=== PATIENT | female | born 1945 | race Caucasian/White ===

== ENCOUNTER 2023-01-01 07:24 | Outpatient (OUT) | payer MEDICARE, OTHER, SELFPAY ==
[2023-01-01 07:37] LABS: Basophils Percent Auto 0.6 % (0.2-2.0); Eosinophils Absolute Auto 0.3 10^3/uL (0.0-0.7); Eosinophils Percent Auto 3.7 % (0.9-7.0); Hematocrit 45.2 % (36.0-48.0); Hemoglobin 15.4 g/dL (12.0-16.0); Immature Granulocytes Abs Auto 0.02 10^3/uL (0.00-0.03); Immature Granulocytes Pct Auto 0.3 % (0.0-0.5); Lymphocytes Absolute Auto 2.8 10^3/uL (1.2-3.8); Lymphocytes Percent Auto 41.1 % (20.5-60.0); Mean Corpuscular HGB Conc 34.1 g/dL (29.9-35.2); Mean Corpuscular Volume 90.9 fL (81.0-99.0); Mean Platelet Volume 9.8 fL (9.5-13.5); Monocytes Absolute Auto 0.7 10^3/uL (0.3-0.8); Monocytes Percent Auto 10.9 % (1.7-12.0); Neutrophils Percent Auto 43.4 % (43.0-75.0); Platelet Count 261 10^3/uL (150-450); Red Blood Count 4.97 10^6/uL (4.20-5.40); Red Cell Distribution Width 12.7 % (11.0-15.0); White Blood Count 6.8 10^3/uL (4.0-11.0)
[2023-01-01 08:44] LABS: Alanine Aminotransferase 37 U/L (14-59); Anion Gap 9.8; BUN Creatinine Ratio 17.3; Calcium 8.9 mg/dL (8.5-10.1); Carbon Dioxide 27.8 mmol/L (21.0-32.0); Chloride 104 mmol/L (98-107); Chol HDL Ratio 3.3; Cholesterol 191 mg/dL (<=200); Estimated GFR (African America >60 (>=60); Estimated GFR (Non-African Ame >60 (>=60); Glucose 107 mg/dL (74-106); HDL Cholesterol 58 mg/dL (40-60); Potassium 3.6 mmol/L (3.5-5.1); Sodium 138 mmol/L (136-145); Triglycerides 204 mg/dL (<=150); VLDL CHOLESTEROL 40.8 mg/dL
== END 2023-01-01 07:25 | disposition home or self-care (01) ==
LOC: LAB 07:24
PROVIDERS: PCP Internal Medicine; Visit Provider Internal Medicine
DX: E78.00 Pure hypercholesterolemia, unspecified (principal); I25.10 Atherosclerotic heart disease of native coronary artery without angina pectoris; I10 Essential (primary) hypertension; Z79.899 Other long term (current) drug therapy
CPT/HCPCS: 36415; 80048; 80061; 84460; 85025

== ENCOUNTER 2023-02-18 10:59 | Outpatient (OUT) | payer MEDICARE, OTHER, SELFPAY ==
--- NOTE | 2023-02-18 10:45 | NM_ITS ---
Patient: GIANA ISAACS Exam Date: 02/18/2023 : 1945 Gender:F Ordering : DR Jameson Reed D.O. Admission #: [id number] Family : Order #: [id number] CLICK HERE TO VIEW EXAM RADIOLOGY REPORT PROCEDURE: NM NARENDRA PERF SPECT REST STR COMPARISON: None. INDICATIONS: CHEST PAIN, DYSPNEA ON EXERTION TECHNIQUE: Exam Description: Stress/Rest one day protocol gated SPECT Rest Imagin.8 mCi Tc-99m Cardiolite IV on 02/18/2023 Stress Imaging 30.2 mCi Tc-99m Cardiolite IV on 02/18/2023 Exercise Protocol: 0.4 mg Lexiscan given IV Heart Rate (bpm): Rest: 65 Max: 82 PMHR: 58 Blood Pressure: Rest: 190/102 Max: 190/102 Symptoms: Rest and peak stress ECG findings were normal and the exercise portion of the study was normal per attending physician Dr. Ruperto Reed . For more details please see separate cardiac stress test report. FINDINGS: QUALITY OF STUDY: Excellent. PERFUSION DEFECT: None. LOCATION: N/A SIZE: N/A. SEVERITY: N/A. TYPE: N/A. WALL MOTION: Normal. LV SIZE: Normal. 66 mL. TID / TCD: None; 0.9 LVEF: Normal. Calculated EF 83%. SUMMARY: Myocardial perfusion imaging study is NORMAL. CONCLUSION: 1. Normal nuclear medicine myocardial perfusion scan. Dictated by: Lorenzo Dodson M.D. on 02/18/2023 at 15:01 Approved by: Lorenzo Dodson M.D. on 02/18/2023 at 15:25
[2023-02-18] MEDS: REGADENOSON 0.4 MG/5 ML SYRINGE IV (11:32)
--- NOTE | 2023-02-18 13:18 | PM.STRESS ---
Stress Test Stress Test Requesting physician: Jameson Reed Procedure: stress test General Information: Reason for Stress Test: [evaluation of a patient with known coronary disease and substernal chest pain] Cardiac History and Risk Factors: [this is a 77-year-old female patient with known coronary disease. Associated risk factors include essential hypertension and hyperlipidemia.] Resting 12 - Lead Electrocardiogram: Resting 12-lead cardiogram reveals a sinus rhythm with a ventricular rate of 62 bpm. She has a prolonged HI interval of 0.28, QRS is 0.088 QT 0.44. There is QS deformity in leads V1 through V2 suggestive of remote ANTERIOR septal wall myocardial infarction. There is nonspecific ST-T wave changes. Stress Test: Protocol: [Lexiscan protocol] Exercise Capacity: [not applicable] Blood Pressure Response: [patient's blood pressure decreased with an increase in heart rate which is appropriate for Lexiscan infusion.] Rhythm: [the patient remained in sinus rhythm during infusion] ST - Response: [there is no ST-T wave changes during infusion] Patient Response: [ppatient denied chest pain during infusion] Interpretation: There was no objective evidence of myocardial ischemia during infusion. Cardiolite was injected with images in interpretation pending
== END 2023-02-18 11:00 | disposition home or self-care (01) ==
LOC: NM 10:59
PROVIDERS: PCP Internal Medicine; Visit Provider Internal Medicine
DX: R07.2 Precordial pain (principal); I25.10 Atherosclerotic heart disease of native coronary artery without angina pectoris
CPT/HCPCS: 78452; 93017; A9500; J2785

== ENCOUNTER 2023-03-29 09:51 | Outpatient (OUT) | payer MEDICARE, OTHER, SELFPAY ==
--- NOTE | 2023-03-29 | MM_ITS ---
Patient: GIANA ISAACS Exam Date: 03/29/2023 : 1945 Gender:F Ordering : DR Jameson Reed D.O. Admission #: [id number] Family : Order #: [id number] CLICK HERE TO VIEW EXAM RADIOLOGY REPORT PROCEDURE: MM TOMOSYNTHESIS SCREENING BI COMPARISON: MG MAMM SCREEN 3D ADELITA CAD, 03/26/2022. MG MAMM SCREEN 3D ADELITA CAD, 08/27/2020. MG MAMM SCREEN ADELITA W CAD, 05/16/2019. MG MAMM ADELITA SCRN W CAD DIG, 08/18/2013. INDICATIONS: Adelita Screening Mammogram Calculator Name NCI Breast Cancer Risk Assessment Tool 5 Year Breast Cancer Risk 1.50% Lifetime Breast Cancer Risk 2.50% Personal Breast Cancer No Personal Ovarian Cancer No Treatments None Family Cancers None LOCATION: [facility] BREAST COMPOSITION: Scattered areas fibroglandular density. FINDINGS: DIAGNOSTIC CATEGORY 2--BENIGN FINDING: RIGHT BREAST: No significant suspicious finding. Scattered benign-appearing calcifications are present. No significant change has occurred. LEFT BREAST: No significant suspicious finding. Scattered benign-appearing calcifications are present. No significant change has occurred. RECOMMENDATIONS: ROUTINE MAMMOGRAM AND CLINICAL EVALUATION IN 12 MONTHS. PLEASE NOTE: A NORMAL MAMMOGRAM DOES NOT EXCLUDE THE POSSIBILITY OF BREAST CANCER. A CLINICALLY SUSPICIOUS PALPABLE LUMP SHOULD BE BIOPSIED. Dictated by: Lorenzo Dodson M.D. on 03/29/2023 at 15:24 Approved by: Lorenzo Dodson M.D. on 03/29/2023 at 15:29
== END 2023-03-29 09:52 | disposition home or self-care (01) ==
LOC: MAMMO 09:51
PROVIDERS: PCP Internal Medicine; Visit Provider Internal Medicine
DX: Z12.31 Encounter for screening mammogram for malignant neoplasm of breast (principal)
CPT/HCPCS: 77063; 77067

== ENCOUNTER 2024-01-26 07:06 | Outpatient (OUT) | payer MEDICARE, OTHER, SELFPAY ==
--- OUTSIDE RECORDS SUMMARY | 2024-01-26 07:10 | XMS_ITS | CCD ---
Author Organization [facility] Care Team Providers Care Dispatcher Relay Name Role Phone PHYSICIAN, DEFAULT Admitting Unavailable PHYSICIAN, DEFAULT Attending Unavailable Jameson Reed DO Primary Care Provider [phone] [facility] H[facility]IARD Referring Unavailab le JAMESON REED Primary Care Unavailable ARMINDA, MERCY HERNANDES Referring Unavailab le JAMESON REED Primary Care Unavailable JAMESON REED Primary Care Physician KEERTHI, DR FABIAN Primary Care Unavailable BALL, DR FABIAN Admitting Unavailable BALL, DR FABIAN Attending Unavailable BALL, DR FABIAN Consulting Unavailable WEST, DR VITOR Lloyd Consulting Unavailable Zieber, DR Ventura Consulting Unavailable LUE ., RAVIN Veloz Attending Unavailable LUE ., RAVIN Veloz Admitting Unavailable BALL, DR FABIAN Primary Care Unavailable LUE ., RAVIN Veloz Consulting Unavailable BALL, DR FABIAN Consulting Unavailable BALL, DR FABIAN Primary Care Unavailable BALL, DR FABIAN Admitting Unavailable BALL, DR FABIAN Attending Unavailable Zieber, DR Ventura Consulting Unavailable BALL, DR FABIAN Primary Care Unavailable REQUEST, DR MELCHOR LISTED Attending Unavaila ble REQUEST, DR MELCHOR LISTED Consulting Unavaila ble REQUEST, DR MELCHOR LISTED Admitting Unavaila ble Jameson Reed Unavailable RHEA BUSBY Attending Unavailable Hilliard, Mercy Serrano Admitting Unavailable Hilliard, Mercy Serrano Attending Unavailable Hilliard, Mercy Serrano Referring Unavailable Hilliard, Mercy T Referring Unavailable Hilliard, Mercy Maggie Admitting Unavailable Hilliard, Mercy Serrano Attending Unavailable Jameson Reed MD Primary Care Provider CAITY CEBALLOS Attending Unavailable HILLIARD, MERCY Serrano Referring Unavailable KELTYRELL, CAITY Attending Unavailable HILLIARD, MERCY T Referring Unavailable HILLIARD, MERCY T Attending Unavailable HILLIARD, MERCY T Referring Unavailable KELBLEY, CAITY Attending Unavailable HILLIARD, MERCY T Referring Unavailable KELBLEY, CAITY Attending Unavailable HILLIARD, MERCY T Referring Unavailable KELBLEY, CAITY Attending Unavailable HILLIARD, MERCY T Referring Unavailable KELBLEY, CAITY Attending Unavailable HILLIARD, MERCY T Referring Unavailable KELBLEY, CAITY Attending Unavailable HILLIARD, MERCY T Referring Unavailable KELBLEY, CAITY Attending Unavailable HILLIARD, MERCY T Referring Unavailable KELBLEY, CAITY Attending Unavailable HILLIARD, MERCY T Referring Unavailable KELBLEY, CAITY Attending Unavailable HILLIARD, MERCY T Referring Unavailable KELBLEY, CAITY Attending Unavailable HILLIARD, MERCY T Referring Unavailable KELBLEY, CAITY Attending Unavailable HILLIARD, MERCY T Referring Unavailable BLACKSTON, CORTNEY T Attending Unavailable HILLIARD, MERCY T Referring Unavailable FLOWERS SUSIE Lisa Attending Unavailable HILLIARD, MERCY T Referring Unavailable KELBLEY, CAITY Attending Unavailable HILLIARD, MERCY T Referring Unavailable KELBLEY, CAITY Attending Unavailable HILLIARD, MERCY T Referring Unavailable KELBLEY, CAITY Attending Unavailable HILLIARD, MERCY T Referring Unavailable KELBLEY, CAITY Attending Unavailable HILLIARD, MERCY T Referring Unavailable KELBLEY, CAITY Attending Unavailable HILLIARD, MERCY T Referring Unavailable HILLIARD, MERCY T Referring Unavailable HILLIARD, MERCY T Attending Unavailable HILLIARD, MERCY T Referring Unavailable Allergies Allergy Classification Reported Allergen(s) Allergy Type Date of Onset Reaction(s) Facility (3 sources) Amoxicillin / Clavulanate; Translations: [amoxicillin-cl avulanate] Drug Allergy Diarrhea (finding) [facility] (1 source) Amoxicillin / Clavulanate Drug Allergy [facility] (5 sources) Lisinopril Drug Allergy Unknown [facility] Other (1 source) No Known Medication Allergies; Translations: [No Known Medication Allergies] Propensity to adverse reactions (disorder) [facility]ository (4 sources) Amoxicillin-Pot Clavulanate Drug Allergy 3 Diarrhea [facility] Medications Current Medications Medication Drug Class(es) Dates Sig (Normalized) Sig (Original) amLODIPine 5 mg oral tablet (12 sources) Dihydropyridine Calcium Channel Twyla Start: 12-28-2023 take 5 mg by mouth twice daily Amlodipine Active 5 MG PO Twice daily December 28, 2023 12:00am Start: 01-10-2019 take 1 tablet by nikita th in the morning amLODIPine (Norvasc) 5 MG tablet Take 5 mg by mouth in the morning and 5 mg before bedtime. 0 04/09/2023 Active aspirin 81 mg oral tablet (2 sources) Platelet Aggregation Inhibitor, Nonsteroidal Anti-inflammatory Drug Start: 10-14-2020 take 81 mg by mouth once daily aspirin 81 mg, Oral, Daily, Prophylaxis Start Date: 10/14/20 Status: Ordered calcium carbonate 1500 mg / cholecalciferol 800 unt chewable tablet (2 sources) Vitamin D Start: 01-10-2019 take 1 tablet by mouth once daily calcium (as carbonate)-vitam in D 600 mg-800 intl units oral tablet, chewable 1 tab(s), Oral, Daily, Prophylaxis Start Date: 01/10/19 Status: Ordered carvedilol 25 mg oral tablet (12 sources) alpha-Adrenergic Twyla, beta-Adrenergic Twyla Start: 12-28-2023 take 25 mg by mouth twice daily Carvedilol Active 25 MG PO Twice daily December 28, 2023 12:00am Start: 01-10-2019 carvedilol (Co reg) 25 MG tablet Celebrate Multivitamin (2 sources) Start: 01-10-2019 take 1 capsule by mouth once daily Celebrate Multivitamin 1 cap, Oral, Daily, Prophylaxis Start Date: 01/10/19 Status: Ordered cephalexin 500 mg oral capsule (4 sources) Cephalosporin Antibacterial Start: 03-01-2023 cephalexin (Keflex) 500 MG capsule Indications: Presence of left artificial knee joint Take two caps evening prior to appointment, take two cap one hour prior to appointment 4 capsule 2 03/01/2023 Active furosemide 20 mg oral tablet (13 sources) Loop Diuretic Start: 09-27-2023 take 1 tablet by mouth once daily Furosemide Active 0 .ROUTE .COMPLEX 90 September 27, 2023 10:06pm TAKE 1 TABLET BY MOUTH EVERY DAY Start: 09-27-2023 End: 09-27-2023 take 20 mg by mouth once daily Furosemide Discontinued 20 MG PO Daily September 27, 2023 12:00am September 27, 2023 10:06pm Start: 01-10-2019 furosemide (La six) 20 MG tablet potassium chloride 10 meq extended release oral tablet (12 sources) Start: 12-28-2023 take 10 mEq by mouth once daily Potassium Chloride Active 10 MEQ PO Daily December 28, 2023 12:00am Start: 10-17-2020 take 1 tablet by nikita th in the morning potassium chloride CR (Klor-Con) 10 MEQ ER tablet Take 10 mEq by mouth in the morning. 0 03/04/2023 Active take 1 tablet by nikita th every twelve hours Potassium Chloride ER 10 MEQ 1 tablet with food Orally Twice a day Active pravastatin sodium 40 mg oral tablet (9 sources) HMG-CoA Reductase Inhibitor Start: 10-21-2023 take 1 tablet by mouth in the evening Pravastatin Active 0 .ROUTE .COMPLEX 90 October 21, 2023 3:45pm TAKE 1 TABLET BY MOUTH IN THE EVENING Start: 10-21-2023 End: 10-21-2023 take 40 mg by mouth once daily in the evening Pravastatin Discontinued 40 MG PO Every evening October 21, 2023 12:00am October 21, 2023 3:47pm Start: 01-10-2019 take 40 mg by mouth once daily pravastatin 40 mg, Oral, Daily, High cholesterol Start Date: 01/10/19 Status: Ordered telmisartan 80 mg oral tablet (12 sources) Angiotensin 2 Receptor Twyla Start: 07-24-2023 take 80 mg by mouth once daily Telmisartan Active 80 MG PO Daily July 24, 2023 1:00am Start: 01-10-2019 take 1 tablet by nikita th in the morning telmisartan (MIcarDIS) 80 MG tablet Take 80 mg by mouth in the morning. 0 02/11/2023 Active Completed/Discontinued Medications Medication Drug Class(es) Dates Sig (Normalized) Sig (Original) ALPRAZolam 0.25 mg oral tablet (6 sources) Benzodiazepine Start: 12-28-2023 End: 12-28-2023 take 0.25 mg by mouth once daily Alprazolam Discontinued 0.25 MG PO Daily December 28, 2023 12:00am December 28, 2023 10:54am ALPRAZolam 0.25 MG 1 tablet Orally ONE DAILY, NEEDED Active azithromycin 250 mg oral tablet (5 sources) Macrolide Antimicrobial Start: 06-18-2022 Azithromycin 250 MG as directed Orally May, Not-Taking/PRN Problems Active Problems Problem Classification Problem Date Documented Da te Episodic/Chronic Abdominal pain (5 sources) Generalized abdominal pain; Translations: [Generalized abdominal pain] Episodic Acute bronchitis (5 sources) Acute bronchitis; Translations: [Acute bronchitis due to other specified organisms] Episodic Acute myocardial infarction (2 sources) Myocardial infarction 02-06-2019 Chronic Comment on above: 1989 Anxiety disorders (12 sources) Anxiety disorder; Translations: [Anxiety disorder, unspecified] 12-26-2023 Chronic Biliary tract disease (5 sources) Cholelithiasis without obstruction; Translations: [Calculus of gallbladder without cholecystitis without obstruction] Episodic Calculus of urinary tract (17 sources) Kidney stone; Translations: [Calculus of kidney] Onset: 2 Episodic Chronic obstructive pulmonary disease and bronchiectasis (5 sources) Simple chronic bronchitis; Translations: [Simple chronic bronchitis] Chronic Coronary atherosclerosis and other heart disease (10 sources) Old myocardial infarction; Translations: [Coronary arteriosclerosis] 01-10-2019 Chronic Disorders of lipid metabolism (20 sources) Hypercholesterolemia; Translations: [Familial hypercholesterolemia] Onset: 0 01-10-2019 Chronic Esophageal disorders (2 sources) Gastroesophageal reflux disease 01-10-2019 Chronic Essential hypertension (17 sources) Hypertensive disorder; Translations: [Essential hypertension] 02-06-2019 Chronic Gastrointestinal hemorrhage (7 sources) Peptic ulcer with hemorrhage; Translations: [Chronic duodenal ulcer with hemorrhage] Onset: 7 01-10-2019 Chronic Genitourinary symptoms and ill-defined conditions (19 sources) Swapnil hematuria; Translations: [Microscopic hematuria] Onset: 3 03-21-2020 Episodic Immunizations and screening for infectious disease (5 sources) Vaccination given; Translations: [Encounter for immunization] Episodic Menopausal disorders (5 sources) Primary ovarian failure; Translations: [Other 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: 6 Chronic Osteoarthritis (19 sources) Osteoarthritis of knee; Translations: [Idiopathic osteoarthritis] 01-10-2019 Chronic Other aftercare (2 sources) Patient encounter status; Translations: [Aftercare following joint replacement surgery] 07-08-2023 Chronic Other and unspecified benign neoplasm (3 sources) Benign neoplasm of female genital organ; Translations: [Benign neoplasm of other specified female genital organs] Onset: 2 Episodic Other and unspecified benign neoplasm (5 sources) Benign neoplasm of colon; Translations: [Benign neoplasm of colon, unspecified] Episodic Other circulatory disease (5 sources) Cardiovascular symptoms; Translations: [Other specified symptoms and signs involving the circulatory and respiratory systems] Episodic Other connective tissue disease (1 source) History of left total knee replacement; Translations: [Presence of left artificial knee joint] Chronic Other connective tissue disease (2 sources) Artificial knee joint present; Translations: [Presence of right artificial knee joint] 07-08-2023 Chronic Other diseases of veins and lymphatics (5 sources) Peripheral venous insufficiency; Translations: [Venous insufficiency (chronic) (peripheral)] Episodic Other diseases of veins and lymphatics (2 sources) Venous insufficiency (chronic) (peripheral); Translations: [Venous (peripheral) insufficiency, unspecified] Episodic Other diseases of veins and lymphatics (1 source) Venous insufficiency of leg; Translations: [Venous insufficiency (chronic) (peripheral)] 12-26-2023 Episodic Other gastrointestinal disorders (5 sources) H/O: gastrointestinal disease; Translations: [Personal history of other diseases of the digestive system] Episodic Other injuries and conditions due to external causes (5 sources) History of fall; Translations: [History of falling] Episodic Other nervous system disorders (2 sources) Difficulty walking; Translations: [Difficulty in walking, not elsewhere classified] 07-08-2023 Chronic Other non-traumatic joint disorders (2 sources) Pain in right knee; Translations: [Pain in joint, lower leg] 07-08-2023 Episodic Other nutritional; endocrine; and metabolic disorders (2 sources) Body mass index 30+ - obesity 12-29-2019 Chronic Other nutritional; endocrine; and metabolic disorders (5 sources) Simple obesity ; Translations: [Other obesity due to excess calories] Onset: 3 Chronic Other screening for suspected conditions (not mental disorders or infectious disease) (5 sources) Encounter for screening mammogram for malignant neoplasm of breast; Translations: [Other screening mammogram] Onset: 2 Episodic Other upper respiratory disease (5 sources) Allergic rhinitis due to pollen; Translations: [Allergic rhinitis due to pollen] Chronic Residual codes; unclassified (5 sources) Postmenopausal state; Translations: [Asymptomatic menopausal state] Episodic Screening and history of mental health and substance abuse codes (2 sources) Ex-smoker 01-29-2020 Episodic Spondylosis; intervertebral disc disorders; other back problems (6 sources) Lumbosacral spondylosis without myelopathy; Translations: [Spondylosis without myelopathy or radiculopathy, lumbar region] 12-26-2023 Chronic Substance-related disorders (5 sources) Tobacco user; Translations: [Nicotine dependence, cigarettes, in remission] Chronic Unclassified (5 sources) Unspecified lump in the right breast, overlapping quadrants; Translations: [Unspecified lump in the right breast, overlapping quadrants] Past or Other Problems Problem Classification Problem Date Documented Date Episodic/Chronic Acute posthemorrhagic anemia (5 sources) Acute posthemorrhagic anemia; Translations: [Acute posthemorrhagic anemia] Onset: 08-31-2016 Episodic Fluid and electrolyte disorders (5 sources) Hypokalemia; Translations: [Hypokalemia] Onset: 08-31-2016 Episodic Gastritis and duodenitis (5 sources) Acute gastritis; Translations: [Acute gastritis without bleeding] Onset: 08-31-2016 Episodic Nonspecific chest pain (5 sources) Chest pain; Translations: [Chest pain, unspecified] Onset: 11-21-2018 Episodic Other bone disease and musculoskeletal deformities (1 source) Other specified disorders of bone density and structure, unspecified site; Translations: [OTH D/O BONE DEN STRUCT UNS SITE] Onset: 09-01-2021 Episodic Other non-traumatic joint disorders (5 sources) Arthralgia of the lower leg; Translations: [Pain in right knee] Onset: 10-04-2015 Episodic Other upper respiratory infections (10 sources) Acute sinusitis; Translations: [Acute sinusitis, unspecified] Onset: 05-17-2015 Episodic Residual codes; unclassified (4 sources) Asymptomatic menopausal state; Translations: [ASYMPTOMATIC MENOPAUSAL STATE] Onset: 08-28-2021 Episodic Spondylosis; intervertebral disc disorders; other back problems (5 sources) Low back pain; Translations: [Low back pain, unspecified] Onset: 01-25-2017 Episodic Sprains and strains (10 sources) Strain of other muscle(s) and tendon(s) of posterior muscle group at lower leg level, right leg, initial encounter; Translations: [Neck sprain] Onset: 10-04-2015 Episodic Superficial injury; contusion (5 sources) Contusion of right upper arm; Translations: [Contusion of right upper arm, initial encounter] Onset: 09-28-2016 Episodic Urinary tract infections (5 sources) Cystitis; Translations: [Cystitis, unspecified without hematuria] Onset: 01-27-2013 Episodic Results Test Name Value Interpretation Reference Range Facility Operative Reporton Operative Report SURGERY DATE: 05/03/2023 PREOPERATIVE DIAGNOSIS: Postoperative pain control requested by patient and surgeon POSTOPERATIVE DIAGNOSIS: Postoperative pain control requested by patient and surgeon OPERATION: Right adductor canal block utilizing ultrasound guidance ANESTHESIA: Local with monitored anesthesia care PROCEDURE: The patient was interviewed and examined. The anesthesia options were discussed including adductor canal block for postoperative analgesia. The discussion included the procedure, risks and benefits and alternatives to the procedure. The patient's questions were all answered and the patient elected to proceed with the adduction canal block for postoperative pain relief. The patient was placed on the monitors, electrocardiogram, noninvasive blood pressure machine and pulse oximetry. I.V. sedation was then administered with a total of 1 mg of Versed. The mid thigh was prepped with ChloraPrep and sterilely draped. The anatomy was identified with ultrasound and then under ultrasound guidance, the femoral nerve was identified with a 21 gauge 100 mm needle. After attempted aspiration for blood, a solution of 20 mL of 0.5% ropivacaine was slowly injected with frequent aspirations without signs or symptoms of intravascular injection. The patient tolerated the procedure well. There were signs and symptoms of a block within minutes after completion of the procedure. The patient then proceeded to undergo general anesthesia for the proposed procedure. JOE Jiang Dictated: 05/03/2023 [id number] Transcribed: 05/03/2023 [facility] Comment on above: Result Comment: Elec tronically Signed By: Jose Franco CRNA\.br\Date and Time Signed: 05/10/23 13:14 EST IntraOperative Documentson 1 07-08-2022 IntraOperative Documents [id number]#1.00 TIFF [facility] Consent for Anesthesiaon Consent for Anesthesia [id number]#1.00 TIFF [facility] Discharge Instructionson Discharge Instructions [id number]#1.00 TIFF [facility] IntraOperative Documentson 1 07-05-2022 IntraOperative Documents [id number]#1.00 TIFF [facility] Pre-Op Checkliston 3 Pre-Op Checklist [id number]#1.00 TIFF [facility] Progress Note-Physicianon Progress Note-Physician Patient: GIANA ISAACS Age: 77 years Sex: Female : 1945 Associated Diagnoses: None Author: Sabas Marquez Jr, DO Preoperative Information Anesthesia Preop Info: Time patient last ate or drank 05/03/2023 00:00:00. Anesthesia history: Patient history: None. Family history+: None. Informed consent: Signed by patient. Re-evaluation prior to induction: Initial evaluation reviewed: No significant change. Review of Systems Eye: Negative except as documented in history of present illness. Ear/Nose/Mouth/Throat: Negative except as documented in history of present illness. Respiratory: Negative except as documented in history of present illness. Cardiovascular: Negative except as documented in history of present illness. Musculoskeletal: Negative except as documented in history of present illness. Neurologic: Negative except as documented in history of present illness. Health Status Allergies: Allergic Reactions (Selected) Severity Not Documented Augmentin- Diarrhea. Problem list: All Problems Knee osteoarthritis / SNOMED CT 770716187 / Confirmed Microhematuria / SNOMED CT 296855853 / Confirmed Kidney stones / SNOMED CT 815495703 / Confirmed Hypertension / SNOMED CT 0875799385 / Confirmed Hypercholesterolemia / SNOMED CT 13688335 / Confirmed Acid reflux disease / SNOMED CT 939595803 / Confirmed Gross hematuria / SNOMED CT 411472317 / Confirmed Former smoker / SNOMED CT 53421808 / Confirmed BMI 32.0-32.9,adult / SNOMED CT 469973314 / Confirmed Leiomyoma / SNOMED CT 679414303 / Confirmed Resolved: Bleeding ulcer / SNOMED CT 139142398 Resolved: IA, old / SNOMED CT 0296249 Resolved: Myocardial infarction / SNOMED CT 30103630 1988 Resolved: HTN (hypertension) / SNOMED CT 4044699236 Resolved: Hypercholesterolemia / SNOMED CT 45644713 Resolved: At risk for falls / SNOMED CT 119603670 Problem added when Risk for Falls Careplan was initiated. Resolved due to patient discharge. Histories Procedure history: RT ESWL ([id number]) on 03/26/2021 at 75 Years. Cysto/Transurethral resection of urethral polyp ([id number]) on 03/26/2021 at 75 Years. Cystourethroscopy with dilation of urethral stricture (741025052) on 10/17/2020 at 75 Years. Total knee arthroplasty ([id number]) on 02/06/2019 at 73 Years. Hysterectomy ([id number]). Colonoscopy (164813250). Social History Social & Psychosocial Habits Alcohol 05/03/2023 Use: Current Type: Beer Frequency: Daily Previous treatment: None 05/03/2023 Use: Current Type: Beer Frequency: Daily Substance Abuse 05/03/2023 Risk Assessment: Denies Substance Abuse Tobacco 05/03/2023 Risk Assessment: Denies Tobacco Use 05/03/2023 Tobacco Use: Former smoker, quit more 05/03/2023 Tobacco Use: Former smoker, quit more 05/03/2023 Tobacco Use: Former smoker, quit more 05/03/2023 Tobacco Use: Former smoker, quit more Smokeless tobacco use: Never . Physical Examination Airway: Mallampati classification: II (soft palate, fauces, uvula visible). Respiratory: adequate air exchange. Cardiovascular: Regular rhythm. Plan [place] [employer] (ASA) physical status classification: Class III. Anesthetic Preoperative Plan: Anesthesia General. Regional Spinal. Normal [facility] Comment on above: Result Comment: Elec tronically Signed By: Sabas Marquez Jr, DO\.br\Date and Time Signed: 05/04/23 11:37 EST Progress Note-Physician Patient: GIANA ISAACS Age: 77 years Sex: Female : 1945 Associated Diagnoses: None Author: Sabas Marquez Jr, DO Postoperative Information Postoperative disposition: Postoperative disposition: To PACU. Optimetrix number: Optimetrix number [id number]. Anesthetic utilized: General. Regional: Spinal. Health Status Allergies: Allergic Reactions (Selected) Severity Not Documented Augmentin- Diarrhea. Physical Examination Vital Signs 05/03/2023 15:32 EST Heart Rate Monitored 72 bpm SpO2 94 % 05/03/2023 15:31 EST Respiratory Rate 16 br/min 05/03/2023 15:31 EST Systolic Blood Pressure 129 mmHg Diastolic Blood Pressure 76 mmHg Blood Pressure Location Right arm Mean Arterial Pressure, Monitered 94 mmHg 05/03/2023 15:31 EST Temperature Temporal Artery 36.6 DegC Mean Arterial Pressure, Cuff 94 mmHg 05/03/2023 11:29 EST Heart Rate Monitored 63 bpm Respiratory Rate Monitored 18 br/min Systolic Blood Pressure 110 mmHg Diastolic Blood Pressure 60 mmHg SpO2 96 % 05/03/2023 11:11 EST Temperature Temporal Artery 36.5 DegC Heart Rate Monitored 60 bpm Respiratory Rate Monitored 16 br/min Systolic Blood Pressure 110 mmHg Diastolic Blood Pressure 61 mmHg Mean Arterial Pressure, Cuff 77 mmHg SpO2 94 % Pain Assessment: Controlled. General: Awake, Alert, Appropriate. Respiratory: Adequate air exchange. Cardiovascular: Stable, Normal peripheral perfusion. Neurological: Normal sensory function, Normal motor function. Assessment Anesthetic outcome No anesthetic complications noted. Adequate pain relief. able to void without difficulty, able to ambulate with assist, tolerating PO intake, no N/V. Review / Management Condition: Stable. Plan Transfer/Discharge: Transfer/Discharge Discharge when meets criteria ( To home ). Normal [facility] Comment on above: Result Comment: Elec tronically Signed By: Sabas Marquez Jr, DO\.br\Date and Time Signed: 05/04/23 11:37 EST ABO/Rhon 05-03-2023 ABO/Rh Positive Invalid Interpretation Code [facility] Comment on above: Performed By: #### [id number] #### [facility] [address] [place] [address] ABO/Rh History Checkon 05-03 ABO/Rh History Check Verified Hx Blood Type Normal [facility] Comment on above: Performed By: #### [id number] #### [facility] [address] [place] [address] ABSCon 05-03-2023 ABSC Gel Interp Negative Normal [facility] Comment on above: Performed By: #### [id number] #### [facility] [address] [place] [address] Blood Bank ID#[id number] 05-03-2023 BBID# [id number] Invalid Interpretation Code [facility] Comment on above: Performed By: #### 2 [id number] #### [facility] [address] [place] [address] Consent for Procedure/Surger yon 05-03-2023 Consent for Procedure/Surgery [id number] TIFF Normal [facility] Consent for Treatmenton Consent for Treatment [id number] IFF Normal [facility] Discharge Instructionson Discharge Instructions GIANA ISAACS :1945 Visit Date:05/03/2023 Inpatient Discharge Instructions Your Care Team Admitting Physician Mercy Villanueva DO Referring Physician - Arminda RIOJAS, Mercy Serrano Reason for Your Visit RIGHT KNEE OA Procedure History Cystoscopy (03/26/2021), ESWL of kidney (03/26/2021), Cystourethroscopy with dilation of urethral stricture (10/17/2020), Total knee arthroplasty (02/06/2019), Colonoscopy, Hysterectomy. Discharge Vitals Temperature (Axillary) 36.4 ?C Heart Rate (Monitored) 62 Respiratory Rate 16 Blood Pressure 103/60 What to do next Instructions From Your Doctor Event Name Event Result Discharge Activity Ambulate as tolerated, Arrange for a responsible adult supervision for 24 hours, Expect mild pain, Expect minimal amount of drainage and/or bleeding, Do not lift more than 5 lbs Discharge Restrictions No driving, Do not operate machinery or tools, Do not make important decisions for 24 hours, Do not drink alcoholic beverages for 24 hours Discharge Diet(s) Regular, Drink liquids and eat a light meal Call Your Doctor For Persistent or heavy bleeding, Temperature above 101.5 degrees, Redness, swelling, or pus at operative site, Severe pain at the operative site, Persistent vomiting Wound Care Remove dressing as instructed Remove Dressing On 10 Discharge Instructions Discharge Instructions New Follow Up Appointments after Discharge Follow Up with VALERY Negro When: 06/03/2023 02:00 PM EST Comments: Keep scheduled appointment. Call for any problems. Where: [address] [place] [address]- [facility] (1) Medications What How Much When Why Instructions Next Dose Unchanged acetaminophen-oxycodone (Percocet 5 mg-325 mg oral tablet) See instructions Localized osteoarthritis of right knee Take one to two oral as needed for knee surgical pain. Pickup at [facility]/pharmacy #[id number] Unchanged amlodipine 5 Milligram By Mouth 2 times a day Unchanged aspirin 81 Milligram By Mouth Every day Unchanged aspirin (aspirin 325 mg Tab) 1 Tablets By Mouth Every day Duration: 30 Days Start the day after knee surgery Pickup at [facility]/pharmacy #6177 Unchanged calcium-vitamin D (calcium (as carbonate)-vitamin D 600 mg-800 intl units oral tablet, chewable) 1 Tablets By Mouth Every day Unchanged carvedilol 25 Milligram By Mouth 2 times a day Unchanged clindamycin (clindamycin 300 mg oral cap) 1 Capsules By Mouth Every 8 hours Duration: 5 Days Start the day after surgery Pickup at [facility]/pharmacy #6177 Unchanged docusate (Colace 100 mg Cap) 1 Capsules By Mouth 2 times a day [facility] Unchanged furosemide (furosemide 20 mg Tab) 1 Tablets By Mouth Every day Unchanged multivitamin with minerals (Celebrate Multivitamin) 1 cap By Mouth Every day Unchanged potassium chloride (Klor Con 10 mEq Cap-ER) 1 Tablets By Mouth Every day Unchanged pravastatin 40 Milligram By Mouth Every day Unchanged telmisartan 80 Milligram By Mouth Every day Pharmacy Information [facility]/pharmacy #[id number]: [address], [place] [id number] [phone] Allergies Augmentin (Diarrhea) Devices Implanted/Removed This Visit Notice: You have devices implanted this visit that may not be MRI compatible. Implanted KNEE TOTAL ARTHROPLASTY Knee R CEMENT SIMPLEX PLAIN VISCOSITY HIGH [[id number]] (2), 05/03/2023, Unknown - EVELYNE: {[id number]{10}[id number] OVAL DOME PATELLA 3-PEG 05/03/2023 P.F.C. SIGMA TIBIAL INSERT FIXED BEARING STABILIZED 05/03/2023 P.F.C. SIGMA TIBIAL TRAY FIXED BEARING MODULAR COCR 05/03/2023 SIGMA FEMORAL POSTERIOR STABILIZED CEMENTED 05/03/2023 Education Materials How to Use an Incentive Spirometer An incentive spirometer is a tool that measures how well you are filling your lungs with each breath. Learning to take long, deep breaths using this tool can help you keep your lungs clear and active. This may help to reverse or lessen your chance of developing breathing (pulmonary) problems, especially infection. You may be asked to use a spirometer: ? After a surgery. ? If you have a lung problem or a history of smoking. ? After a long period of time when you have been unable to move or be active. If the spirometer includes an indicator to show the highest number that you have reached, your health care provider or respiratory therapist will help you set a goal. Keep a log of your progress as told by your health care provider. What are the risks? ? Breathing too quickly may cause dizziness or cause you to pass out. Take your time so you do not get dizzy or light-headed. ? If you are in pain, you may need to take pain medicine before doing incentive spirometry. It is harder to take a deep breath if you are having pain. How to use your incentive spirometer 1. Sit up on the edge of your bed or on a chair. 2. Hold the incentive spirometer so t (more content not included)... Normal [facility] Comment on above: Result Comment: Elec tronically Signed By: Junaid KHAN, Ignacia Edmonds\.br\Date and Time Signed: 05/03/23 11:13 EST H&P Updateon 05-03-2023 H&P Update [id number] TIFF Normal [facility] Main OR Intraoperative Recor don 05-03-2023 Main OR Intraoperative Record IntraOp Document Type FT Summary Primary Physician: Mercy Hilliard DO Finalized Date/Time: 05/03/23 12:19:46 Pt. Name: GIANA ISAACS/Sex: 1945 Female Med Rec #: [id number] Physician: Mercy Hilliard DO Financial #: [id number] Pt. Type: A Room/Bed: Admit/Disch: 05/03/23 06:48:16 - Institution: Case Times FT Entry 1 Patient Times In Room 05/03/23 09:28:00 Out Room 05/03/23 10:45:00 Procedure Times Start 05/03/23 09:53:00 Stop 05/03/23 10:40:00 Anesthesia Times Start 05/03/23 09:28:00 Stop 05/03/23 10:45:00 Block Timeout w/ 05/03/23 08:43:00 Anesthesia Last Modified By: Jeromy Watson Ii 05/03/23 10:49:37 General Comments: RIGHT KNEE BLOCK DONE BY JOSE FRANCO CRNA AND MISSAEL MERCER RN AT 0843. PATIENT VITAL SIGNS HR OF 66 BPM AND SP02 OF 93%. -BILL GALVEZ SPINAL BLOCK PERFORMED BY JOSE FRANCO CRNA AT 0932. -BILL GALVEZ 05/03/23 Chart opened to review and send charges [facility] Case Attendance FT Entry 1 Entry 2 Entry 3 Case Attendee Khadar DIAZ, Jose Hilliard DO, Sanjuanita Novak CST Role Performed GOLF TECHNICIAN Surgeon - Primary GEOGRAPHIC INFORMATION SYSTEM ANALYST/SA Time In 05/03/23 09:28:00 05/03/23 09:50:00 05/03/23 09:28:00 Time Out 05/03/23 10:45:00 05/03/23 10:40:00 05/03/23 10:45:00 Procedure KNEE TOTAL KNEE TOTAL KNEE TOTAL ARTHROPLASTY(Right) ARTHROPLASTY(Right) ARTHROPLASTY(Right) Comments DR. MARQUEZ SUPERVISING Last Modified By: Jeromy Watson Ii, Alfons Ii F Letrondo, Alfons Ii F 05/03/23 10:50:34 05/03/23 10:50:34 05/03/23 10:50:34 Entry 4 Entry 5 Entry 6 Case Attendee Jeromy Watson Ii, Alejandro X Troike, Kendall R Role Performed Data Analysis Manager - Primary Staff - Other Staff - Other Time In 05/03/23 09:28:00 05/03/23 09:28:00 05/03/23 09:28:00 Time Out 05/03/23 10:45:00 05/03/23 10:45:00 05/03/23 10:45:00 Procedure KNEE TOTAL KNEE TOTAL KNEE TOTAL ARTHROPLASTY(Right) ARTHROPLASTY(Right) ARTHROPLASTY(Right) Comments 2ND SCRUB 3RD SCRUB Last Modified By: Jeromy Watson Ii, Alfons Ii F Letrondo, Alfons Ii F 05/03/23 10:50:34 05/03/23 10:50:34 05/03/23 10:50:34 General Comments: DEMARCO CARNEY - SCRUB PRIMARY -Ronnie CROOKit technical architect Protocols FT Pre-Care Text: Implements protective measures prior to operative or invasive procedure, confirms identity before the operative or invasive procedure, verifies operative procedure, surgical site, and laterality Entry 1 Procedure(s) KNEE TOTAL Patient Identity Birthday, Blood Band, ARTHROPLASTY(Right) Verified (select at ID Band Check, Patient least 2): Participation Consents / H and P Anesthesia Consent, Operative Site Present Verified HandP, Surgery/Procedure Marking Verified Consent, Transfusion Consent Surgical Site Yes Laterality Verified Yes Verified Procedure Verified Yes Correct Patient Yes Position Verified Availability Equipment, Implant, Prep Dry No Verified (If Medication, X-ray Applicable) PreOp Antibiotic Yes Time Out Jose Franco CRNA, Given Participants Mercy Hilliard DO, Wilhelm CST, Sanjuanita Gillis, Jeromy Watson Ii, Konstantin TERRY, Vikas Hein, Ayan Casanova Time Out Complete 05/03/23 09:50:00 Outcomes Met? Yes Last Modified By: Jeromy Watson Ii 05/03/23 09:58:30 Post-Care Text: The patient is free from signs and symptoms of injury caused by extraneous objects Allergy Information FT Pre-Care Text: Verifies allergies Entry 1 Allergies Reviewed? Yes Allergies Reviewed Self/Patient With Outcomes Met? Yes Last Modified By: Jeromy Watson Ii 05/03/23 09:14:06 Post-Care Text: The patient received appropriate medication(s) safely administered during the perioperative period Surgical Procedures FT Entry 1 Procedure Description Procedure KNEE TOTAL ARTHROPLASTY Modifiers Right Surgeon Description RIGHT TOTAL KNEE ARTHROPLASTY Primary Procedure Yes Primary Surgeon Mercy Hilliard DO Start 05/03/23 09:53:00 Stop 05/03/23 10:40:00 Anesthesia Type General Surgical Service Orthopedics Wound Class 1 - Clean Last Modified By: Katja Rees CST 05/03/23 12:17:26 General Case Data FT Pre-Care Text: Classifies surgical wound, implements aseptic technique, initiates traffic control Entry 1 Case Information OR OR 7 FT Case Level Level 6 Wound Class 1 - Clean Specialty Orthopedics ASA Class 3 Preop Diagnosis RIGHT KNEE OA Postop Same As Preop Yes Postop Diagnosis RIGHT KNEE OA Outcomes Met? Yes Last Modified By: Jeromy Watson Ii 05/03/23 10:02:05 Post-Care Text: The patient is free from signs and symptoms of infection Skin Assessment (Pre Procedure) FT Pre-Care Text: Implements protective measures to prevent skin/ tissue injury due to thermal or mechanical sources Evaluates for signs and symptoms of physical injury to skin and tissue Entry 1 Skin Integrity Intact, Turner, Warm, and Skin Abnormality No Dry Outcomes Met? Yes Last M (more content not included)... Normal [facility] Main OR PACU I Recordon Main OR PACU I Record PACU Phase I Document Type FT Summary Primary Physician: Mercy Hilliard DO Finalized Date/Time: 05/03/23 12:37:33 Pt. Name: GIANA ISAACS./Sex: 1945 Female Med Rec #: [id number] Physician: Mercy Hilliard DO Financial #: [id number] Pt. Type: A Room/Bed: Admit/Disch: 05/03/23 06:48:16 - Institution: Case Times PACU I FT Pre-Care Text: Identifies barriers to communication and implements measures to provide psychological support Develops individualized plan of care, and ensures continuity of care Maintains patient's dignity and privacy, and maintains patient confidentiality Identifies and reports philosophical, cultural, and spiritual beliefs and values Identifies individual values and wishes concerning care Implements aseptic technique, and administers prescribed antibiotic therapy and immunizing agents as ordered Evaluates postoperative tissue perfusion Implements thermoregulation measures, and monitors body temperature Evaluates postoperative respiratory status Evaluates postoperative cardiac status Evaluates postoperative neurological status Assesses pain control, collaborated in initiating patient-controlled analgesia and implements alternative methods of pain control Verifies allergies, administers prescribed medications and solutions, evaluates response to medications Entry 1 In PACU I 05/03/23 10:46:00 Discharge from PACU 05/03/23 11:16:00 I Outcomes Met? Yes Last Modified By: Abby Savage I 05/03/23 12:36:38 Post-Care Text: The patient demonstrates knowledge of the expected response to the operative or invasive procedure The patient's care is consistent with the individualized perioperative plan of care The patient's right to privacy is maintained The patient's value system, lifestyle, ethnicity, and culture are considered, respected, and incorporated into the perioperative plan of care The patient participates in decisions affecting his or her perioperative plan of care The patient is free from signs and symptoms of infection The patient has wound/tissue perfusion consistent with or improved from baseline levels established preoperatively The patient is at or returning to normothermia at the conclusion of the immediate postoperative period The patient's respiratory function is consistent with or improved from baseline levels established preoperatively The patient's cardiovascular status is consistent with or improved from baseline levels established preoperatively The patient's cardiovascular status is consistent with or improved from baseline levels established preoperatively The patient demonstrates and/or reports adequate pain control throughout the perioperative period The patient received appropriate medication(s), safely administered during the perioperative period Acuity Level PACU I FT Entry 1 Start Time 05/03/23 10:46:00 Stop Time 05/03/23 11:16:00 Acuity Level Acuity Level I Last Modified By: Abby Savage I 05/03/23 12:37:28 Finalized By: Abby Savage I Document Signatures Signed By: Abby Savage I 05/03/23 12:37 Normal [facility] Main OR PACU II Recordon Main OR PACU II Record PACU Phase II Document Type FT Summary Primary Physician: Mercy Hilliard DO Finalized Date/Time: 05/03/23 15:42:55 Pt. Name: GIANA ISAACS/Sex: 1945 Female Med Rec #: [id number] Physician: Mercy Hilliard DO Financial #: [id number] Pt. Type: A Room/Bed: Admit/Disch: 05/03/23 06:48:16 - Institution: Case Times PACU II FT Pre-Care Text: Identifies barriers to communication and implements measures to provide psychological support and determines knowledge level Develops individualized plan of care, and ensures continuity of care Maintains patient's dignity and privacy, and maintains patient confidentiality Identifies and reports philosophical, cultural, and spiritual beliefs and values Identifies individual values and wishes concerning care administers prescribed antibiotic therapy and immunizing agents as ordered, Evaluates postoperative tissue perfusion Implements thermoregulation measures, and monitors body temperature Evaluates postoperative respiratory status Evaluates postoperative cardiac status Evaluates postoperative neurological status Assesses pain control, collaborated in initiating patient-controlled analgesia and implements alternative methods of pain control Verifies allergies, administers prescribed medications and solutions, evaluates response to medications Entry 1 In PACU II 05/03/23 11:15:00 Discharge from PACU 05/03/23 15:40:00 II Outcomes Met? Yes Last Modified By: Marla Yeh RN 05/03/23 15:42:51 Post-Care Text: The patient demonstrates knowledge of the expected response to the operative or invasive procedure The patient's care is consistent with the individualized perioperative plan of care The patient's right to privacy is maintained The patient's value system, lifestyle, ethnicity, and culture are considered, respected, and incorporated into the perioperative plan of care The patient participates in decisions affecting his or her perioperative plan of care. The patient is free from signs and symptoms of infection The patient has wound/tissue perfusion consistent with or improved from baseline levels established preoperatively The patient is at or returning to normothermia at the conclusion of the immediate postoperative period The patient's respiratory function is consistent with or improved from baseline levels established preoperatively The patient's cardiovascular status is consistent with or improved from baseline levels established preoperatively The patient's neurological status is consistent with or improved from baseline levels established preoperatively The patient demonstrates and/or reports adequate pain control throughout the perioperative period The patient received appropriate medication(s), safely administered during the perioperative period Finalized By: Marla Yeh RN Document Signatures Signed By: Marla Yeh RN 05/03/23 15:42 Normal [facility] Main OR Preoperative Recordo n 05-03-2023 Main OR Preoperative Record PreOp Document Type FT Summary Primary Physician: Mercy Hilliard DO Finalized Date/Time: 05/03/23 09:55:04 Pt. Name: GIANA ISAACS./Sex: 1945 Female Med Rec #: [id number] Physician: Mercy Hilliard DO Financial #: [id number] Pt. Type: A Room/Bed: [place] [address] Admit/Disch: 05/03/23 06:48:16 - Institution: Case Times PreOp FT Pre-Care Text: Verifies consent for planned procedure, identifies individual values and wishes concerning care, includes family members in perioperative teaching Entry 1 Patient Times. In Pre Surgery 05/03/23 06:55:00 Out Pre Surgery 05/03/23 09:26:00 Outcomes Met? Yes Last Modified By: Jeromy Watson Ii 05/03/23 09:55:03 Post-Care Text: The patient participates in decisions affecting his or her perioperative plan of care Finalized By: Jeromy Watson Ii Document Signatures Signed By: Jeromy Watson Ii 05/03/23 09:55 Normal [facility] Monitor Recordon 05-03-2023 Monitor Record [id number] TIFF Normal [facility] Monitor Record [id number] TIFF Normal [facility] Operative Reporton Operative Report SURGERY DATE: 05/03/2023 TRANSFER CONTROLLER: Sanjuanita Carl CST PREOPERATIVE DIAGNOSIS: Right knee end-stage osteoarthritis with antalgic gait, remote history of left knee replacement POSTOPERATIVE DIAGNOSIS: Right knee end-stage osteoarthritis with antalgic gait, remote history of left knee replacement OPERATION: Right total knee arthroplasty ANESTHESIA: Spinal with block with sedation ESTIMATED BLOOD LOSS: Zero SPECIMEN: Bone IMPLANTS: The DePuy Sigma PFC Knee System with a 2.5 PS cemented right femur, a 2.5 cemented fixed tibial tray, an 8 mm poly, 32 mm cemented patellar button HISTORY AND INDICATIONS: Giana is a 77-year-old female with progressive right knee pain that has been recalcitrant to conservative injection management. She has activities of daily living and night disruption. She has buckling and giving out. She is four years out from her left knee replacement which is doing well and did well in the perioperative course. The pros, cons, risks, benefits, reasonable expectations of above were discussed. Consent form signed and charted. The site is marked preoperatively. All questions were answered preoperatively. Antibiotics provided weight-based per protocol. Documented failure of conservative injection care was obtained. 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 Once consent form was signed and witnessed, all questions were answered. PROCEDURE: The patient is taken to the Operating Room and placed in supine position. Anesthesia is provided. A well-padded tourniquet was placed on the right upper thigh. The leg was prepped and draped in sterile fashion. A time-out procedure occurred consistent with the consent form, History and Physical, preoperative marked site. Landmarks were identified. Once the time-out was confirmed, the leg was exsanguinated. A midline incision was made of 6 . Medial parapatellar arthrotomy was performed and the patella was everted. End-stage tricompartmental degenerative changes were noted throughout the knee of all three compartments which were [id number]. The patella was appropriately cut and retracted. The intramedullary drill and jig device was placed in the femur and a 5 degree valgus cut taking off 11 mm was performed. This was sized at a size 2.5 Brand[employer]uy Sigma PFC. Anterior, posterior chamfer cuts as well as posterior stabilized box cut was performed. Anterior cruciate ligament and posterior cruciate ligament were resected. Collateral ligaments were protected and balanced. Meniscal remnants removed. Intramedullary drill and jig device was placed to the tibia. The tibia was cut. Gaps were symmetrical. Posterior gutters were cleaned and free. Tibia was prepared for a #2.5 fixed tray. Trial components were placed with full extension, excellent flexion. Patellofemoral tracking and collateral ligament balance were appropriate. All trial components were removed. Capsule, gutters and subcutaneous tissues were injected with 100 cc of Exparel. Irrisept was allowed to soak per protocol followed by copious irrigation. After it was irrigated, 2 gm of tranexamic acid was placed subfascially. The fascial layer was closed with #2 Quill suture in a running fashion, 2-0 Quill suture closed the subcutaneous tissues and solo were applied. A 10-inch Mepilex dressing with soft roll wrap was provided. The patient was awaken from anesthesia and transferred to the Recovery Room in stable and satisfactory condition. CASE: Clean and elective COUNTS: Sponge and needle count correct SPECIMEN: Bone CONDITION: The patient's condition satisfactory Vlad Negro Dictated: 05/03/2023 [id number] Transcribed: 05/03/2023 Normal [facility] Comment on above: Result Comment: Elec tronically Signed By: Mercy Hilliard DO\.br\Date and Time Signed: 05/03/23 13:01 EST Patient Education - Texton 1 07-04-2022 Patient Education - Text [place], [place] [facility] DISCHARGE INSTRUCTIONS TOTAL KNEE ARTHROPLASTY INCISION CARE: Mepilex dressing can get wet with showers. Please remove 10 days after surgery per instruction sheet. If solo present, please coordinate removal 21 days after surgery with office staff. Please notify the office if any increase in redness, tenderness, drainage, fever, or wound separation is noted beyond this point. MEDICATIONS: You may resume your home medications at the time of discharge. Aspirin 325 mg EC oral once a day for 4 weeks for blood clot prevention with meals. Please notify your doctor if you have a stomach sensitivity to Aspirin or history of previous stomach ulcers. Pain medication has been prescribed as well. You may continue to use the pain medication every four hours as needed. Any narcotic pain medication can cause side effects including stomach upset, constipation, or light-headedness. You should not drive or operate machinery, or use alcohol while using the narcotic pain medication. You should not use other pain medications with this prescription pain medication unless further directed by your physician. PHYSICAL THERAPY: Continue the range of motion and strengthening exercises initiated in Physical Therapy in the hospital. [facility] Discharge Instructs for TKA Page 2 Physical Therapy Cont. Continue weight bearing, as ordered, to the operated knee for four to six weeks as directed in Physical Therapy, or until your strength is improved and Physical Therapy will then allow you to progress to full weight. This will be with the use of a walker or crutches initially. Assistive devices can be weaned or modified with physical therapy Physical therapy as begun in the hospital will continue at home, possible with the assistant superintendent for curriculum of Home Health Physical Therapy or in the hospital as an outpatient. When you have become independent with the physical therapy program, this will then be discontinued as a supervised program and you will be instructed to continue the physical therapy exercises at home. Your exercises are marsh to successful rehabilitation. You should gain full extension first, hopefully before hospital discharge, then continue to do the exercises to maintain this, and gain 90 degrees flexion by one month post-op. Do the exercises daily, twice if preferred. DRIVING: Please do not drive for 4-6 weeks pending therapy progress. 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 It is therefore advised not to drive until after your first office visit following surgery FOLLOW-UP OFFICE VISIT: Mercy Hilliard, DO [facility] [address] [place] [address] Reviewed: 09-05 Pulmonary Medicine How to Use an Incentive Spirometer An incentive spirometer is a tool that measures how well you are filling your lungs with each breath. Learning to take long, deep breaths using this tool can help you keep your lungs clear and active. This may help to reverse or lessen your chance of developing breathing (pulmonary) problems, especially infection. You may be asked to use a spirometer: ? After a surgery. ? If you have a lung problem or a history of smoking. ? After a long period of time when you have been unable to move or be active. If the spirometer includes an indicator to show the highest number that you have reached, your health care provider or respiratory therapist will help you set a goal. Keep a log of your progress as told by your health care provider. What are the risks? ? Breathing too quickly may cause dizziness or cause you to pass out. Take your time so you do not get dizzy or light-headed. ? If you are in pain, you may need to take pain medicine before doing incentive spirometry. It is harder to take a deep breath if you are having pain. How to use your incentive spirometer 1. Sit up on the edge of your bed or on a chair. 2. Hold the incentive spirometer so that it is in an upright position. 3. Before you use the spirometer, breathe out normally. 4. Place the mouthpiece in your mouth. Make sure your lips are closed tightly around it. 5. Breathe in slowly and as deeply as you can through your mouth, causing the piston or the ball to rise toward the top of the chamber. 6. Hold your breath for 3?5 seconds, or for as long as possible. ? If the spirometer includes a middle school volleyball coach indicator, use this to guide you in breathing. Slow down your breathing if the indicator goes above the marked areas. 7. Remove the mouthpiece from your mouth and breathe out normally. The piston or ball will return to the bottom of the chamber. 8. Rest for a few seconds, then repeat the steps 1 (more content not included)... Normal [facility] XR Knee 1 or 2 Views Righton 05-03-2023 XR Knee 1 or 2 Views Right Exam Date/Time: 05/03/2023 11:00 EST Reason for Exam: Post-op evaluation;Other (please specify) Report IMPRESSION: NEGATIVE POSTOPERATIVE RIGHT KNEE. CLINICAL HISTORY: Post-op evaluation COMPARISON: NONE. FINDINGS: 2 views of the right knee. Bipolar right knee replacement. No fracture. No abnormal lucency bone prosthetic interface. Ordering Provider: Mercy Hilliard FINAL REPORT Dictated: 05/03/2023 3:13 pm Jameson Galvez MD Signed (Electronic Signature): 05/03/2023 3:13 pm Signed by: Jameson Galvez MD Transcribed by: DP Technologist: DPR Technical Comments Radiation Dose: Ka,r in mGy = na DAP = na Normal [facility] Inpatient Patient Summaryon 04-29-2023 Inpatient Patient Summary [place] [id number] [facility] Clinical Discharge Instructions PERSON INFORMATION Name: GIANA ISAACS [facility]#:[id number] PHYSICIANS Admitting Physician: Mercy Hilliard DO Attending Physician: Mercy Hilliard DO PCP: JAMESON REED DO Discharge Diagnosis: Localized osteoarthritis of right knee Comment: PATIENT EDUCATION INFORMATION Instructions: [place] - Total Knee Arthroplasty (CUSTOM) Medication Leaflets: Follow up: With: Address: When: Mercy Hilliard [address] [place] [address] Business (1) Comments: Keep scheduled appointment Type Location Start [facility] Surgical Services 05/03/2023 10:00 AM 05/03/2023 11:15 AM Confirmed MEDICATION LIST Medications to Continue Taking That Have Changed Other Medications START: potassium chloride (Klor Con 10 mEq Cap-ER) 1 Tablets By Mouth every day. Medications to Continue with No Changes Other Medications amlodipine 5 Milligram By Mouth 2 times a day. aspirin 81 Milligram By Mouth every day. calcium-vitamin D (calcium (as carbonate)-vitamin D 600 mg-800 intl units oral tablet, chewable) 1 Tablets By Mouth every day. carvedilol 25 Milligram By Mouth 2 times a day. furosemide (furosemide 20 mg Tab) 1 Tablets By Mouth every day. multivitamin with minerals (Celebrate Multivitamin) 1 cap By Mouth every day. pravastatin 40 Milligram By Mouth every day. telmisartan 80 Milligram By Mouth every day. Comment: Normal [facility] Outpatient Surgery Discharge Instructionon 04-29-2023 Outpatient Surgery Discharge Instruction [facility] [address], [place] [address] Patient Discharge Instructions PERSON INFORMATION Name: GIANA ISAACS Date of : 1945 Current Date: 04/29/2023 16:57:00 PHYSICIANS Admitting Physician: Mercy Hilliard DO Discharge Diagnosis: Localized osteoarthritis of right knee GIANA ISAACS has been given the following list of follow-up instructions, prescriptions, and patient education materials: PATIENT FOLLOW-UP INFORMATION Diet: Regular, Drink liquids and eat a light meal Discharge Activity: Ambulate as tolerated, Arrange for a responsible adult supervision for 24 hours, Expect mild pain, Expect minimal amount of drainage and/or bleeding, Do not lift more than 5 lbs Discharge Restrictions: No driving, Do not operate machinery or tools, Do not make important decisions for 24 hours, Do not drink alcoholic beverages for 24 hours Call Your Doctor For: Persistent or heavy bleeding, Temperature above 101.5 degrees, Redness, swelling, or pus at operative site, Severe pain at the operative site, Persistent vomiting Wound Care Instructions: Remove dressing as instructed Remove Your Dressing In 10 Days IF UNABLE TO CONTACT YOUR PHYSICIAN AND YOU FEEL IT IS AN EMERGENCY, GO TO THE NEAREST EMERGENCY ROOM OR CALL 911 SHITAL Boone JOAN B, have received the attached patient education materials/instructions and have verbalized understanding: May we do a follow up call? Yes No I was present when discharge instructions were given Patient Signature Date Clinican/Nurse Signature _ Date Follow up: With: Address: When: Mercy Hilliard [address] [place] [address] [facility] (1) Comments: Keep scheduled appointment Type Location Start [facility] Surgical Services 05/03/2023 10:00 AM 05/03/2023 11:15 AM Confirmed Pharmacy Information: You may receive a survey from Narciso Murphy asking you to rate your care experience. Your feedback is important and will help us understand what we do well and how we can improve the quality of care we provide to you, your loved ones and our community. It?s an honor to serve you. Thank you for choosing [facility] HERE ARE THE MEDICATION CHANGES THAT OCCURRED DURING YOUR HOSPITAL STAY Medications to Continue Taking That Have Changed Other Medications START: potassium chloride (Klor Con 10 mEq Cap-ER) 1 Tablets By Mouth every day. Medications to Continue with No Changes Other Medications amlodipine 5 Milligram By Mouth 2 times a day. aspirin 81 Milligram By Mouth every day. calcium-vitamin D (calcium (as carbonate)-vitamin D 600 mg-800 intl units oral tablet, chewable) 1 Tablets By Mouth every day. carvedilol 25 Milligram By Mouth 2 times a day. furosemide (furosemide 20 mg Tab) 1 Tablets By Mouth every day. multivitamin with minerals (Celebrate Multivitamin) 1 cap By Mouth every day. pravastatin 40 Milligram By Mouth every day. telmisartan 80 Milligram By Mouth every day. PATIENT EDUCATION INFORMATION Instructions: [place], [place] [facility] DISCHARGE INSTRUCTIONS TOTAL KNEE ARTHROPLASTY INCISION CARE: Mepilex dressing can get wet with showers. Please remove 10 days after surgery per instruction sheet. If solo present, please coordinate removal 21 days after surgery with office staff. Please notify the office if any increase in redness, tenderness, drainage, fever, or wound separation is noted beyond this point. MEDICATIONS: You may resume your home medications at the time of discharge. Aspirin 325 mg EC oral once a day for 4 weeks for blood clot prevention with meals. Please notify your doctor if you have a stomach sensitivity to Aspirin or history of previous stomach ulcers. Pain medication has been prescribed as well. You may continue to use the pain medication every four hours as needed. Any narcotic pain medication can cause side effects including stomach upset, constipation, or light-headedness. You should not drive or operate machinery, or use alcohol while using the narcotic pain medication. You should not use other pain medications with this prescription pain medication unless further directed by your physician. PHYSICAL THERAPY: Continue the range of motion and strengthening exercises initiated in Physical Therapy in the hospital. [facility] Discharge Instructs for TKA Page 2 Physical Therapy Cont. Continue weight bearing, as ordered, to the operated knee for four to six weeks as directed in Physical Therapy, or until your strength is improved and Physical Therapy (more content not included)... Normal [facility] Outside Recordson 04-29-2023 Outside Records [id number] [facility] [id number]#[id number] TIFF Normal [facility] C Urineon 04-21-2023 Bacteria identified Cx Nom (U) Microbiology PROCEDURE: Urine Culture [R1] SOURCE: U CleanCatch BODY SITE: COLLECTED DATE/TIME: 04/19/2023 11:00 EST RECEIVED DATE/TIME: 04/19/2023 13:21 EST START DATE/TIME: 04/19/2023 13:22 EST FREE TEXT SOURCE: Mercy Hilliard DO, DO, Mercy Serrano FINAL REPORTS Final Report [] Verified Date/Time: 04/21/2023 08:57 EST 2,000 cfu/ml Mixed skin contaminants Performing Locations R1: This test was performed at: [facility], [address] [place] [address], [address] , , Normal [facility] Comment on above: Performed By: #### 2 [id number], [id number] #### [facility] [address] [place] [address] Outside Recordson 04-21-2023 Outside Records [id number]#[id number] IFF Normal [facility] Auto DiffOrdered By: SYSTEM SYSTEM on 04-19-2023 Basophils/100 WBC (Bld) 0.6 % Normal 0.0-2.0 [facility] Comment on above: Order Comment: Order Added by Discern Expert. Performed By: #### 2 425974, 0722433, 9632065, [id number] #### [facility] [address] [place] [address] Basophils/Leukocytes Auto (Bld) [Pure # fraction] 0.0 E9/L Normal 0.0-0.2 [facility] Comment on above: Order Comment: Order Added by Discern Expert. Performed By: #### 2 134900, 5416596, 8393421, [id number] #### [facility] [address] [place] [address] Eosinophils/100 WBC (Bld) 2.2 % Normal 0.0-8.0 [facility] Comment on above: Order Comment: Order Added by Discern Expert. Performed By: #### 2 109465, 2553419, 8900757, 96034422 #### [facility] [address] [place] [address] Eosinophils/Leukocyt es Auto (Bld) [Pure # fraction] 0.1 E9/L Normal 0.0-0.5 [facility] Comment on above: Order Comment: Order Added by Discern Expert. Performed By: #### 2 848730, 0290949, 7758539, 09783955 #### [facility] [address] [place] [address] Lymphocytes/100 WBC (Bld) 37.8 % Normal 14.0-50.0 [facility] Comment on above: Order Comment: Order Added by Willy Expert. Performed By: #### 2 780137, 0682322, 2208361, 02994295 #### [facility] [address] [place] [address] Lymphocytes/Leukocyt es Auto (Bld) [Pure # fraction] 2.4 E9/L Normal 1.0-4.0 [facility] Comment on above: Order Comment: Order Added by Willy Expert. Performed By: #### 2 153882, 9942575, 7362114, 69868112 #### [facility] [address] [place] [address] Monocytes/100 WBC (Bld) 10.8 % Normal 4.0-14.0 [facility] Comment on above: Order Comment: Order Added by Discern Expert. Performed By: #### 2 264080, 7030839, 5077873, 64245117 #### [facility] [address] [place] [address] Monocytes/Leukocytes Auto (Bld) [Pure # fraction] 0.7 E9/L Normal 0.2-1.0 [facility] Comment on above: Order Comment: Order Added by Willy Expert. Performed By: #### 2 050229, 1539555, 7116797, 29242174 #### [facility] [address] [place] [address] Neutrophils/100 WBC (Bld) 48.6 % Normal 36.0-75.0 [facility] Heme[facility] Comment on above: Order Comment: Order Added by Discern Expert. Performed By: #### 2 805810, 2857556, 1500034, 80025376 #### [facility] [address] [place] [address] Neutrophils/Leukocyt es Auto (Bld) [Pure # fraction] 3.1 E9/L Normal 2.0-7.5 [facility] Comment on above: Order Comment: Order Added by Discern Expert. Performed By: #### 2 862847, 6941758, 0318748, 96877648 #### [facility] [address] [place] [address] BMPOrdered By: SYSTEM SYSTEM on 04-19-2023 Anion gap [Moles/Vol] 10 mmol/L Normal 6-16 [facility] Comment on above: Performed By: #### 2 730578, 1171755, 3874786, 66577465 #### [facility] [address] [place] [address] Calcium [Mass/Vol] 10.0 mg/dL Normal 8.9-11.1 [facility] R emisol Comment on above: Performed By: #### 2 220908, 1229296, 7859686, 67531677 #### [facility] [address] [place] [address] Chloride [Moles/Vol] 104 mmol/L Normal 101-111 [facility] Comment on above: Performed By: #### 2 436906, 2712755, 7673561, 80846166 #### [facility] [address] [place] [address] CO2 [Moles/Vol] 31 mmol/L Normal 21-31 FT Sunday hawa Comment on above: Performed By: #### 2 308087, 0437470, 4579298, 27164777 #### [facility] [address] [place] [address] Creatinine [Mass/Vol] 0.5 mg/dL Normal 0.5-1.3 [facility] Remisol Comment on above: Performed By: #### 2 918038, 4870650, 6612295, 42305154 #### [facility] [address] [place] [address] Glucose [Mass/Vol] 118 mg/dL Normal 55-199 [facility] R emisol Comment on above: Interpretive Data: I f this glucose result represents a fasting glucose, interpretation should refer to the following reference range: 55-99 mg/dL Result Comment: If t his glucose result represents a fasting glucose, interpretation should refer to the following reference range: 55-99 mg/dL Performed By: #### 2 555058, 8290512, 7127125, 39818886 #### [facility] [address] [place] [address] Potassium [Moles/Vol] 3.9 mmol/L Normal 3.5-5.3 [facility] Remisol Comment on above: Performed By: #### 2 605471, 5509730, 2133026, 56651167 #### [facility] [address] [place] [address] Sodium [Moles/Vol] 141 mmol/L Normal 135-145 [facility] R emisol Comment on above: Performed By: #### 2 788749, 8998884, 3224083, 45949250 #### [facility] [address] [place] [address] Urea nitrogen [Mass/Vol] 13 mg/dL Normal 5-21 [facility] Remisol Comment on above: Performed By: #### 2 848736, 0338309, 0943500, 15086108 #### [facility] [address] [place] [address] BMPon 04-19-2023 Urea nitrogen/Creatinine [Mass ratio] 26 No Units High 03-19 [facility] Comment on above: Performed By: #### 2 418061, 2683181, 1978459, 33600499 #### [facility] [address] [place] [address] CBC w/ Auto DiffOrdered By: Gabriela Hyatt on 04-19-2023 Erythrocyte distribution width (RBC) [Ratio] 12.9 % Normal 10.9-14.2 [facility] Comment on above: Performed By: #### 2 132795, 9295579, 1250841, 38404947 #### [facility] [address] [place] [address] Hematocrit (Bld) [Volume fraction] 44.9 % Normal 34.0-46.0 [facility] Comment on above: Performed By: #### 2 672646, 2500565, 2154988, 27191360 #### [facility] [address] [place] [address] Hemoglobin (Bld) [Mass/Vol] 15.3 g/dL Normal 12.0-16.0 [facility] Comment on above: Performed By: #### 2 908191, 0480291, 7236387, 33461730 #### [facility] [address] [place] [address] MCH (RBC) [Entitic mass] 30.6 pg Normal 27.0-34.0 [facility] Comment on above: Performed By: #### 2 942887, 3954706, 5503496, 04960748 #### [facility] [address] [place] [address] MCHC (RBC) [Mass/Vol] 34.0 g/dL Normal 31.4-36.0 [facility] Comment on above: Performed By: #### 2 176795, 5759434, 5316982, 88756291 #### [facility] [address] [place] [address] MCV (RBC) [Entitic vol] 90.0 fL Normal 80.0-100.0 [facility] Comment on above: Performed By: #### 2 972981, 0670101, 9971624, 54567331 #### [facility] [address] [place] [address] Platelet mean volume (Bld) [Entitic vol] 8.6 fL Normal 6.4-10.8 [facility] Comment on above: Performed By: #### 2 879538, 1708658, 3134682, 41782037 #### [facility] [address] [place] [address] Platelets (Bld) [#/Vol] 231.0 E9/L Normal 150.0-500.0 [facility] Comment on above: Performed By: #### 2 654703, 9038071, 3204505, 99320491 #### [facility] [address] [place] [address] RBC (Bld) [#/Vol] 5.0 E12/L Normal 4.3-5.9 [facility] Comment on above: Performed By: #### 2 263440, 0795718, 1276203, 63905371 #### [facility] [address] [place] [address] WBC corrected for nucl RBC Auto (Bld) [#/Vol] 6.3 E9/L Normal 4.0-11.0 [facility] Comment on above: Performed By: #### 2 752407, 6695478, 1635105, 47507394 #### [facility] [address] [place] [address] CHEMISTRYOrdered By: SYSTEM SYSTEM on 04-19-2023 Urea nitrogen/Creatinine [Mass ratio] 26 mg/mg High [facility] Remisol Consent for Treatmenton 04-01 Consent for Treatment [id number] IFF Normal [facility] UA With Cult Reflexon 2022 Bacteria LM Ql (Urine sed) TRACE Normal Trace [facility] Comment on above: Performed By: #### 2 472937, 08604567 #### [facility] [address] [place] [address] Bilirubin Ql (U) Negative Normal Negative [facility] Comment on above: Performed By: #### 2 892485, 63568545 #### [facility] [address] [place] [address] Clarity (U) CLEAR Normal Clear [facility] Comment on above: Performed By: #### 2 266957, 71813721 #### [facility] [address] [place] [address] Color (U) YELLOW Normal Yellow [facility] Comment on above: Performed By: #### 2 394889, 11577041 #### [facility] [address] [place] [address] Epithelial cells.squamous LM.HPF (Urine sed) [#/Area] 0-2 Normal 0-2 [facility] Comment on above: Performed By: #### 2 565004, 82055312 #### [facility] [address] [place] [address] Glucose Test strip (U) [Mass/Vol] Negative Normal Negative [facility] Comment on above: Performed By: #### 2 132011, 51915623 #### [facility] [address] [place] [address] Hemoglobin Ql (U) Negative Normal Negative [facility] Comment on above: Performed By: #### 2 540833, 28039927 #### [facility] [address] [place] [address] Ketones (U) [Mass/Vol] Negative Normal Negative [facility] Comment on above: Performed By: #### 2 606688, 64069571 #### [facility] [address] [place] [address] [place].plasma/Lithi um.RBC (Bld) [Mass ratio] 0-3 Normal 0-3 [facility] Comment on above: Performed By: #### 2 117596, 47047677 #### [facility] [address] [place] [address] Mucus Ql (Urine sed) TRACE Normal [facility] Comment on above: Performed By: #### 2 873061, 36784996 #### [facility] [address] [place] [address] Nitrite Ql (U) Negative Normal Negative [facility] Comment on above: Performed By: #### 2 839867, 49728062 #### [facility] [address] [place] [address] pH (U) 6.5 [pH] Invalid Interpretation Code 5.0-9.0 [facility] Comment on above: Performed By: #### 2 980637, 86283061 #### [facility] [address] [place] [address] Protein (U) [Mass/Vol] Negative Normal Negative [facility] Comment on above: Performed By: #### 2 256363, 78336753 #### [facility] [address] [place] [address] Specific gravity (U) [Rel density] <=1.005 Invalid Interpretation Code 1.005-1.030 [facility] Comment on above: Performed By: #### 2 695141, 45170588 #### [facility] [address] [place] [address] Type of Urine collection method Clean Catch Normal [facility] Comment on above: Performed By: #### 2 187309, 46775741 #### [facility] [address] [place], [place] [address] Urobilinogen Qn (U) 0.2 {Araseli'U}/dL Normal 0.0-1.0 [facility] Comment on above: Performed By: #### 2 634404, 07021482 #### [facility] [address] [place] 7641857 WBC Auto Ql (U) 1+ Abnormal Negative [facility] Comment on above: Performed By: #### 2 196904, 60909665 #### [facility] [address] [place] [address] WBC LM.HPF (Urine sed) [#/Area] 0-5 Normal 0-5 [facility] Comment on above: Performed By: #### 2 734452, 26118144 #### [facility] [address] [place] [address] [place] [address] URINALYSISOrdered By: Laurie Bone on 04-19-2023 Bacteria LM Ql (Urine sed) Trace /HPF Normal Trace/HPF [facility] UA Auto SS Bilirubin Ql (U) Negative (04/19/23 11:00 AM) Normal Negative [facility] UA Auto SS Clarity (U) Clear (04/19/23 11:00 AM) Normal Clear [facility] UA Auto SS Color (U) Yellow (04/19/23 11:00 AM) Normal Yellow [facility] UA Auto SS Epithelial cells.squamous LM.HPF (Urine sed) [#/Area] 0-2 /HPF Normal 0-2/HPF [facility] UA Auto SS Glucose Test strip (U) [Mass/Vol] Negative (04/19/23 11:00 AM) Normal Negative [facility] UA Auto SS Hemoglobin Ql (U) Negative (04/19/23 11:00 AM) Normal Negative [facility] UA Auto SS Ketones (U) [Mass/Vol] Negative (04/19/23 11:00 AM) Normal Negative [facility] UA Auto SS [place].plasma/Lithi um.RBC (Bld) [Mass ratio] 0-3 /HPF Normal 0-3/HPF [facility]A Auto SS Mucus Ql (Urine sed) Trace (04/19/23 11:00 AM) Normal [facility] Auto SS Nitrite Ql (U) Negative (04/19/23 11:00 AM) Normal Negative [facility] Auto SS pH (U) 6.5 *NA* (04/19/23 11:00 AM) Invalid Interpretation Code 5.0 - 9.0 [facility] Protein (U) [Mass/Vol] Negative (04/19/23 11:00 AM) Normal Negative [facility] UA Auto SS Specific gravity (U) [Rel density] <=1.005 *NA* (04/19/23 11:00 AM) Invalid Interpretation Code 1.005 - 1.030 [facility] UA Auto SS UA Spec Desc Clean Catch (04/19/23 11:00 AM) Normal [facility]A Auto SS Urobilinogen Qn (U) 0.4850923 {Araseli'U}/dL Normal 0.0 - 1.0 EU/dL [facility] UA Auto SS WBC Auto Ql (U) 1+ *ABN* (04/19/23 11:00 AM) Invalid Interpretation Code Negative [facility] UA Auto SS WBC LM.HPF (Urine sed) [#/Area] 0-5 /HPF Normal 0-5/HPF [facility] UA Auto SS XR Chest 2 Viewson 3 XR Chest 2 Views Exam Date/Time: 04/19/2023 11:16 EST Reason for Exam: P.A.T. Report IMPRESSION: There are no acute cardiopulmonary changes. CLINICAL HISTORY: P.A.T. EXAMINATION: XR Chest 2 Views COMPARISON: Chest x-ray from 01/10/2019 FINDINGS: The cardiomediastinal silhouette is unremarkable. The lungs are free of infiltrates effusions or consolidations. There are no acute osseous changes. Ordering Provider: Evans Ahmad FINAL REPORT Dictated: 04/19/2023 12:56 pm Preston Li MD, V. Signed (Electronic Signature): 04/19/2023 12:56 pm Signed by: Preston Li MD, V. Transcribed by: RUIZ Technologist: CHELSIE Technical Comments Radiation Dose: Ka,r in mGy = na DAP = na Normal [facility] eGFROrdered By: SYSTEM SYSTE M on 04-19-2023 GFR/1.73 sq M.predicted among non-blacks MDRD (S/P/Bld) [Vol rate/Area] 95 mL/min/1.73 m2 Normal >=59 [facility] Chem S Comment on above: Interpretive Data: C hronic kidney disease could be indicated at eGFR's of less than 60 mL/min/1.73m2. Kidney failure is indicated at less than 15 mL/min/1.73m2. Order Comment: Order added by Discern Expert. Result Comment: Mosaicist celina kidney disease could be indicated at eGFR's of less than 60 mL/min/1.73m2. Kidney failure is indicated at less than 15 mL/min/1.73m2. Performed By: #### 2 [id number], [id number], [id number], [id number] #### [facility] [address] [place] [address] Physician Orderon 04-05-2023 Physician Order [id number] [id number] Normal [facility] RAD - MISCon 05-21-2022 [facility] [id number] D:127 Normal [facility] Patient Educationon 05-20-20 Patient Education Urology Kidney Stones Kidney stones are rock-like masses that form inside of the kidneys. Kidneys are organs that make pee (urine). A kidney stone may move into other parts of the urinary tract, including: ? The tubes that connect the kidneys to the bladder (ureters). ? The bladder. ? The tube that carries urine out of the body (urethra). Kidney stones can cause very bad pain and can block the flow of pee. The stone usually leaves your body (passes) through your pee. You may need to have a doctor take out the stone. What are the causes? Kidney stones may be caused by: ? A condition in which certain glands make too much parathyroid hormone (primary hyperparathyroidism). ? A buildup of a type of crystals in the bladder made of a chemical called uric acid. The body makes uric acid when you eat certain foods. ? Narrowing (stricture) of one or both of the ureters. ? A kidney blockage that you were born with. ? Past surgery on the kidney or the ureters, such as gastric bypass surgery. What increases the risk? You are more likely to develop this condition if: ? You have had a kidney stone in the past. ? You have a family history of kidney stones. ? You do not drink enough water. ? You eat a diet that is high in protein, salt (sodium), or sugar. ? You are overweight or very overweight (obese). What are the signs or symptoms? Symptoms of a kidney stone may include: ? Pain in the side of the belly, right below the ribs (flank pain). Pain usually spreads (radiates) to the groin. ? Needing to pee often or right away (urgently). ? Pain when going pee (urinating). ? Blood in your pee (hematuria). ? Feeling like you may vomit (nauseous). ? Vomiting. ? Fever and chills. How is this treated? Treatment depends on the size, location, and makeup of the kidney stones. The stones will often pass out of the body through peeing. You may need to: ? Drink more fluid to help pass the stone. In some cases, you may be given fluids through an IV tube put into one of your veins at the hospital. ? Take medicine for pain. ? Make changes in your diet to help keep kidney stones from coming back. Sometimes, medical procedures are needed to remove a kidney stone. This may involve: ? A procedure to break up kidney stones using a beam of light (laser) or shock waves. ? Surgery to remove the kidney stones. Follow these instructions at home: Medicines ? Take ksnj-sdx-xnmpydx and prescription medicines only as told by your doctor. ? Ask your doctor if the medicine prescribed to you requires you to avoid driving or using heavy machinery. Eating and drinking ? Drink enough fluid to keep your pee pale yellow. You may be told to drink at least 8?10 glasses of water each day. This will help you pass the stone. ? If told by your doctor, change your diet. This may include: ? Limiting how much salt you eat. ? Eating more fruits and vegetables. ? Limiting how much meat, poultry, fish, and eggs you eat. ? Follow instructions from your doctor about eating or drinking restrictions. General instructions ? Collect pee samples as told by your doctor. You may need to collect a pee sample: ? 24 hours after a stone comes out. ? 8?12 weeks after a stone comes out, and every 6?12 months after that. ? Strain your pee every time you pee (urinate), for as long as told. Use the strainer that your doctor recommends. ? Do not throw out the stone. Keep it so that it can be tested by your doctor. ? Keep all follow-up visits as told by your doctor. This is important. You may need follow-up tests. How is this prevented? To prevent another kidney stone: ? Drink enough fluid to keep your pee pale yellow. This is the best way to prevent kidney stones. ? Eat healthy foods. ? Avoid certain foods as told by your doctor. You may be told to eat less protein. ? Stay at a healthy weight. Where to find more information ? National Kidney Foundation (NKF): www.kidney.org ? [employer] (UCF): www.urologyhealth.org Contact a doctor if: ? You have pain that gets worse or does not get better with medicine. Get help right away if: ? You have a fever or chills. ? You get very bad pain. ? You get new pain in your belly (abdomen). ? You pass out (faint). ? You cannot pee. Summary ? Kidney stones are rock-like masses that form inside of the kidneys. ? Kidney stones can cause very bad pain and can block the flow of pee. ? The stones will often pass out of the body through peeing. ? Drink enough fluid to keep your pee pale yellow. This information is not intended to replace advice given to you by your health care provider. Make sure you discuss any questions you have with your health care provider. Document Released: 11/02/2008 Document Revised: 10/03/2019 Document Reviewed: 10/03/2019 Elsevier Patient Education ? 2019 [employer] [facility] Urology Office/Clinic Noteon 05-20-2022 Urology Office/Clinic Note Chief Complaint 1 year w/KUB HPI Staff Giana is a 76 y/o female here for a 1 year f/u w/KUB. KUB done 05/12/2022 is negative for stones. S/P RT ESWL done on 03/26/21, Cysto/Transurethral resection of urethral polyp done on 03/26/21, cysto/UD done on 10/17/20. Pathology from bladder polyp shows leiomyoma done on 03/26/21. Dysuria: _denies Incomplete bladder emptying: _denies Hematuria: _denies Frequency: _denies Urgency: _denies Nocturia: _rare Stream: _good Leaking: _denies Post void dripping: _denies Wearing pads/ Depends: _denies Urge incontinence: _denies Stress incontinence: _denies Incontinence without Sensory Awareness: _denies Abdominal pain: _denies Flank pain: _denies Sexual complaints: _ History of Present Illness staff HPI reviewed and agree. Review of Systems no fever, chills, malaise, myalgia. no rash/lesions. no chest pain, palpitations, or SOB. no abdominal pain, nausea, vomiting. no unilateral calf swelling, redness, pain Physical Exam Vitals & Measurements HR: 68(Peripheral) BP: 156/81 General: nontoxic, NAD Mouth: moist mucosa Lungs: normal respiratory effort Cardio: regular rate, good distal perfusion Abdomen: nondistended, no suprapubic distention or tenderness, no CVA tenderness Neurologic: Grossly normal Skin: No rashes or suspicious lesions Assessment/Plan 1. Kidney stones (N20.0: Calculus of kidney) S/P Right ESWL Feb 2021. KUB done 05/12/22 shows no stones. Pt denies flank pain or recent stone passage. follows stone prevention diet. Ordered: E&M of Est. Patient Low 20-29 Min [id number] 2. Leiomyoma (D28.7: Benign neoplasm of other specified female genital organs) Cystoscopy with Transurethral resection of urethral polyp done 03/26/21. Pathology report shows urethral bladder neck polyp as, leiomyoma. denies gross hematuria. no UTIs this past year. UA completed in office today shows no microhematuria or signs of infection. Ordered: E&M of Est. Patient Low 20-29 Min [id number] offered 1 yr f/u. pt prefers PRN. Follow-up With When Contact Information KEHINDE AVALOS, RHEA Yee, URL Only if needed [address] [facility] [place] [address] [facility] (1) Additional Instructions: Patient Education Kidney Stones, Uyls-jk-Emws Problem List/Past Medical History Ongoing BMI 32.0-32.9,adult Former smoker Gross hematuria Kidney stones Leiomyoma Microhematuria Historical HTN (hypertension) Procedure/Surgical History Cystoscopy (03/26/2021), ESWL of kidney (03/26/2021), Cystourethroscopy with dilation of urethral stricture (10/17/2020), Total knee arthroplasty (02/06/2019), Colonoscopy, Hysterectomy. Medications amlodipine, 5 mg, Oral, BID aspirin, 81 mg, Oral, Daily calcium (as carbonate)-vitamin D 600 mg-800 intl units oral tablet, chewable, 1 tab(s), Oral, Daily carvedilol, 25 mg, Oral, BID Celebrate Multivitamin, 1 cap, Oral, Daily furosemide 20 mg Tab, 20 mg= 1 tab(s), Oral, Daily Klor Con 10 mEq Cap-ER, Oral, Daily pravastatin, 40 mg, Oral, Daily telmisartan, 80 mg, Oral, Daily Allergies Augmentin (Diarrhea) Social History Alcohol - Low Risk, 01/10/2019 Current, Beer, Daily, Previous treatment: None., 01/10/2019 Substance Abuse - Denies Substance Abuse, 01/10/2019 Tobacco - Denies Tobacco Use, 01/10/2019 Former smoker, quit more than 30 days ago Tobacco Use:. Never Smokeless Tobacco Use:., 05/13/2021 Former smoker, quit more than 30 days ago Tobacco Use:., 03/04/2021 Former smoker, quit more than 30 days ago Tobacco Use:., 10/08/2020 Former smoker, quit more than 30 days ago Tobacco Use:., 03/21/2020 Family History Diabetes mellitus type 2: Mother. Heart disease: Father and Brother. Hypertension: Mother. Immunizations Vaccine Date Status SARS-CoV-2 (COVID-19) Ad26 vaccine 04/21/2021 Recorded SARS-CoV-2 (COVID-19) Ad26 vaccine 07/18/2020 Recorded SARS-CoV-2 (COVID-19) mRNA BNT-162b2 vax 06/27/2020 Recorded error - UA does show large leuks. however pt is asymptomatic from UTI standpoint and admits it was not a clean catch urine. no indication to send for cx at this time. pt will call if develops UTI sx. Normal [facility] Comment on above: Result Comment: Elec tronically Signed By: RHEA BUSBY PA-C\.shama\Date and Time Signed: 05/20/22 11:55 EST XR KUB 1 VIEWon 05-12-2022 XR KUB 1 VIEW EXAMINATION: XR KUB 1 VIEW HISTORY: Kidney stone follow-up COMPARISON: XR KUB 05/09/2021 FINDINGS: KIDNEY/URETER - RIGHT: No visible renal or ureteral calcifications. KIDNEY/URETER - LEFT: No visible renal or ureteral calcifications. PELVIS: No visible ureteral stones. Stable pelvic calcifications compatible with phleboliths. BOWEL: No abnormal dilation or deviation. BONES: No acute abnormality. OTHER: Stable gallstone right upper quadrant. IMPRESSION: 1. No visible urinary tract calculi. Electronically authenticated by: CABRERA DODSON Date: 2022-05-12 16:58 Normal [facility] MAMM SCREEN 3D ADELITA CADon 03-26-2022 MG MAMM SCREEN 3D ADELITA CAD Patient: GIANA ISAACS Exam Date: 03/26/2022 : 1945 Gender:F Ordering : DR JAMESON REED D.O. Admission #: [id number] Family : Order #: [id number] CLICK HERE TO VIEW EXAM RADIOLOGY REPORT PROCEDURE: MAMMOGRAM SCREENING 3D BILATERAL CAD COMPARISON: MG MAMM SCREEN 3D ADELITA CAD, 08/27/2020. MG MAMM SCREEN ADELITA W CAD, 05/16/2019. INDICATIONS: Screening mammography Calculator Name NCI Breast Cancer Risk Assessment Tool 5 Year Breast Cancer Risk 1.50% Lifetime Breast Cancer Risk 2.80% Personal Breast Cancer No Personal Ovarian Cancer No Treatments None Family Cancers None LOCATION: [facility] BREAST COMPOSITION: Scattered areas fibroglandular density. FINDINGS: DIAGNOSTIC CATEGORY 2--BENIGN FINDING: RIGHT BREAST: No significant suspicious finding. Scattered benign-appearing calcifications are present. No significant change has occurred. LEFT BREAST: No significant suspicious finding. Scattered benign-appearing calcifications are present. No significant change has occurred. RECOMMENDATIONS: ROUTINE MAMMOGRAM AND CLINICAL EVALUATION IN 12 MONTHS. PLEASE NOTE: A NORMAL MAMMOGRAM DOES NOT EXCLUDE THE POSSIBILITY OF BREAST CANCER. A CLINICALLY SUSPICIOUS PALPABLE LUMP SHOULD BE BIOPSIED. Dictated by: Cabrera Dodson M.D. on 03/26/2022 at 15:42 Approved by: Cabrera Dodson M.D. on 03/26/2022 at 15:58 Normal [facility] CBC AUTO DIFFon 08-28-2021 BASO # 0.1 103/ul Normal 0.0-0.1 [facility] Comment on above: Performed By: #### D ATCBC #### [facility] [address] [place] [address] Dr. Zbigniew Herrera Basophils/100 WBC (Bld) 0.5 % Normal 0.2-2.0 [facility] Comment on above: Performed By: #### D ATCBC #### [facility] [address] [address] [address] Zbigniew Herrera EO # 0.1 103/ul Normal 0.0-0.7 [facility] Comment on above: Performed By: #### D ATCBC #### [facility] [address] [place] [address] Dr. Zbigniew Herrera Eosinophils/100 WBC (Bld) 1.0 % Normal 0.9-7.0 [facility] Comment on above: Performed By: #### D ATCBC #### [facility] [address] [place] [address] Dr. Zbigniew Herrera Erythrocyte distribution width (RBC) [Ratio] 12.8 % Normal 11.0-15.0 [facility] Comment on above: Performed By: #### D ATCBC #### [facility] [address] [place] [address] Dr. Zbigniew Herrera Hematocrit (Bld) [Volume fraction] 45.6 % Normal 36.0-48.0 [facility] Comment on above: Performed By: #### D ATCBC #### [facility] [address] [place] [address] Dr. Zbigniew Herrera Hemoglobin (Bld) [Mass/Vol] 15.0 g/dL Normal 12.0-16.0 [facility] Comment on above: Performed By: #### D ATCBC #### [facility] [address] [place] [address] Dr. Zbigniew Herrera IG # 0.03 10e3/ul Normal 0.00-0.03 [facility] Comment on above: Performed By: #### D ATCBC #### [facility] [address] [place] [address] Dr. Zbigniew Herrera IG % 0.3 % Normal 0.0-0.5 [facility] Comment on above: Performed By: #### D ATCBC #### [facility] [address] [place] [address] Dr. Zbigniew Herrera LYMPH # 2.0 103/ul Normal 1.2-3.8 [facility] Comment on above: Performed By: #### D ATCBC #### [facility] [address] [place] [address] Dr. Zbigniew Herrera Lymphocytes/100 WBC (Bld) 21.2 % Normal 20.5-60.0 [facility] Comment on above: Performed By: #### D ATCBC #### [facility] [address] [place] [address] Dr. Zbigniew Herrera MCH (RBC) [Entitic mass] 30.4 pg Normal 26.7-34.0 [facility] Comment on above: Performed By: #### D ATCBC #### [facility] [address] [place] [address] Dr. Zbigniew Herrera MCHC (RBC) [Mass/Vol] 32.9 g/dL Normal 29.9-35.2 [facility] Comment on above: Performed By: #### D ATCBC #### [facility] [address] [place] [address] Dr. Zbigniew Herrera MCV (RBC) [Entitic vol] 92.5 fL Normal 81.0-99.0 [facility] Comment on above: Performed By: #### D ATCBC #### [facility] [address] [place] [address] Dr. Zbigniew Herrera MONO # 1.1 103/ul Critically high 0.3-0.8 [facility] Comment on above: Performed By: #### D ATCBC #### [facility] [address] [place] [address] Dr. Zbigniew Herrera Monocytes/100 WBC (Bld) 11.7 % Normal 1.7-12.0 [facility] Comment on above: Performed By: #### D ATCBC #### [facility] [address] [place] [address] Dr. Zbigniew Herrera NEUT # 6.1 103/ul Normal 1.4-6.5 [facility] Comment on above: Performed By: #### D ATCBC #### [facility] [address] [place] [address] Dr. Zbigniew Herrera Neutrophils/100 WBC (Bld) 65.3 % Normal 43.0-75.0 [facility] Comment on above: Performed By: #### D ATCBC #### [facility] [address] [place] [address] Dr. Zbigniew Herrera Platelet mean volume (Bld) [Entitic vol] 9.9 fL Normal 9.5-13.5 [facility] Comment on above: Performed By: #### D ATCBC #### [facility] [address] [address] [address] Zbigniew Herrera PLT 232 103/ul Normal 150-450 [facility] Comment on above: Performed By: #### D ATCBC #### [facility] [address] [address] [address] Zbigniew Herrera RBC 4.93 106/ul Normal 4.20-5.40 [facility] Comment on above: Performed By: #### D ATCBC #### [facility] [address] [address] [address] Zbigniew Herrera WBC 9.3 103/ul Normal 4.0-11.0 [facility] Comment on above: Performed By: #### D ATCBC #### [facility] [address] [place] [address] Dr. Zbigniew Herrera CALVIN- BMP WITH LIPIDon 2021 Anion gap [Moles/Vol] 11.9 mmol/L Normal [facility] Comment on above: Performed By: #### D ATBMP #### [facility] [address] [place] [address] Dr. Zbigniew Herrera Calcium [Mass/Vol] 8.9 mg/dL Normal 8.5-10.1 [facility] Comment on above: Performed By: #### D ATBMP #### [facility] [address] [place] [address] Dr. Zbigniew Herrera Chloride [Moles/Vol] 104 mmol/L Normal 98-107 [facility] Comment on above: Performed By: #### D ATBMP #### [facility] [address] [address] [address] Zbigniew Herrera Cholesterol [Mass/Vol] 179 mg/dL Normal <=200 [facility] Comment on above: Performed By: #### D ATBMP #### [facility] [address] [address] [address] Zbigniew Herrera Cholesterol in HDL [Mass/Vol] 64 mg/dL Critically high 40-60 [facility] Comment on above: Performed By: #### D ATBMP #### [facility] [address] [address] [address] Zbigniew Herrera Cholesterol in LDL [Mass/Vol] 90.4 mg/dL Normal [facility] Comment on above: Performed By: #### D ATBMP #### [facility] [address] [address] [address] Zbigniew Herrera CO2 [Moles/Vol] 30.9 mmol/L Critically high 22.0-30.0 [facility] Comment on above: Performed By: #### D ATBMP #### [facility] [address] [address] [address] Zbigniew Herrera Creatinine [Mass/Vol] 0.66 mg/dL Normal 0.52-1.04 [facility] Comment on above: Performed By: #### D ATBMP #### [facility] [address] [address] [address] Zbigniew Herrera EGFR-AF ALBANIAN >60 Normal >=60 [facility] Comment on above: Performed By: #### D ATBMP #### [facility] [address] [address] [address] Zbigniew Herrera EGFR-NON AF ALBANIAN >60 Normal >=60 [facility] Comment on above: Performed By: #### D ATBMP #### [facility] [address] [address] [address] Zbigniew Herrera Glucose [Mass/Vol] 109 mg/dL Critically high 74-106 [facility] Comment on above: Performed By: #### D ATBMP #### [facility] [address] [address] [address] Zbigniew Herrear HDL NORMAL > or = 60 mg/dl - LO W CARDIOVASCULAR RISK <40 mg/dl - HIGH CARDIOVASCULAR RISK Normal [facility] Comment on above: Performed By: #### D ATBMP #### [facility] [address] [address] [address] Zbigniew Herrera LDL CALC NORMAL SEE BELOW Normal [facility] Comment on above: Result Comment: <100 mg/dl OPTIMAL 100 - 129 mg/dl NEAR OR ABOVE OPTIMAL 130 - 159 mg/dl BORDERLINE HIGH 160 - 189 mg/dl HIGH >190 mg/dl VERY HIGH Performed By: #### D ATBMP #### [facility] [address] [place] [address] Dr. Zbigniew Herrera Potassium [Moles/Vol] 3.8 mmol/L Normal 3.4-5.0 [facility] Comment on above: Performed By: #### D ATBMP #### [facility] [address] [place] [address] Dr. Zbigniew Herrera Sodium [Moles/Vol] 143 mmol/L Normal 137-145 [facility] Comment on above: Performed By: #### D ATBMP #### [facility] [address] [place] [address] Dr. Zbigniew Herrera Triglyceride [Mass/Vol] 123 mg/dL Normal <=150 [facility] Comment on above: Performed By: #### D ATBMP #### [facility] [address] [place] [address] Dr. Zbigniew Herrera Urea nitrogen [Mass/Vol] 12.0 mg/dL Normal 7.0-18.0 [facility] Comment on above: Performed By: #### D ATBMP #### [facility] [address] [place] [address] Dr. Zbigniew Herrera Urea nitrogen/Creatinine [Mass ratio] 18.2 mg/mg Normal [facility] Comment on above: Performed By: #### D ATBMP #### [facility] [address] [place] [address] Dr. Zbigniew Herrera VLDL CALC 24.6 mg/dL Normal [facility] Comment on above: Performed By: #### D ATBMP #### [facility] [address] [place] [address] Dr. Zbigniew Herrera XR DEXA BONE DENSITYon 08-28 XR DEXA BONE DENSITY EXAMINATION: XR DEX A BONE DENSITY, 08/28/2021 7:59 AM EDT HISTORY: Menopause present COMPARISON: 2015 TECHNIQUE: Dual-energy X-ray absorptiometry (DEXA) bone density study performed for the axial skeleton. FINDINGS: Bone mineral density AP spine L2-L4 measures 1.675 g/sq cm. T score for 0.0. WHO classification: Normal. This is artifactually elevated secondary to extensive degenerative spondylosis Bone mineral density in the right femoral neck measures 0.799 g/sq cm. T score -1.7. WHO classification: Osteopenia. Moderate fracture risk IMPRESSION: Osteopenia. Moderate fracture risk Electronically authenticated by: VITOR HOLLIDAY Date: 2021-08-28 08:55 Normal [facility] XR KNEE LEFT (MIN 4 VIEWS)on 09-18-2020 XR KNEE LEFT (MIN 4 VIEWS) EXAM: XR KNEE LEFT (MIN 4 VIEWS) HISTORY: Z96.652 75-year-old female left knee pain and stiffness. Total knee arthroplasty 2019. COMPARISON: Preop left knee, [facility], 03/02/2017. TECHNIQUE: Left knee series. Standing views of both knees, oblique, lateral, and sunrise left knee. FINDINGS: The opposite right knee shows moderately severe medial and lateral compartment osteoarthritic change. The left total knee prosthesis is in anatomic alignment, including patellar button with no joint effusion or hardware complication. IMPRESSION: 1. Anatomically aligned left total knee prosthesis. 2. Severe degenerative changes right knee. Interpreted by: Garcia Butcher Jr., MD Signed by: Garcia Butcher Jr., MD 09/18/[address] [facility] XR KNEE LEFT (MIN 4 VIEWS)Or dered By: Mercy Hilliard on 09-18-2020 1. Anatomically alig alicia left total knee prosthesis. 2. Severe degenerative changes right knee. Medlert Phone: EXAM: XR KNEE LEFT ( MIN 4 VIEWS) HISTORY: Z96.652 75-year-old female left knee pain and stiffness. Total knee arthroplasty 2019. COMPARISON: Preop left knee, [facility], 03/02/2017. TECHNIQUE: Left knee series. Standing views of both knees, oblique, lateral, and sunrise left knee. FINDINGS: The opposite right knee shows moderately severe medial and lateral compartment osteoarthritic change. The left total knee prosthesis is in anatomic alignment, including patellar button with no joint effusion or hardware complication. Medlert Phone: Wade, [facility] Incoming Radiant Results From [facility] - 09/18/2020 11:27 AM EDT EXAM: XR KNEE LEFT (MIN 4 VIEWS) HISTORY: Z96.652 75-year-old female left knee pain and stiffness. Total knee arthroplasty 2019. COMPARISON: Preop left knee, [facility], 03/02/2017. TECHNIQUE: Left knee series. Standing views of both knees, oblique, lateral, and sunrise left knee. FINDINGS: The opposite right knee shows moderately severe medial and lateral compartment osteoarthritic change. The left total knee prosthesis is in anatomic alignment, including patellar button with no joint effusion or hardware complication. IMPRESSION: 1. Anatomically aligned left total knee prosthesis. 2. Severe degenerative changes right knee. [employer] Phone: Vital Signs Date Time Vital Sign Value Performing Clinician Facility 12-28-2023 10:57-0400 Body height 153.67 cm [facility] 12-28-2023 10:57-0400 Body mass index (BMI) [Ratio] 31.7 kg/m2 [facility] 12-28-2023 10:57-0400 Body weight 75.01 kg [facility] 12-28-2023 10:57-0400 Diastolic blood pressure 78 mm[Hg] [facility] 12-28-2023 10:57-0400 Heart rate 60 /min [facility] 12-28-2023 10:57-0400 Respiratory rate 12 /min [facility] 12-28-2023 10:57-0400 Systolic blood pressure 144 mm[Hg] [facility] 04-27-2023 10:00-0500 Body height 153.67 cm Jameson Ball Other [facility] [employer] Other 04-27-2023 10:00-0500 Body mass index (BMI) [Ratio] 32.65 kg/m2 Jameson Ball Other [employer] Other 04-27-2023 10:00-0500 Body weight 77.11 kg Jameson Ball Other [employer] Other 04-27-2023 10:00-0500 Diastolic blood pressure 83 mm[Hg] Jameson Ball Other [facility] [employer] Other 04-27-2023 10:00-0500 Respiratory rate 12 /min Jameson Ball Other [employer] Other 04-27-2023 10:00-0500 Systolic blood pressure 145 mm[Hg] Jameson Ball Other [facility] [employer] Other 04-19-2023 10:38-0500 Blood Pressure Location [facility] 04-19-2023 10:38-0500 Diastolic blood pressure 75 mm[Hg] [facility] 04-19-2023 10:38-0500 Heart rate 67 /min [facility] 04-19-2023 10:38-0500 Mean blood pressure 101 mm[Hg] [facility] 04-19-2023 10:38-0500 Systolic blood pressure 154 mm[Hg] [facility] 04-19-2023 10:37-0500 Heart rate 65 /min [facility] 04-19-2023 10:37-0500 SaO2% (BldA) [Mass fraction] 93 % [facility] 04-19-2023 10:37-0500 Body temperature 97.7 [degF] [facility] 04-19-2023 10:37-0500 Blood Pressure Location [facility] 04-19-2023 10:37-0500 Diastolic blood pressure 75 mm[Hg] [facility] 04-19-2023 10:37-0500 Systolic blood pressure 154 mm[Hg] [facility] 04-19-2023 10:36-0500 Blood Pressure Location [facility] 04-19-2023 10:36-0500 Diastolic blood pressure 80 mm[Hg] [facility] 04-19-2023 10:36-0500 Mean blood pressure 105 mm[Hg] [facility] 04-19-2023 10:36-0500 Systolic blood pressure 154 mm[Hg] [facility] 04-19-2023 10:36-0500 Respiratory rate 18 /min [facility] 05-20-2022 11:05-0500 Blood Pressure Location RHEA BUSBY [facility] 05-20-2022 11:05-0500 Diastolic blood pressure 81 mm[Hg] RHEA BUSBY [facility] 05-20-2022 11:05-0500 Heart rate 68 /min RHEA BUSYB [facility] 05-20-2022 11:05-0500 Systolic blood pressure 156 mm[Hg] RHEA BUSBY [facility] Encounters Encounter Date Encounter Type Care Provider Facility Start: 12-28-2023 End: 12-28-2023 ambulatory [facility] Work Phone: Start: 12-28-2023 End: 12-28-2023 Patient encounter procedure [facility] Work Phone: Start: 09-23-2023 End: 09-23-2023 ambulatory [facility] Not Available Start: 07-20-2023 End: 07-20-2023 ambulatory CAITY KELBLEY Not Available Start: 07-16-2023 End: 07-16-2023 ambulatory CAITY KELBLEY Not Available Start: 07-14-2023 Bamboo flowsheet Caity Kelbley [employer] [facility] Start: 07-14-2023 Bamboo flowsheet Caity Kelbley [employer] [facility] [facility] Start: 07-14-2023 End: 07-14-2023 ambulatory CAITY KELBLEY Not Available Start: 07-14-2023 End: 07-14-2023 Admission to same day surgery center Caity Ceballos [employer] UND[employer]WR[employer] [facility] Comment on above: Aftercare following right knee joint replacement surgery (Primary Dx); Acute pain of right knee; Difficulty walking; Presence of right artificial knee joint Start: 07-14-2023 End: 07-14-2023 ambulatory Caity Hutchinsonbley [employer] UND[employer] [facility] Start: 07-08-2023 Bamboo flowsheet Caity Kelbley [employer] UND[employer] [facility] Start: 07-08-2023 Bamboo flowsheet Caity Kelbley [employer]UAL[employer] UNDERWR[employer] [facility] Start: 07-08-2023 End: 07-08-2023 Admission to same day surgery center Caity Ceballos [employer]UAL[employer] UNDERWR[employer] [facility] Comment on above: Aftercare following right knee joint replacement surgery (Primary Dx); Acute pain of right knee; Difficulty walking; Presence of right artificial knee joint Start: 07-08-2023 End: 07-08-2023 ambulatory Caity Hutchinsonbley [employer]UAL[employer] UNDER[employer] [facility] Start: 07-06-2023 End: 07-06-2023 ambulatory CAITY KELBLEY Not Available Start: 07-01-2023 End: 07-01-2023 ambulatory CAITY KELBLEY Not Available Start: 06-29-2023 End: 06-29-2023 ambulatory CAITY KELBLEY Not Available Start: 06-24-2023 End: 06-24-2023 ambulatory CAITY KELBLEY Not Available Start: 06-22-2023 End: 06-22-2023 ambulatory CAITY KELBLEY Not Available Start: 06-17-2023 End: 06-17-2023 ambulatory CAITY KELBLEY Not Available Start: 06-15-2023 End: 06-15-2023 ambulatory CAITY KELBLEY Not Available Start: 06-10-2023 End: 06-10-2023 ambulatory CAITY KELBLEY Not Available Start: 06-08-2023 End: 06-09-2023 ambulatory CAITY KELBLEY Not Available Start: 06-04-2023 End: 06-04-2023 ambulatory CAITY KELBLEY Not Available Start: 06-03-2023 End: 06-03-2023 ambulatory [facility] [employer] Other Start: 06-03-2023 Telephone encounter Jameson Reed [facility] Start: 06-01-2023 End: 06-01-2023 ambulatory CAITY KELBLEY Not Available Start: 05-28-2023 End: 05-28-2023 ambulatory CAITY KELBLEY Not Available Start: 05-27-2023 End: 05-27-2023 ambulatory Jameson Reed Other [employer] Other Start: 05-27-2023 Telephone encounter Jameson OLIVO [facility] Start: 05-25-2023 End: 05-26-2023 ambulatory CAITY KELBLEY Not Available Start: 05-21-2023 End: 05-21-2023 ambulatory SUSEI FLOWERS Not Available Start: 05-19-2023 End: 05-19-2023 ambulatory CORTNEYODALIS BRUNER Not Available Start: 05-03-2023 End: 05-03-2023 ambulatory [facility] Facility:[facility] Start: 04-27-2023 End: 04-27-2023 ambulatory Jameson Reed Other [employer] Other Start: 04-27-2023 Encounter for other preprocedural examination Jameson Reed [facility] Start: 04-27-2023 Office outpatient vi sit 25 minutes Jameson Reed [facility] Start: 04-19-2023 End: 04-20-2023 ambulatory [facility] Facility:[facility] Start: 04-19-2023 End: 04-19-2023 Patient encounter procedure [facility] Start: 02-19-2023 End: 02-19-2023 ambulatory Jameson Keerthi Other [employer] Other Start: 02-19-2023 Telephone encounter Jameson Reed [facility] Start: 02-16-2023 End: 02-16-2023 ambulatory Jameson Keerthi Other [employer] Other Start: 02-16-2023 Telephone encounter Jameson OLIVO [facility] Start: 05-20-2022 End: 05-21-2022 ambulatory RHEA BUSBY Facility:[facility] Start: 05-20-2022 End: 05-20-2022 Patient encounter procedure RHEA BUSBY [facility] Start: 05-12-2022 End: 05-13-[address] Cabrera Dodson Facility:[facility] Start: 03-26-2022 End: 03-27-[address] JAMESON REED Facility:[facility] Start: 08-28-2021 End: 08-29-[address] JAMESON REED Facility:[facility] Start: 07-22-2021 Adult health examination Adam Reed Other [employer] Other Start: 09-18-2020 End: 09-21-2020 ambulatory [facility] Start: 09-18-2020 End: 09-20-2020 Subsequent hospital visit by physician [facility] Additional Xray At [facility] Comment on above: History of total lef t knee replacement Start: 08-11-2018 End: 08-12-2018 Patient encounter procedure DEFAULT PHYSICIAN Facility:[facility] Procedures Date Procedure Procedure Detail Performing Clinician Start: 03-26-2021 Cystoscopy RHEA HAYES Start: 03-26-2021 Extracorporeal shock wave lithotripsy of calculus of kidney RHEA BUSBY Start: 10-17-2020 Cystourethroscopy wi th dilation of urethral stricture RHEA BUSBY Start: 09-18-2020 Radiologic exam knee complete 4/more views [facility] DO Work Phone: Start: 02-06-2019 Total knee replacement RHEA BUSBY Start: 10-01-2015 Screening for malign ant neoplasm of colon Jameson Reed Other Colonoscopy RHEA BUSBY Depression screening Nas Reed Other Hysterectomy RHEA BUSBY Screening for malign ant neoplasm of breast Jameson Reed Other Plan of Treatment Date Care Activity Detail Author Start: 09-23-2023 End: 09-23-2023 Patient encounter procedure 09/23/2023 1:15 PM EDT Office Visit [facility] [address] [place] [address] [facility] DO [address] [place] [address] [facility] Start: 07-29-2023 End: 07-29-2023 ambulatory 07/29/2023 10:00 AM EST Treatment [facility] [address] [place] [address] Caity Ceballos [employer]UAL[employer] UNDERWR[employer] [facility] Start: 07-27-2023 End: 07-27-2023 ambulatory 07/27/2023 10:30 AM EST Treatment [facility] [address] [place] [address] Caity Ceballos [employer]UAL[employer] UNDERWRITER [facility] Start: 07-22-2023 End: 07-22-2023 ambulatory 07/22/2023 10:00 AM EST Treatment [facility] [address] [place] [id number] Caity Ceballos CASUAL[employer] UNDERWRITER [facility] Start: 07-20-2023 End: 07-20-2023 ambulatory 07/20/2023 10:30 AM EST Treatment [facility] [address] [place] [address] Caity Ceballos, CASUALTY UNDERWRITER [facility] Start: 07-16-2023 End: 07-16-2023 ambulatory 07/16/2023 10:30 AM EST Treatment [facility] [address] [facility] [address] [place] [address] Caity Ceballos, CASUALTY UNDERWRITER [facility] Start: 07-14-2023 End: 07-14-2023 ambulatory 07/14/2023 10:30 AM EST Treatment [facility] [address] [facility] [address] [place] [address] Caity Ceballos, CASUALTY UNDERWRITER [facility] Start: 07-08-2023 End: 07-08-2023 ambulatory 07/08/2023 10:00 AM EST Treatment [facility] [address] [facility] [address] [place] [address] Caity Ceballos, CASUALTY UNDERWRITER Arrived [facility] Comment on above: Arrived Start: 01-29-2021 Influenza vaccination Flu vacc ine (Season Ended) [facility] Phone: Start: 09-18-2020 Annual Wellness Visi t (AWV) Annual Wellness Visit (AWV) [employer] Phone: Start: 04-01-2016 Pneumococcal Vaccine : 65+ Years (2 - PCV) Pneumococcal Vaccine: 65+ Years (2 - PCV) [facility] Start: 08-08-2008 Pneumococcal 65+ yea rs Vaccine (1 of 1 - PPSV23) Pneumococcal 65+ years Vaccine (1 of 1 - PPSV23) [employer] Phone: Start: 08-08-1998 Screening for osteoporosis DEXA (modify frequency per FRAX score) [employer] Phone: Start: 08-08-1993 Shingles Vaccine (1 of 2) Shingles Vaccine (1 of 2) [employer] Phone: Start: 08-08-1962 DTaP/Tdap/Td vaccine (1 - Tdap) DTaP/Tdap/Td vaccine (1 - Tdap) [employer] Phone: Start: 1959 COVID-19 Vaccine (1) COVID-19 Vaccin e (1) [employer] Phone: Start: 1945 Hepatitis C screening Hepatitis C sc reen [facility] Phone: Comprehensive metabo lic 2000 panel - Serum or Plasma [facility] Immunizations Immunization Date Immunization Notes Care Provider Fa cility 03-04-2022 influenza virus vaccine, unspecified formulation [facility] 03-04-2022 influenza, high dose seasonal, preservative-free Jameson Reed Other [facility] [employer] Other 04-21-2021 SARS-CoV-2 (COVID-19 ) Ad26 vaccine, recombinant RHEA KEHINDE [facility] 02-21-2021 influenza virus vaccine, split virus (incl. purified surface antigen) Jameson Reed Other [employer] Other 02-21-2021 influenza virus vaccine, unspecified formulation [facility] 07-18-2020 COVID-19 Vaccine Pfi zer - Documentation Purposes Only Jameson Reed Other [facility] 07-18-2020 SARS-CoV-2 (COVID-19 ) Ad26 vaccine, recombinant RHEA KEHINDE [facility] 06-27-2020 COVID-19 Vaccine Moderna - Documentation Purposes Only Jameson Reed Other [facility] 06-27-2020 SARS-CoV-2 (COVID-19 ) mRNA BNT-162b2 vax RHEA KEHINDE [facility] 02-29-2020 influenza virus vaccine, split virus (incl. purified surface antigen) Jameson Reed Other [facility] [employer] Other 02-29-2020 influenza virus vaccine, unspecified formulation [facility] 03-22-2019 influenza virus vaccine, split virus (incl. purified surface antigen) Jameson Reed Other [facility] [employer] Other 03-22-2019 influenza virus vaccine, unspecified formulation [facility] 02-21-2018 influenza virus vaccine, split virus (incl. purified surface antigen) Jameson Reed Other [facility] [employer] Other 02-21-2018 influenza virus vaccine, unspecified formulation [facility] 02-22-2017 influenza virus vaccine, split virus (incl. purified surface antigen) Jameson Reed Other [facility] [employer] Other 02-22-2017 influenza virus vaccine, unspecified formulation [facility] 04-02-2016 influenza virus vaccine, split virus (incl. purified surface antigen) Jameson Reed Other [facility] [employer] Other 04-02-2016 influenza virus vaccine, unspecified formulation [facility] 04-05-2015 pneumococcal conjuga te vaccine, 13 valent Jameson Reed Other [facility] 02-10-2012 tetanus and diphther ia toxoids, adsorbed, preservative free, for adult use (5 Lf of tetanus toxoid and 2 Lf of diphtheria toxoid) Jameson Keerthi Other [facility] 01-16-2010 diphtheria, tetanus toxoids and acellular pertussis vaccine, unspecified formulation Jameson Reed Other [facility] 01-02-2009 pneumococcal polysaccharide vaccine, 23 valent Jameson Reed Other [facility] Payers Date Payer Category Payer Unknown 2014 Unknown [id number] 2008 Medicare MEDICARE MEDICAR E PART B [id number] 2008-[place] [address] [place] [address] Medicare [id number] 1959 Medicare [id number] .[id number] 1959 Self-pay 1959 Unknown [id number] 1943 Unknown [id number] 2.16.840.1.484449.3.579.2.647 1943 Unknown [id number] 2.16.840.1.395101.3.579.2.174 1943 Unknown [id number] 2.16.840.1.809793.3.579.2.174 1943 Unknown [id number] 2.16.840.1.333635.3.579.2.593 1943 Unknown [id number] 2.16.840.1.157561.3.579.2.593 1943 Unknown [id number] 2.16.840.1.882529.3.579.2.593 1943 Unknown [id number] 2.16.840.1.644840.3.579.2.727 1943 Unknown [id number] 2.16.840.1.294089.3.579.2.727 1943 Unknown [id number] 2.16.840.1.856804.3.579.2.727 1943 Unknown [id number] 2.16.840.1.537031.3.579.2.125 9 1943 Unknown [id number] 2.16.840.1.355962.3.579.2.125 9 1943 Unknown [id number] 2.16.840.1.944557.3.579.2.125 1943 Unknown [id number] 2.16.840.1.164280.3.579.2.125 1943 Unknown [id number] 2.16.840.1.986871.3.579.2.125 1943 Unknown [id number] 2.16.840.1.053369.3.579.2.125 1943 Unknown [id number] 2.16.840.1.356558.3.579.2.125 1943 Unknown [id number] 2.16.840.1.627419.3.579.2.125 1943 Unknown [id number] 2.16.840.1.322818.3.579.2.125 1943 Unknown [id number] 2.16.840.1.283837.3.579.2.125 1943 Unknown [id number] 2.16.840.1.141418.3.579.2.125 1943 Unknown [id number] 2.16.840.1.258360.3.579.2.125 1943 Unknown [id number] 2.16.840.1.317611.3.579.2.125 1943 Unknown [id number] 2.16.840.1.832329.3.579.2.125 1943 Unknown [id number] 2.16.840.1.623228.3.579.2.125 1943 Unknown [id number] 2.16.840.1.380093.3.579.2.125 1943 Unknown [id number] 2.16.840.1.449222.3.579.2.125 1943 Unknown [id number] 2.16.840.1.359318.3.579.2.125 1943 Unknown [id number] 2.16.840.1.157007.3.579.2.125 9 1943 Unknown [id number] 2.16.840.1.390984.3.579.2.125 9 1943 Unknown [id number] 2.16.840.1.657615.3.579.2.125 9 1943 Unknown [id number] 2.16.840.1.286238.3.579.2.125 9 1943 Unknown [id number] 2.16.840.1.298292.3.579.2.125 9 1943 Unknown [id number] 2.16.840.1.919403.3.579.2.125 9 Unknown [id number] 2.16.840.1.635131.3.579.2.593 Unknown Other1 (STD) [id number] Social History Date Type Detail [facility] Phone: Start: 1945 Sex Assigned At Not on file [facility] Phone: Start: 05-13-2021 End: 12-28-2023 Tobacco smoking status Ex-smoker (finding) [facility] Tobacco smoking status Never [facility] Start: 06-03-2023 Sex Assigned At Female F [facility] History of tobacco use Current smoker [facility] History of tobacco use Cigarette Smoker [facility] Start: 06-03-2023 Tobacco use and exposure Smokeless tobacco non-user [facility] Start: 06-03-2023 History of Social function [facility] Start: 1945 Sex Assigned At Female F [facility] Functional Status Date Assessment Result Facility 04-19-2023 Functional Status No [facility] 05-20-2022 Functional Status N/A [facility] Clinical Notes 05-20-2022 to 04-28-2023 Note Date & Type Note Facility 04-28-2023 Note [id number] Kinney [facility] 04-27-2023 Evaluation note Encounter Date Diagnosis Assessment Notes Mar, ASHD (arteriosclerot ic heart disease) (ICD-10 - I25.10) No activity limiting symptoms. Maintain optimal volume status. No contraindication to holding ASA perioperatively. Continue Carvedilol without interruption. Mar, Pre-operative examination for internal medicine (ICD-10 - Z01.818) I have reviewed her medication list: - holding ASA for 5 days. - holding Furosemide and Potassium the day of surgery. - holding Telmisartan due to increased risk of perioperative hypotension. I have reviewed her labs, CXR and EKG and the results are acceptable to proceed with surgery. Mar, Primary hypertension (ICD-10 - I10) Stable Holding Telmisartan the day of surgery, to avoid risk of hypotension. Anticipate restarting the following day. Continue Amlodipine without interruption Mar, Elevated cholesterol (ICD-10 - E78.00) Stable, continue medication w/o interruption Mar, Chronic venous insufficiency (ICD-10 - I87.2) Low salt diet, elevate and compression stockings. Early ambulation encouraged. [employer] Other [id number] Hospital Discharge instructions Patient Education 05/20/2022 11:53:51 Kidney Stones, Udrr-rj-Zukt Kidney Stones Kidney stones are rock-like masses that form inside of the kidneys. Kidneys are organs that make pee (urine). A kidney stone may move into other parts of the urinary tract, including: The tubes that connect the kidneys to the bladder (ureters). The bladder. The tube that carries urine out of the body (urethra). Kidney stones can cause very bad pain and can block the flow of pee. The stone usually leaves your body (passes) through your pee. You may need to have a doctor take out the stone. What are the causes? Kidney stones may be caused by: A condition in which certain glands make too much parathyroid hormone (primary hyperparathyroidism). A buildup of a type of crystals in the bladder made of a chemical called uric acid. The body makes uric acid when you eat certain foods. Narrowing (stricture) of one or both of the ureters. A kidney blockage that you were born with. Past surgery on the kidney or the ureters, such as gastric bypass surgery. What increases the risk? You are more likely to develop this condition if: You have had a kidney stone in the past. You have a family history of kidney stones. You do not drink enough water. You eat a diet that is high in protein, salt (sodium), or sugar. You are overweight or very overweight (obese). What are the signs or symptoms? Symptoms of a kidney stone may include: Pain in the side of the belly, right below the ribs (flank pain). Pain usually spreads (radiates) to the groin. Needing to pee often or right away (urgently). Pain when going pee (urinating). Blood in your pee (hematuria). Feeling like you may vomit (nauseous). Vomiting. Fever and chills. How is this treated? Treatment depends on the size, location, and makeup of the kidney stones. The stones will often pass out of the body through peeing. You may need to: Drink more fluid to help pass the stone. In some cases, you may be given fluids through an IV tube put into one of your veins at the hospital. Take medicine for pain. Make changes in your diet to help keep kidney stones from coming back. Sometimes, medical procedures are needed to remove a kidney stone. This may involve: A procedure to break up kidney stones using a beam of light (laser) or shock waves. Surgery to remove the kidney stones. Follow these instructions at home: Medicines Take ruxg-xei-owxdqjz and prescription medicines only as told by your doctor. Ask your doctor if the medicine prescribed to you requires you to avoid driving or using heavy machinery. Eating and drinking Drink enough fluid to keep your pee pale yellow. You may be told to drink at least 8 10 glasses of water each day. This will help you pass the stone. If told by your doctor, change your diet. This may include: ?Limiting how much salt you eat. ?Eating more fruits and vegetables. ?Limiting how much meat, poultry, fish, and eggs you eat. Follow instructions from your doctor about eating or drinking restrictions. General instructions Collect pee samples as told by your doctor. You may need to collect a pee sample: ?24 hours after a stone comes out. ?8 12 weeks after a stone comes out, and every 6 12 months after that. Strain your pee every time you pee (urinate), for as long as told. Use the strainer that your doctor recommends. Do not throw out the stone. Keep it so that it can be tested by your doctor. Keep all follow-up visits as told by your doctor. This is important. You may need follow-up tests. How is this prevented? To prevent another kidney stone: Drink enough fluid to keep your pee pale yellow. This is the best way to prevent kidney stones. Eat healthy foods. Avoid certain foods as told by your doctor. You may be told to eat less protein. Stay at a healthy weight. Where to find more information National Kidney Foundation (NKF): www.kidney.org U[employer] Foundation (UCF): www.urologyhealth.org Contact a doctor if: You have pain that gets worse or does not get better with medicine. Get help right away if: You have a fever or chills. You get very bad pain. You get new pain in your belly (abdomen). You pass out (faint). You cannot pee. Summary Kidney stones are rock-like masses that form inside of the kidneys. Kidney stones can cause very bad pain and can block the flow of pee. The stones will often pass out of the body through peeing. Drink enough fluid to keep your pee pale yellow. This information is not intended to replace advice given to you by your health care provider. Make sure you discuss any questions you have with your health care provider. Document Released: 11/02/2008 Document Revised: 10/03/2019 Document Reviewed: 10/03/2019 [employer] Patient Education 2020 [employer] Follow Up Care 05/13/2021 12:23:02 With:KEHINDE AVALOS, RHEA Yee, URL Address: [address] [place] [place] [address] Business (1) When: only if needed [facility] evaluation + Plan note No data available for this section [facility] Sush[facility] evaluation + Plan note Future Appointments Appointment Date:05/03/2023 10:00:00 AM Scheduled Provider: Location:[facility] Appointment Type:Surgery FT Diagnostic Tests Pending * [facility] of total left knee replacement [facility]: [email or web address] noteNo InformationSt[facility] Other Evaluation note* Diagnosis Aftercare following right knee joint replacement surgery- Primary Acute pain of right knee Difficulty walking Difficulty in walking Presence of right artificial knee joint [facility] Diagnosis Aftercare following right knee joint replacement surgery- Primary Acute pain of right knee Difficulty walking Difficulty in walking Presence of right artificial knee joint [facility] Diagnosis Onset Date Resolution Status ASHD (arteriosclerotic heart disease) acute Chronic venous insufficiency of lower extremity acute HANSA (generalized anxiety disorder) acute Hypercholesterolemia acute Hypertension acute Primary osteoarthritis of knees, bilateral acute Medicare annual wellness visit, subsequent noneactive Screening mammogram for breast cancer noneactive [facility] Work Phone: [facility] general Narrative - Reported* Type Description Date Medical History Seasonal allergic rhinitis due t o pollen Medical History 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 Medical History Chronic bronchitis, simple Medical History HANSA (generalized anxiety disorde r) Medical History ASHD (arteriosclerotic heart dis ease) Medical History Chronic venous insufficiency Medical History Lumbar spondylosis Surgical History COLONOSCOPY Surgical History CYSTOSCOPY, WITH LITHOTRIPSY Surgical History LEFT TOTAL KNEE ARTHROPLASTY Surgical History [facility] 1988 Surgical History [facility] 1993 Surgical History [facility] 2009 Surgical History Right TKA 04/2023 Hospitalization History SEE SURGICAL HX [facility] [employer] Other Hospital Discharge instructions No data available for this section [facility] No data available for this section [facility] Summary Purpose Family History Relationship Condition Age at Onset Recorded Date/T rolanda father Unknown mother Unknown Advance Directives Advance Directive Response Recorded Date/ Time Advance Directives No December 27 10:23am Chief Complaint and Reason for Visit Chief Complaint wellness Reason for Visit ASHD (arteriosclerot ic heart disease) Chronic venous insufficiency of lower extremity HANSA (generalized anxiety disorder) Hypercholesterolemia Hypertension Primary osteoarthritis of knees, bilateral Medicare annual wellness visit, subsequent Screening mammogram for breast cancer Additional Source Comments INFORMATION SOURCE (unrecogn ized section and content) DATE CREATED AUTHOR 08/13/2018 [facility] DATE CREATED AUTHOR AUTHOR'S ORGANIZ ATION 09/23/2020 Leny Roa spihenry DATE CREATED AUTHOR AUTHOR'S ORGANIZ ATION 05/22/2022 [facility] DATE CREATED AUTHOR AUTHOR'S ORGANIZ ATION 05/12/2023 [facility] DATE CREATED AUTHOR AUTHOR'S ORGANIZ ATION 09/25/2023 [facility] Patient Care team informatio n (unrecognized section and content) Dispatcher Relay Relationship Specialty Start Date End Date Jameson Reed MD [address] [place] [id number] PCP - General Internal Medicine 03/30/23 Dispatcher Relay Relationship Specialty Start Date End Date Jameson Reed MD [address] [place] [phone] PCP - General Internal Medicine 03/30/23 Dispatcher Relay Relationship Specialty Start Date End Date Jameson Reed MD [address] [place] [address] PCP - General Internal Medicine 03/30/23 Dispatcher Relay Relationship Specialty Start Date End Date Jameson Reed MD [address] [facility] [place] [phone] PCP - General Internal Medicine 03/30/23 Team Status: Active Member Role Status Dates PHYSICIAN NO FAMILY Primary Care Provider Active Team Status: Inactive Member Role Status Dates PHYSICIAN NO FAMILY Primary Care Provider Active Start: December 28, 2023 End: December 28, 2023 Jameson Reed DO Attending Provider Active Sta rt: December 28, 2023 End: December 28, 2023 REASON FOR VISIT (unrecogniz ed section and content) Specialty Diagnoses / Procedures Referred By Contjenn t Referred To Contact Physical Therapy Diagnoses Aftercare following right knee joint replacement surgery Presence of right artificial knee joint Procedures ND THER PX 1/> AREAS EACH 15 MIN NEUROMUSC REEDUCA PHYS/OCC THERAPY SS ND THERAPEUTIC PX 1/> AREAS EACH 15 MIN EXERCISES ND MANUAL THERAPY TQS 1/> REGIONS EACH 15 MINUTES [facility], [address] [place] [facility] [place] [address] [address] [facility] [address] [place] [address] Referral ID Status Reason Start Date Expiration Date Visits Requested Visits Authorized [id number] Authorized Consult and Treat 07/06/2023 03/21/2025 26 26 Goals (unrecognized section and content) Goals may be documented in a n alternate section FOR RECORDS PERTAINING TO PATIENTS WHO ARE OR HAVE BEEN ENROLLED IN A CHEMICAL DEPENDENCY/SUBSTANCEABUSE PROGRAM, SOME INFORMATION MAY BE OMITTED. This clinical summary was aggregated from multiple sources. Caution should be exercised in using it in the provision of clinical care. This summary normalizes information from multiple sources, and as a consequence, information in this document may materially change the coding, format and clinical context of patient data. In addition, data may be omitted in some cases. CLINICAL DECISIONS SHOULD BE BASED ON THE PRIMARY CLINICAL RECORDS. [email or web address] provides no warranty or guarantee of the accuracy or completeness of information in this document.
[2024-01-26 08:09] LABS: Basophils Absolute Auto 0.1 10^3/uL (0.0-0.1); Basophils Percent Auto 0.7 % (0.2-2.0); Eosinophils Absolute Auto 0.2 10^3/uL (0.0-0.7); Eosinophils Percent Auto 2.8 % (0.9-7.0); Hematocrit 45.8 % (36.0-48.0); Hemoglobin 15.4 g/dL (12.0-16.0); Immature Granulocytes Abs Auto 0.02 10^3/uL (0.00-0.03); Immature Granulocytes Pct Auto 0.3 % (0.0-0.5); Lymphocytes Absolute Auto 2.8 10^3/uL (1.2-3.8); Lymphocytes Percent Auto 42.2 % (20.5-60.0); Mean Corpuscular HGB Conc 33.6 g/dL (29.9-35.2); Mean Corpuscular Hemoglobin 30.9 pg (26.7-34.0); Mean Corpuscular Volume 91.8 fL (81.0-99.0); Mean Platelet Volume 10.6 fL (9.5-13.5); Monocytes Absolute Auto 0.7 10^3/uL (0.3-0.8); Monocytes Percent Auto 10.4 % (1.7-12.0); Neutrophils Absolute Auto 2.9 10^3/uL (1.4-6.5); Neutrophils Percent Auto 43.6 % (43.0-75.0); Platelet Count 234 10^3/uL (150-450); Red Blood Count 4.99 10^6/uL (4.20-5.40); Red Cell Distribution Width 12.3 % (11.0-15.0); White Blood Count 6.7 10^3/uL (4.0-11.0)
[2024-01-26 08:16] LABS: Alanine Aminotransferase 31 U/L (14-59); Albumin Globulin Ratio 1.3; Albumin Level 3.9 g/dL (3.4-5.0); Alkaline Phosphatase 96 U/L (46-116); Anion Gap 11.8; Aspartate Amino Transferase 23 U/L (15-37); BUN Creatinine Ratio 21.3; Bilirubin Total 0.6 mg/dL (0.2-1.0); Calcium 9.2 mg/dL (8.5-10.1); Carbon Dioxide 30.4 mmol/L (21.0-32.0); Chloride 100 mmol/L (98-107); Cholesterol 193 mg/dL (<=200); Estimated GFR (African America >60 (>=60); Estimated GFR (Non-African Ame >60 (>=60); Globulin 3.1 g/dL; Glucose 103 mg/dL (74-106); HDL Cholesterol 64 mg/dL (40-60); Potassium 4.2 mmol/L (3.5-5.1); Sodium 138 mmol/L (136-145); Triglycerides 151 mg/dL (<=150); VLDL CHOLESTEROL 30.2 mg/dL
== END 2024-01-26 07:07 | disposition home or self-care (01) ==
LOC: LAB 07:07
PROVIDERS: PCP Internal Medicine; Visit Provider Internal Medicine
DX: I25.10 Atherosclerotic heart disease of native coronary artery without angina pectoris (principal); I10 Essential (primary) hypertension; E78.00 Pure hypercholesterolemia, unspecified; I87.2 Venous insufficiency (chronic) (peripheral)
CPT/HCPCS: 36415; 80053; 80061; 85025

== ENCOUNTER 2024-04-03 09:53 | Outpatient (OUT) | payer MEDICARE, OTHER, SELFPAY ==
--- NOTE | 2024-04-03 09:58 | MM_ITS ---
Patient Name: GIANA ISAACS MR#: [id number] : 1945 Exam Date: 04/03/2024 Ordering Doctor: DR Jameson Reed D.O. RADIOLOGY REPORT PROCEDURE: MM TOMOSYNTHESIS SCREENING BI COMPARISON: MM TOMOSYNTHESIS SCREENING BI, 03/29/2023. MG MAMM SCREEN 3D [place] CAD, 03/26/2022. INDICATIONS: Screening Calculator Name NCI Breast Cancer Risk Assessment Tool 5 Year Breast Cancer Risk 1.50% Lifetime Breast Cancer Risk 2.30% Personal Breast Cancer No Personal Ovarian Cancer No Treatments None Family Cancers None LOCATION: [facility] BREAST COMPOSITION: There are scattered areas of fibroglandular density. FINDINGS: DIAGNOSTIC CATEGORY 2--BENIGN FINDING. NO CHANGE FROM COMPARISON. Scattered benign-appearing calcifications are present. Scattered benign-appearing lymph nodes are present. RIGHT BREAST: No significant suspicious finding. LEFT BREAST: No significant suspicious finding. RECOMMENDATIONS: ROUTINE MAMMOGRAM AND CLINICAL EVALUATION IN 12 MONTHS. PLEASE NOTE: A NORMAL MAMMOGRAM DOES NOT EXCLUDE THE POSSIBILITY OF BREAST CANCER. A CLINICALLY SUSPICIOUS PALPABLE LUMP SHOULD BE BIOPSIED. Dictated by: Hadley Briceno MD on 04/03/2024 at 11:23 Approved by: Hadley Briceno MD on 04/03/2024 at 11:25
== END 2024-04-03 09:54 | disposition home or self-care (01) ==
LOC: MAMMO 09:53
PROVIDERS: PCP Internal Medicine; Visit Provider Internal Medicine
DX: Z12.31 Encounter for screening mammogram for malignant neoplasm of breast (principal)
CPT/HCPCS: 77063; 77067

== ENCOUNTER 2024-12-31 16:22 | Emergency (ER) | payer MEDICARE, OTHER, SELFPAY ==
[2024-12-31 16:24] VITALS: BP 165/84; PULSE 73; TEMP 36.6; O2SAT 94; BMI 27.3
--- OUTSIDE RECORDS SUMMARY | 2024-12-31 16:28 | XMS_ITS | CCD ---
Author Organization [facility] Care Team Providers Care Lay Out Carpenter Name Role Phone PHYSICIAN, DEFAULT Admitting Unavailable PHYSICIAN, DEFAULT Attending Unavailable Jameson Reed DO Primary Care Provider MERCY HILLIARD Referring Unavailab le JAMESON REED [...] HILLIARD, MERCY T Referring Unavailable BLACKSTON, CORTNEY Serrano Attending Unavailable HILLIARD, MERCY T Referring Unavailable MERLIN FLOWERSELA Lisa Attending Unavailable HILLIARD, MERCY T Referring [...] Referring Unavailable HILLIARD, MERCY T Attending Unavailable Allergies Allergy Classification Reported Allergen(s) Allergy Type Date of Onset Reaction(s) Facility (3 sources) Amoxicillin / Clavulanate; Translations: [amoxicillin-cl avulanate] Drug Allergy Diarrhea (finding) [facility] (1 source) Amoxicillin / Clavulanate Drug Allergy [facility] Repository (5 sources) Lisinopril Drug Allergy Unknown [facility] Other (1 source) No Known Medication Allergies; Translations: [No Known Medication Allergies] Propensity to adverse reactions (disorder) [facility] Repository (6 sources) Amoxicillin-Pot Clavulanate Drug Allergy 3 Diarrhea [facility] Healthcare (2 sources) Lisinopril Allergy to substance 4 [facility] Medications Current Medications Medication Drug Class(es) Dates Sig (Normalized) Sig (Original) amLODIPine 5 mg oral tablet (15 sources) Dihydropyridine Calcium Channel Twyla Start: 01-10-2019 take 1 tablet by mouth in the morning amLODIPine (Norvasc) 5 MG tablet Take 5 mg by mouth in the morning and 5 mg before bedtime. 04/09/2023 Active aspirin 81 mg oral tablet (4 sources) Platelet Aggregation Inhibitor, Nonsteroidal Anti-inflammatory Drug Start: 10-14-2020 take 81 mg by mouth once daily aspirin 81 mg, Oral, Daily, Prophylaxis Start Date: 10/14/20 Status: Ordered take 1 tablet by mouth once sania y aspirin 81 MG EC tablet Take 81 mg by mouth Daily Active calcium carbonate 1500 mg / cholecalciferol 800 unt chewable tablet (2 sources) Vitamin D Start: 01-10-2019 take 1 tablet by mouth once daily calcium (as carbonate)-vitamin D 600 mg-800 intl units oral tablet, chewable 1 tab(s), Oral, Daily, Prophylaxis Start Date: 01/10/19 Status: Ordered carvedilol 25 mg oral tablet (15 sources) alpha-Adrenergic Twyla, beta-Adrenergic Twyla Start: 01-10-2019 carvedilol (Coreg) 25 MG tablet 03/26/2023 Active Celebrate Multivitamin (2 sources) Start: 01-10-2019 take 1 capsule by mouth once daily Celebrate Multivitamin 1 cap, Oral, Daily, Prophylaxis Start Date: 01/10/19 Status: Ordered cephalexin 500 mg oral capsule (8 sources) Cephalosporin Antibacterial Start: 03-01-2023 End: 05-02-2024 cephalexin (Keflex) 500 MG capsule Indications: Presence of left artificial knee joint Take two caps evening prior to appointment, take two cap one hour prior to appointment 4 capsule 2 05/02/2024 Active furosemide 20 mg oral tablet (17 sources) Loop Diuretic Start: 09-27-2023 take 1 tablet by mouth once daily Furosemide Active 0 .ROUTE .COMPLEX September 27, 2023 10:06pm TAKE 1 TABLET BY MOUTH EVERY DAY Start: 01-10-2019 End: 09-27-2023 furosemide (Lasix) 20 MG tab let 03/26/2023 Active Multiple Vitamin (multivitamin) tablet (2 sources) take 1 tablet by mouth once daily Multiple Vitamin (multivitamin) tablet Take 1 tablet by mouth Daily Active Nirmatrelvir-Ritonavir (Paxlovid) 300 mg (150 mg x 2)-100 mg tablets,dose pack (1 source) Start: 03-21-2024 Nirmatrelvir-Ritonavir (Paxlovid) 300 mg (150 mg x 2)-100 mg tablets,dose pack Active 0 PO .COMPLEX March 21, 2024 12:00am take TWO 150 mg tablets of nirmatrelvir with ONE 100 mg tablet of ritonavir twice daily for 5 days PO potassium chloride 10 meq extended release oral tablet (16 sources) Start: 03-19-2024 take 1 tablet by mouth once daily Potassium Chloride Active 0 .ROUTE .COMPLEX 90 March 19, 2024 4:28pm TAKE 1 TABLET BY MOUTH EVERY DAY Start: 10-17-2020 End: 03-19-2024 take 1 tablet by mouth in the morning potassium chloride CR (Klor-Con) 10 MEQ ER tablet Take 10 mEq by mouth in the morning. 03/04/2023 Active take 1 tablet by nikita th every twelve hours Potassium Chloride ER 10 MEQ 1 tablet with food Orally Twice a day Active pravastatin sodium 40 mg oral tablet (13 sources) HMG-CoA Reductase Inhibitor Start: 10-21-2023 take 1 tablet by mouth in the evening Pravastatin Active 0 .ROUTE .COMPLEX October 21, 2023 3:45pm TAKE 1 TABLET BY MOUTH IN THE EVENING Start: 07-24-2023 End: 10-21-2023 take 40 mg by mouth once daily in the evening Pravastatin Discontinued 40 MG PO Every evening October 21, 2023 12:00am October 21, 2023 3:47pm Start: 01-10-2019 take 40 mg by mouth once daily pravastatin 40 mg, Oral, Daily, High cholesterol Start Date: 01/10/19 Status: Ordered telmisartan 80 mg oral tablet (15 sources) Angiotensin 2 Receptor Twyla Start: 01-10-2019 take 1 tablet by mouth in the morning telmisartan (MIcarDIS) 80 MG tablet Take 80 mg by mouth in the morning. 02/11/2023 Active Completed/Discontinued Medications Medication Drug Class(es) Dates Sig (Normalized) Sig (Original) ALPRAZolam 0.25 mg oral tablet (7 sources) Benzodiazepine Start: 12-28-2023 End: 12-28-2023 take [...] Myocardial infarction 02-06-2019 Chronic Comment on above: 1990 Anxiety disorders (14 sources) Anxiety disorder; Translations: [Anxiety disorder, unspecified] 12-26-2023 Chronic Biliary tract disease (5 sources) Cholelithiasis without obstruction; Translations: [Calculus of gallbladder without cholecystitis without obstruction] Episodic Calculus of urinary tract (17 sources) Kidney stone; Translations: [Calculus of kidney] Onset: 2 Episodic Chronic obstructive pulmonary disease and bronchiectasis (5 sources) Simple chronic bronchitis; Translations: [Simple chronic bronchitis] Chronic Coronary atherosclerosis and other heart disease (13 sources) Old myocardial infarction; Translations: [Coronary arteriosclerosis] 01-10-2019 Chronic Disorders of lipid metabolism (20 sources) Hypercholesterolemia; Translations: [Familial hypercholesterolemia] Onset: 0 01-10-2019 Chronic Esophageal disorders (2 sources) Gastroesophageal reflux disease 01-10-2019 Chronic Essential hypertension (20 sources) Hypertensive disorder; Translations: [Essential hypertension] 02-06-2019 [...] 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: 6 Chronic Osteoarthritis (20 sources) Osteoarthritis of knee; Translations: [Idiopathic osteoarthritis] [...] knee joint] Chronic Other connective tissue disease (4 sources) Artificial knee joint present; Translations: [Presence of right artificial knee joint] 07-08-2023 Chronic Other connective tissue disease (2 sources) History of bilateral knee arthroplasty; Translations: [Presence of artificial knee joint, bilateral] 05-01-2024 Chronic Other diseases of veins and lymphatics (5 sources) Peripheral venous insufficiency; Translations: [Venous insufficiency (chronic) (peripheral)] Episodic Other diseases of veins and lymphatics (3 sources) Venous insufficiency (chronic) (peripheral); Translations: [Venous (peripheral) insufficiency, unspecified] Episodic Other diseases of veins and lymphatics (2 sources) Venous insufficiency of leg; Translations: [Venous insufficiency [...] conditions (not mental disorders or infectious disease) (6 sources) Encounter for screening mammogram for malignant [...] Spondylosis; intervertebral disc disorders; other back problems (7 sources) Lumbosacral spondylosis without myelopathy; Translations: [Spondylosis without myelopathy or radiculopathy, lumbar region] 12-26-2023 Chronic Substance-related disorders (5 sources) Tobacco user; Translations: [Nicotine dependence, cigarettes, in remission] Chronic Unclassified (5 sources) Unspecified lump in the right breast, overlapping quadrants; Translations: [Unspecified lump in the right breast, overlapping quadrants] Viral infection (1 source) COVID-19; Translations: [Other specified viral infection] 03-21-2024 Episodic Past or Other Problems Problem Classification Problem [...] Test Name Value Interpretation Reference Range Facility No Panel Informationon 05-02 Radiology Study observation (narrative) [facility] XR Knee - left 3 [facility] Result: Xrays taken in the office today saved to the permanent record, bilateral AP , sunrise and lateral weightbearing films, show stable position and alignment of the staggered bilateral TKAprosthesis. No sign of loosening, fracture or infection. [facility] XR Knee - right 3 [facility] Result: Xrays taken in the office today saved to the permanent record, bilateral AP , sunrise and lateral weightbearing films, show stable position and alignment of the staggered bilateral TKAprosthesis. No sign of loosening, fracture or infection. [facility] Basophils Auto (Bld) [#/Vol] on 01-26-2024 Basophils (Bld) [#/Vol] 0.1 10 3/uL 0.0-0.1 [facility] Basophils/100 WBC Auto (Bld) on 01-26-2024 Basophils/100 WBC (Bld) 0.7 % 0.2-2.0 [facility] Cholesterol in LDL Calc [Mas s/Vol]on 01-26-2024 Cholesterol in LDL [Mass/Vol] 99.0 mg/dL [facility] Comment on above: <100 mg/dl [id number] 0-129 mg/dl NEAR OR ABOVE [id number] mg/dl BORDERLINE [id number] mg/dl HIGH>190 mg/dl VERY HIGH Cholesterol in VLDL Calc [Ma ss/Vol]on 01-26-2024 Cholesterol in VLDL [Mass/Vol] 30.2 mg/dL [facility] Eosinophils/100 WBC Auto (Bl d)on 01-26-2024 Eosinophils/100 WBC (Bld) 2.8 % 0.9-7.0 [facility] Erythrocyte distribution wid th Auto (RBC) [Ratio]on 01-26-2024 Erythrocyte distribution width (RBC) [Ratio] 12.3 % 11.0-15.0 [facility] Estimated glomerular filtrat ion rate (GFR) non- Americanon 01-26-2024 GFR/1.73 sq M.predicted among non-blacks MDRD (S/P/Bld) [Vol rate/Area] mL/min/{1.73_m2} >=60 [facility] Globulin Calc (S) [Mass/Vol] on 01-26-2024 Globulin (S) [Mass/Vol] 3.1 g/dL [facility] Hematocrit Auto (Bld) [Volum e fraction]on 01-26-2024 Hematocrit (Bld) [Volume fraction] 45.8 % 36.0-48.0 [facility] Hemoglobin [Mass/volume] in Bloodon 01-26-2024 Hemoglobin (Bld) [Mass/Vol] 15.4 g/dL 12.0-16.0 [facility] Laboratory - Chemistry and C hemistry - challengeon 01-26-2024 Albumin [Mass/Vol] 3.9 g/dL 3.4-5.0 [facility] ALP [Catalytic activity/Vol] 96 U/L 46-116 [facility] ALT [Catalytic activity/Vol] 31 U/L 14-59 [facility] AST [Catalytic activity/Vol] 23 U/L 15-37 [facility] Bilirubin [Mass/Vol] 0.6 mg/dL 0.2-1.0 [facility] Calcium [Mass/Vol] 9.2 mg/dL 8.5-10.1 [facility] Chloride [Moles/Vol] 100 mmol/L 98-107 [facility] Cholesterol [Mass/Vol] 193 mg/dL <=200 [facility] Cholesterol in HDL [Mass/Vol] 64 mg/dL High 40-60 [facility] Comment on above: > or =60 mg/dl - LOW CARDIOVASCULAR RISK<40 mg/dl - HIGH CARDIOVASCULAR RISK CO2 [Moles/Vol] 30.4 mmol/L 21.0-32.0 [facility] Creatinine [Mass/Vol] 0.61 mg/dL 0.55-1.02 [facility] GFR/1.73 sq M.predicted MDRD (S/P/Bld) [Vol rate/Area] mL/min/{1.73_m2} >=60 [facility] Glucose [Mass/Vol] 103 mg/dL 74-106 [facility] Potassium [Moles/Vol] 4.2 mmol/L 3.5-5.1 [facility] Protein [Mass/Vol] 7.0 g/dL 6.4-8.2 [facility] Sodium [Moles/Vol] 138 mmol/L 136-145 [facility] Triglyceride [Mass/Vol] 151 mg/dL High <=150 [facility] Urea nitrogen [Mass/Vol] 13.0 mg/dL 7.0-18.0 [facility] Urea nitrogen/Creatinine [Mass ratio] 21.3 mg/mg [facility] Laboratory - Hematology and Cell countson 01-26-2024 Immature granulocytes/100 WBC (Bld) 0.3 % 0.0-0.5 [facility] Leukocytes [#/volume] correc kamille for nucleated erythrocytes in Blood by Automated counon 01-26-2024 WBC corrected for nucl RBC Auto (Bld) [#/Vol] 6.7 10 3/uL 4.0-11.0 [facility] Lymphocytes Auto (Bld) [#/Vo l]on 01-26-2024 Lymphocytes (Bld) [#/Vol] 2.8 10 3/uL 1.2-3.8 [facility] Lymphocytes/100 WBC Auto (Bl d)on 01-26-2024 Lymphocytes/100 WBC (Bld) 42.2 % 20.5-60.0 [facility] MCH Auto (RBC) [Entitic mass ]on 01-26-2024 MCH (RBC) [Entitic mass] 30.9 pg 26.7-34.0 [facility] MCHC Auto (RBC) [Mass/Vol]on 01-26-2024 MCHC (RBC) [Mass/Vol] 33.6 g/dL 29.9-35.2 [facility] MCV Auto (RBC) [Entitic vol] on 01-26-2024 MCV (RBC) [Entitic vol] 91.8 fL 81.0-99.0 [facility] Monocytes Auto (Bld) [#/Vol] on 01-26-2024 Monocytes (Bld) [#/Vol] 0.7 10 3/uL 0.3-0.8 [facility] Monocytes/100 WBC Auto (Bld) on 01-26-2024 Monocytes/100 WBC (Bld) 10.4 % 1.7-12.0 [facility] Neutrophils Auto (Bld) [#/Vo l]on 01-26-2024 Neutrophils (Bld) [#/Vol] 2.9 10 3/uL 1.4-6.5 [facility] Neutrophils/100 WBC Auto (Bl d)on 01-26-2024 Neutrophils/100 WBC (Bld) 43.6 % 43.0-75.0 [facility] No Panel Informationon 01-25 Eosinophils # (Auto) 0.2 10 3/uL 0.0-0.7 [facility] Immature Granulocyte # (Auto) 0.02 10 3/uL 0.00-0.03 [facility] Platelet mean volume Auto (B ld) [Entitic vol]on 01-26-2024 Platelet mean volume (Bld) [Entitic vol] 10.6 fL 9.5-13.5 [facility] Platelets Auto (Bld) [#/Vol] on 01-26-2024 Platelets (Bld) [#/Vol] 234 10 3/uL 150-450 [facility] RBC Auto (Bld) [#/Vol]on RBC (Bld) [#/Vol] 4.99 10 6/uL 4.20-5.40 [facility] Serum or plasma albumin/glob ulin mass ratioon 01-26-2024 Albumin/Globulin [Mass ratio] 1.3 {ratio} [facility] Serum or plasma anion gap de terminationon 01-26-2024 Anion gap [Moles/Vol] 11.8 mmol/L [facility] Serum or plasma total choles terol/high density lipoprotein (HDL) cholesterol mass owen 01-26-2024 Cholesterol.total/Ch olesterol in HDL [Mass ratio] 3.0 {ratio} [facility] Comment on above: 3.3 - 4.4 LOW RISK4. 4 - 7.1 AVERAGE RISK7.1 - 11.0 MODERATE RISK>11.0 HIGH RISK Operative Reporton Operative Report SURGERY DATE: 05/03/2023 [...] the proposed procedure. JOE Jiang Dictated: 05/03/2023 [id number] Transcribed: 05/03/2023 [facility] Comment on above: Result Comment: Elec tronically Signed By: Jose Franco CRNA\.br\Date and Time Signed: 05/10/23 13:14 EST IntraOperative Documentson 1 07-08-2022 IntraOperative Documents [id number]#1.00 TIFF [facility] Consent for Anesthesiaon Consent for Anesthesia [id number]#1.00 TIFF Normal [facility] Discharge Instructionson Discharge Instructions [id number]#1.00 TIFF Normal [facility] IntraOperative Documentson 1 07-05-2022 IntraOper[facility] Documents [id number]#1.00 TIFF Normal [facility] Pre-Op Checkliston Pre-Op Checklist [id number]#1.00 TIFF Normal [facility] Progress Note-Physicianon Progress Note-Physician Patient: GIANA ISAACS [...] All Problems Knee osteoarthritis / SNOMED CT 891123769 / Confirmed Microhematuria / SNOMED CT 515717223 / Confirmed Kidney stones / SNOMED CT 097810136 / Confirmed Hypertension / SNOMED CT 9047545223 / Confirmed Hypercholesterolemia / SNOMED CT 87588570 / Confirmed Acid reflux disease / SNOMED CT 074570811 / Confirmed Gross hematuria / SNOMED CT 164412095 / Confirmed Former smoker / SNOMED CT 74995852 / Confirmed BMI 32.0-32.9,adult / SNOMED CT 951681295 / Confirmed Leiomyoma / SNOMED CT 133157470 / Confirmed Resolved: Bleeding ulcer / SNOMED CT 131740400 Resolved: MT, old / SNOMED CT 4842309 Resolved: Myocardial infarction / SNOMED CT 67236864 1988 Resolved: HTN (hypertension) / SNOMED CT 3344854627 Resolved: Hypercholesterolemia / SNOMED CT 46165363 Resolved: At risk for falls / SNOMED CT 845946864 Problem added when Risk for Falls Careplan was initiated. Resolved due to patient discharge. Histories Procedure history: RT ESWL (12393794) on 03/26/2021 at 75 Years. Cysto/Transurethral resection of urethral polyp (32421864) on 03/26/2021 at 75 Years. Cystourethroscopy with dilation of urethral stricture (452639388) on 10/17/2020 at 75 Years. Total knee arthroplasty (9952688078) on 02/06/2019 at 73 Years. Hysterectomy (259889498). Colonoscopy (996728279). Social History Social & Psychosocial Habits Alcohol [...] adequate air exchange. Cardiovascular: Regular rhythm. Plan [place] [employer] (ASA) physical status classification: Class III. Anesthetic Preoperative Plan: Anesthesia General. Regional Spinal. Normal [facility] Comment on above: Result Comment: Elec tronically Signed By: Sabas Marquez Jr, DO\bouchra\Date and Time Signed: 05/04/23 11:37 EST Progress Note-Physician Patient: GIANA ISAACS Age: 77 years Sex: Female : 1945 Associated Diagnoses: None Author: Sabas Marquez Jr, DO Postoperative Information Postoperative disposition: Postoperative disposition: To PACU. Optimetrix number: Optimetrix number [id number]. Anesthetic utilized: General. Regional: Spinal. Health Status [...] meets criteria ( To home ). Normal [facility] Comment on above: Result Comment: Elec tronically Signed By: Sabas Marquez Jr, DO\.br\Date and Time Signed: 05/04/23 11:37 EST ABO/Rhon 05-03-2023 ABO/Rh Positive Invalid Interpretation Code [facility] Comment on above: Performed By: #### 2 [id number], [id number] #### [facility] [address] [place] [address] ABO/Rh History Checkon 05-03 ABO/Rh History Check Verified Hx Blood Type Normal [facility] Comment on above: Performed By: #### 2 [id number], [id number] #### [facility] [address] [place] [address] ABSCon 05-03-2023 ABSC Gel Interp Negative Normal [facility] Comment on above: Performed By: #### 2 [id number], [id number] #### [facility] [address] [place] [address] Blood Bank ID#on 05-03-2023 BBID# [id number] Invalid Interpretation Code [facility] Comment on above: Performed By: #### 2 [id number], [id number] #### [facility] [address] [place] [address] Consent for Procedure/Surger yon 05-03-2023 Consent for Procedure/Surgery [id number]#1.00 TIFF Normal [facility] Consent for Treatmenton Consent for Treatment [id number]#1.00T IFF Normal [facility] Discharge Instructionson Discharge Instructions GIANA ISAACS :1945 Visit Date:05/03/2023 Inpatient Discharge Instructions Your Care Team Admitting Physician Mecry Villanueva DO Referring Physician Dominga Hilliard DO, Mercy Serrano Reason for Your Visit RIGHT [...] scheduled appointment. Call for any problems. Where: [address] [place] [address] [facility] (1) Medications What How Much When Why Instructions Next Dose Unchanged acetaminophen-oxycodone (Percocet 5 mg-325 mg oral tablet) See instructions Localized osteoarthritis of right knee Take one to two oral as needed for knee surgical pain. Pickup at [facility]/pharmacy #[id number] Unchanged amlodipine 5 Milligram By Mouth 2 times a day Unchanged aspirin 81 Milligram By Mouth Every day Unchanged aspirin (aspirin 325 mg Tab) 1 Tablets By Mouth Every day Duration: 30 Days Start the day after knee surgery Pickup at [facility]/pharmacy #6177 Unchanged calcium-vitamin D (calcium (as carbonate)-vitamin D 600 mg-800 intl units oral tablet, chewable) 1 Tablets By Mouth Every day Unchanged carvedilol 25 Milligram By Mouth 2 times a day Unchanged clindamycin (clindamycin 300 mg oral cap) 1 Capsules By Mouth Every 8 hours Duration: 5 Days Start the day after surgery Pickup at [facility]/pharmacy #6177 Unchanged docusate (Colace 100 mg Cap) 1 Capsules By Mouth 2 times a day Pickup at [facility]/pharmacy #6177 Unchanged furosemide (furosemide 20 mg Tab) 1 Tablets By Mouth Every day Unchanged multivitamin with minerals (Celebrate Multivitamin) 1 cap By Mouth Every day Unchanged potassium chloride (Klor Con 10 mEq Cap-ER) 1 Tablets By Mouth Every day Unchanged pravastatin 40 Milligram By Mouth Every day Unchanged telmisartan 80 Milligram By Mouth Every day Pharmacy Information [facility]/pharmacy #[id number]: [address], [place] [id number] [phone] Allergies Augmentin (Diarrhea) Devices Implanted/Removed This Visit Notice: You have devices implanted this visit that may not be MRI compatible. Implanted KNEE TOTAL ARTHROPLASTY Knee R CEMENT SIMPLEX PLAIN VISCOSITY HIGH [[id number]] (2), 05/03/2023, Unknown - EVELYNE: {01}[id number]{10}3 [id number]{[id number] OVAL DOME PATELLA 3-PEG 05/03/2023 P.[facility]. SIGMA [...] so t (more content not included)... Normal [facility] Comment on above: Result Comment: Elec tronically Signed By: Junaid KHAN, Ignacia Edmonds\.br\Date and Time Signed: 05/03/23 11:13 EST H&P Updateon 05-03-2023 H&P Update [id number]#1.00 TIFF Normal [facility] Main OR Intraoperative Recor don 05-03-2023 Main OR Intraoperative Record IntraOp Document Type FT Summary Primary Physician: Mercy Hilliard DO Finalized Date/Time: 05/03/23 12:19:46 Pt. Name: GIANA ISAACS /Sex: 1945 Female Med Rec #: [id number] Physician: Mercy Hilliard DO Financial #: [id number] Pt. Type: A Room/Bed: [place] [address] Admit/Disch: 05/03/23 06:48:16 - Institution: Case Times [...] 1 Entry 2 Entry 3 Case Attendee Jose Franco CRNA, DO, Michael T Wilhelm CST, Macie C Role Performed LEGAL RECEPTIONIST Surgeon - Primary SHINGLE GRADER/SA Time In 05/03/23 09:28:00 05/03/23 09:50:00 05/03/23 09:28:00 Time Out 05/03/23 10:45:00 05/03/23 10:40:00 05/03/23 10:45:00 Procedure KNEE TOTAL KNEE TOTAL KNEE TOTAL ARTHROPLASTY(Right) ARTHROPLASTY(Right) ARTHROPLASTY(Right) Comments DR. MARQUEZ SUPERVISING Last Modified By: Jeromy Watson Ii, Alfons Ii F Letrondo, Alfons Ii F 05/03/23 10:50:34 05/03/23 10:50:34 05/03/23 10:50:34 Entry 4 Entry 5 Entry 6 Case Attendee Jeromy Watson Ii INFORMATION STRATEGIST, Ayan Valenzuela Role Performed Drafting Clerk - Primary Staff - Other Staff - [...] Comments: DEMARCO CARNEY - SCRUB PRIMARY -Ronnie CROOK RNdirector of industrial relations Protocols FT Pre-Care Text: Implements protective measures [...] Time Out Jose Franco CRNA, Given Participants Arminda DO, Mercy Serrano, Siddhartha SHINGLE GRADER, Sanjuanita C, Jeromy Watson Ii F, Pryor INFORMATION STRATEGIST, Edilberto Henderson Kendall R Time Out Complete 05/03/23 09:50:00 Outcomes Met? [...] and tissue Entry 1 Skin Integrity Intact, [place], Warm, and Skin Abnormality No Dry Outcomes Met? Yes Last M (more content not included)... Normal [facility] Main OR PACU I Recordon Main OR PACU I Record PACU Phase I Document Type FT Summary Primary Physician: Mercy Hilliard DO Finalized Date/Time: 05/03/23 12:37:33 Pt. Name: GIANA ISAACS/Sex: 1945 Female Med Rec #: [id number] Physician: Mercy Hilliard DO Financial #: [id number] Pt. Type: A Room/Bed: Admit/Disch: 05/03/23 06:48:16 [...] By: Abby Savage I 05/03/23 12:37 Normal [facility] Main OR PACU II Recordon Main OR PACU II Record PACU Phase II Document Type FT Summary Primary Physician: Mercy Hilliard DO Finalized Date/Time: 05/03/23 15:42:55 Pt. Name: GIANA ISAACS /Sex: 1945 Female Med Rec #: [id number] Physician: Mercy Hilliard DO Financial #: [id number] Pt. Type: [place] Room/Bed: Admit/Disch: 05/03/23 06:48:16 - Institution: Case [...] By: Marla Yeh RN 05/03/23 15:42 Normal [facility] Main OR Preoperative Recordo n 05-03-2023 Main OR Preoperative Record PreOp Document Type FT Summary Primary Physician: Mercy Hilliard DO Finalized Date/Time: 05/03/23 09:55:04 Pt. Name: GIANA ISAACS /Sex: 1945 Female Med Rec #: [id number] Physician: Mercy Hilliard DO Financial #: [id number] Pt. Type: A Room/Bed: 10/29 Admit/Disch: 05/03/23 06:48:16 - Institution: Case Times [...] By: Jeromy Watson Ii 05/03/23 09:55 Normal [facility] Monitor Recordon 05-03-2023 Monitor Record [id number]#[id number] TIFF Normal [facility] Monitor Record [id number]#[id number] TIFF Normal [facility] Operative Reporton Operative Report SURGERY DATE: 05/03/2023 POLYTECHNIC REGISTRAR: Sanjuanita Carl CST PREOPERATIVE DIAGNOSIS: Right knee [...] injection care was obtained. Severe grade 4 ivmz-ry-kcvz disease is seen on the office x-rays. [...] knee of all three compartments which were tfhx-if-kgvk. The patella was appropriately cut and retracted. The intramedullary drill and jig device was placed in the femur and a 5 degree valgus cut taking off 11 mm was performed. This was sized at a size 2.5 Didi-Dacheuy Sigma PFC. 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 It is therefore advised not to drive until after your first office visit following surgery FOLLOW-UP OFFICE VISIT: Mercy Hilliard, DO [facility] [address] [place] [address] Reviewed: 09-05 Pulmonary Medicine How to Use [...] possible. ? If the spirometer includes a track and field coach indicator, use this to guide you in breathing. Slow down your breathing if the indicator goes above the marked areas. 7. Remove the mouthpiece from your mouth and breathe out normally. The piston or ball will return to the bottom of the chamber. 8. Rest for a few seconds, then repeat the steps 1 (more content not included)... Normal [facility] XR Knee 1 or 2 Views Righton [...] Signed by: Jameson Galvez MD Transcribed by: RUIZ Technologist: MARIE Technical Comments Radiation Dose: Ka,r in mGy = na DAP = na Normal [facility] Inpatient Patient Summaryon 04-29-2023 Inpatient Patient Summary [place] [id number] [facility] Clinical Discharge Instructions PERSON INFORMATION Name: GIANA ISAACS [facility]#:[id number] PHYSICIANS Admitting Physician: Mercy Hilliard DO Attending Physician: Mercy Hilliard DO PCP: JAMESON REED DO Discharge Diagnosis: Localized osteoarthritis of right knee Comment: PATIENT EDUCATION INFORMATION Instructions: [place] - Total Knee Arthroplasty (CUSTOM) Medication Leaflets: Follow up: With: Address: When: Mercy Hilliard [address] [place], [place] [id number] [employer] (1) Comments: Keep scheduled appointment Type Location Start [facility] Surgery [facility] Surgical Services 05/03/2023 10:00 AM 05/03/2023 11:15 [...] Milligram By Mouth every day. Comment: Normal [facility] Outpatient Surgery Discharge Instructionon 04-29-2023 Outpatient Surgery Discharge Instruction [address] [address] Patient Discharge Instructions PERSON INFORMATION Name: [...] Follow up: With: Address: When: Mercy Hilliard [address] [place], [place] [id number] [facility] (1) Comments: Keep scheduled appointment Type Location Start [facility] Surgery [facility] Surgical Services 05/03/2023 10:00 AM 05/03/2023 11:15 [...] to serve you. Thank you for choosing [facility] HERE ARE THE MEDICATION CHANGES THAT [...] Mouth every day. PATIENT EDUCATION INFORMATION Instructions: [place], [place] [facility] DISCHARGE INSTRUCTIONS TOTAL KNEE [...] Physical Therapy (more content not included)... Normal [facility] Outside Recordson 04-29-2023 Outside Records [id number]#[id number] TIFF Normal [facility] C Urineon 04-21-2023 Bacteria identified Cx Nom [...] Locations R1: This test was performed at: [facility], [address] [place] [address], [address] , , [facility] Comment on above: Performed By: #### 2 747216, [id number] #### [facility] [address] [place] [address] Outside Recordson 04-21-2023 Outside Records [id number]#[id number] IFF Normal [facility] Auto DiffOrdered By: SYSTEM SYSTEM on 04-19-2023 Basophils/100 WBC (Bld) 0.6 % Normal 0.0-2.0 [facility] Comment on above: Order Comment: Order Added by Discern Expert. Performed By: #### 2 068526, 3909826, 2795779, 40893676 #### [facility] [address] [place] [address] Basophils/Leukocytes Auto (Bld) [Pure # fraction] 0.0 E9/L Normal 0.0-0.2 [facility] Comment on above: Order Comment: Order Added by Discern Expert. Performed By: #### 2 647328, 3289559, 3222257, 43269636 #### [facility] [address] [place] [address] Eosinophils/100 WBC (Bld) 2.2 % Normal 0.0-8.0 [facility] Comment on above: Order Comment: Order Added by Discern Expert. Performed By: #### 2 231727, 3988519, 3949796, 60100738 #### [facility] [address] [place] [address] Eosinophils/Leukocyt es Auto (Bld) [Pure # fraction] 0.1 E9/L Normal 0.0-0.5 [facility] Comment on above: Order Comment: Order Added by Discern Expert. Performed By: #### 2 617014, 1098001, 7321185, 94825027 #### [facility] [address] [place] [address] Lymphocytes/100 WBC (Bld) 37.8 % Normal 14.0-50.0 [facility] Comment on above: Order Comment: Order Added by Discern Expert. Performed By: #### 2 143979, 7947358, 4028257, 61373293 #### [facility] [address] [place] [address] Lymphocytes/Leukocyt es Auto (Bld) [Pure # fraction] 2.4 E9/L Normal 1.0-4.0 [facility] Comment on above: Order Comment: Order Added by Discern Expert. Performed By: #### 2 113739, 5328920, 1492281, 01063520 #### [facility] [address] [place] [address] Monocytes/100 WBC (Bld) 10.8 % Normal 4.0-14.0 [facility] Comment on above: Order Comment: Order Added by Discern Expert. Performed By: #### 2 718059, 9347473, 4550742, 96219036 #### [facility] [address] [place] [address] Monocytes/Leukocytes Auto (Bld) [Pure # fraction] 0.7 E9/L Normal 0.2-1.0 [facility] Comment on above: Order Comment: Order Added by Discern Expert. Performed By: #### 2 633475, 3599031, 4114481, 31382282 #### [facility] [address] [place] [address] Neutrophils/100 WBC (Bld) 48.6 % Normal 36.0-75.0 [facility] Comment on above: Order Comment: Order Added by Discern Expert. Performed By: #### 2 321933, 4421837, 1689035, 06309279 #### [facility] [address] [place] [address] Neutrophils/Leukocyt es Auto (Bld) [Pure # fraction] 3.1 E9/L Normal 2.0-7.5 [facility] Comment on above: Order Comment: Order Added by Discern Expert. Performed By: #### 2 753394, 5875873, 5860244, 37057819 #### [facility] [address] [place] [address] BMPOrdered By: SYSTEM SYSTEM on 04-19-2023 Anion gap [Moles/Vol] 10 mmol/L Normal 6-16 [facility] Comment on above: Performed By: #### 2 573834, 6158670, 5764107, 74541453 #### [facility] [address] [place] [address] Calcium [Mass/Vol] 10.0 mg/dL Normal 8.9-11.1 [facility] R emisol Comment on above: Performed By: #### 2 752020, 1049620, 4951604, 06445554 #### [facility] [address] [place] [address] Chloride [Moles/Vol] 104 mmol/L Normal 101-111 [facility] Comment on above: Performed By: #### 2 625960, 4370343, 9344246, 85253895 #### [facility] [address] [place] [address] CO2 [Moles/Vol] 31 mmol/L Normal 21-31 [facility] Comment on above: Performed By: #### 2 599886, 9479908, 9044618, 06733995 #### [facility] [address] [place] [address] Creatinine [Mass/Vol] 0.5 mg/dL Normal 0.5-1.3 [facility] Rem[facility] Comment on above: Performed By: #### 2 592849, 0919698, 2412345, 04936258 #### [facility] [address] [place] [address] Glucose [Mass/Vol] 118 mg/dL Normal 55-199 [facility] R emisol Comment on above: Interpretive Data: I f this glucose result represents a fasting glucose, interpretation should refer to the following reference range: 55-99 mg/dL Result Comment: If t his glucose result represents a fasting glucose, interpretation should refer to the following reference range: 55-99 mg/dL Performed By: #### 2 663948, 5476335, 2483409, 56294360 #### [facility] [address] [place] [address] Potassium [Moles/Vol] 3.9 mmol/L Normal 3.5-5.3 [facility] Remisol Comment on above: Performed By: #### 2 574385, 3346857, 3432504, 98844909 #### [facility] [address] [place] [address] Sodium [Moles/Vol] 141 mmol/L Normal 135-145 [facility] R emisol Comment on above: Performed By: #### 2 529202, 0808732, 4199150, 22218822 #### [facility] [address] [place] [address] Urea nitrogen [Mass/Vol] 13 mg/dL Normal 5-21 [facility] Rem[facility] Comment on above: Performed By: #### 2 276601, 5661432, 3049852, 09360451 #### [facility] [address] [place] [address] BMPon 04-19-2023 Urea nitrogen/Creatinine [Mass ratio] 26 No Units High 03-19 [facility] Comment on above: Performed By: #### 2 426061, 7026637, 2547528, 97635215 #### [facility] [address] [id number] CBC w/ Auto DiffOrdered By: Gabriela Hyatt on 04-19-2023 Erythrocyte distribution width (RBC) [Ratio] 12.9 % Normal 10.9-14.2 [facility] Comment on above: Performed By: #### 2 415819, 6672312, 3293147, 84612567 #### [facility] [address] [place] [address] Hematocrit (Bld) [Volume fraction] 44.9 % Normal 34.0-46.0 [facility] Comment on above: Performed By: #### 2 890641, 4435951, 6550710, 80779214 #### [facility] [address] [place] [address] Hemoglobin (Bld) [Mass/Vol] 15.3 g/dL Normal 12.0-16.0 [facility] Comment on above: Performed By: #### 2 486055, 7241774, 1715820, 48599202 #### [facility] [address] [place] [address] MCH (RBC) [Entitic mass] 30.6 pg Normal 27.0-34.0 [facility] Comment on above: Performed By: #### 2 915412, 6300373, 4442913, 76004481 #### [facility] [address] [place] [address] MCHC (RBC) [Mass/Vol] 34.0 g/dL Normal 31.4-36.0 [facility] Comment on above: Performed By: #### 2 717229, 7232177, 1526261, 94433438 #### [facility] [address] [place] [address] MCV (RBC) [Entitic vol] 90.0 fL Normal 80.0-100.0 [facility] Comment on above: Performed By: #### 2 123899, 1059446, 5564655, 98555229 #### [facility] [address] [place] [address] Platelet mean volume (Bld) [Entitic vol] 8.6 fL Normal 6.4-10.8 [facility] Comment on above: Performed By: #### 2 944132, 1923878, 8822616, 61526621 #### [facility] [address] [place] [address] Platelets (Bld) [#/Vol] 231.0 E9/L Normal 150.0-500.0 [facility] Comment on above: Performed By: #### 2 708151, 1764181, 1364257, 44300168 #### [facility] [address] [place] [address] RBC (Bld) [#/Vol] 5.0 E12/L Normal 4.3-5.9 [facility] Comment on above: Performed By: #### 2 804858, 3072768, 4883791, 20733914 #### [facility] [address] [place] [address] WBC corrected for nucl RBC Auto (Bld) [#/Vol] 6.3 E9/L Normal 4.0-11.0 [facility] Comment on above: Performed By: #### 2 254893, 0954638, 9237824, 90277376 #### [facility] [address] [place] [address] CHEMISTRYOrdered By: SYSTEM SYSTEM on 04-19-2023 Urea nitrogen/Creatinine [Mass ratio] 26 mg/mg High [facility] Remisol Consent for Treatmenton 04-01 Consent for Treatment [id number] IFF Normal [facility] UA With Cult Reflexon 2022 Bacteria LM Ql (Urine sed) TRACE Normal Trace [facility] Comment on above: Performed By: #### 2 408248, 91863206 #### [facility] [address] [place] [address] Bilirubin Ql (U) Negative Normal Negative [facility] Comment on above: Performed By: #### 2 400883, 60849062 #### [facility] [address] [place] [address] Clarity (U) CLEAR Normal Clear [facility] Comment on above: Performed By: #### 2 290086, 79763761 #### [facility] [address] [place] [address] Color (U) YELLOW Normal Yellow [facility] Comment on above: Performed By: #### 2 490169, 78812302 #### [facility] [address] [place] [address] Epithelial cells.squamous LM.HPF (Urine sed) [#/Area] 0-2 Normal 0-2 [facility] Comment on above: Performed By: #### 2 697388, 13044149 #### [facility] [address] [place] [address] Glucose Test strip (U) [Mass/Vol] Negative Normal Negative [facility] Comment on above: Performed By: #### 2 582884, 62469215 #### [facility] [address] [place] [address] Hemoglobin Ql (U) Negative Normal Negative [facility] Comment on above: Performed By: #### 2 218092, 84454020 #### [facility] [address] [place] [address] Ketones (U) [Mass/Vol] Negative Normal Negative [facility] Comment on above: Performed By: #### 2 180472, 31483317 #### [facility] [address] [place] [address] [place].plasma/Lithi um.RBC (Bld) [Mass ratio] 0-3 Normal 0-3 [facility] Comment on above: Performed By: #### 2 030280, 39044989 #### [facility] [address] [place] [address] Mucus Ql (Urine sed) TRACE Normal [facility] Comment on above: Performed By: #### 2 869022, 37035263 #### [facility] [address] [id number] Nitrite Ql (U) Negative Normal Negative [facility] Comment on above: Performed By: #### 2 445845, 71204775 #### [facility] [address] [address] pH (U) 6.5 [pH] Invalid Interpretation Code 5.0-9.0 [facility] Comment on above: Performed By: #### 2 135078, 09130337 #### [facility] [address] [id number] Protein (U) [Mass/Vol] Negative Normal Negative [facility] Comment on above: Performed By: #### 2 873943, 88615067 #### [facility] [address] [place] [address] Specific gravity (U) [Rel density] <=1.005 Invalid Interpretation Code 1.005-1.030 [facility] Comment on above: Performed By: #### 2 238050, 25112137 #### [facility] [address] [place] [address] Type of Urine collection method Clean Catch Normal [facility] Comment on above: Performed By: #### 2 612522, 69861763 #### [facility] [address] [place] [address] Urobilinogen Qn (U) 0.2 {Araseli'U}/dL Normal 0.0-1.0 [facility] Comment on above: Performed By: #### 2 278305, 01596036 #### [facility] [address] [id number] WBC Auto Ql (U) 1+ Abnormal Negative [facility] Comment on above: Performed By: #### 2 912981, 35592572 #### [facility] [address] [place] [address] WBC LM.HPF (Urine sed) [#/Area] 0-5 Normal 0-5 [facility] Comment on above: Performed By: #### 2 473055, 22329184 #### [facility] [address] [place] [address] URINALYSISOrdered By: Laurie Bone on 04-19-2023 Bacteria [...] AM) Normal Negative [facility] UA Auto SS [place].plasma/Lithi um.RBC (Bld) [Mass ratio] 0-3 /HPF Normal [...] AM) Invalid Interpretation Code 1.005 - 1.030 [facility] UA Auto SS UA Spec Desc Clean Catch (04/19/23 11:00 AM) Normal [facility] UA Auto SS Urobilinogen Qn (U) 0.4168261 {Araseli'U}/dL Normal 0.0 - 1.0 EU/dL [facility] UA Auto SS WBC Auto Ql (U) 1+ *ABN* (04/19/23 11:00 AM) Invalid Interpretation Code Negative [facility] UA Auto SS WBC LM.HPF (Urine sed) [#/Area] 0-5 /HPF Normal 0-5/HPF [facility] UA Auto SS XR Chest 2 Viewson XR Chest 2 Views Exam Date/Time: 04/19/2023 [...] mGy = na DAP = na Normal [facility] eGFROrdered By: SYSTEM SYSTE M on 04-19-2023 GFR/1.73 sq M.predicted among non-blacks MDRD (S/P/Bld) [Vol rate/Area] 95 mL/min/1.73 m2 Normal >=59 [facility] Chem S Comment on above: Interpretive Data: C hronic kidney disease could be indicated at eGFR's of less than 60 mL/min/1.73m2. Kidney failure is indicated at less than 15 mL/min/1.73m2. Order Comment: Order added by Discern Expert. Result Comment: [employer] celina kidney disease could be indicated at eGFR's of less than 60 mL/min/1.73m2. Kidney failure is indicated at less than 15 mL/min/1.73m2. Performed By: #### 2 580890, 9694901, 9792867, 92164998 #### [facility] [address] [place] [address] Physician Orderon 04-05-2023 Physician Order [id number]#1.0 0TIFF Normal [facility] RAD - MISCon 05-21-2022 RAD - MISC [id number]#1.00C D:127 Normal [facility] Patient Educationon 05-20-20 Patient Education Urology Kidney [...] these instructions at home: Medicines ? Take lnhs-cdo-ydcgksp and prescription medicines only as told by [...] 11/02/2008 Document Revised: 10/03/2019 Document Reviewed: 10/03/2019 [employer] Patient Education ? 2019 [employer] [facility] Urology Office/Clinic Noteon 05-20-2022 Urology [...] E&M of Est. Patient Low 20-29 Min 42757 2. Leiomyoma (D28.7: Benign neoplasm of other specified female genital organs) Cystoscopy with Transurethral resection of urethral polyp done 03/26/21. Pathology report shows urethral bladder neck polyp as, leiomyoma. denies gross hematuria. no UTIs this past year. UA completed in office today shows no microhematuria or signs of infection. Ordered: E&M of Est. Patient Low 20-29 Min 23501 offered 1 yr f/u. pt prefers PRN. Follow-up With When Contact Information RHEA BUSBY PA-C, URL Only if needed [address] [place] [address] [employer] (1) Additional Instructions: Patient Education Kidney Stones, Izpa-qs-Nddh Problem List/Past Medical History Ongoing BMI 32.0-32.9,adult [...] will call if develops UTI sx. Normal [facility] Comment on above: Result Comment: Elec tronically [...] by: CABRERA DODSON Date: 2022-05-12 16:58 Normal [facility] MAMM SCREEN 3D ADELITA CADon 03-26-2022 MG MAMM SCREEN 3D ADELITA CAD Patient: GIANA ISAACS Exam Date: 03/26/2022 : 1945 Gender:F Ordering : DR JAMESON REED D.O. Admission #: [id number] Family : Order #: [id number] CLICK HERE TO VIEW EXAM RADIOLOGY REPORT [...] Treatments None Family Cancers None LOCATION: [facility] BREAST COMPOSITION: Scattered areas fibroglandular density. FINDINGS: [...] M.D. on 03/26/2022 at 15:58 Normal [facility] CBC AUTO DIFFon 08-28-2021 BASO # 0.1 103/ul Normal 0.0-0.1 [facility] Comment on above: Performed By: #### D ATCBC #### [facility] [address] [place] [address] Dr. Zbigniew Herrera Basophils/100 WBC (Bld) 0.5 % Normal 0.2-2.0 [facility] Comment on above: Performed By: #### D ATCBC #### [facility] [address] [place] [address] Dr. Zbigniew Herrera EO # 0.1 103/ul Normal 0.0-0.7 [facility] Comment on above: Performed By: #### D ATCBC #### [facility] [address] [place] [address] Dr. Zbigniew Herrera Eosinophils/100 WBC (Bld) 1.0 % Normal 0.9-7.0 [facility] Comment on above: Performed By: #### D ATCBC #### [facility] [address] [place] [address] Dr. Zbigniew Herrera Erythrocyte distribution width (RBC) [Ratio] 12.8 % Normal 11.0-15.0 [facility] Comment on above: Performed By: #### D ATCBC #### [facility] [address] [place] [address] Dr. Zbigniew Herrera Hematocrit (Bld) [Volume fraction] 45.6 % Normal 36.0-48.0 [facility] Comment on above: Performed By: #### D ATCBC #### [facility] [address] [place] [address] Dr. Zbigniew Herrera Hemoglobin (Bld) [Mass/Vol] 15.0 g/dL Normal 12.0-16.0 [facility] Comment on above: Performed By: #### D ATCBC #### [facility] [address] [place] [address] Dr. Zbigniew Herrera IG # 0.03 10e3/ul Normal 0.00-0.03 [facility] Comment on above: Performed By: #### D ATCBC #### [facility] [address] [place] [address] Dr. Zbigniew Herrera IG % 0.3 % Normal 0.0-0.5 [facility] Comment on above: Performed By: #### D ATCBC #### [facility] [address] [place] [address] Dr. Zbigniew Herrera LYMPH # 2.0 103/ul Normal 1.2-3.8 [facility] Comment on above: Performed By: #### D ATCBC #### [facility] [address] [address] [address] Zbigniew Herrera Lymphocytes/100 WBC (Bld) 21.2 % Normal 20.5-60.0 [facility] Comment on above: Performed By: #### D ATCBC #### [facility] [address] [address] [address] Zbigniew Herrera MCH (RBC) [Entitic mass] 30.4 pg Normal 26.7-34.0 [facility] Comment on above: Performed By: #### D ATCBC #### [facility] [address] [place] [address] Dr. Zbigniew Herrera MCHC (RBC) [Mass/Vol] 32.9 g/dL Normal 29.9-35.2 [facility] Comment on above: Performed By: #### D ATCBC #### [facility] [address] [place] [address] Dr. Zbigniew Herrera MCV (RBC) [Entitic vol] 92.5 fL Normal 81.0-99.0 [facility] Comment on above: Performed By: #### D ATCBC #### [facility] [address] [place] [address] Dr. Zbigniew Herrera MONO # 1.1 103/ul Critically high 0.3-0.8 [facility] Comment on above: Performed By: #### D ATCBC #### [facility] [address] [place] [address] Dr. Zbigniew Herrera Monocytes/100 WBC (Bld) 11.7 % Normal 1.7-12.0 [facility] Comment on above: Performed By: #### D ATCBC #### [facility] [address] [place] [address] Dr. Zbigniew Herrera NEUT # 6.1 103/ul Normal 1.4-6.5 [facility] Comment on above: Performed By: #### D ATCBC #### [facility] [address] [address] [address] Zbigniew Herrera Neutrophils/100 WBC (Bld) 65.3 % Normal 43.0-75.0 [facility] Comment on above: Performed By: #### D ATCBC #### [facility] [address] [address] [address] Zbigniew Herrera Platelet mean volume (Bld) [Entitic vol] 9.9 fL Normal 9.5-13.5 [facility] Comment on above: Performed By: #### D ATCBC #### [facility] [address] [address] [address] Zbigniew Herrera PLT 232 103/ul Normal 150-450 [facility] Comment on above: Performed By: #### D ATCBC #### [facility] [address] [place] [address] Dr. Zbigniew Herrera RBC 4.93 106/ul Normal 4.20-5.40 [facility] Comment on above: Performed By: #### D ATCBC #### [facility] [address] [place] [address] Dr. Zbigniew Herrera WBC 9.3 103/ul Normal 4.0-11.0 [facility] Comment on above: Performed By: #### D ATCBC #### [facility] [address] [place] [address] Dr. Zbigniew Herrera CALVIN- BMP WITH LIPIDon 2021 Anion gap [Moles/Vol] 11.9 mmol/L Normal [facility] Comment on above: Performed By: #### D ATBMP #### [facility] [address] [place] [address] Dr. Zbigniew Herrera Calcium [Mass/Vol] 8.9 mg/dL Normal 8.5-10.1 [facility] Comment on above: Performed By: #### D ATBMP #### [facility] [address] [place] [address] Dr. Zbigniew Herrera Chloride [Moles/Vol] 104 mmol/L Normal 98-107 [facility] Comment on above: Performed By: #### D ATBMP #### [facility] [address] [address] [address] Zbigniew Herrera Cholesterol [Mass/Vol] 179 mg/dL Normal <=200 [facility] Comment on above: Performed By: #### D ATBMP #### [facility] [address] [address] [address] Zbigniew Herrera Cholesterol in HDL [Mass/Vol] 64 mg/dL Critically high 40-60 [facility] Comment on above: Performed By: #### D ATBMP #### [facility] [address] [address] [address] Zbigniew Herrear Cholesterol in LDL [Mass/Vol] 90.4 mg/dL Normal [facility] Comment on above: Performed By: #### D ATBMP #### [facility] [address] [address] [address] Zbigniew Herrera CO2 [Moles/Vol] 30.9 mmol/L Critically high 22.0-30.0 [facility] Comment on above: Performed By: #### D ATBMP #### [facility] [address] [address] [address] Zbigniew Herrera Creatinine [Mass/Vol] 0.66 mg/dL Normal 0.52-1.04 [facility] Comment on above: Performed By: #### D ATBMP #### [facility] [address] [address] [address] Zbigniew Herrera EGFR-AF [place] >60 Normal >=60 [facility] Comment on above: Performed By: #### D ATBMP #### [facility] [address] [address] [address] Zbigniew Herrera EGFR-NON AF [place] >60 Normal >=60 [facility] Comment on above: Performed By: #### D ATBMP #### [facility] [address] [address] [address] Zbigniew Herrrea Glucose [Mass/Vol] 109 mg/dL Critically high 74-[address] [facility] Comment on above: Performed By: #### D ATBMP #### [facility] [address] [address] [address] Zbigniew Herrera HDL NORMAL > or = 60 mg/dl - LO W CARDIOVASCULAR RISK <40 mg/dl - HIGH CARDIOVASCULAR RISK Normal [facility] Comment on above: Performed By: #### D ATBMP #### [facility] [address] [address] [address] Zbigniew Herrera LDL CALC NORMAL SEE BELOW Normal [facility] Comment on above: Result Comment: <100 mg/dl OPTIMAL 100 - 129 mg/dl NEAR OR ABOVE OPTIMAL 130 - 159 mg/dl BORDERLINE HIGH 160 - 189 mg/dl HIGH >190 mg/dl VERY HIGH Performed By: #### D ATBMP #### [facility] [address] [address] [address] Zbigniew Herrera Potassium [Moles/Vol] 3.8 mmol/L Normal 3.4-5.0 [facility] Comment on above: Performed By: #### D ATBMP #### [facility] [address] [address] [address] Zbigniew Herrera Sodium [Moles/Vol] 143 mmol/L Normal 137-145 [facility] Comment on above: Performed By: #### D ATBMP #### [facility] [address] [address] [address] Zbigniew Herrera Triglyceride [Mass/Vol] 123 mg/dL Normal <=150 [facility] Comment on above: Performed By: #### D ATBMP #### [facility] [address] [address] [address] Zbigniew Herrera Urea nitrogen [Mass/Vol] 12.0 mg/dL Normal 7.0-18.0 [facility] Comment on above: Performed By: #### D ATBMP #### [facility] [address] [address] [address] Zbigniew Herrera Urea nitrogen/Creatinine [Mass ratio] 18.2 mg/mg Normal [facility] Comment on above: Performed By: #### D ATBMP #### [facility] [address] [address] [address] Zbigniew Herrera VLDL CALC 24.6 mg/dL Normal [facility] Comment on above: Performed By: #### D ATBMP #### [facility] [address] [address] [address] Zbigniew Herrera XR DEXA BONE DENSITYon [...] VITOR HOLLIDAY Date: 2021-08-28 08:55 Normal [facility] XR KNEE LEFT (MIN 4 VIEWS)on 09-18-2020 XR KNEE LEFT (MIN 4 VIEWS) EXAM: XR KNEE LEFT (MIN 4 VIEWS) HISTORY: Z96.652 75-year-old female left knee pain and stiffness. Total knee arthroplasty 2019. COMPARISON: Preop left knee, [facility], 03/02/2017. TECHNIQUE: Left knee series. Standing views [...] Butcher Jr., MD 09/18/20 Final result Normal [facility] XR KNEE LEFT (MIN 4 VIEWS)Or dered By: Mercy Hilliard on 09-18-2020 1. Anatomically alig alicia left total knee prosthesis. 2. Severe degenerative changes right knee. [facility] [employer] Work Phone: EXAM: XR KNEE LEFT ( MIN 4 VIEWS) HISTORY: Z96.652 75-year-old female left knee pain and stiffness. Total knee arthroplasty 2019. COMPARISON: Preop left knee, [facility], 03/02/2017. TECHNIQUE: Left knee series. Standing views of both knees, oblique, lateral, and sunrise left knee. FINDINGS: The opposite right knee shows moderately severe medial and lateral compartment osteoarthritic change. The left total knee prosthesis is in anatomic alignment, including patellar button with no joint effusion or hardware complication. [employer] Phone: Wade, M[employer] Incoming Radiant Results From [employer] - 09/18/2020 11:27 AM EDT EXAM: XR KNEE LEFT (MIN 4 VIEWS) HISTORY: Z96.652 75-year-old female left knee pain and stiffness. Total knee arthroplasty 2019. COMPARISON: Preop left knee, [facility], 03/02/2017. TECHNIQUE: Left knee series. Standing views of both knees, oblique, lateral, and sunrise left knee. FINDINGS: The opposite right knee shows moderately severe medial and lateral compartment osteoarthritic change. The left total knee prosthesis is in anatomic alignment, including patellar button with no joint effusion or hardware complication. IMPRESSION: 1. Anatomically aligned left total knee prosthesis. 2. Severe degenerative changes right knee. [employer] Phone: Vital Signs Date Time Vital Sign Value Performing Clinician Facility 05-02-2024 09:27-0500 Body height 154.9 cm Mercy Hilliard [employer] Phone: [facility] [employer] 05-02-2024 09:27-0500 Body mass index (BMI) [Ratio] 31.93 kg/m2 Mercy Hilliard [employer] Work Phone: [facility] [employer] 05-02-2024 09:27-0500 Body weight 76.66 kg Mercy [employer] Work Phone: [facility] 12-28-2023 10:57-0400 Body height 153.67 cm [facility] 12-28-2023 10:57-0400 Body mass index (BMI) [Ratio] 31.7 kg/m2 [facility] 12-28-2023 10:57-0400 Body weight 75.01 kg [facility] 12-28-2023 10:57-0400 Diastolic blood pressure 78 mm[Hg] [facility] 12-28-2023 10:57-0400 Heart rate 60 /min [facility] 12-28-2023 10:57-0400 Respiratory rate 12 /min [facility] 12-28-2023 10:57-0400 Systolic blood pressure 144 mm[Hg] [facility] 04-27-2023 10:00-0500 Body height 153.67 cm Jameson Ball Other [facility] [employer] Other 04-27-2023 10:00-0500 Body mass index (BMI) [Ratio] 32.65 kg/m2 Jameson Ball Other [facility] Other 04-27-2023 10:00-0500 Body weight 77.11 kg Jameson Ball Other [facility] [employer] Other 04-27-2023 10:00-0500 Diastolic blood pressure 83 mm[Hg] Jameson Ball Other [facility] Other 04-27-2023 10:00-0500 Respiratory rate 12 /min Jameson Ball Other [facility] Other 04-27-2023 10:00-0500 Systolic blood pressure 145 mm[Hg] Jameson Ball Other [facility] Other 04-19-2023 10:38-0500 Blood Pressure Location [facility] 04-19-2023 10:38-0500 Diastolic blood pressure 75 mm[Hg] [facility] 04-19-2023 10:38-0500 Heart rate 67 /min [facility] 04-19-2023 10:38-0500 Mean blood pressure 101 mm[Hg] [facility] 04-19-2023 10:38-0500 Systolic blood pressure 154 mm[Hg] [facility] 04-19-2023 10:37-0500 Heart rate 65 /min [facility] 04-19-2023 10:37-0500 SaO2% (BldA) [Mass fraction] 93 % [facility] 04-19-2023 10:37-0500 Body temperature 97.7 [degF] [facility] 04-19-2023 10:37-0500 Blood Pressure Location [facility] 04-19-2023 10:37-0500 Diastolic blood pressure 75 mm[Hg] [facility] 04-19-2023 10:37-0500 Systolic blood pressure 154 mm[Hg] [facility] 04-19-2023 10:36-0500 Blood Pressure Location [facility] 04-19-2023 10:36-0500 Diastolic blood pressure 80 mm[Hg] [facility] 04-19-2023 10:36-0500 Mean blood pressure 105 mm[Hg] [facility] 04-19-2023 10:36-0500 Systolic blood pressure 154 mm[Hg] [facility] 04-19-2023 10:36-0500 Respiratory rate 18 /min [facility] 05-20-2022 11:05-0500 Blood Pressure Location RHEA BUSBY [facility] 05-20-2022 11:05-0500 Diastolic blood pressure 81 mm[Hg] RHEA BUSBY [facility] 05-20-2022 11:05-0500 Heart rate 68 /min RHEA BUSBY [facility] 05-20-2022 11:05-0500 Systolic blood pressure 156 mm[Hg] RHEA BUSBY [facility] Encounters Encounter Date Encounter Type Care Provider Facility Start: 05-02-2024 End: 05-02-2024 Patient encounter procedure Mercy Hilliard DO Work Phone: [facility] Comment on above: History of bilateral knee arthroplasty (Primary Dx); Presence of left artificial knee joint Start: 05-02-2024 End: 05-02-2024 ambulatory MERCY HILLIARD Not Available Start: 05-02-2024 End: 05-02-2024 ambulatory MERCY HILLIARD Not Available Start: 03-21-2024 End: 03-21-2024 ambulatory [facility] Work Phone: Start: 03-21-2024 End: 03-21-2024 Patient encounter procedure [facility] Physician [facility] Work Phone: Start: 01-26-2024 Non-patient / Non-visit [facility] Work Phone: Start: 12-28-2023 End: 12-28-2023 ambulatory [facility] Work Phone: Start: 12-28-2023 End: 12-28-2023 Patient encounter procedure [facility] Physician [facility] Work Phone: Start: 09-23-2023 End: 09-23-2023 ambulatory MERCY HILLIARD Not Available Start: 07-20-2023 End: 07-20-2023 ambulatory CAITY CHANTELLEY Not Available Start: 07-16-2023 End: 07-16-2023 ambulatory CAITY VINITABLEY Not Available Start: 07-14-2023 Bamboo flowsheet Caity Lockharty [employer] [facility] Start: 07-14-2023 Bamboo flowsheet Caity Lockharty [employer] [facility] Start: 07-14-2023 End: 07-14-2023 Admission to same day surgery center Caity Ceballos [employer] [facility] Comment on above: Aftercare following right knee joint replacement surgery (Primary Dx); Acute pain of right knee; Difficulty walking; Presence of right artificial knee joint Start: 07-14-2023 End: 07-14-2023 ambulatory Caity Lockharty [employer] [facility] Start: 07-08-2023 Bamboo flowsheet Caity Lockharty [employer] [facility] Start: 07-08-2023 Bamboo flowsheet Caity Lockharty [employer] [facility] Start: 07-08-2023 End: 07-08-2023 Admission to same day surgery center Caity Ceballos [employer] [facility] Comment on above: Aftercare following right knee joint replacement surgery (Primary Dx); Acute pain of right knee; Difficulty walking; Presence of right artificial knee joint Start: 07-08-2023 End: 07-08-2023 ambulatory Caity Hutchinsonbley [employer] [facility] Start: 07-06-2023 End: 07-06-2023 [...] CAITY KELBLEY Not Available Start: 06-08-2023 End: 06-08-2023 ambulatory CAITY KELBLEY Not Available Start: 06-04-2023 End: 06-04-2023 ambulatory CAITY KELBLEY Not Available Start: 06-03-2023 Telephone encounter Jameson Reed [facility] Start: 06-03-2023 End: 06-03-2023 ambulatory MERCY HILLIARD [employer] Other Start: 06-01-2023 End: 06-01-2023 ambulatory CAITYZAIRE HUTCHINSONBLEY Not Available Start: 05-28-2023 End: 05-28-2023 ambulatory CAITY KELBLEY Not Available Start: 05-27-2023 End: 05-27-2023 ambulatory Jameson Reed Other [employer] Other Start: 05-27-2023 Telephone encounter Jameson Reed [facility]OV[facility] Start: 05-25-2023 End: 05-26-2023 ambulatory CAITY LOCKHARTY Not Available Start: 05-21-2023 End: 05-21-2023 ambulatory SUSIE Lisa FLOWERS Not Available Start: 05-19-2023 End: 05-19-2023 ambulatory CORTNEY BRUNER Not Available Start: 05-03-2023 End: 05-03-2023 ambulatory Mercy Hilliard Facility[facility] Start: 04-27-2023 End: 04-27-2023 ambulatory Jameson Reed Other [employer] Other Start: 04-27-2023 Encounter for other preprocedural examination Jameson Reed [facility] Start: 04-27-2023 Office outpatient vi sit 25 minutes Jameson MARTINEZ [facility] Start: 04-19-2023 End: 04-20-2023 ambulatory Mercy Hilliard Facility:[facility] Start: 04-19-2023 End: 04-19-2023 Patient encounter procedure [facility] H[facility] Start: 02-19-2023 End: 02-19-2023 ambulatory Jameson Reed Other [employer] Other Start: 02-19-2023 Telephone encounter Jameson Reed [facility] Start: 02-16-2023 End: 02-16-2023 ambulatory Jameson Reed Other [employer] Other Start: 02-16-2023 Telephone encounter Jameson Reed [facility] Start: 05-20-2022 End: 05-21-2022 ambulatory RHEA BUSBY Facility:[facility] Start: 05-20-2022 End: 05-20-2022 Patient encounter procedure RHEA BUSBY [facility] Start: 05-12-2022 End: 05-13-[address] Cabrera Dodson Facility:[facility] Start: 03-26-2022 End: 03-27-[address] JAMESON REED Facility:[facility] Start: 08-28-2021 End: 08-29-[address] JAMESON REED Facility:[facility] Start: 07-22-2021 Adult health examination Adam jonny Reed Other [employer] Other Start: 09-18-2020 End: 09-21-2020 ambulatory MERCY HILLIARD [facility] Start: 09-18-2020 End: 09-20-2020 Subsequent hospital visit [facility] physician [facility] Comment on above: History of total lef t knee replacement Start: 08-11-2018 End: 08-12-2018 Patient encounter procedure DEFAULT PHYSICIAN Facility:[facility] Procedures Date Procedure Procedure Detail Performing Clinician Start: 05-02-2024 Radiologic examinati on knee 3 views Mercy Hilliard DO Work Phone: Start: 03-26-2021 Cystoscopy RHEA HAYES Start: 03-26-2021 [...] Treatment Date Care Activity Detail Author Start: 01-30-2024 Influenza vaccination Influenza Vacc ine (#1) [facility] Start: 09-23-2023 End: 09-23-2023 Patient encounter procedure 09/23/2023 1:15 PM EDT Office Visit [facility] [address] [place] [address] Mercy Hilliard DO [address] [place], [place] [id number] [facility] Start: 07-29-2023 End: 07-29-2023 ambulatory 07/29/2023 10:00 AM EST Treatment [facility] [address] [facility] [address] [place] [phone] Caity Ceballos, [employer] [facility] Start: 07-27-2023 End: 07-27-2023 ambulatory 07/27/2023 10:30 AM EST Treatment [facility] [address] [facility] [address] [place] [address] Caity Ceballos, [employer] [facility] Start: 07-22-2023 End: 07-22-2023 ambulatory 07/22/2023 10:00 AM EST Treatment [facility] [address] [facility] [address] [place] [phone] Caity Ceballos [employer] [facility] Start: 07-20-2023 End: 07-20-2023 ambulatory 07/20/2023 10:30 AM EST Treatment [facility] [address] [facility] [address] [place] [phone] Caity Ceballos, [employer] [facility] Start: 07-16-2023 End: 07-16-2023 ambulatory 07/16/2023 10:30 AM EST Treatment [facility] [address] [place] [address] [place] [address] Tucker Caity, [employer] [facility] Start: 07-14-2023 End: 07-14-2023 ambulatory 07/14/2023 10:30 AM EST Treatment [facility] [address] [facility] [address] [place] [address] Tucker Caity, [employer] [facility] Start: 07-08-2023 End: 07-08-2023 ambulatory 07/08/2023 10:00 AM EST Treatment [facility] [address] [facility] [address] [place] [address] Caity Ceballos, [employer] Arrived [facility] Comment on above: Arrived Start: 01-29-2021 Influenza vaccination Flu vacc ine (Season Ended) [employer] Phone: Start: 09-18-2020 Annual Wellness Visi t (AWV) Annual Wellness Visit (AWV) [employer] Phone: Start: 04-01-2016 Pneumococcal Vaccine : 65+ Years (2 - PCV) Pneumococcal Vaccine: 65+ Years (2 - PCV) [facility] Start: 08-08-2008 Pneumococcal 65+ yea rs Vaccine (1 of 1 - PPSV23) Pneumococcal 65+ years Vaccine (1 of 1 - PPSV23) [employer] Phone: Start: 08-08-1998 Screening for osteoporosis DEXA (modify frequency per FRAX score) [employer] Phone: Start: 08-08-1993 Shingles Vaccine (1 of 2) Shingles Vaccine (1 of 2) [employer] Phone: Start: 08-08-1962 DTaP/Tdap/Td vaccine (1 - Tdap) DTaP/Tdap/Td vaccine (1 - Tdap) [employer] Phone: Start: 1959 COVID-19 Vaccine (1) COVID-19 Vaccin e (1) [employer] Phone: Start: 1943 Hepatitis C screening Hepatitis C sc edilma [employer] Phone: Comprehensive metabo lic 2000 panel - Serum or Plasma [facility] Immunizations Immunization Date Immunization Notes Care Provider Fa cility 03-11-2023 influenza virus vaccine, unspecified formulation Mercy Hilliard DO Work Phone: [facility] 03-04-2022 influenza virus vaccine, unspecified formulation [facility] 03-04-2022 influenza, high dose seasonal, preservative-free Jameson Reed Other [facility] [employer] Other 04-21-2021 SARS-CoV-2 (COVID-19 ) Ad26 vaccine, recombinant RHEA BUSBY [facility] 02-21-2021 influenza virus vaccine, split virus (incl. purified surface antigen) Jameson Reed Other [employer] Other 02-21-2021 influenza virus vaccine, unspecified formulation [facility] 07-18-2020 COVID-19 Vaccine Pfi zer - Documentation Purposes Only Jameson Reed Other [facility] 07-18-2020 SARS-CoV-2 (COVID-19 ) Ad26 vaccine, recombinant RHEA KEHINDE [facility] 06-27-2020 COVID-19 Vaccine Moderna - Documentation Purposes Only Jameson Reed Other [facility] 06-27-2020 SARS-CoV-2 (COVID-19 ) mRNA BNT-162b2 vax RHEA BUSBY [facility] 02-29-2020 influenza virus vaccine, split virus (incl. purified surface antigen) Jameson Reed Other [facility] Other 02-29-2020 influenza virus vaccine, unspecified formulation [facility] 03-22-2019 influenza virus vaccine, split virus (incl. purified surface antigen) Jameson Reed Other [facility] Other 03-22-2019 influenza virus vaccine, unspecified formulation [facility] 02-21-2018 influenza virus vaccine, split virus (incl. purified surface antigen) Jameson Reed Other [facility] Other 02-21-2018 influenza virus vaccine, unspecified formulation [facility] 02-22-2017 influenza virus vaccine, split virus (incl. purified surface antigen) Jameson Reed Other [facility] Other 02-22-2017 influenza virus vaccine, unspecified formulation [facility] 04-02-2016 influenza virus vaccine, split virus (incl. purified surface antigen) Jameson Reed Other [facility] Other 04-02-2016 influenza virus vaccine, unspecified formulation [facility] 04-05-2015 pneumococcal conjuga te vaccine, 13 valent Jameson Reed Other [facility] 02-10-2012 tetanus and diphther ia toxoids, adsorbed, preservative free, for adult use (5 Lf of tetanus toxoid and 2 Lf of diphtheria toxoid) Jameson Reed Other [facility] 01-16-2010 diphtheria, tetanus toxoids and acellular pertussis vaccine, unspecified formulation Jameson Reed Other [facility] 01-02-2009 pneumococcal polysaccharide vaccine, 23 valent Jameson Reed Other [facility] Payers Date Payer Category Payer Other GENERIC OTHER Me [employer]ber Subscriber Plan / Payer (Effective 2020-Present) Name: Giana Isaacs Relation to Subscriber: Self Name: Giana Isaacs Payer ID: Not on file Group ID: Not on file Type: Not on file Address: [place] [id number] 2020 Unknown 2014 Unknown [id number]. [id number] 2008 Medicare [id number] [id number]. [id number] 1959 Medicare [id number]. [id number] 1959 Self-pay 1959 Unknown [id number] 1943 Unknown [id number] 2.16.840.1.526094.3.579.2.64 7 1943 Unknown [id number] 2.16.840.1.642912.3.579.2.17 4 1943 Unknown [id number] 2.16.840.1.806289.3.579.2.17 4 1943 Unknown [id number] 2.16.840.1.360780.3.579.2.59 3 1943 Unknown [id number] 2.16.840.1.596708.3.579.2.59 3 1943 Unknown [id number] 2.16.840.1.403834.3.579.2.59 3 1943 Unknown [id number] 2.16.840.1.161168.3.579.2.72 7 1943 Unknown [id number] 2.16.840.1.965856.3.579.2.72 7 1943 Unknown [id number] 2.16.840.1.600405.3.579.2.72 7 1943 Unknown [id number] 2.16.840.1.694542.3.579.2.12 59 1943 Unknown [id number] 2.16.840.1.020390.3.579.2.12 59 1943 Unknown [id number] 2.16.840.1.082856.3.579.2.12 59 1943 Unknown [id number] 2.16.840.1.882006.3.579.2.12 59 1943 Unknown [id number] 2.16.840.1.090789.3.579.2.12 59 1943 Unknown [id number] 2.16.840.1.923199.3.579.2.12 59 1943 Unknown [id number] 2.16.840.1.553210.3.579.2.12 59 1943 Unknown [id number] 2.16.840.1.348999.3.579.2.12 59 1943 Unknown [id number] 2.16.840.1.489604.3.579.2.12 59 1943 Unknown [id number] 2.16.840.1.542591.3.579.2.12 59 1943 Unknown [id number] 2.16.840.1.236463.3.579.2.12 59 1943 Unknown [id number] 2.16.840.1.859825.3.579.2.12 59 1943 Unknown [id number] 2.16.840.1.159307.3.579.2.12 59 1943 Unknown [id number] 2.16.840.1.167626.3.579.2.12 59 1943 Unknown [id number] 2.16.840.1.382369.3.579.2.12 59 1943 Unknown [id number] 2.16.840.1.852486.3.579.2.12 59 1943 Unknown [id number] 2.16.840.1.076053.3.579.2.12 59 1943 Unknown [id number] 2.16.840.1.760081.3.579.2.12 59 1943 Unknown [id number] 2.16.840.1.878567.3.579.2.12 59 1943 Unknown [id number] 2.16.840.1.445131.3.579.2.12 59 1943 Unknown [id number] 2.16.840.1.085016.3.579.2.12 59 1943 Unknown [id number] 2.16.840.1.942990.3.579.2.12 59 1943 Unknown [id number] 2.16.840.1.869077.3.579.2.12 59 1943 Unknown [id number] 2.16.840.1.281627.3.579.2.12 59 1943 Unknown [id number] 2.16.840.1.696122.3.579.2.12 59 1945 Unknown [id number] 1945 Unknown [id number] Unknown [id number] Unknown Other1 (STD) [id number] Social History Date Type Detail Facility Tobacco smoking stat [facility] Unknown if ever smoked [employer] Work Phone: Start: 1945 Sex Assigned At Not on file M traci [employer] Work Phone: Start: 05-13-2021 End: 06-03-2023 Tobacco smoking status Ex-smoker (finding) [facility] Tobacco smoking status Never [facility] Start: 06-03-2023 End: 05-02-2024 Sex Assigned At Female [facility] History of tobacco use Current smoker [facility] History of tobacco use Cigarette Smoker [facility] Start: 06-03-2023 Tobacco use and exposure Smokeless tobacco non-user [facility] Start: 06-03-2023 End: 05-02-2024 History of Social function [facility] Start: 1945 Sex Assigned At Female F [facility] Functional Status Date Assessment Result Facility 04-19-2023 Functional Status No [facility] 05-20-2022 Functional Status N/A [facility]ant Clinical Notes 05-20-2022 to 05-02-2024 Mercy Hilliard, DO - 05/02/2024 9:30 AM EST Note Date & Type Note Facility 05-02-2024 History of Present illness Narrative Post op TKA bilateral staggered annual visit: The patient is seen and evaluated for annual bilateral staggered total knee arthroplasty visit. Pain is appropriately controlled. Denies chest pain or shortness of breath or palpitations. Continues to be consistent and diligent with home exercise program as well as physical therapy modalities. Physical therapy modalities were instructed. Happy with progress made. Physical Exam: The total knee incisions are both clean, dry and intact. Mild swelling as expected. Has a stable arc of motion without mechanical symptoms. No instability of the bilateral knee prosthesis. No rash, infection or DVT. The calf is supple. Gait is assisted with stiffness with mild antalgic component. Image Results: Xrays taken in the office today saved to the permanent record, bilateral AP , sunrise and lateral weightbearing films, show stable position and alignment of the staggered bilateral TKAprosthesis. No sign of loosening, fracture or infection. Assessment: S/P bilateral staggered total knee arthroplasty-annual post-operative visit Treatment Plan: The nature of the findings were discussed at length. Continuance of regular exercise, weight management and fall precautions reviewed. alf antibiotic prophylaxis for dental or invasive work were reviewed. Numerous questions were answered. Follow-up in 1 year for repeat xray and exam, sooner if concerned. The patient is discharged in stable condition. documented in this encounter [facility] 04-28-2023 Note [id number] [facility] 04-27-2023 Evaluation note Encounter Date Diagnosis Assessment [...] elevate and compression stockings. Early ambulation encouraged. [employer] Other [id number] Hospital Discharge instructions Patient Education 05/20/2022 11:53:51 Kidney Stones, Tkoc-tk-Eqap Kidney Stones Kidney stones are rock-like masses [...] Follow these instructions at home: Medicines Take oukj-vzj-ihkxitx and prescription medicines only as told by [...] 11/02/2008 Document Revised: 10/03/2019 Document Reviewed: 10/03/2019 [employer] Patient Education 2020 [employer]. Follow Up Care 05/13/2021 12:23:02 With:KEHNIDE AVALOS, RHEA Yee, URL Address: [address] [place] [phone] Business (1) When: only if needed [facility] evaluation + Plan note No data available for this section [facility] evaluation + Plan note Future Appointments Appointment Date:05/03/2023 10:00:00 AM Scheduled Provider: Location:[facility] Appointment Type:Surgery FT Diagnostic Tests Pending * [facility] History of total left knee replacement documented in this encounter [employer] Work Phone: evaluation noteNo [employer] Other Evaluation note* Diagnosis Aftercare following right [...] noneactive Screening mammogram for breast cancer noneactive [facility] Work Phone: Evaluation note* Diagnosis Onset Date Resolution Status ASHD (arteriosclerotic heart disease) acute Chronic venous insufficiency of lower extremity acute HANSA (generalized anxiety disorder) acute Hypercholesterolemia acute Hypertension acute Primary osteoarthritis of knees, bilateral acute Medicare annual wellness visit, subsequent noneactive Screening mammogram for breast cancer noneactive ASHD (arteriosclerotic heart disease) acute Hypertension acute COVID noneactive [facility] Work Phone: Evaluation note* Diagnosis History of bilateral knee arthroplasty- Primary Presence of left artificial knee joint [facility] - Reported* Type Description Date [...] History LEFT TOTAL KNEE ARTHROPLASTY Surgical History [facility] 1988 Surgical History PTCA [facility] 1993 Surgical History [facility] 2009 Hospitalization History SEE SURGICAL HX [employer] Other History general Narrative - Reported* Type Description Date [...] History LEFT TOTAL KNEE ARTHROPLASTY [facility] 1993 Surgical History [facility] 2009 Surgical History Right TKA 04/2023 Hospitalization History SEE SURGICAL HX [employer] Other Hospital Discharge instructions No data available for this section [facility] No data available for this section [facility] [email or web address] Summary Purpose Family History No Family History Records Found Relationship Condition Age at Onset Recorded Date/T rolanda father Unknown mother Unknown Advance Directives No Advanced Directives Records Found Advance Directive Response Recorded Date/ Time Advance Directives No December 27 10:23am Chief Complaint and Reason for Visit Chief Complaint wellness Reason for Visit ASHD (arteriosclerot ic heart disease) Chronic venous insufficiency of lower extremity HANSA (generalized anxiety disorder) Hypercholesterolemia Hypertension Primary osteoarthritis of knees, bilateral Medicare annual wellness visit, subsequent Screening mammogram for breast cancer Chief Complaint wellness [phone] cold symptoms, fever, 3 days Reason for Visit ASHD (arteriosclerot ic heart disease) Chronic venous insufficiency of lower extremity HANSA (generalized anxiety disorder) Hypercholesterolemia Hypertension Primary osteoarthritis of knees, bilateral Medicare annual wellness visit, subsequent Screening mammogram for breast cancer ASHD (arteriosclerotic heart disease) Hypertension COVID Additional Source Comments INFORMATION SOURCE (unrecogn ized section and content) DATE CREATED AUTHOR 08/13/[address] [facility] DATE CREATED AUTHOR AUTHOR'S ORGANIZ ATION 09/23/2020 [facility] DATE CREATED AUTHOR AUTHOR'S ORGANIZ ATION 05/22/2022 [facility] DATE CREATED AUTHOR AUTHOR'S ORGANIZ ATION 05/12/2023 [facility] DATE CREATED AUTHOR AUTHOR'S ORGANIZ ATION 05/03/2024 [facility] EPIC Patient Care team informatio n (unrecognized section and content) Lay Out Carpenter Relationship Specialty Start Date End Date Jameson Reed MD [address] [place] [phone] PCP - General Internal Medicine 03/30/23 Lay Out Carpenter Relationship Specialty Start Date End Date Jameson eRed MD [address] [place] [address] PCP - General Internal Medicine 03/30/23 Lay Out Carpenter Relationship Specialty Start Date End Date Jameson Reed MD [address] [place] [address] PCP - General Internal Medicine 03/30/23 Lay Out Carpenter Relationship Specialty Start Date End Date Jameson Reed MD [address] [place] [address] PCP - General Internal Medicine 03/30/23 Team Status: Active Member Role Status Dates PHYSICIAN NO FAMILY Primary Care Provider Active Team Status: Inactive Member Role Status Dates PHYSICIAN NO FAMILY Primary Care Provider Active Start: December 28, 2023 End: December 28, 2023 Jameson Reed DO Attending Provider Active Sta rt: December 28, 2023 End: December 28, 2023 Team Status: Active Member Role Status Dates PHYSICIAN NO FAMILY Primary Care Provider Active Start: January 26, 2024 Jameson Reed DO Attending Provider Active Sta rt: January 26, 2024 Team Status: Inactive Member Role Status Dates PHYSICIAN NO FAMILY Primary Care Provider Active Start: March 21, 2024 End: March 21, 2024 Jameson Reed DO Attending Provider Active Sta rt: March 21, 2024 End: March 21, 2024 Lay Out Carpenter Relationship Specialty Start Date End Date Jameson Reed MD [address] [facility] [place] [phone] PCP - General Internal Medicine 03/30/23 REASON FOR VISIT (unrecogniz ed section and content) Specialty Diagnoses / Procedures Referred By Contjenn t Referred To Contact Physical Therapy Diagnoses Aftercare following right knee joint replacement surgery Presence of right artificial knee joint Procedures PA THER PX 1/> AREAS EACH 15 MIN NEUROMUSC REEDUCA PHYS/OCC THERAPY SS PA THERAPEUTIC PX 1/> AREAS EACH 15 MIN EXERCISES PA MANUAL THERAPY TQS 1/> REGIONS EACH 15 MINUTES Mercy Hilliard DO [address] [facility] [place] [address] [address] [facility] [address] [place] [address] Referral ID Status Reason Start Date Expiration Date Visits Requested Visits Authorized [id number] Authorized Consult and Treat 07/06/2023 03/21/2025 26 26 Reason Comments Follow-up Goals (unrecognized section and content) Goals may [...] BE BASED ON THE PRIMARY CLINICAL RECORDS. [employer] provides no warranty or guarantee of the accuracy or completeness of information in this document.
--- NOTE | 2024-12-31 16:38 | XR_ITS ---
The [address] [address] Patient Name: GIANA ISAACS MRN: [id number] date: 1945 Sex: F Assigned Patient Location: ER Current Patient Location: ER Accession/Order Number: [id number] Exam Date: 12/31/2024 17:18 Report Date: 12/31/2024 17:23 At the request of: EMILY WATERMAN MD Procedure: XR shoulder RT min 2V XR shoulder RT min 2V 12/31/2024 5:11 PM SIGNS AND SYMPTOMS: Right superior shoulder pain PROTOCOL: Frontal, Grashey, and scapular Y views of the right shoulder COMPARISON: None FINDINGS: There is moderate narrowing of the glenohumeral joint. Mild to moderate hypertrophic changes are noted in the common clavicular joint. There is no fracture or dislocation. Cortical irregularity is noted along the greater tuberosity of the humeral head suspicious for underlying rotator cuff pathology. Visualized right hemithorax is grossly intact. XR/XR shoulder RT min 2V IMPRESSION: No fracture or dislocation. Moderate degenerative changes are noted in the right shoulder. Findings suggest underlying rotator cuff pathology. Impression dictated by: Abel Vaughn M.D. 12/31/2024 5:23 PM Dictation Location: [facility] Electronically authenticated by: [id number] Y Date: 12/31/2024 17:23
--- NOTE | 2024-12-31 16:41 | ED.GENADUL1 ---
HPI HPI - General Adult General Chief complaint: Extremity Injury, Upper Stated complaint: UE PAIN Time Seen by Provider: 12/31/24 16:24 Source: patient Mode of arrival: walk-in Limitations: no limitations History of Present Illness HPI narrative: 79-year-old female to the emergency department with chief complaint of right shoulder pain. No specific injury. She has been doing some gardening and pulling weeds. Reports she has a history of arthritis. She follows with Dr. Hilliard. She denies any fever, sweats, chills. Pain in her shoulder worse today, difficult to move. Related Data Previous Rx's ?Medication ?Instructions ?Recorded prednisone 20 mg tablet 40 mg (2 x 20 mg) PO DAILY 5 days 12/31/24 #10 tabs Allergies Allergy/AdvReac Type Severity Reaction Status Date / Time No Known Drug Allergies Allergy Verified 12/31/24 16:30 Opioid HPI Opioid Management Most Recent Opioid Data: Last Pain Scale 6 Today, 16:24 Review of Systems ROS Status of ROS 10 or more systems reviewed and unremarkable except as noted in history and below PFSH PFSH Social History Little interest or pleasure in doing things: not at all Feeling down, depressed, or hopeless: not at all Exam Narrative Exam Narrative: Right upper Extremity: Radial Pulse is intact. Limb is similar color and temperature to the contralateral limb. Compartments soft. No edema. No ecchymosis. No laceration. No abrasion. No deformity. No bony tenderness. [employer] Specialist strength, finger abduction/adduction, wrist extension intact. Normal ROM of wrist, elbow. Pain with range of motion of the shoulder and some mild crepitus. Constitutional Vital Signs, click to edit/add: Last Vital Signs Temp 97.9 F 12/31/24 16:24 Pulse 73 12/31/24 16:24 Resp 18 12/31/24 16:24 BP 165/84 H 12/31/24 16:24 Pulse Ox 94 L 12/31/24 16:24 O2 Del Method Room Air 12/31/24 16:24 Course Vital Signs Vital signs: Vital Signs Temperature 97.9 F 12/31/24 16:24 Pulse Rate 73 12/31/24 16:24 Respiratory Rate 18 12/31/24 16:24 Blood Pressure 165/84 H 12/31/24 16:24 Pulse Oximetry 94 L 12/31/24 16:24 Oxygen Delivery Method Room Air 12/31/24 16:24 Temperature 97.9 F 12/31/24 16:24 Pulse Rate 73 12/31/24 16:24 Respiratory Rate 18 12/31/24 16:24 Blood Pressure 165/84 H 12/31/24 16:24 Pulse Oximetry 94 L 12/31/24 16:24 Oxygen Delivery Method Room Air 12/31/24 16:24 Medical Decision Making MDM Narrative Medical decision making narrative: 79-year-old female with history of arthritis to the emergency department chief complaint of shoulder pain. Vital stable, the patient is afebrile. Exam of the shoulder is unremarkable. X-ray without acute findings, she does have chronic degenerative changes and evidence of rotator cuff pathology. She reports she will continue to take Tylenol at home for pain. Discussed rest. Prednisone as prescribed. She will follow-up with her orthopedic doctor. Return precautions were discussed. All questions were answered. The patient was discharged home. Imaging Data Shoulder x-ray: Attestation: I have reviewed the pertinent imaging results. Radiologist's impression: ITS Impressions Shoulder X-Ray 12/31/24 16:38 IMPRESSION: No fracture or dislocation. Moderate degenerative changes are noted in the right shoulder. Findings suggest underlying rotator cuff pathology. Impression dictated by: Abel Vaughn M.D. 12/31/2024 5:23 PM Dictation Location: [employer] Electronically authenticated by: [id number] Y Date: 12/31/2024 17:23 Discharge Plan Discharge Chief Complaint: Extremity Injury, Upper Clinical Impression: Acute shoulder pain Patient Disposition: Home, Self-Care Time of Disposition Decision: 17:41 Condition: Good Mode of Transportation: Private Vehicle Prescriptions / Home Meds: New prednisone 20 mg tablet 40 mg PO DAILY 5 Days Qty: 10 0RF Print Language: Uruguayan Instructions: Shoulder Pain (ED) Referrals: Jameson Reed DO [Primary Care Provider, Internal Medicine] - 1 week [facility] [Physician, [facility]] - As soon as possible
[2024-12-31] MEDS: PREDNISONE 20 MG TABLET 40 MG PO (18:16)
== END 2024-12-31 18:21 | disposition home or self-care (01) ==
PROVIDERS: Emergency Provider Student in an Organized Health Care Education/Training Program; PCP Internal Medicine
DX: M25.511 Pain in right shoulder (principal); M19.90 Unspecified osteoarthritis, unspecified site
CPT/HCPCS: 73030; 99283; J7512

== ENCOUNTER 2025-01-15 07:45 | Outpatient (OUT) | payer MEDICARE, OTHER, SELFPAY ==
--- OUTSIDE RECORDS SUMMARY | 2025-01-15 07:51 | XMS_ITS | CCD ---
Author Organization [facility] Care Team Providers Care Powder Loader Name Role Phone PHYSICIAN, DEFAULT Admitting Unavailable PHYSICIAN, DEFAULT Attending Unavailable Jameson Reed DO Primary Care Provider MERCY HILLIARD Referring Unavailab le JAMESON REED Primary Care Unavailable ARMINDA, MERCY HERNANDES Referring Unavailab fransico REED, JAMESON Yee Primary Care Unavailable JAMESON REED Primary Care [...] Unavailable RHEA BUSBY Attending Unavailable Hilliard, Mercy Marshall Admitting Unavailable Hilliard, Mercy Marshall Attending Unavailable Hilliard, Mercy Marshall Referring Unavailable Hilliard, Mercy Marshall Referring Unavailable Hilliard, Mercy Marshall Admitting Unavailable Hilliard, Mercy Marshall Attending Unavailable Jameson Reed MD Primary Care Provider Jameson Reed DO Primary Care Provider Jameson Reed DO Attending Provider [phone] Jameson Reed DO Primary Care Provider MERCY HILLIARD Attending Unavailable HILLIARD, MERCY Marshall Referring Unavailable HILLIARD, MERCY Marshall Referring Unavailable HILLIARD, MERCY Marshall Attending Unavailable Allergies Allergy Classification Reported Allergen(s) Allergy Type Date of Onset Reaction(s) Facility (3 sources) Amoxicillin / Clavulanate; Translations: [amoxicillin-cl avulanate] Drug Allergy Diarrhea (finding) [facility] (1 source) Amoxicillin / Clavulanate Drug Allergy [facility] Repository (5 sources) Lisinopril Drug Allergy Unknown [facility] Other (1 source) No Known Medication Allergies; Translations: [No Known Medication Allergies] Propensity to adverse reactions (disorder) [facility] Repository (9 sources) Amoxicillin-Pot Clavulanate Drug Allergy 3 Diarrhea [facility] Healthcare (5 sources) Lisinopril Allergy to substance 4 [facility] Healthcare Medications Current Medications Medication Drug Class(es) Dates Sig (Normalized) Sig (Original) amLODIPine 5 mg oral tablet (20 sources) Dihydropyridine Calcium Channel Twyla Start: 06-23-2024 take 1 tablet by mouth twice daily Amlodipine 5 mg tablet Active 0 .ROUTE .COMPLEX 180 June 23, 2024 6:27pm TAKE 1 TABLET BY MOUTH TWICE A DAY Complies with drug therapy Start: 01-10-2019 End: 06-23-2024 take 1 tablet by mouth in the morning amLODIPine (Norvasc) 5 MG tablet Take 5 mg by mouth in the morning and 5 mg before bedtime. 04/09/2023 Active aspirin 81 mg oral tablet (8 sources) Platelet Aggregation Inhibitor, Nonsteroidal Anti-inflammatory Drug Start: 01-03-2025 take 1 tablet by mouth once daily Aspirin 81 mg tablet Active 81 MG PO Daily January 03, 2025 12:00am Complies with drug therapy Start: 10-14-2020 take 81 mg by mouth once daily aspirin 81 mg, Oral, Daily, Prophylaxis Start Date: 10/14/20 Status: Ordered take 1 tablet by nikita th once daily aspirin 81 MG EC tablet Take 81 mg by mouth Daily Active calcium carbonate 1250 mg oral tablet (1 source) Start: 01-03-2025 take 1 tablet by mouth once daily Calcium Carbonate 500 mg calcium (1,250 mg) tablet Active 500 MG PO Daily January 03, 2025 12:00am Complies with drug therapy calcium carbonate 1500 mg / cholecalciferol 800 unt chewable tablet (2 sources) Vitamin D Start: 01-10-2019 take 1 tablet by mouth once daily calcium (as carbonate)-vitamin D 600 mg-800 intl units oral tablet, chewable 1 tab(s), Oral, Daily, Prophylaxis Start Date: 01/10/19 Status: Ordered carvedilol 25 mg oral tablet (20 sources) alpha-Adrenerg ic Twyla, beta-Adrenergi c Twyla Start: 06-23-2024 take 1 tablet by mouth twice daily Carvedilol 25 mg tablet Active 0 .ROUTE .COMPLEX 180 June 23, 2024 6:26pm TAKE 1 TABLET BY MOUTH TWICE A DAY Complies with drug therapy Start: 01-10-2019 End: 06-23-2024 carvedilol (Coreg) 25 MG tab let 03/26/2023 Active Celebrate Multivitamin (2 sources) Start: 01-10-2019 take 1 capsule by mouth once daily Celebrate Multivitamin 1 cap, Oral, Daily, Prophylaxis Start Date: 01/10/19 Status: Ordered cephalexin 500 mg oral capsule (11 sources) Cephalosporin Antibacterial Start: 03-01-2023 End: 05-02-2024 cephalexin (Keflex) 500 MG capsule Indications: Presence of left artificial knee joint Take two caps evening prior to appointment, take two cap one hour prior to appointment 4 capsule 2 05/02/2024 Active furosemide 20 mg oral tablet (20 sources) Loop Diuretic Start: 09-27-2023 End: 12-21-2024 take 1 tablet by mouth once daily Furosemide 20 mg tablet Active 0 .ROUTE .COMPLEX 90 December 21, 2024 12:31pm TAKE 1 TABLET BY MOUTH EVERY DAY Complies with drug therapy Start: 01-10-2019 End: 09-27-2023 furosemide (Lasix) 20 MG tab let 03/26/2023 Active Multiple Vitamin (multivitamin) tablet (5 sources) take 1 tablet by mouth once daily Multiple Vitamin (multivitamin) tablet Take 1 tablet by mouth Daily Active Multivitamin tablet (1 source) Start: 01-03-2025 take 1 tablet by mouth once daily Multivitamin tablet Active 1 TAB PO Daily January 03, 2025 12:00am Complies with drug therapy Nirmatrelvir-Ritonavir (Paxlovid) 300 mg (150 mg x 2)-100 mg tablets,dose pack (1 source) Start: 03-21-2024 Nirmatrelvir-Ritonavir (Paxlovid) 300 mg (150 mg x 2)-100 mg tablets,dose pack Active 0 PO .COMPLEX March 21, 2024 12:00am take TWO 150 mg tablets of nirmatrelvir with ONE 100 mg tablet of ritonavir twice daily for 5 days PO potassium chloride 10 meq extended release oral tablet (20 sources) Start: 03-19-2024 take 1 tablet by mouth once daily Potassium Chloride 10 mEq tablet extended release Active 0 .ROUTE .COMPLEX March 19, 2024 4:28pm TAKE 1 TABLET BY MOUTH EVERY DAY Complies with drug therapy Start: 10-17-2020 End: 03-19-2024 take 1 tablet by mouth once daily potassium chloride CR (Klor-Con) 10 MEQ ER tablet Take 10 mEq by mouth Daily 03/04/2023 Active take 1 tablet by nikita th every twelve hours Potassium Chloride ER 10 MEQ 1 tablet with food Orally Twice a day Active pravastatin sodium 40 mg oral tablet (19 sources) HMG-CoA Reductase Inhibitor Start: 10-21-2023 End: 10-27-2024 take 1 tablet by mouth in the evening Pravastatin 40 mg tablet Active 0 .ROUTE .COMPLEX October 27, 2024 10:09am TAKE 1 TABLET BY MOUTH IN THE EVENING Complies with drug therapy Start: 10-21-2023 take 1 tablet by nikita th in the evening Pravastatin Active 0 .ROUTE .COMPLEX October 21, 2023 3:45pm TAKE 1 TABLET BY MOUTH IN THE EVENING Start: 07-24-2023 End: 10-21-2023 take 1 tablet by mouth at bedtime pravastatin (Pravachol) 40 MG tablet Take 40 mg by mouth at bedtime 07/24/2023 Active Start: 01-10-2019 take 40 mg by mouth once daily pravastatin 40 mg, Oral, Daily, High cholesterol Start Date: 01/10/19 Status: Ordered predniSONE 20 mg oral tablet (2 sources) Start: 12-31-2024 take 2 tablets by mouth once daily predniSONE (Deltasone) 20 MG tablet Take 40 mg by mouth Daily 12/31/2024 Active telmisartan 80 mg oral tablet (20 sources) Angiotensin 2 Receptor Twyla Start: 07-17-2024 End: 10-08-2024 take 1 tablet by mouth once daily Telmisartan 80 mg tablet Active 0 .ROUTE .COMPLEX 90 October 08, 2024 8:07am TAKE 1 TABLET BY MOUTH EVERY DAY Complies with drug therapy Start: 01-10-2019 End: 07-17-2024 take 1 tablet by mouth once daily telmisartan (MIcarDIS) 80 MG tablet Take 80 mg by mouth Daily 02/11/2023 Active Completed/Discontinued Medications Medication Drug Class(es) Dates Sig (Normalized) Sig (Original) ALPRAZolam 0.25 mg oral tablet (8 sources) Benzodiazepine Start: 12-28-2023 End: 12-28-2023 take 1 tablet by mouth once daily as needed Alprazolam 0.25 mg tablet Discontinued 0.25 MG PO Daily as needed December 28, 2023 12:00am December 28, 2023 10:54am ALPRAZolam 0.25 MG 1 tablet Orally ONE DAILY, NEEDED Active azithromycin 250 mg oral tablet (5 sources) Macrolide Antimicrobial Start: 06-18-2022 Azithromycin 250 MG as directed Orally May, Not-Taking/PRN Nirmatrelvir-Ritonavi r (1 source) Start: 03-21-2024 End: 01-03-2025 Nirmatrelvir-Ritonavir (Paxlovid) 300 mg (150 mg x 2)-100 mg tablets,dose pack Discontinued 0 PO .COMPLEX March 21, 2024 12:00am January 03, 2025 10:38am take TWO 150 mg tablets of nirmatrelvir with ONE 100 mg tablet of ritonavir twice daily for 5 days PO Problems Active Problems Problem Classification Problem Date Documented Da te Episodic/Chronic Abdominal pain (5 sources) Generalized abdominal pain; Translations: [Generalized abdominal pain] Episodic Acute bronchitis (5 sources) Acute bronchitis; Translations: [Acute bronchitis due to other specified organisms] Episodic Acute myocardial infarction (2 sources) Myocardial infarction 02-06-2019 Chronic Comment on above: 1990 Anxiety disorders (16 sources) Anxiety disorder; Translations: [Anxiety disorder, unspecified] 12-26-2023 Chronic Biliary tract disease (5 sources) Cholelithiasis without obstruction; Translations: [Calculus of gallbladder without cholecystitis without obstruction] Episodic Calculus of urinary tract (17 sources) Kidney stone; Translations: [Calculus of kidney] Onset: Episodic Chronic obstructive pulmonary disease and bronchiectasis (5 sources) Simple chronic bronchitis; Translations: [Simple chronic bronchitis] Chronic Coronary atherosclerosis and other heart disease (15 sources) Old myocardial infarction; Translations: [Coronary arteriosclerosis] 01-10-2019 Chronic Diabetes mellitus without complication (1 source) Impaired fasting glycemia; Translations: [Impaired fasting glucose] 01-03-2025 Episodic Disorders of lipid metabolism (20 sources) Hypercholesterolemia; [...] artificial knee joint, bilateral] 05-01-2024 Chronic Other connective tissue disease (2 sources) Tendinitis of right rotator cuff; Translations: [Other shoulder lesions, right shoulder] 01-04-2025 Episodic Other diseases of veins and lymphatics (5 sources) Peripheral venous insufficiency; Translations: [Venous insufficiency (chronic) (peripheral)] Episodic Other diseases of veins and lymphatics (3 sources) Venous insufficiency (chronic) (peripheral); Translations: [Venous (peripheral) insufficiency, unspecified] Episodic Other diseases of veins and lymphatics (4 sources) Venous insufficiency of leg; Translations: [Venous [...] in joint, lower leg] 07-08-2023 Episodic Other non-traumatic joint disorders (2 sources) Pain in right shoulder; Translations: [Pain in joint, shoulder region] 01-01-2025 Episodic Other nutritional; endocrine; and metabolic disorders (2 sources) Body mass index 30+ - obesity 12-29-2019 Chronic Other nutritional; endocrine; and metabolic disorders (5 sources) Simple obesity ; Translations: [Other obesity due to excess calories] Onset: 3 Chronic Other screening for suspected conditions (not mental disorders or infectious disease) (7 sources) Encounter for screening mammogram for malignant [...] Spondylosis; intervertebral disc disorders; other back problems (8 sources) Lumbosacral spondylosis without myelopathy; Translations: [Spondylosis [...] Panel Informationon 05-02 Radiology Study observation (narrative) [facility] XR Knee - left 3 [facility] Result: Xrays taken in the office today saved to the permanent record, bilateral AP , sunrise and lateral weightbearing films, show stable position and alignment of the staggered bilateral TKAprosthesis. No sign of loosening, fracture or infection. [facility] XR Knee - right 3 [facility] Result: Xrays taken in the office today saved to the permanent record, bilateral AP , sunrise and lateral weightbearing films, show stable position and alignment of the staggered bilateral TKAprosthesis. No sign of loosening, fracture or infection. [facility] Basophils Auto (Bld) [#/Vol] on 01-26-2024 Basophils (Bld) [#/Vol] 0.1 10 3/uL 0.0-0.1 [facility] Basophils/100 WBC Auto (Bld) on 01-26-2024 Basophils/100 WBC (Bld) 0.7 % 0.2-2.0 [facility] Cholesterol in LDL Calc [Mas s/Vol]on 01-26-2024 Cholesterol in LDL [Mass/Vol] 99.0 mg/dL [facility] Comment on above: <100 mg/dl [id number] 0-129 mg/dl NEAR OR ABOVE [id number] mg/dl BORDERLINE [id number] mg/dl HIGH>190 mg/dl VERY HIGH Cholesterol in VLDL Calc [Ma ss/Vol]on 01-26-2024 Cholesterol in VLDL [Mass/Vol] 30.2 mg/dL [facility] Eosinophils/100 WBC Auto (Bl d)on 01-26-2024 Eosinophils/100 WBC (Bld) 2.8 % 0.9-7.0 [facility] Erythrocyte distribution wid th Auto (RBC) [Ratio]on 01-26-2024 Erythrocyte distribution width (RBC) [Ratio] 12.3 % 11.0-15.0 [facility] Estimated glomerular filtrat ion rate (GFR) non- Americanon 01-26-2024 GFR/1.73 sq M.predicted among non-blacks MDRD (S/P/Bld) [Vol rate/Area] mL/min/{1.73_m2} >=60 [facility] Globulin Calc (S) [Mass/Vol] on 01-26-2024 Globulin (S) [Mass/Vol] 3.1 g/dL [facility] Hematocrit Auto (Bld) [Volum e fraction]on 01-26-2024 Hematocrit (Bld) [Volume fraction] 45.8 % 36.0-48.0 [facility] Hemoglobin [Mass/volume] in Bloodon 01-26-2024 Hemoglobin (Bld) [Mass/Vol] 15.4 g/dL 12.0-16.0 [facility] Laboratory - Chemistry and C hemistry - challengeon 01-26-2024 Albumin [Mass/Vol] 3.9 g/dL 3.4-5.0 [facility] ALP [Catalytic activity/Vol] 96 U/L 46-116 [facility] ALT [Catalytic activity/Vol] 31 U/L 14-59 [facility] AST [Catalytic activity/Vol] 23 U/L 15-37 [facility] Bilirubin [Mass/Vol] 0.6 mg/dL 0.2-1.0 [facility] Calcium [Mass/Vol] 9.2 mg/dL 8.5-10.1 [facility] Chloride [Moles/Vol] 100 mmol/L 98-107 [facility] Cholesterol [Mass/Vol] 193 mg/dL <=200 [facility] Cholesterol in HDL [Mass/Vol] 64 mg/dL High 40-60 [facility] Comment on above: > or =60 mg/dl - LOW CARDIOVASCULAR RISK<40 mg/dl - HIGH CARDIOVASCULAR RISK CO2 [Moles/Vol] 30.4 mmol/L 21.0-32.0 [facility] Creatinine [Mass/Vol] 0.61 mg/dL 0.55-1.02 [facility] GFR/1.73 sq M.predicted MDRD (S/P/Bld) [Vol rate/Area] mL/min/{1.73_m2} >=60 [facility] Glucose [Mass/Vol] 103 mg/dL 74-106 [facility] Potassium [Moles/Vol] 4.2 mmol/L 3.5-5.1 [facility] Protein [Mass/Vol] 7.0 g/dL 6.4-8.2 [facility] Sodium [Moles/Vol] 138 mmol/L 136-145 [facility] Triglyceride [Mass/Vol] 151 mg/dL High <=150 [facility] Urea nitrogen [Mass/Vol] 13.0 mg/dL 7.0-18.0 [facility] Urea nitrogen/Creatinine [Mass ratio] 21.3 mg/mg [facility] Laboratory - Hematology and Cell countson 01-26-2024 Immature granulocytes/100 WBC (Bld) 0.3 % 0.0-0.5 [facility] Leukocytes [#/volume] correc kamille for nucleated erythrocytes in Blood by Automated counon 01-26-2024 WBC corrected for nucl RBC Auto (Bld) [#/Vol] 6.7 10 3/uL 4.0-11.0 [facility] Lymphocytes Auto (Bld) [#/Vo l]on 01-26-2024 Lymphocytes (Bld) [#/Vol] 2.8 10 3/uL 1.2-3.8 [facility] Lymphocytes/100 WBC Auto (Bl d)on 01-26-2024 Lymphocytes/100 WBC (Bld) 42.2 % 20.5-60.0 [facility] MCH Auto (RBC) [Entitic mass ]on 01-26-2024 MCH (RBC) [Entitic mass] 30.9 pg 26.7-34.0 [facility] MCHC Auto (RBC) [Mass/Vol]on 01-26-2024 MCHC (RBC) [Mass/Vol] 33.6 g/dL 29.9-35.2 [facility] MCV Auto (RBC) [Entitic vol] on 01-26-2024 MCV (RBC) [Entitic vol] 91.8 fL 81.0-99.0 [facility] Monocytes Auto (Bld) [#/Vol] on 01-26-2024 Monocytes (Bld) [#/Vol] 0.7 10 3/uL 0.3-0.8 [facility] Monocytes/100 WBC Auto (Bld) on 01-26-2024 Monocytes/100 WBC (Bld) 10.4 % 1.7-12.0 [facility] Neutrophils Auto (Bld) [#/Vo l]on 01-26-2024 Neutrophils (Bld) [#/Vol] 2.9 10 3/uL 1.4-6.5 [facility] Neutrophils/100 WBC Auto (Bl d)on 01-26-2024 Neutrophils/100 WBC (Bld) 43.6 % 43.0-75.0 [facility] No Panel Informationon 01-25 Eosinophils # (Auto) 0.2 10 3/uL 0.0-0.7 [facility] Immature Granulocyte # (Auto) 0.02 10 3/uL 0.00-0.03 [facility] Platelet mean volume Auto (B ld) [Entitic vol]on 01-26-2024 Platelet mean volume (Bld) [Entitic vol] 10.6 fL 9.5-13.5 [facility] Platelets Auto (Bld) [#/Vol] on 01-26-2024 Platelets (Bld) [#/Vol] 234 10 3/uL 150-450 [facility] RBC Auto (Bld) [#/Vol]on RBC (Bld) [#/Vol] 4.99 10 6/uL 4.20-5.40 [facility] Serum or plasma albumin/glob ulin mass ratioon 01-26-2024 Albumin/Globulin [Mass ratio] 1.3 {ratio} [facility] Serum or plasma anion gap de terminationon 01-26-2024 Anion gap [Moles/Vol] 11.8 mmol/L [facility] Serum or plasma total choles terol/high density lipoprotein (HDL) cholesterol mass owen 01-26-2024 Cholesterol.total/Ch olesterol in HDL [Mass ratio] 3.0 {ratio} [facility] Comment on above: 3.3 - 4.4 LOW RISK4. 4 - 7.1 AVERAGE RISK7.1 - 11.0 MODERATE RISK>11.0 HIGH RISK Operative Reporton 3 Operative Report SURGERY DATE: 05/03/2023 PREOPERATIVE DIAGNOSIS: [...] the proposed procedure. JOE Jiang Dictated: 05/03/2023 [id number] Transcribed: 05/03/2023 [facility] Comment on above: Result Comment: Elec tronically Signed By: Jose Franco CRNA\.br\Date and Time Signed: 05/10/23 13:14 EST IntraOperative Documentson 1 07-08-2022 IntraOperative Documents [id number]#1.00 TIFF [facility] Consent for Anesthesiaon Consent for Anesthesia [id number]#1.00 TIFF [facility] Discharge Instructionson Discharge Instructions [id number]#1.00 TIFF [facility] IntraOperative Documentson 1 07-05-2022 IntraOper[facility] Documents [id number]#1.00 TIFF Normal [facility] Pre-Op Checkliston Pre-Op Checklist [id number]#1.00 TIFF Normal [facility] Progress Note-Physicianon Progress Note-Physician Patient: GIANA ISAACS [...] All Problems Knee osteoarthritis / SNOMED CT 290056996 / Confirmed Microhematuria / SNOMED CT 376035847 / Confirmed Kidney stones / SNOMED CT 539787124 / Confirmed Hypertension / SNOMED CT 4008512752 / Confirmed Hypercholesterolemia / SNOMED CT 31066681 / Confirmed Acid reflux disease / SNOMED CT 966366489 / Confirmed Gross hematuria / SNOMED CT 981822120 / Confirmed Former smoker / SNOMED CT 17764656 / Confirmed BMI 32.0-32.9,adult / SNOMED CT 707054773 / Confirmed Leiomyoma / SNOMED CT 757191338 / Confirmed Resolved: Bleeding ulcer / SNOMED CT 924350643 Resolved: VA, old / SNOMED CT 5125452 Resolved: Myocardial infarction / SNOMED CT 66654654 1988 Resolved: HTN (hypertension) / SNOMED CT 3610050527 Resolved: Hypercholesterolemia / SNOMED CT 31762524 Resolved: At risk for falls / SNOMED CT 763707478 Problem added when Risk for Falls Careplan was initiated. Resolved due to patient discharge. Histories Procedure history: RT ESWL ([id number]) on 03/26/2021 at 75 Years. Cysto/Transurethral resection of urethral polyp ([id number]) on 03/26/2021 at 75 Years. Cystourethroscopy with dilation of urethral stricture ([id number]) on 10/17/2020 at 75 Years. Total knee arthroplasty ([id number]) on 02/06/2019 at 73 Years. Hysterectomy ([id number]). Colonoscopy (632849536). Social History Social & Psychosocial Habits Alcohol [...] adequate air exchange. Cardiovascular: Regular rhythm. Plan [place] [employer] (ASA) physical status classification: Class III. Anesthetic Preoperative Plan: Anesthesia General. Regional Spinal. Normal [facility] Comment on above: Result Comment: Elec tronically Signed By: Sabas Marquez Jr, DO\.br\Date and Time Signed: 05/04/23 11:37 EST Progress Note-Physician Patient: GIANA ISAACS Age: 77 years Sex: Female : 1945 Associated Diagnoses: None Author: Sabas Marquez Jr, DO Postoperative Information Postoperative disposition: Postoperative disposition: To PACU. Optimetrix number: Optimetrix number [id number]. Anesthetic utilized: General. Regional: Spinal. Health Status [...] To home ). Normal [facility] Comment on above: Result Comment: Elec tronically Signed By: Sabas Marquez Jr, DO\.br\Date and Time Signed: 05/04/23 11:37 EST ABO/Rhon 05-03-2023 ABO/Rh Positive Invalid Interpretation Code [facility] Comment on above: Performed By: #### 2 [id number], [id number] #### [facility] Laboratory [address] [place] [address] ABO/Rh History Checkon 05-03 ABO/Rh History Check Verified Hx Blood Type Normal [facility] Comment on above: Performed By: #### 2 [id number], [id number] #### [facility] [address] [place] [address] ABSCon 05-03-2023 ABSC Gel Interp Negative Normal [facility] Comment on above: Performed By: #### 2 [id number], [id number] #### [facility] [address] [place] [address] Blood Bank ID#on 05-03-2023 BBID# [id number] Invalid Interpretation Code [facility] Comment on above: Performed By: #### 2 [id number], [id number] #### [facility] [address] [place] [address] Consent for Procedure/Surger yon 05-03-2023 Consent for Procedure/Surgery [id number]#1.00 TIFF Normal [facility] Consent for Treatmenton 0 Consent for Treatment [id number]#1.00T IFF Normal [facility] Discharge Instructionson Discharge Instructions GIANA ISAACS :1945 Visit Date:05/03/2023 Inpatient Discharge Instructions Your Care Team Admitting Physician - Mercy Hilliard DO Referring Physician - Mercy Hilliard DO Reason for Your Visit RIGHT KNEE OA [...] scheduled appointment. Call for any problems. Where: [address] [place] [id number] [facility] (1) Medications What How Much When Why Instructions Next Dose Unchanged acetaminophen-oxycodone (Percocet 5 mg-325 mg oral tablet) See instructions Localized osteoarthritis of right knee Take one to two oral as needed for knee surgical pain. Pickup at [facility]/pharmacy #[id number] Unchanged amlodipine 5 Milligram By Mouth 2 times a day Unchanged aspirin 81 Milligram By Mouth Every day Unchanged aspirin (aspirin 325 mg Tab) 1 Tablets By Mouth Every day Duration: 30 Days Start the day after knee surgery Pickup at [facility]/pharmacy #6177 Unchanged calcium-vitamin D (calcium (as carbonate)-vitamin D 600 mg-800 intl units oral tablet, chewable) 1 Tablets By Mouth Every day Unchanged carvedilol 25 Milligram By Mouth 2 times a day Unchanged clindamycin (clindamycin 300 mg oral cap) 1 Capsules By Mouth Every 8 hours Duration: 5 Days Start the day after surgery Pickup at [facility]/pharmacy #6177 Unchanged docusate (Colace 100 mg Cap) 1 Capsules By Mouth 2 times a day [facility] Unchanged furosemide (furosemide 20 mg Tab) 1 Tablets By Mouth Every day Unchanged multivitamin with minerals (Celebrate Multivitamin) 1 cap By Mouth Every day Unchanged potassium chloride (Klor Con 10 mEq Cap-ER) 1 Tablets By Mouth Every day Unchanged pravastatin 40 Milligram By Mouth Every day Unchanged telmisartan 80 Milligram By Mouth Every day Pharmacy Information [facility]/pharmacy #[id number]: [address], [place] [id number] [phone] Allergies Augmentin (Diarrhea) Devices Implanted/Removed This Visit Notice: You have devices implanted this visit that may not be MRI compatible. Implanted KNEE TOTAL ARTHROPLASTY Knee R CEMENT SIMPLEX PLAIN VISCOSITY HIGH [6194-1-010] (2), 05/03/2023, Unknown - EVELYNE: {01}[id number]{10}[id number]{17}[id number] OVAL DOME PATELLA 3-PEG 05/03/2023 P.F.C. SIGMA [...] content not included)... Normal [facility] Comment on above: Result Comment: Elec tronically Signed By: Junaid KHAN, Ignacia Edmonds\.br\Date and Time Signed: 05/03/23 11:13 EST H&P Updateon 05-03-2023 H&P Update [id number] TIFF Normal [facility] Main OR Intraoperative Recor don 05-03-2023 Main OR Intraoperative Record IntraOp Document Type FT Summary Primary Physician: Mercy Hilliard DO Finalized Date/Time: 05/03/23 12:19:46 Pt. Name: GIANA ISAACS D.O.B./Sex: 1945 Female Med Rec #: [id number] Physician: Mercy Hilliard DO Financial #: [id number] Pt. Type: A Room/Bed: [facility] Admit/Disch: 05/03/23 06:48:16 - Institution: Case Times [...] Hilliard DO, Sanjuanita Novak CST Role Performed TEXTILE FINISHER Surgeon - Primary TRANSPLANT WORKER/SA Time In 05/03/23 09:28:00 05/03/23 09:50:00 05/03/23 [...] Alejandro X Troike, Kendall R Role Performed Butcher Assistant - Primary Staff - Other Staff - [...] Comments: DEMARCO CARNEY - SCRUB PRIMARY -Ronnie CROOKemergency dispatcher Protocols FT Pre-Care Text: Implements protective measures [...] Given Participants Mercy Hilliard DO, Wilhelm CST, Macie C, Jeromy Watson Ii, Konstantin TERRY, Vikas Hein, [...] and tissue Entry 1 Skin Integrity Intact, Kayenta, Warm, and Skin Abnormality No Dry Outcomes Met? Yes Last M (more content not included)... Normal [facility] Main OR PACU I Recordon Main OR PACU I Record PACU Phase I Document Type FT Summary Primary Physician: Mercy Hilliard DO Finalized Date/Time: 05/03/23 12:37:33 Pt. Name: GIANA ISAACS./Sex: 1945 Female Med Rec #: [id number] Physician: Mercy Hilliard DO Financial #: [id number] Pt. Type: A Room/Bed: [place] [address] Admit/Disch: 05/03/23 06:48:16 - Institution: Case Times [...] I 05/03/23 12:37 Normal [facility] Main OR PACU II Recordon Main OR PACU II Record PACU Phase II Document Type FT Summary Primary Physician: Mercy Hilliard DO Finalized Date/Time: 05/03/23 15:42:55 Pt. Name: GIANA ISAACS/Sex: 1945 Female Med Rec #: [id number] Physician: Mercy Hilliard DO Financial #: [id number] Pt. Type: A Room/Bed: Admit/Disch: 05/03/23 06:48:16 [...] RN 05/03/23 15:42 Normal [facility] Main OR Preoperative Recordo n 05-03-2023 Main OR Preoperative Record PreOp Document Type FT Summary Primary Physician: Mercy Hilliard DO Finalized Date/Time: 05/03/23 09:55:04 Pt. Name: GIANA ISAACS Ruth Hammond/Sex: 1945 Female Med Rec #: [id number] Physician: Mercy Hilliard DO Financial #: [id number] Pt. Type: A Room/Bed: Admit/Disch: 05/03/23 06:48:16 [...] Ii 05/03/23 09:55 Normal [facility] Monitor Recordon 05-03-2023 Monitor Record [id number]#[id number] TIFF Normal [facility] Monitor Record [id number]#1.00 TIFF Normal [facility] Operative Reporton Operative Report SURGERY DATE: 05/03/2023 CYBER SECURITY SPECIALIST: Sanjuanita Carl CST PREOPERATIVE DIAGNOSIS: Right knee [...] injection care was obtained. Severe grade 4 fqgg-ie-jrwr disease is seen on the office x-rays. [...] knee of all three compartments which were vsoc-zz-hvut. The patella was appropriately cut and retracted. The intramedullary drill and jig device was placed in the femur and a 5 degree valgus cut taking off 11 mm was performed. This was sized at a size 2.5 Secret Labuy Karaz PFC. 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 It is therefore advised not to drive until after your first office visit following surgery FOLLOW-UP OFFICE VISIT: Mercy Hilliard, DO [facility] [address] [place] [address] Reviewed: 09-05 Pulmonary Medicine How to Use [...] If the spirometer includes a middle school football coach indicator, use this to guide you in breathing. Slow down your breathing if the indicator goes above the marked areas. 7. Remove the mouthpiece from your mouth and breathe out normally. The piston or ball will return to the bottom of the chamber. 8. Rest for a few seconds, then repeat the steps 1 (more content not included)... Normal [facility] XR Knee 1 or 2 Views Righton [...] Jameson Galvez MD Transcribed by: RUIZ Technologist: RUIZR Technical Comments Radiation Dose: Ka,r in mGy = na DAP = na Normal [facility] Inpatient Patient Summaryon 04-29-2023 Inpatient Patient Summary [address] [address] [facility] Clinical Discharge Instructions PERSON INFORMATION Name: GIANA ISAACS [facility]#:[id number] PHYSICIANS Admitting Physician: Mercy Hilliard DO Attending Physician: Mercy Hilliard DO PCP: JAMESON REED DO Discharge Diagnosis: Localized osteoarthritis of right knee Comment: PATIENT EDUCATION INFORMATION Instructions: [place] - Total Knee Arthroplasty (CUSTOM) Medication Leaflets: Follow up: With: Address: When: Mercy Hilliard [address] [place] [address] Business (1) Comments: Keep scheduled appointment Type Location Start [facility] Surgery [facility] Surgical Services 05/03/2023 10:00 AM 05/03/2023 [...] every day. Comment: Normal [facility] Outpatient Surgery Discharge Instructionon 04-29-2023 Outpatient Surgery Discharge Instruction [facility] [address] [place], [place] [address] Patient Discharge Instructions PERSON INFORMATION Name: SHITALGIANA VERNON Ruth Date of : 1945 Current Date: 04/29/2023 [...] Follow up: With: Address: When: Mercy Hilliard [address] [place], [place] [id number] [facility] (1) Comments: Keep scheduled appointment Type Location Start [facility] Surgery [facility] Surgical Services 05/03/2023 10:00 AM 05/03/2023 [...] to serve you. Thank you for choosing [facility] HERE ARE THE MEDICATION CHANGES THAT OCCURRED [...] Mouth every day. PATIENT EDUCATION INFORMATION Instructions: [place], [place] [facility] DISCHARGE INSTRUCTIONS TOTAL KNEE [...] content not included)... Normal [facility] Outside Recordson 04-29-2023 Outside Records [id number] TIFF Normal [facility] C Urineon 04-21-2023 Bacteria identified Cx Nom (U) Microbiology PROCEDURE: Urine Culture [R1] SOURCE: U CleanCatch BODY SITE: COLLECTED DATE/TIME: 04/19/2023 11:00 EST RECEIVED DATE/TIME: 04/19/2023 13:21 EST START DATE/TIME: 04/19/2023 13:22 EST FREE TEXT SOURCE: Mercy Hilliard DO, DO, [facility] FINAL REPORTS Final Report [] Verified Date/Time: 04/21/2023 08:57 EST 2,000 cfu/ml Mixed skin contaminants Performing Locations R1: This test was performed at: [facility], [address] [place] [address], [address] , , Normal [facility] Comment on above: Performed By: #### 2 [id number], [id number] #### [facility] [address] [place] [address] Outside Recordson 04-21-2023 Outside Records [id number]#1.00T IFF Normal [facility] Auto DiffOrdered By: SYSTEM SYSTEM on 04-19-2023 Basophils/100 WBC (Bld) 0.6 % Normal 0.0-2.0 [facility] HemeAutoSS Comment on above: Order Comment: Order Added by Discern Expert. Performed By: #### 2 245771, 6323207, 3905909, [id number] #### [facility] [address] [place] [address] Basophils/Leukocytes Auto (Bld) [Pure # fraction] 0.0 E9/L Normal 0.0-0.2 [facility] Comment on above: Order Comment: Order Added by Discern Expert. Performed By: #### 2 980275, 6684796, 7653060, 13055139 #### [facility] [address] [place] [address] Eosinophils/100 WBC (Bld) 2.2 % Normal 0.0-8.0 [facility] Comment on above: Order Comment: Order Added by Discern Expert. Performed By: #### 2 592110, 2929974, 3262345, 30932154 #### [facility] [address] [place] [address] Eosinophils/Leukocyt es Auto (Bld) [Pure # fraction] 0.1 E9/L Normal 0.0-0.5 [facility] Comment on above: Order Comment: Order Added by Discern Expert. Performed By: #### 2 292941, 7845820, 9118105, 10081272 #### [facility] [address] [place] [address] Lymphocytes/100 WBC (Bld) 37.8 % Normal 14.0-50.0 [facility] Comment on above: Order Comment: Order Added by Discern Expert. Performed By: #### 2 481708, 3540798, 9898432, 10194153 #### [facility] [address] [place] [address] Lymphocytes/Leukocyt es Auto (Bld) [Pure # fraction] 2.4 E9/L Normal 1.0-4.0 [facility] Comment on above: Order Comment: Order Added by Wilyl Expert. Performed By: #### 2 946704, 1490533, 7922063, 45282052 #### [facility] [address] [place] [address] Monocytes/100 WBC (Bld) 10.8 % Normal 4.0-14.0 [facility] Comment on above: Order Comment: Order Added by Discern Expert. Performed By: #### 2 430435, 1824419, 8649604, 34867560 #### [facility] [address] [place] [address] Monocytes/Leukocytes Auto (Bld) [Pure # fraction] 0.7 E9/L Normal 0.2-1.0 [facility] Comment on above: Order Comment: Order Added by Discern Expert. Performed By: #### 2 276018, 0815937, 3464554, 38584161 #### [facility] [address] [place] [address] Neutrophils/100 WBC (Bld) 48.6 % Normal 36.0-75.0 [facility] Comment on above: Order Comment: Order Added by Discern Expert. Performed By: #### 2 290834, 8437471, 6852846, 56592145 #### [facility] [address] [place] [address] Neutrophils/Leukocyt es Auto (Bld) [Pure # fraction] 3.1 E9/L Normal 2.0-7.5 [facility] Comment on above: Order Comment: Order Added by Discern Expert. Performed By: #### 2 747569, 5915260, 2555572, 27651425 #### [facility] [address] [place] [address] BMPOrdered By: SYSTEM SYSTEM on 04-19-2023 Anion gap [Moles/Vol] 10 mmol/L Normal 6-16 [facility] Comment on above: Performed By: #### 2 773813, 4717244, 3357753, 83356068 #### [facility] [address] [place] [address] Calcium [Mass/Vol] 10.0 mg/dL Normal 8.9-11.1 [facility] R emisol Comment on above: Performed By: #### 2 694939, 5486851, 6069225, 85294975 #### [facility] [address] [place] [address] Chloride [Moles/Vol] 104 mmol/L Normal 101-111 [facility] Comment on above: Performed By: #### 2 637491, 3273164, 2502380, 77119460 #### [facility] [address] [place] [address] CO2 [Moles/Vol] 31 mmol/L Normal 21-31 [facility] Sunday hawa Comment on above: Performed By: #### 2 438261, 3897032, 8915362, 02178907 #### [facility] [address] [place] [address] Creatinine [Mass/Vol] 0.5 mg/dL Normal 0.5-1.3 [facility] Remisol Comment on above: Performed By: #### 2 142513, 2686206, 8836966, 41193332 #### [facility] [address] [place] [address] Glucose [Mass/Vol] 118 mg/dL Normal 55-199 [facility] R emisol Comment on above: Interpretive Data: I f this glucose result represents a fasting glucose, interpretation should refer to the following reference range: 55-99 mg/dL Result Comment: If t his glucose result represents a fasting glucose, interpretation should refer to the following reference range: 55-99 mg/dL Performed By: #### 2 456303, 7060578, 7311525, 99245077 #### [facility] [address] [place] [address] Potassium [Moles/Vol] 3.9 mmol/L Normal 3.5-5.3 [facility] Remisol Comment on above: Performed By: #### 2 207897, 5824930, 9822945, 86883399 #### [facility] [address] [place] [address] Sodium [Moles/Vol] 141 mmol/L Normal 135-145 [facility] R emisol Comment on above: Performed By: #### 2 347099, 9606239, 7329993, 69026092 #### [facility] [address] [place] [address] Urea nitrogen [Mass/Vol] 13 mg/dL Normal 5-21 [facility] Remisol Comment on above: Performed By: #### 2 326988, 2628417, 1762428, 77925568 #### [facility] [address] [place] [address] BMPon 04-19-2023 Urea nitrogen/Creatinine [Mass ratio] 26 No Units High 03-19 [facility] Comment on above: Performed By: #### 2 862749, 6788064, 8796623, 29571062 #### [facility] [address] [place] [address] CBC w/ Auto DiffOrdered By: Gabriela Hyatt on 04-19-2023 Erythrocyte distribution width (RBC) [Ratio] 12.9 % Normal 10.9-14.2 [facility] Comment on above: Performed By: #### 2 190879, 2446350, 2628244, 89352986 #### [facility] [address] [place] [address] Hematocrit (Bld) [Volume fraction] 44.9 % Normal 34.0-46.0 [facility] Comment on above: Performed By: #### 2 304548, 6720973, 8461978, 27893098 #### [facility] [address] [place] [address] Hemoglobin (Bld) [Mass/Vol] 15.3 g/dL Normal 12.0-16.0 [facility] Comment on above: Performed By: #### 2 865733, 5496615, 8450937, 80976124 #### [facility] [address] [place] [address] MCH (RBC) [Entitic mass] 30.6 pg Normal 27.0-34.0 [facility] Comment on above: Performed By: #### 2 421378, 7332679, 4781739, 08722546 #### [facility] [address] [place] [address] MCHC (RBC) [Mass/Vol] 34.0 g/dL Normal 31.4-36.0 [facility] Comment on above: Performed By: #### 2 576830, 3881653, 5271640, 83136252 #### [facility] [address] [place] [address] MCV (RBC) [Entitic vol] 90.0 fL Normal 80.0-100.0 [facility] Comment on above: Performed By: #### 2 909352, 9625634, 9302074, 71998345 #### [facility] [address] [place] [address] Platelet mean volume (Bld) [Entitic vol] 8.6 fL Normal 6.4-10.8 [facility] Comment on above: Performed By: #### 2 881897, 9328438, 0882476, 81267083 #### [facility] [address] [place] [address] Platelets (Bld) [#/Vol] 231.0 E9/L Normal 150.0-500.0 [facility] Comment on above: Performed By: #### 2 496036, 4607268, 6797022, 32163578 #### [facility] [address] [place] [address] RBC (Bld) [#/Vol] 5.0 E12/L Normal 4.3-5.9 [facility] Comment on above: Performed By: #### 2 192785, 5130630, 6088205, 76331860 #### [facility] [address] [place] [address] WBC corrected for nucl RBC Auto (Bld) [#/Vol] 6.3 E9/L Normal 4.0-11.0 [facility] Comment on above: Performed By: #### 2 462948, 3872629, 1057053, 84046470 #### [facility] [address] [place] [address] CHEMISTRYOrdered By: SYSTEM SYSTEM on 04-19-2023 Urea nitrogen/Creatinine [Mass ratio] 26 mg/mg High [facility] Remisol Consent for Treatmenton 04-01 Consent for Treatment [id number] IFF Normal [facility] UA With Cult Reflexon 2022 Bacteria LM Ql (Urine sed) TRACE Normal Trace [facility] Comment on above: Performed By: #### 2 952822, 55142702 #### [facility] [address] [place] [address] Bilirubin Ql (U) Negative Normal Negative [facility] Comment on above: Performed By: #### 2 023262, 17282170 #### [facility] [address] [place] [address] Clarity (U) CLEAR Normal Clear [facility] Comment on above: Performed By: #### 2 559312, 63440580 #### [facility] [address] [place] [address] Color (U) YELLOW Normal Yellow [facility] Comment on above: Performed By: #### 2 564888, 86693057 #### [facility] [address] [place] [address] Epithelial cells.squamous LM.HPF (Urine sed) [#/Area] 0-2 Normal 0-2 [facility] Comment on above: Performed By: #### 2 624619, 48140465 #### [facility] [address] [place] [address] Glucose Test strip (U) [Mass/Vol] Negative Normal Negative [facility] Comment on above: Performed By: #### 2 847426, 93634606 #### [facility] [address] [place] [address] Hemoglobin Ql (U) Negative Normal Negative [facility] Comment on above: Performed By: #### 2 859340, 78982397 #### [facility] [address] [place] [address] Ketones (U) [Mass/Vol] Negative Normal Negative [facility] Comment on above: Performed By: #### 2 200752, 28778022 #### [facility] [address] [place] [address] Carrington.plasma/Lithi um.RBC (Bld) [Mass ratio] 0-3 Normal 0-3 [facility] Comment on above: Performed By: #### 2 780625, 27844536 #### [facility] [address] [place] [address] Mucus Ql (Urine sed) TRACE Normal [facility] Comment on above: Performed By: #### 2 406025, 90022143 #### [facility] [address] [place] [address] Nitrite Ql (U) Negative Normal Negative [facility] Comment on above: Performed By: #### 2 088002, 84906428 #### [facility] [address] [place] [address] pH (U) 6.5 [pH] Invalid Interpretation Code 5.0-9.0 [facility] Comment on above: Performed By: #### 2 843293, 61470493 #### [facility] [address] [place] [address] Protein (U) [Mass/Vol] Negative Normal Negative [facility] Comment on above: Performed By: #### 2 080165, 43552045 #### [facility] [address] [place] [address] Specific gravity (U) [Rel density] <=1.005 Invalid Interpretation Code 1.005-1.030 [facility] Comment on above: Performed By: #### 2 549844, 40783316 #### [facility] [address] [place] [address] Type of Urine collection method Clean Catch Normal [facility] Comment on above: Performed By: #### 2 318113, 48674745 #### [facility] [address] [place] [address] Urobilinogen Qn (U) 0.2 {Araseli'U}/dL Normal 0.0-1.0 [facility] Comment on above: Performed By: #### 2 171637, 04897028 #### [facility] [address] [place] [address] WBC Auto Ql (U) 1+ Abnormal Negative [facility] Comment on above: Performed By: #### 2 692359, 72549900 #### [facility] [address] [place] [address] WBC LM.HPF (Urine sed) [#/Area] 0-5 Normal 0-5 [facility] Comment on above: Performed By: #### 2 509353, 40069673 #### [facility] [address] [place] [address] URINALYSISOrdered By: Laurie Bone on 04-19-2023 Bacteria [...] AM) Normal Negative [facility] UA Auto SS Carrington.plasma/Lithi um.RBC (Bld) [Mass ratio] 0-3 /HPF Normal [...] [facility] UA Auto SS Urobilinogen Qn (U) 0.9039374 {Arsaeli'U}/dL Normal 0.0 - 1.0 EU/dL [facility] UA Auto SS WBC Auto Ql (U) 1+ *ABN* (04/19/23 11:00 AM) Invalid Interpretation Code Negative [facility] UA Auto SS WBC LM.HPF (Urine sed) [#/Area] 0-5 /HPF Normal 0-5/HPF [facility] UA Auto SS XR Chest 2 Viewson [...] DAP = na Normal [facility] eGFROrdered By: SYSTEM SignalE Arlettie on 04-19-2023 GFR/1.73 sq M.predicted among non-blacks MDRD (S/P/Bld) [Vol rate/Area] 95 mL/min/1.73 m2 Normal >=59 [facility] Chem S Comment on above: Interpretive Data: C hronic kidney disease could be indicated at eGFR's of less than 60 mL/min/1.73m2. Kidney failure is indicated at less than 15 mL/min/1.73m2. Order Comment: Order added by Discern Expert. Result Comment: Manager Culinary celina kidney disease could be indicated at eGFR's of less than 60 mL/min/1.73m2. Kidney failure is indicated at less than 15 mL/min/1.73m2. Performed By: #### 2 538675, 6301087, 9119426, 55392195 #### [facility] [address] [place] [address] Physician Orderon 04-05-2023 Physician Order [id number] 0TIFF Normal [facility] RAD - MISCon 05-21-2022 RAD - MIS [id number]#1.00C D:127 Normal [facility] Patient Educationon 05-20-20 Patient Education Urology Kidney [...] these instructions at home: Medicines ? Take tsem-jat-mylmpzs and prescription medicines only as told by [...] 11/02/2008 Document Revised: 10/03/2019 Document Reviewed: 10/03/2019 [employer] Patient Education ? 2019 [employer] Normal [facility] Urology Office/Clinic Noteon 05-20-2022 Urology Office/Clinic Note [...] E&M of Est. Patient Low 20-29 Min 15866 2. Leiomyoma (D28.7: Benign neoplasm of other specified female genital organs) Cystoscopy with Transurethral resection of urethral polyp done 03/26/21. Pathology report shows urethral bladder neck polyp as, leiomyoma. denies gross hematuria. no UTIs this past year. UA completed in office today shows no microhematuria or signs of infection. Ordered: E&M of Est. Patient Low 20-29 Min 83326 offered 1 yr f/u. pt prefers PRN. Follow-up With When Contact Information RHEA BUSBY PA-C, URL Only if needed [address] [place] [address] Business (1) Additional Instructions: Patient Education Kidney Stones, Mmya-ah-Gzbg Problem List/Past Medical History Ongoing BMI 32.0-32.9,adult [...] develops UTI sx. Normal [facility] Comment on above: Result Comment: Elec tronically Signed By: RHEA BUSBY PA-C\.br\Date and Time Signed: 05/20/22 11:55 EST XR [...] CABRERA DODSON Date: 2022-05-12 16:58 Normal [facility] MG MAMM SCREEN 3D ADELITA CADon 03-26-2022 MG MAMM SCREEN 3D ADELITA CAD Patient: GIANA ISAACS Exam Date: 03/26/2022 : 1945 Gender:F Ordering : DR JAMESON REED D.O. Admission #: [id number] Family : Order #: [id number] CLICK HERE TO VIEW EXAM RADIOLOGY REPORT [...] Treatments None Family Cancers None LOCATION: [facility] BREAST COMPOSITION: Scattered areas fibroglandular [...] M.D. on 03/26/2022 at 15:58 Normal [facility] CBC AUTO DIFFon 08-28-2021 BASO # 0.1 103/ul Normal 0.0-0.1 [facility] Comment on above: Performed By: #### D ATCBC #### [facility] [address] [address] [address] Zbigniew Herrera Basophils/100 WBC (Bld) 0.5 % Normal 0.2-2.0 [facility] Comment on above: Performed By: #### D ATCBC #### [facility] [address] [address] [address] Zbigniew Herrera EO # 0.1 103/ul Normal 0.0-0.7 [facility] Comment on above: Performed By: #### D ATCBC #### [facility] [address] [place] [address] Dr. Zbigniew Herrera Eosinophils/100 WBC (Bld) 1.0 % Normal 0.9-7.0 [facility] Comment on above: Performed By: #### D ATCBC #### [facility] [address] [place] [address] Dr. Zbigniew Herrera Erythrocyte distribution width (RBC) [Ratio] 12.8 % Normal 11.0-15.0 [facility] Comment on above: Performed By: #### D ATCBC #### [facility] [address] [place] [address] Dr. Zbigniew Herrera Hematocrit (Bld) [Volume fraction] 45.6 % Normal 36.0-48.0 [facility] Comment on above: Performed By: #### D ATCBC #### [facility] [address] [place] [address] Dr. Zbigniew Herrera Hemoglobin (Bld) [Mass/Vol] 15.0 g/dL Normal 12.0-16.0 [facility] Comment on above: Performed By: #### D ATCBC #### [facility] [address] [place] [address] Dr. Zbigniew Herrera IG # 0.03 10e3/ul Normal 0.00-0.03 [facility] Comment on above: Performed By: #### D ATCBC #### [facility] [address] [place] [address] Dr. Zbigniew Herrera IG % 0.3 % Normal 0.0-0.5 [facility] Comment on above: Performed By: #### D ATCBC #### [facility] [address] [place] [address] Dr. Zbigniew Herrera LYMPH # 2.0 103/ul Normal 1.2-3.8 [facility] Comment on above: Performed By: #### D ATCBC #### [facility] [address] [place] [address] Dr. Zbigniew Herrera Lymphocytes/100 WBC (Bld) 21.2 % Normal 20.5-60.0 [facility] Comment on above: Performed By: #### D ATCBC #### [facility] [address] [place] [address] Dr. Zbigniew Herrera MCH (RBC) [Entitic mass] 30.4 pg Normal 26.7-34.0 [facility] Comment on above: Performed By: #### D ATCBC #### [facility] [address] [place] [address] Dr. Zbigniew Herrera MCHC (RBC) [Mass/Vol] 32.9 g/dL Normal 29.9-35.2 [facility] Comment on above: Performed By: #### D ATCBC #### [facility] [address] [place] [address] Dr. Zbigniew Herrera MCV (RBC) [Entitic vol] 92.5 fL Normal 81.0-99.0 [facility] Comment on above: Performed By: #### D ATCBC #### [facility] [address] [place] [address] Dr. Zbigniew Herrera MONO # 1.1 103/ul Critically high 0.3-0.8 [facility] Comment on above: Performed By: #### D ATCBC #### [facility] [address] [place] [address] Dr. Zbigniew Herrera Monocytes/100 WBC (Bld) 11.7 % Normal 1.7-12.0 [facility] Comment on above: Performed By: #### D ATCBC #### [facility] [address] [place] [address] Dr. Zbigniew Herrera NEUT # 6.1 103/ul Normal 1.4-6.5 [facility] Comment on above: Performed By: #### D ATCBC #### [facility] [address] [place] [address] Dr. Zbigniew Herrera Neutrophils/100 WBC (Bld) 65.3 % Normal 43.0-75.0 [facility] Comment on above: Performed By: #### D ATCBC #### [facility] [address] [place] [address] Dr. Zbigniew Herrera Platelet mean volume (Bld) [Entitic vol] 9.9 fL Normal 9.5-13.5 [facility] Comment on above: Performed By: #### D ATCBC #### [facility] [address] [place] [address] Dr. Zbigniew Herrera PLT 232 103/ul Normal 150-450 [facility] Comment on above: Performed By: #### D ATCBC #### [facility] [address] [place] [address] Dr. Zbigniew Herrera RBC 4.93 106/ul Normal 4.20-5.40 [facility] Comment on above: Performed By: #### D ATCBC #### [facility] [address] [place] [address] Dr. Zbigniew Herrera WBC 9.3 103/ul Normal 4.0-11.0 [facility] Comment on above: Performed By: #### D ATCBC #### [facility] [address] [place] [address] Dr. Zbigniew Herrera CALVIN- BMP WITH LIPIDon 2021 Anion gap [Moles/Vol] 11.9 mmol/L Normal [facility] Comment on above: Performed By: #### D ATBMP #### [facility] [address] [place] [address] Dr. Zbigniew Herrera Calcium [Mass/Vol] 8.9 mg/dL Normal 8.5-10.1 [facility] Comment on above: Performed By: #### D ATBMP #### [facility] [address] [place] [address] Dr. Zbigniew Herrera Chloride [Moles/Vol] 104 mmol/L Normal 98-107 [facility] Comment on above: Performed By: #### D ATBMP #### [facility] [address] [place] [address] Dr. Zbigniew Herrera Cholesterol [Mass/Vol] 179 mg/dL Normal <=200 [facility] Comment on above: Performed By: #### D ATBMP #### [facility] [address] [place] [address] Dr. Zbigniew Herrera Cholesterol in HDL [Mass/Vol] 64 mg/dL Critically high 40-60 [facility] Comment on above: Performed By: #### D ATBMP #### [facility] [address] [address] [address] Zbigniew Herrera Cholesterol in LDL [Mass/Vol] 90.4 mg/dL Normal [facility] Comment on above: Performed By: #### D ATBMP #### [facility] [address] [address] [address] Zbigniew Herrera CO2 [Moles/Vol] 30.9 mmol/L Critically high 22.0-30.0 [facility] Comment on above: Performed By: #### D ATBMP #### [facility] [address] [address] [address] Zbigniew Herrera Creatinine [Mass/Vol] 0.66 mg/dL Normal 0.52-1.04 [facility] Comment on above: Performed By: #### D ATBMP #### [facility] [address] [address] [address] Zbigniew Herrera EGFR-AF AUSTRIAN >60 Normal >=60 [facility] Comment on above: Performed By: #### D ATBMP #### [facility] [address] [address] [address] Zbigniew Herrera EGFR-NON AF AUSTRIAN >60 Normal >=60 [facility] Comment on above: Performed By: #### D ATBMP #### [facility] [address] [address] [address] Zbigniew Herrera Glucose [Mass/Vol] 109 mg/dL Critically high 74-106 [facility] Comment on above: Performed By: #### D ATBMP #### [facility] [address] [address] [address] Zbigniew Herrera HDL NORMAL > or = 60 mg/dl - LO W CARDIOVASCULAR RISK <40 mg/dl - HIGH CARDIOVASCULAR RISK Normal [facility] Comment on above: Performed By: #### D ATBMP #### [facility] [address] [address] [address] Zbigniew Herrera LDL CALC NORMAL SEE BELOW Normal [facility] Comment on above: Result Comment: <100 mg/dl OPTIMAL 100 - 129 mg/dl NEAR OR ABOVE OPTIMAL 130 - 159 mg/dl BORDERLINE HIGH 160 - 189 mg/dl HIGH >190 mg/dl VERY HIGH Performed By: #### D ATBMP #### [facility] [address] [address] [address] Zbigniew Herrera Potassium [Moles/Vol] 3.8 mmol/L Normal 3.4-5.0 [facility] Comment on above: Performed By: #### D ATBMP #### [facility] [address] [address] [address] Zbigniew Herrera Sodium [Moles/Vol] 143 mmol/L Normal 137-145 [facility] Comment on above: Performed By: #### D ATBMP #### [facility] [address] [address] [address] Zbigniew Herrera Triglyceride [Mass/Vol] 123 mg/dL Normal <=150 [facility] Comment on above: Performed By: #### D ATBMP #### [facility] [address] [address] [address] Zbigniew Herrera Urea nitrogen [Mass/Vol] 12.0 mg/dL Normal 7.0-18.0 [facility] Comment on above: Performed By: #### D ATBMP #### [facility] [address] [address] [address] Zbigniew Herrera Urea nitrogen/Creatinine [Mass ratio] 18.2 mg/mg Normal [facility] Comment on above: Performed By: #### D ATBMP #### [facility] [address] [address] [address] Zbigniew Herrera VLDL CALC 24.6 mg/dL Normal [facility] Comment on above: Performed By: #### D ATBMP #### [facility] [address] [address] [address] Zbigniew Herrera XR DEXA BONE DENSITYon [...] VITOR HOLLIDAY Date: 2021-08-28 08:55 Normal [facility] XR KNEE LEFT (MIN 4 VIEWS)on 09-18-2020 XR KNEE LEFT (MIN 4 VIEWS) EXAM: XR KNEE LEFT (MIN 4 VIEWS) HISTORY: Z96.652 75-year-old female left knee pain and stiffness. Total knee arthroplasty 2019. COMPARISON: Preop left knee, [facility], 03/02/2017. TECHNIQUE: Left knee series. [...] Butcher Jr., MD 09/18/20 Final result Normal [facility] XR KNEE LEFT (MIN 4 VIEWS)Or dered By: Mercy Hilliard on 09-18-2020 1. Anatomically alig alicia left total knee prosthesis. 2. Severe degenerative changes right knee. [employer] Phone: EXAM: XR KNEE LEFT ( MIN 4 VIEWS) HISTORY: Z96.652 75-year-old female left knee pain and stiffness. Total knee arthroplasty 2019. COMPARISON: Preop left knee, [facility], 03/02/2017. TECHNIQUE: Left knee series. Standing views of both knees, oblique, lateral, and sunrise left knee. FINDINGS: The opposite right knee shows moderately severe medial and lateral compartment osteoarthritic change. The left total knee prosthesis is in anatomic alignment, including patellar button with no joint effusion or hardware complication. [facility] Work Phone: Wade, [employer] Incoming Radiant Results From [employer] - 09/18/2020 11:27 AM EDT EXAM: XR KNEE LEFT (MIN 4 VIEWS) HISTORY: Z96.652 75-year-old female left knee pain and stiffness. Total knee arthroplasty 2019. COMPARISON: Preop left knee, [facility], 03/02/2017. TECHNIQUE: Left knee series. [...] prosthesis. 2. Severe degenerative changes right knee. [employer] Phone: Vital Signs Date Time Vital Sign Value Performing Clinician Facility 01-04-2025 08:03-0400 Body height 154.9 cm Mercy AFAR Work Phone: [facility] [employer] 01-04-2025 08:03-0400 Body mass index (BMI) [Ratio] 31.71 kg/m2 Runa Work Phone: [facility] [employer] 01-04-2025 08:03-0400 Body weight 76.11 kg Runa Work Phone: [facility] [employer] 01-03-2025 10:44-0400 Body height 153.67 cm Betify DO Work Phone: [facility] 01-03-2025 10:44-0400 Body mass index (BMI) [Ratio] 32.5 kg/m2 Jameson NaturVention DO Work Phone: [facility] 01-03-2025 10:44-0400 Body weight 76.77 kg Jameson NaturVention DO Work Phone: [facility] 01-03-2025 10:44-0400 Diastolic blood pressure 84 mm[Hg] Jameson NaturVention DO Work Phone: [facility] 01-03-2025 10:44-0400 Heart rate 67 /min Jameson Ball DO Work Phone: [facility] 01-03-2025 10:44-0400 Respiratory rate 12 /min Jameson Ball DO Work Phone: [facility] 01-03-2025 10:44-0400 Systolic blood pressure 167 mm[Hg] Jameson Ball DO Work Phone: [facility] 05-02-2024 09:27-0500 Body height 154.9 cm Mercy Hilliard DO Work Phone: [facility] 05-02-2024 09:27-0500 Body mass index (BMI) [Ratio] 31.93 kg/m2 Mercy Hilliard DO Work Phone: [facility] 05-02-2024 09:27-0500 Body weight 76.66 kg Mercy Hilliard DO Work Phone: [facility] 12-28-2023 10:57-0400 Body height 153.67 cm [facility] 12-28-2023 10:57-0400 Body mass index (BMI) [Ratio] 31.7 kg/m2 [facility] 12-28-2023 10:57-0400 Body weight 75.01 kg [facility] 12-28-2023 10:57-0400 Diastolic blood pressure 78 mm[Hg] [facility] 12-28-2023 10:57-0400 Heart rate 60 /min [facility] 12-28-2023 10:57-0400 Respiratory rate 12 /min [facility] 12-28-2023 10:57-0400 Systolic blood pressure 144 mm[Hg] [facility] 04-27-2023 10:00-0500 Body height 153.67 cm Jameson Ball Other [facility] [employer] Other 04-27-2023 10:00-0500 Body mass index (BMI) [Ratio] 32.65 kg/m2 Jameson Ball Other [facility] [employer] Other 04-27-2023 10:00-0500 Body weight 77.11 kg Jameson Ball Other [employer] Other 04-27-2023 10:00-0500 Diastolic blood pressure 83 mm[Hg] Jameson Ball Other [employer] Other 04-27-2023 10:00-0500 Respiratory rate 12 /min Jameson Ball Other [employer] Other 04-27-2023 10:00-0500 Systolic blood pressure 145 mm[Hg] Jameson Ball Other [employer] Other 04-19-2023 10:38-0500 Blood Pressure Location Mercy Hilliard [facility] 04-19-2023 10:38-0500 Diastolic blood pressure 75 mm[Hg] Mercy Hilliard [facility] 04-19-2023 10:38-0500 Heart rate 67 /min Mercy Hilliard [facility] 04-19-2023 10:38-0500 Mean blood pressure 101 mm[Hg] Mercy Hilliard [facility] 04-19-2023 10:38-0500 Systolic blood pressure 154 mm[Hg] Mercy Hilliard [facility] 04-19-2023 10:37-0500 Heart rate 65 /min Mercy Hilliard [facility] 04-19-2023 10:37-0500 SaO2% (BldA) [Mass fraction] 93 % Mercy Hilliard [facility] 04-19-2023 10:37-0500 Body temperature 97.7 [degF] Mercy Hilliard [facility] 04-19-2023 10:37-0500 Blood Pressure Location Mercy Hilliard [facility] 04-19-2023 10:37-0500 Diastolic blood pressure 75 mm[Hg] Mercy Hilliard [facility] 04-19-2023 10:37-0500 Systolic blood pressure 154 mm[Hg] Mercy Hilliard [facility] 04-19-2023 10:36-0500 Blood Pressure Location Mercy Hilliard [facility] 04-19-2023 10:36-0500 Diastolic blood pressure 80 mm[Hg] Mercy Hilliard [facility] 04-19-2023 10:36-0500 Mean blood pressure 105 mm[Hg] Mercy Hilliard [facility] 04-19-2023 10:36-0500 Systolic blood pressure 154 mm[Hg] Mercy Hilliard [facility] 04-19-2023 10:36-0500 Respiratory rate 18 /min Mercy Hilliard [facility] 05-20-2022 11:05-0500 Blood Pressure Location RHEA BUSBY [facility] 05-20-2022 11:05-0500 Diastolic blood pressure 81 mm[Hg] RHEA BUSBY [facility] 05-20-2022 11:05-0500 Heart rate 68 /min RHEA BUSBY [facility] 05-20-2022 11:05-0500 Systolic blood pressure 156 mm[Hg] RHEA BUSBY [facility] Encounters Encounter Date Encounter Type Care Provider Facility Start: 01-04-2025 End: 01-04-2025 Bamboo flowsheet Mercy Hilliard DO Work Phone: [facility] Start: 01-04-2025 End: 01-04-2025 Bamboo flowsheet Mercy Hilliard DO Work Phone: [facility] Start: 01-04-2025 End: 01-04-2025 Patient encounter procedure Mercy Hilliard DO Work Phone: [facility] Comment on above: Acute pain of right shoulder (Primary Dx); Tendinitis of right rotator cuff Start: 01-04-2025 End: 01-04-2025 ambulatory MERCY HILLIARD Not Available Start: 01-03-2025 End: 01-03-2025 ambulatory Jameson Reed DO Work Phone: [facility] Work Phone: Start: 01-03-2025 End: 01-03-2025 Patient encounter procedure Jameson Reed DO -[facility] Work Phone: Start: 05-02-2024 End: 05-02-2024 Patient encounter procedure Mercy Hilliard DO Work Phone: [facility] Comment on above: History of bilateral knee arthroplasty (Primary Dx); Presence of left artificial knee joint Start: 05-02-2024 End: 05-02-2024 ambulatory MERCY HILLIARD Not Available Start: 05-02-2024 End: 05-02-2024 ambulatory MERCY HILLIARD Not Available Start: 03-21-2024 End: 03-21-2024 ambulatory [facility] Work Phone: Start: 03-21-2024 End: 03-21-2024 Patient encounter procedure [facility] Work Phone: Start: 01-26-2024 Non-patient / Non-visit [facility] Work Phone: Start: 12-28-2023 End: 12-28-2023 ambulatory [facility] Work Phone: Start: 12-28-2023 End: 12-28-2023 Patient encounter procedure [facility] Work Phone: Start: 07-14-2023 Bamboo flowsheet Caity Ceballos [employer]ACH[employer]PA[employer] [facility] Start: 07-14-2023 Bamboo flowsheet Caity Ceballos [employer] [facility] Start: 07-14-2023 End: 07-14-2023 Admission to same day surgery center Caity Ceballos [employer] [facility] Comment on above: Aftercare following right knee joint replacement surgery (Primary Dx); Acute pain of right knee; Difficulty walking; Presence of right artificial knee joint Start: 07-14-2023 End: 07-14-2023 ambulatory Caity Ceballos [employer] [facility] Start: 07-08-2023 Bamboo flowsheet Caity Ceballos [employer]ACHINE REPAIRER [employer] [facility] Start: 07-08-2023 Bamboo flowsheet Caity Ceballos [employer]ACHINE REPAIRER [employer] [facility] Start: 07-08-2023 End: 07-08-2023 Admission to same day surgery center Caity Ceballos [employer]ACH[employer] REPAIR[employer] [facility] Comment on above: Aftercare following right knee joint replacement surgery (Primary Dx); Acute pain of right knee; Difficulty walking; Presence of right artificial knee joint Start: 07-08-2023 End: 07-08-2023 ambulatory Caity Ceballos [employer] [facility] Start: 06-03-2023 End: 06-03-2023 ambulatory Jameson Reed Other [employer] Other Start: 06-03-2023 Telephone encounter Jameson OLIVO G [facility] Start: 05-27-2023 End: 05-27-2023 ambulatory Jameson Reed Other [employer] Other Start: 05-27-2023 Telephone encounter Jameson Keertih GEOVANI G [facility] Start: 05-03-2023 End: 05-03-2023 ambulatory Mercy Hilliard Facility:[facility] Start: 04-27-2023 End: 04-27-2023 ambulatory Jameson Reed Other [employer] Other Start: 04-27-2023 Encounter for other preprocedural examination Jameson Reed [facility] Start: 04-27-2023 Office outpatient vi sit 25 minutes Jameson Reed [facility] Start: 04-19-2023 End: 04-20-2023 ambulatory Mercy Hilliard Facility:[facility] Start: 04-19-2023 End: 04-19-2023 Patient encounter procedure Mercy Hilliard [facility] Start: 02-19-2023 End: 02-19-2023 ambulatory Jameson Reed Other [employer] Other Start: 02-19-2023 Telephone encounter Jameson Newsome [facility] Start: 02-16-2023 End: 02-16-2023 ambulatory Jameson Reed Other [employer] Other Start: 02-16-2023 Telephone encounter Jameson Newsome [facility] Start: 05-20-2022 End: 05-21-2022 ambulatory RHEA BUSBY Facility:[facility] Start: 05-20-2022 End: 05-20-2022 Patient encounter procedure RHEA BUSBY [facility] Start: 05-12-2022 End: 05-13-[address] Cabrera Dodson Facility: Start: 03-26-2022 End: 03-27-[address] JAMESON REED Facility: Start: 08-28-2021 End: 08-29-[address] JAMESON REED Facility: Start: 07-22-2021 Adult health examination Adam jonny Reed Other [employer] Other Start: 09-18-2020 End: 09-21-2020 ambulatory MERCY HILLIARD [facility] Start: 09-18-2020 End: 09-20-2020 Subsequent hospital visit by physician [facility] Additional Xray At [facility] Comment on above: History of total lef t knee replacement Start: 08-11-2018 End: 08-12-2018 Patient encounter procedure DEFAULT PHYSICIAN Facility:[facility] Procedures Date Procedure Procedure Detail Performing Clinician [...] screening Nas Reed Other Hysterectomy RHEA BUSBY [employer] Screening for malign ant neoplasm of breast Jameson Reed Other Plan of Treatment Date Care Activity Detail Author Start: 01-29-2025 Influenza vaccination Influenza Vacc ine (#1) [facility] Start: 01-04-2025 End: 01-04-2025 Patient encounter procedure 01/04/2025 8:15 AM EDT Office Visit [facility] [address] [facility] [place] [address] Mercy Hilliard, [address] [employer] [place], [place] [id number] Acute pain of right shoulder (Primary Dx) [facility] Comment on above: Acute pain of right shoulder (Primary Dx) Start: 01-30-2024 Influenza vaccination Influenza Vacc ine (#1) [facility] Start: 09-23-2023 End: 09-23-2023 Patient encounter procedure 09/23/2023 1:15 PM EDT Office Visit [facility] [address] [facility] [place] [address] Mercy Hilliard, DO [address] [place] [address] [facility] Start: 07-29-2023 End: 07-29-2023 ambulatory 07/29/2023 10:00 AM EST Treatment [facility] [address] [place] [address] Caity Ceballos, SEWING MACHINE REPAIRER HEL[employer] [facility] Start: 07-27-2023 End: 07-27-2023 ambulatory 07/27/2023 10:30 AM EST Treatment [facility] [address] [place] [address] Caity Ceballos, SEWING MACHINE REPAIRER HELPER [facility] Start: 07-22-2023 End: 07-22-2023 ambulatory 07/22/2023 10:00 AM EST Treatment [facility] [address] [place] [address] Caity Ceballos, SEWING MACHINE REPAIRER HELPER [facility] Start: 07-20-2023 End: 07-20-2023 ambulatory 07/20/2023 10:30 AM EST Treatment [facility] [address] [place] [address] Caity Ceballos, SEWING MACHINE REPAIRER HELPER [facility] Start: 07-16-2023 End: 07-16-2023 ambulatory 07/16/2023 10:30 AM EST Treatment [facility] [address] [place] [address] Caity Ceballos, SEWING MACHINE REPAIRER HELPER [facility] Start: 07-14-2023 End: 07-14-2023 ambulatory 07/14/2023 10:30 AM EST Treatment [facility] [address] [place] [address] Caity Ceballos, SEWING MACHINE REPAIRER HELPER [facility] [facility] Start: 07-08-2023 End: 07-08-2023 ambulatory 07/08/2023 10:00 AM EST Treatment [facility] [address] [place] [address] Caity Ceballos, SEWING MACHINE REPAIRER HELPER Arrived [facility] Comment on above: Arrived Start: 01-29-2021 Influenza vaccination Flu vacc ine (Season Ended) [employer] Phone: Start: 09-18-2020 Annual Wellness Visi t (AWV) Annual Wellness Visit (AWV) [employer] Phone: Start: 04-01-2016 Pneumococcal Vaccine : 65+ Years (2 - PCV) Pneumococcal Vaccine: 65+ Years (2 - PCV) [facility] Start: 04-01-2016 Pneumococcal Vaccine : 65+ Years (2 of 2 - PCV) Pneumococcal Vaccine: 65+ Years (2 of 2 - PCV) [facility] Start: 08-08-2008 Pneumococcal 65+ yea rs Vaccine (1 of 1 - PPSV23) Pneumococcal 65+ years Vaccine (1 of 1 - PPSV23) [employer] Phone: Start: 08-08-1998 Screening for osteoporosis DEXA (modify frequency per FRAX score) [employer] Phone: Start: 08-08-1993 Shingles Vaccine (1 of 2) Shingles Vaccine (1 of 2) [employer] Phone: Start: 08-08-1962 DTaP/Tdap/Td vaccine (1 - Tdap) DTaP/Tdap/Td vaccine (1 - Tdap) [employer] Phone: Start: 1959 COVID-19 Vaccine (1) COVID-19 Vaccin e (1) [employer] Phone: Start: 1945 Hepatitis C screening Hepatitis C sc reen [employer] Phone: Comprehensive metabo lic 1999 panel - Serum or Plasma [facility] Comprehensive metabo lic 1999 panel - Serum or Plasma [facility] Immunizations Immunization Date Immunization Notes Care Provider [facility] [place] 05-10-2024 influenza, high dose seasonal, preservative-free Jameson Reed DO Work Phone: [facility] 05-10-2024 influenza virus vaccine, unspecified formulation Mercy Hilliard DO Work Phone: [facility] 03-11-2023 influenza virus vaccine, unspecified formulation Mercy Hilliard DO Work Phone: [facility] 03-04-2022 influenza virus vaccine, unspecified formulation [facility] 03-04-2022 influenza, high dose seasonal, preservative-free Jameson Reed Other [facility] [employer] Other 04-21-2021 SARS-CoV-2 (COVID-19 ) Ad26 vaccine, recombinant RHEA KEHINDE [facility] 02-21-2021 influenza virus vaccine, split virus (incl. purified surface antigen) Jameson Reed Other [facility] [employer] Other 02-21-2021 influenza virus vaccine, unspecified formulation [facility] 07-18-2020 COVID-19 Vaccine Pfi zer - Documentation Purposes Only Jameson Reed Other [facility] 07-18-2020 SARS-CoV-2 (COVID-19 ) Ad26 vaccine, recombinant RHEA KEHINDE [facility] 06-27-2020 COVID-19 Vaccine Moderna - Documentation Purposes Only Jameson Reed Other [facility] 06-27-2020 SARS-CoV-2 (COVID-19 ) mRNA BNT-162b2 vax RHEA BUSBY [facility] 02-29-2020 influenza virus vaccine, split virus (incl. purified surface antigen) Jameson Reed Other [employer] [facility] [employer] Other 02-29-2020 influenza virus vaccine, unspecified formulation [facility] 03-22-2019 influenza virus vaccine, split virus (incl. purified surface antigen) Jameson Reed Other [facility] [employer] Other 03-22-2019 influenza virus vaccine, unspecified formulation [facility] 02-21-2018 influenza virus vaccine, split virus (incl. purified surface antigen) Jameson Reed Other [facility] [employer] Other 02-21-2018 influenza virus vaccine, unspecified formulation [facility] 02-22-2017 influenza virus vaccine, split virus (incl. purified surface antigen) Jameson Reed Other [facility] [employer] Other 02-22-2017 influenza virus vaccine, unspecified formulation [facility] 04-02-2016 influenza virus vaccine, split virus (incl. purified surface antigen) Jameson Reed Other [facility] [employer] Other 04-02-2016 influenza virus vaccine, unspecified formulation [facility] 04-05-2015 pneumococcal conjuga te vaccine, 13 valent Jameson Reed Other [facility] 02-10-2012 tetanus and diphther ia toxoids, adsorbed, preservative free, for adult use (5 Lf of tetanus toxoid and 2 Lf of diphtheria toxoid) Jameson Reed Other [facility] 01-16-2010 diphtheria, tetanus toxoids and acellular pertussis vaccine, unspecified formulation Jameson Reed Other [facility] 01-02-2009 pneumococcal polysaccharide vaccine, 23 valent Jameson Reed Other [facility] Payers Date Payer Category Payer Other GENERIC OTHER Tn mber [id number] 2020 Unknown 2014 Unknown [id number]. [id number] 2008 Medicare [id number]. [id number] 1959 Medicare [id number] 1959 Self-pay 1959 Unknown [id number] 1943 Unknown [id number] 2.16.840.1.572448.3.579.2.64 7 1943 Unknown [id number] 2.16.840.1.671552.3.579.2.17 4 1943 Unknown [id number] 2.16.840.1.285977.3.579.2.17 4 1943 Unknown [id number] 2.16.840.1.977198.3.579.2.59 3 1943 Unknown [id number] 2.16.840.1.454261.3.579.2.59 3 1943 Unknown [id number] 2.16.840.1.762168.3.579.2.59 3 1943 Unknown [id number] 2.16.840.1.959631.3.579.2.72 7 1943 Unknown [id number] 2.16.840.1.416912.3.579.2.72 7 1943 Unknown [id number] 2.16.840.1.394987.3.579.2.72 7 1943 Unknown [id number] 2.16.840.1.704792.3.579.2.12 59 1943 Unknown [id number] 2.16.840.1.011371.3.579.2.12 59 1943 Unknown [id number] 2.16.840.1.898195.3.579.2.12 59 1943 Unknown [id number] 2.16.840.1.311770.3.579.2.12 59 Unknown [id number] 2.16.840.1.073966.3.579.2.59 3 Unknown Other1 (STD) [id number] Social History Date Type Detail [facility] Work Phone: Start: 1945 Sex Assigned At Not on file [facility] Phone: Start: 05-13-2021 End: 06-03-2023 Tobacco smoking status Ex-smoker (finding) [facility] Tobacco smoking status Never [facility] Start: 06-03-2023 End: 01-04-[address] Female [facility] History of tobacco use Current smoker [facility] History of tobacco use Cigarette Smoker [facility] Start: 06-03-2023 Tobacco use and exposure Smokeless tobacco non-user [facility] Start: 06-03-2023 End: 01-04-2025 History of Social function [facility] Start: 1945 Sex Assigned At Female F [facility] Sex Female (finding) [facility] Functional Status Date Assessment Result Facility 04-19-2023 Functional Status No [facility] 05-20-2022 Functional Status N/A [facility] Clinical Notes 05-20-2022 to 05-02-2024 Mercy Hilliard DO - 05/02/2024 9:30 AM EST Note [...] exercise, weight management and fall precautions reviewed. shelter antibiotic prophylaxis for dental or invasive work were reviewed. Numerous questions were answered. Follow-up in 1 year for repeat xray and exam, sooner if concerned. The patient is discharged in stable condition. documented in this encounter [facility] 04-28-2023 Note [id number] [facility] 04-27-2023 Evaluation note Encounter Date Diagnosis Assessment [...] elevate and compression stockings. Early ambulation encouraged. [employer] Other [id number] Hospital Discharge instructions Patient Education 05/20/2022 11:53:51 Kidney Stones, Ehag-jq-Oqzx Kidney Stones Kidney stones are rock-like masses [...] Follow these instructions at home: Medicines Take ssso-wcu-qvnsapq and prescription medicines only as told by [...] 11/02/2008 Document Revised: 10/03/2019 Document Reviewed: 10/03/2019 [employer] Patient Education 2020 Evalve. Follow Up Care 05/13/2021 12:23:02 With:KEHINDE AVALOS, RHEA Yee, URL Address: [address] [place] [address] Business (1) When: only if needed [facility] evaluation + Plan note No data available for this section [facility] evaluation + Plan note Future Appointments Appointment Date:05/03/2023 10:00:00 AM Scheduled Provider: Location:[facility] Appointment Type:Surgery FT Diagnostic Tests Pending * Urine Culture [facility]23 [facility] Diagnosis History of total left knee replacement documented in this encounter [employer] Phone: evaluation noteNo [employer] Other Evaluation note* Diagnosis Aftercare following right knee joint replacement surgery- Primary Acute pain of right knee Difficulty walking Difficulty in walking Presence of right artificial knee joint documented in this encounter [facility] HealthcareEvaluation note* Diagnosis Aftercare following right knee joint replacement surgery- Primary Acute pain of right knee Difficulty walking Difficulty in walking Presence of right artificial knee joint documented in this encounter [facility] HealthcareEvaluation note* Diagnosis Onset Date Resolution Status ASHD (arteriosclerotic heart disease) acute Chronic venous insufficiency of lower extremity acute HANSA (generalized anxiety disorder) acute Hypercholesterolemia acute Hypertension acute Primary osteoarthritis of knees, bilateral acute Medicare annual wellness visit, subsequent noneactive Screening mammogram for breast cancer noneactive [facility] Work Phone: Evaluation note* Diagnosis Onset Date Resolution Status ASHD (arteriosclerotic heart disease) acute Chronic venous insufficiency of lower extremity acute HANSA (generalized anxiety disorder) acute Hypercholesterolemia acute Hypertension acute Primary osteoarthritis of knees, bilateral acute Medicare annual wellness visit, subsequent noneactive Screening mammogram for breast cancer noneactive ASHD (arteriosclerotic heart disease) acute Hypertension acute COVID noneactive [facility] Work Phone: Evaluation note* Diagnosis History of bilateral knee arthroplasty- Primary Presence of left artificial knee joint documented in this encounter [facility] HealthcareEvaluation note* Diagnosis Onset Date Resolution Status Admit Date ASHD (arteriosclerotic heart disease) acute January 03, 2025 10:21am Chronic venous insufficiency of lower extremity acute January 03, 2025 10:21am HANSA (generalized anxiety disorder) acute January 03, 2025 10:21am Hypercholesterolemia acute Augu st 2024 10:21am Hypertension acute January 03, 2025 10:21am Primary osteoarthritis of kn ees, bilateral acute January 03, 2025 10:21am Medicare annual wellness vis it, subsequent noneactive January 03, 2025 10:21am Screening mammogram for [facility] cancer noneactive January 03, 2025 10:21am [facility] Work Phone: Evaluation note* Diagnosis Acute pain of right shoulder- Primary Tendinitis of right rotator cuff documented in this encounter [facility] HealthcareHistory general Narrative - Reported* Type Description [...] LEFT TOTAL KNEE ARTHROPLASTY Surgical History [facility] 1988 Surgical History [facility] L[facility] 1993 Surgical History [facility] 2009 Hospitalization History SEE SURGICAL HX [employer] Other History general Narrative - Reported* Type [...] LEFT TOTAL KNEE ARTHROPLASTY Surgical History [facility] 1988 Surgical History PTCA LAD 1994 Surgical History C 2009 Surgical History Right TKA 04/2023 Hospitalization History SEE SURGICAL HX [employer] Other Hospital Discharge instructions No data available for this section [facility] No data available for this section [facility] reason for referral (narrative)No reason for referral [facility] Phone: Summary Purpose Family History No Family History [...] mammogram for breast cancer Chief Complaint wellness [phone] cold symptoms, fever, 3 days Reason for Visit ASHD (arteriosclerot ic heart disease) Chronic venous insufficiency of lower extremity HANSA (generalized anxiety disorder) Hypercholesterolemia Hypertension Primary osteoarthritis of knees, bilateral Medicare annual wellness visit, subsequent Screening mammogram for breast cancer ASHD (arteriosclerotic heart disease) Hypertension COVID Chief Complaint Admit Date Wellness January 03, 2025 10: 21am Reason for Visit Admit Date ASHD (arteriosclerotic heart disease) Au mynor 2024 10:21am Chronic venous insufficiency of lower ex tremity January 03, 2025 10:21am HANSA (generalized anxiety disorder) Augus t 2024 10:21am Hypercholesterolemia January 03, 2025 10 :21am Hypertension January 03, 2025 10: 21am Primary osteoarthritis of knees, bilater al January 03, 2025 10:21am Medicare annual wellness visit, subseque nt January 03, 2025 10:21am Screening mammogram for breast cancer [facility] 2024 10:21am Additional Source Comments INFORMATION SOURCE (unrecogn ized section and content) DATE CREATED AUTHOR 08/13/2018 [facility] DATE CREATED AUTHOR AUTHOR'S ORGANIZ ATION 09/23/2020 [facility] DATE CREATED AUTHOR AUTHOR'S ORGANIZ ATION 05/22/2022 [facility] DATE CREATED AUTHOR AUTHOR'S ORGANIZ ATION 05/12/2023 [facility] DATE CREATED AUTHOR AUTHOR'S ORGANIZ ATION 01/06/2025 [facility] EPIC Patient Care team informatio n (unrecognized section and content) Powder Loader Relationship Specialty Start Date End Date Jameson Reed MD [address] [place] [address] PCP - General Internal Medicine 03/30/23 Powder Loader Relationship Specialty Start Date End Date Jameson Reed MD [address] [place] [address] PCP - General Internal Medicine 03/30/23 Powder Loader Relationship Specialty Start Date End Date Jameson Reed MD [address] [place] [address] PCP - General Internal Medicine 03/30/23 Powder Loader Relationship Specialty Start Date End Date Jameson Reed MD [address] [place] [address] PCP - General Internal Medicine [...] March 21, 2024 End: March 21, 2024 Powder Loader Relationship Specialty Start Date End Date Jameson Reed MD [address] [place] [address] PCP - General Internal Medicine 03/30/23 Team Status: Active Member Role Status Dates Jameson Reed DO Primary Care Provider Active Team Status: Inactive Member Role Status Dates Jameson Reed DO Primary Care Provider Active Start: January 03, 2025 End: January 03, 2025 Jameson Reed DO Attending Provider Active Sta rt: January 03, 2025 End: January 03, 2025 Powder Loader Relationship Specialty Start Date End Date Jameson Reed DO [address] [place] [id number] PCP - General Internal Medicine 01/04/25 Powder Loader Relationship Specialty Start Date End Date Jameson Reed DO [address] [place] [address] PCP - General Internal Medicine 01/04/25 REASON FOR VISIT (unrecogniz ed section and content) Specialty Diagnoses / Procedures Referred By Zainab marshall Referred To Contact Physical Therapy Diagnoses Aftercare following right knee joint replacement surgery Presence of right artificial knee joint Procedures FL THER PX 1/> AREAS EACH 15 MIN NEUROMUSC REEDUCA PHYS/OCC THERAPY SS FL THERAPEUTIC PX 1/> AREAS EACH 15 MIN EXERCISES FL MANUAL THERAPY TQS 1/> REGIONS EACH 15 MINUTES Mercy Hilliard, [address] [place] [address] [address] [facility] [address] [facility] [address] [place] [address] Referral ID Status Reason Start Date Expiration Date Visits Requested Visits Authorized [id number] Authorized Consult and Treat 07/06/2023 03/21/2025 26 26 Reason Comments Follow-up Reason Comments Pain Goals (unrecognized section and content) Goals may [...] BE BASED ON THE PRIMARY CLINICAL RECORDS. [facility]. provides no warranty or guarantee of the accuracy or completeness of information in this document.
[2025-01-15 08:41] LABS: Hematocrit 46.9 % (36.0-48.0); Hemoglobin 16.2 g/dL (12.0-16.0); Immature Granulocytes Abs Auto 0.01 10^3/uL (0.00-0.03); Immature Granulocytes Pct Auto 0.2 % (0.0-0.5); Lymphocytes Absolute Auto 2.2 10^3/uL (1.2-3.8); Mean Corpuscular HGB Conc 34.5 g/dL (29.9-35.2); Mean Corpuscular Hemoglobin 31.6 pg (26.7-34.0); Mean Corpuscular Volume 91.6 fL (81.0-99.0); Platelet Count 244 10^3/uL (150-450); Red Blood Count 5.12 10^6/uL (4.20-5.40); White Blood Count 6.3 10^3/uL (4.0-11.0)
[2025-01-15 10:07] LABS: Alanine Aminotransferase 31 U/L (14-59); Albumin Globulin Ratio 1.1; Albumin Level 3.9 g/dL (3.4-5.0); Alkaline Phosphatase 84 U/L (46-116); Anion Gap 13.6; Aspartate Amino Transferase 25 U/L (15-37); Blood Urea Nitrogen 11.0 mg/dL (7.0-18.0); Calcium 9.1 mg/dL (8.5-10.1); Carbon Dioxide 28.3 mmol/L (21.0-32.0); Chloride 106 mmol/L (98-107); Cholesterol 205 mg/dL (<=200); Estimated GFR (African America >60 (>=60 mL/min/1.73m^2); Estimated GFR (Non-African Ame >60 (>=60 mL/min/1.73m^2); Globulin 3.7 g/dL; Glucose 100 mg/dL (74-106); HDL Cholesterol 60 mg/dL (40-60); Potassium 3.9 mmol/L (3.5-5.1); Sodium 144 mmol/L (136-145); Total Protein 7.6 g/dL (6.4-8.2); Triglycerides 189 mg/dL (<=150); VLDL CHOLESTEROL 37.8 mg/dL
== END 2025-01-15 07:46 | disposition home or self-care (01) ==
PROVIDERS: PCP Internal Medicine; Visit Provider Internal Medicine
DX: R73.01 Impaired fasting glucose (principal); I10 Essential (primary) hypertension; E78.00 Pure hypercholesterolemia, unspecified; I25.10 Atherosclerotic heart disease of native coronary artery without angina pectoris
CPT/HCPCS: 36415; 80053; 80061; 83036; 85025

== ENCOUNTER 2025-05-07 09:43 | Outpatient (OUT) | payer MEDICARE, OTHER, SELFPAY ==
--- OUTSIDE RECORDS SUMMARY | 2025-05-07 09:46 | XMS_ITS | CCD ---
Author Organization [facility] Care Team Providers Care Linux Engineer Name Role Phone PHYSICIAN, DEFAULT Admitting Unavailable PHYSICIAN, DEFAULT Attending Unavailable Jameson Pendleton DO Primary Care Provider MERCY HILLIARD Referring Unavailab le JAMESON PENDLETON Primary Care Unavailable ARMINDA, MERCY HERNANDES Referring Unavailab fransico PENDLETON, JAMESON Yee Primary Care Unavailable JAMESON PENDLETON Primary Care Physician KEERTHI, DR FABIAN Primary [...] DR MELCHOR LISTED Admitting Unavaila ble Jameson Pendleton Unavailable RHEA BUSBY Attending Unavailable Hilliard, Mercy Serrano Admitting Unavailable Hilliard, Mercy Serrano Attending Unavailable Hilliard, Mercy Serrano Referring Unavailable Hilliard, Mercy Serrano Referring Unavailable Hilliard, Mercy Serrano Admitting Unavailable Hilliard, Mercy Serrano Attending Unavailable Jameson Pendleton MD Primary Care Provider Jameson Pendleton DO Primary Care Provider [phone] Jameson Pendleton DO Attending Provider Jameson Pendleton DO Primary Care Provider MERCY HILLIARD Attending Unavailable HILLIARD, MERCY Serrano Referring Unavailable HILLIARD, MERCY Serrano Referring Unavailable MERCY HILLIARD Attending Unavailable Allergies Allergy ClassificationReported Allergen(s)Allergy TypeDate of OnsetReaction(s) Facility (3 sources)Amoxicillin / Clavulanate; Translations: [amoxicillin-clavulanate] Drug AllergyDiarrhea (finding)[facility] [place] (1 source)Amoxicillin / ClavulanateDrug AllergyThe [facility] (5 sources)LisinoprilDrug AllergyUnknoUniversity Hospital [facility] Other (1 source)No Known Medication Allergies; Translations: [No Known Medication Allergies]Propensity to adverse reactions (disorder)[facility] Repository (9 sources)Amoxicillin-Pot ClavulanateDrug Cdwlqae73-64-3291HhrymfmfCQCK [facility] (5 sources)LisinoprilAllergy to iimyppmwu26-40-5572FWDX Healthcare Medications Current Medications MedicationDrug Class(es)DatesSig (Normalized)Sig (Original)amLODIPine 5 mg oral tablet (20 sources)Dihydropyridine Calcium Channel BlockerStart: 22-51-7286jtnk 1 tablet by mouth twice dailyAmlodipine 5 mg tablet Active 0 .ROUTE .COMPLEX 180 June 23, 2024 6:27pm TAKE 1 TABLET BY MOUTH TWICE A DAY Complies with drug therapyStart: 01-10-2019 End: 16-25-6214niab 1 tablet by mouth in the morningamLODIPine (Norvasc) 5 MG tablet Take 5 mg by mouth in the morning and 5 mg before bedtime. 04/09/2023 Activeaspirin 81 mg oral tablet (8 sources)Platelet Aggregation Inhibitor, Nonsteroidal Anti-inflammatory Drug Start: 69-78-0143besf 1 tablet by mouth once dailyAspirin 81 mg tablet Active 81 MG PO Daily January 03, 2025 12:00am Complies with drug therapyStart: 10-14-2020 take 81 mg by mouth once dailyaspirin 81 mg, Oral, Daily, Prophylaxis Start Date: 10/14/20 Status: Orderedtake 1 tablet by mouth once dailyaspirin 81 MG EC tablet Take 81 mg by mouth Daily Activecalcium carbonate 1250 mg oral tablet (1 source)Start: 92-09-4919wukj 1 tablet by mouth once dailyCalcium Carbonate 500 mg calcium (1,250 mg) tablet Active 500 MG PO Daily January 03, 2025 12:00am Complies with drug therapycalcium carbonate 1500 mg / cholecalciferol 800 unt chewable tablet (2 sources)Vitamin DStart: 04-10-4025vvqq 1 tablet by mouth once dailycalcium (as carbonate)-vitamin D 600 mg-800 intl units oral tablet, chewable 1 tab(s), Oral, Daily,Prophylaxis Start Date: 01/10/19 Status: Orderedcarvedilol 25 mg oral tablet (20 sources)alpha-Adrenergic Twyla, beta-Adrenergic BlockerStart: 06-23-2024 take 1 tablet by mouth twice dailyCarvedilol 25 mg tablet Active 0 .ROUTE .COMPLEX 180 June 23, 2024 6:26pm TAKE 1 TABLET BY MOUTH TWICE A DAY Complies with drug therapyStart: 01-10-2019 End: 76-72-1975rmumachhmz (Coreg) 25 MG tablet 03/26/2023 ActiveCelebrate Multivitamin (2 sources)Start: 50-94-7058obfx 1 capsule by mouth once dailyCelebrate Multivitamin 1 cap, Oral, Daily, Prophylaxis Start Date: 01/10/19 Status: Ordered cephalexin 500 mg oral capsule (11 sources)Cephalosporin AntibacterialStart: 03-01-2023 End: 57-46-7941kvifwoesko (Keflex) 500 MG capsule Indications: Presence of left artificial knee joint Take two caps evening prior to appointment, take two cap one hour prior to appointment 4 capsule 2 05/02/2024 Activefurosemide 20 mg oral tablet (20 sources)Loop DiureticStart: 09-27-2023 End: 14-61-5618vojp 1 tablet by mouth once dailyFurosemide 20 mg tablet Active 0 .ROUTE .COMPLEX 90 December 21, 2024 12:31pm TAKE 1 TABLET BY MOUTH EVERY DAY Complies with drug therapyStart: 01-10-2019 End: 43-63-0959olysfrhmry (Lasix) 20 MG tablet 03/26/2023 ActiveMultiple Vitamin (multivitamin) tablet (5 sources)take 1 tablet by mouth once dailyMultiple Vitamin (multivitamin) tablet Take 1 tablet by mouth Daily ActiveMultivitamin tablet (1 source)Start: 52-80-0549exza 1 tablet by mouth once dailyMultivitamin tablet Active 1 TAB PO Daily January 03, 2025 12:00am Complies with drug therapy Nirmatrelvir-Ritonavir (Paxlovid) 300 mg (150 mg x 2)-100 mg tablets,dose pack (1 source)Start: 86-62-2907Vemxodmnaqjk-Ritonavir (Paxlovid) 300 mg (150 mg x 2)-100 mg tablets,dose pack Active 0 PO .FDWLYBV18 March 21, 2024 12:00am take TWO 150 mg tablets of nirmatrelvir with ONE 100 mg tablet of ritonavir twice daily for 5 days POpotassium chloride 10 meq extended release oral tablet (20 sources)Start: 69-95-9337pttv 1 tablet by mouth once dailyPotassium Chloride 10 mEq tablet extended release Active 0 .ROUTE .COMPLEX 90 March 19, 2024 4:28pm TAKE 1 TABLET BY MOUTH EVERY DAY Complies with drug therapyStart: 10-17-2020 End: 64-03-0483rjty 1 tablet by mouth once dailypotassium chloride CR (Klor-Con) 10 MEQ ER tablet Take 10 mEq by mouth Daily 03/04/2023 Activetake 1 tablet by mouth every twelve hoursPotassium Chloride ER 10 MEQ 1 tablet with food Orally Twice a day Activepravastatin sodium 40 mg oral tablet (19 sources)HMG-CoA Reductase InhibitorStart: 10-21-2023 End: 87-60-1475voaf 1 tablet by mouth in the eveningPravastatin 40 mg tablet Active 0 .ROUTE .COMPLEX October 27, 2024 10:09am TAKE 1 TABLET BY MOUTH IN THE EVENING Complies with drug therapyStart: 49-08-8476jyaz 1 tablet by mouth in the eveningPravastatin Active 0 .ROUTE .COMPLEX October 21, 2023 3:45pm TAKE 1 TABLET BY MOUTH IN THE EVENINGStart: 07-24-2023 End: 90-33-2516xbrt 1 tablet by mouth at bedtimepravastatin (Pravachol) 40 MG tablet Take 40 mg by mouth at bedtime 07/24/2023 ActiveStart: 75-92-1702zgga 40 mg by mouth once dailypravastatin 40 mg, Oral, Daily, High cholesterol Start Date: 01/10/19 Status: OrderedpredniSONE 20 mg oral tablet (2 sources)Start: 03-28-6517ifgb 2 tablets by mouth once dailypredniSONE (Deltasone) 20 MG tablet Take 40 mg by mouth Daily 12/31/2024 Activetelmisartan 80 mg oral tablet (20 sources)Angiotensin 2 Receptor BlockerStart: 07-17-2024 End: 83-60-1525ogtz 1 tablet by mouth once dailyTelmisartan 80 mg tablet Active 0 .ROUTE .COMPLEX October 08, 2024 8:07am TAKE 1 TABLET BY MOUTH EVERY DAY Complies with drug therapyStart: 01-10-2019 End: 59-25-4677ribu 1 tablet by mouth once dailytelmisartan (MIcarDIS) 80 MG tablet Take 80 mg by mouth Daily 02/11/2023 Active Completed/Discontinued Medications MedicationDrug Class(es)DatesSig (Normalized)Sig (Original)ALPRAZolam 0.25 mg oral tablet (8 sources)BenzodiazepineStart: 12-28-2023 End: 68-55-6455tunw 1 tablet by mouth once daily as neededAlprazolam 0.25 mg tablet Discontinued 0.25 MG PO Daily as needed December 28, 2023 12:00am December 28, 2023 10:54amALPRAZolam 0.25 MG 1 tablet Orally ONE DAILY, NEEDED Active azithromycin 250 mg oral tablet (5 sources)Macrolide AntimicrobialStart: 93-02-1108Bnnmgevilmgi 250 MG as directed Orally May, Not-Taking/PRNNirmatrelvir-Ritonavir (1 source)Start: 03-21-2024 End: 74-56-8847Qyqvgljwyrdc-Ritonavir (Paxlovid) 300 mg (150 mg x 2)-100 mg tablets,dose pack Discontinued 0 PO .COMPLEX March 21, 2024 12:00am January 03, 2025 10:38am take TWO 150 mg tablets of nirmatrelvir with ONE 100 mg tablet of ritonavir twice daily for 5 days PO Problems Active Problems Problem ClassificationProblemDateDocumented DateEpisodic/ChronicAbdominal pain (5 sources)Generalized abdominal pain; Translations: [Generalized abdominal pain]EpisodicAcute bronchitis (5 sources)Acute bronchitis; Translations: [Acute bronchitis due to other specified organisms]EpisodicAcute myocardial infarction (2 sources)Myocardial ukxygvzzyu05-35-6820GfctfcnUeysuzp on above:1989Anxiety disorders (16 sources)Anxiety disorder; Translations: [Anxiety disorder, unspecified] 12-67-4074ZylnoofVpgffiq tract disease (5 sources)Cholelithiasis without obstruction; Translations: [Calculus of gallbladder without cholecystitis without obstruction]EpisodicCalculus of urinary tract (17 sources)Kidney stone; Translations: [Calculus of kidney]Onset: 05-12-2022 EpisodicChronic obstructive pulmonary disease and bronchiectasis (5 sources)Simple chronic bronchitis; Translations: [Simple chronic bronchitis] ChronicCoronary atherosclerosis and other heart disease (15 sources)Old myocardial infarction; Translations: [Coronary arteriosclerosis] 87-71-2184DzyxyzaUofaboag mellitus without complication (1 source)Impaired fasting glycemia; Translations: [Impaired fasting glucose] 72-16-2096TmxzgixzWtheiowzs of lipid metabolism (20 sources)Hypercholesterolemia; Translations: [Familial hypercholesterolemia] Onset: 482778-32-7222DametnoUvkbrwkqux disorders (2 sources)Gastroesophageal reflux dnfuerg65-52-0704TosstloNzuusvhzr hypertension (20 sources)Hypertensive disorder; Translations: [Essential hypertension] 94-58-5195HmqoclkPsfgoqjhaflmbumv hemorrhage (7 sources)Peptic ulcer with hemorrhage; Translations: [Chronic duodenal ulcer with hemorrhage]Onset: 608550-25-7980RbqvhcyLtkjdjxjwccmt symptoms and ill-defined conditions (19 sources)Swapnil hematuria; Translations: [Microscopic hematuria]Onset: 062104-98-2066SsvykawiRmojrvneucwzd and screening for infectious disease (5 sources)Vaccination given; Translations: [Encounter for immunization]Episodic Menopausal disorders (5 sources)Primary ovarian failure; Translations: [Other primary ovarian failure]Onset: 93-15-1769RfsjfgrVonezmrapqfakl (20 sources)Osteoarthritis of knee; Translations: [Idiopathic osteoarthritis] 70-52-6574NgzgoadOhcfd aftercare (2 sources)Patient encounter status; Translations: [Aftercare following joint replacement surgery]66-21-1366BghlpbqRurux and unspecified benign neoplasm (3 sources)Benign neoplasm of female genital organ; Translations: [Benign neoplasm of other specified female genital organs]Onset: 15-56-5860OjdfbktoApxpy and unspecified benign neoplasm (5 sources)Benign neoplasm of colon; Translations: [Benign neoplasm of colon, unspecified]EpisodicOther circulatory disease (5 sources)Cardiovascular symptoms; Translations: [Other specified symptoms and signs involving the circulatory and respiratory systems]EpisodicOther connective tissue disease (1 source)History of left total knee replacement; Translations: [Presence of left artificial knee joint]ChronicOther connective tissue disease (4 sources)Artificial knee joint present; Translations: [Presence of right artificial knee joint]30-93-2237RfqgvhrUiyae connective tissue disease (2 sources)History of bilateral knee arthroplasty; Translations: [Presence of artificial knee joint, bilateral]46-29-9112PauetotDlrlc connective tissue disease (2 sources)Tendinitis of right rotator cuff; Translations: [Other shoulder lesions, right shoulder]21-97-7599JgljkjgiZvvcs diseases of veins and lymphatics (5 sources)Peripheral venous insufficiency; Translations: [Venous insufficiency (chronic) (peripheral)]EpisodicOther diseases of veins and lymphatics (3 sources)Venous insufficiency (chronic) (peripheral); Translations: [Venous (peripheral) insufficiency, unspecified]EpisodicOther diseases of veins and lymphatics (4 sources)Venous insufficiency of leg; Translations: [Venous insufficiency (chronic) (peripheral)]98-44-0777CszyoozmStzjc gastrointestinal disorders (5 sources)H/O: gastrointestinal disease; Translations: [Personal history of other diseases of the digestive system]EpisodicOther injuries and conditions due to external causes (5 sources)History of fall; Translations: [History of falling]EpisodicOther nervous system disorders (2 sources)Difficulty walking; Translations: [Difficulty in walking, not elsewhere classified]67-61-8599TxulikfInzcl non-traumatic joint disorders (2 sources)Pain in right knee; Translations: [Pain in joint, lower leg] 18-12-3917NqpqgfoeAdvob non-traumatic joint disorders (2 sources)Pain in right shoulder; Translations: [Pain in joint, shoulder region]50-00-4735HxwgikojPlmtl nutritional; endocrine; and metabolic disorders (2 sources)Body mass index 30+ - aurspar62-43-6139OfjucjaUsonw nutritional; endocrine; and metabolic disorders (5 sources)Simple obesity ; Translations: [Other obesity due to excess calories] Onset: 92-25-7435UwtlaprTvywu screening for suspected conditions (not mental disorders or infectious disease) (7 sources)Encounter for screening mammogram for malignant neoplasm of breast; Translations: [Other screening mammogram]Onset: 72-02-4517RfyuqnftCilnm upper respiratory disease (5 sources)Allergic rhinitis due to pollen; Translations: [Allergic rhinitis due to pollen]ChronicResidual codes; unclassified (5 sources)Postmenopausal state; Translations: [Asymptomatic menopausal state] EpisodicScreening and history of mental health and substance abuse codes (2 sources)Qz-sigcss27-06nwpedv97-50-1333CuhrizsaVifgforoswv; intervertebral disc disorders; other back problems (8 sources)Lumbosacral spondylosis without myelopathy; Translations: [Spondylosis without myelopathy or radiculopathy, lumbar region]12-26-2023 ChronicSubstance-related disorders (5 sources)Tobacco user; Translations: [Nicotine dependence, cigarettes, in remission]ChronicUnclassified (5 sources)Unspecified lump in the right breast, overlapping quadrants; Translations: [Unspecified lump in theright breast, overlapping quadrants]Viral infection (1 source)COVID-19; Translations: [Other specified viral infection]03-21-2024 Episodic Past or Other Problems Problem ClassificationProblemDateDocumented DateEpisodic/ChronicAcute posthemorrhagic anemia (5 sources)Acute posthemorrhagic anemia; Translations: [Acute posthemorrhagic anemia]Onset: 15-28-2111LwktivusXqrvs and electrolyte disorders (5 sources)Hypokalemia; Translations: [Hypokalemia]Onset: 82-83-4608Zwyuqobw Gastritis and duodenitis (5 sources)Acute gastritis; Translations: [Acute gastritis without bleeding] Onset: 08-95-6459JagorqbnGguzpweuazp chest pain (5 sources)Chest pain; Translations: [Chest pain, unspecified]Onset: 11-21-2018 EpisodicOther bone disease and musculoskeletal deformities (1 source)Other specified disorders of bone density and structure, unspecified site; Translations: [OTH D/O BONE DEN STRUCT UNS SITE]Onset: 12-95-8868Bxzmnxss Other non-traumatic joint disorders (5 sources)Arthralgia of the lower leg; Translations: [Pain in right knee]Onset: 09-48-0100YsxinagzAphte upper respiratory infections (10 sources)Acute sinusitis; Translations: [Acute sinusitis, unspecified]Onset: 45-24-4343FurmcmypDyxkdvua codes; unclassified (4 sources)Asymptomatic menopausal state; Translations: [ASYMPTOMATIC MENOPAUSAL STATE]Onset: 21-59-1199WrjyedcdTlqjdwjwffu; intervertebral disc disorders; other back problems (5 sources)Low back pain; Translations: [Low back pain, unspecified]Onset: 79-05-8639DbaydawyFzngnit and strains (10 sources)Strain of other muscle(s) and tendon(s) of posterior muscle group at lower leg level, right leg, initial encounter; Translations: [Neck sprain]Onset: 21-85-7595WfhrouotDbnignouxai injury; contusion (5 sources)Contusion of right upper arm; Translations: [Contusion of right upper arm, initial encounter]Onset: 71-69-3959FismdtqxHijqtem tract infections (5 sources)Cystitis; Translations: [Cystitis, unspecified without hematuria] Onset: 67-05-8523Jwvwjjiq Results Test NameValueInterpretationReference RangeFacilityNo Panel Informationon 23-45-3359Xtbzerrrb Study observation (narrative)[facility] Knee - left 3 Viewson 90-11-8842Gfuyfwe Result: Xrays taken in the office today saved to the permanent record, bilateral AP , sunrise and lateral weightbearing films, show stable position and alignment of the staggered bilateral TKAprosthesis. No sign of loosening, fracture or infection.[facility] Knee - right 3 Viewson 98-70-0210Opxjqwk Result: Xrays taken in the office today saved to the permanent record, bilateral AP , sunrise and lateral weightbearing films, show stable position and alignment of the staggered bilateral TKAprosthesis. No sign of loosening, fracture or infection.[facility] CenterBasophils Auto (Bld) [#/Vol]on 48-54-3541Pinhszpxg (Bld) [#/Vol]0.1 10 3/uL0.0-0.1FCleveland Clinic Union HospitalBasophils/100 WBC Auto (Bld)on 91-36-4408Wydbcisyv/100 WBC (Bld)0.7 %0.2-2.0[facility] HospitalCholesterol in LDL Calc [Mass/Vol]on 42-22-8608Hmmssxepzlg in LDL [Mass/Vol]99.0 mg/dLHarrison Community HospitalComment on above:<100 mg/dl XFVCWTX656-821 mg/dl NEAR OR ABOVE DMQODMB933-298 mg/dl BORDERLINE JXJO781-333 mg/dl HIGH>190 mg/dl VERY HIGH Cholesterol in VLDL Calc [Mass/Vol]on 28-61-8684Bswbsredfyp in VLDL [Mass/Vol] 30.2 mg/dLHarrison Community HospitalEosinophils/100 WBC Auto (Bld)on 90-98-1141Iasbmbkyfnx/100 WBC (Bld)2.8 %0.9-7.0[facility] Erythrocyte distribution width Auto (RBC) [Ratio]on 80-59-8581Hbliupxfgrr distribution width (RBC) [Ratio]12.3 %11.0-15.0[facility] Estimated glomerular filtration rate (GFR) non- Americanon 01-26-2024 GFR/1.73 sq M.predicted among non-blacks MDRD (S/P/Bld) [Vol rate/Area] mL/min/{1.73_m2}>=60[facility] HospitalGlobulin Calc (S) [Mass/Vol]on 85-14-3943Itsskkvd (S) [Mass/Vol]3.1 g/dLHarrison Community HospitalHematocrit Auto (Bld) [Volume fraction]on 91-93-6559Vajpirbdsq (Bld) [Volume fraction]45.8 %36.0-48.0[facility] HospitalHemoglobin [Mass/volume] in Bloodon 63-25-4137Xrrnccijir (Bld) [Mass/Vol]15.4 g/dL12.0-16.0 [facility] HospitalLaboratory - Chemistry and Chemistry - challengeon 86-30-4844Uphsuji [Mass/Vol]3.9 g/dL3.4-5.0[facility] HospitalALP [Catalytic activity/Vol]96 U/H31-596BrvxxonbqHarrison Community HospitalALT [Catalytic activity/Vol]31 U/A89-69KpjbmuzdvH[facility] Community Hospital AST [Catalytic activity/Vol]23 U/W39-43HdzmevelmH[facility] Hospital Bilirubin [Mass/Vol]0.6 mg/dL0.2-1.0[facility] HospitalCalcium [Mass/Vol]9.2 mg/dL8.5-10.1FCleveland Clinic Union HospitalChloride [Moles/Vol] 100 mmol/X45-976TyixecqbgHarrison Community HospitalCholesterol [Mass/Vol]193 mg/dL <=200[facility] HospitalCholesterol in HDL [Mass/Vol]64 mg/dLHigh 40-60[facility] HospitalComment on above:> or =60 mg/dl - LOW CARDIOVASCULAR RISK<40 mg/dl - HIGH CARDIOVASCULAR RISKCO2 [Moles/Vol]30.4 mmol/L21.0-32.0[facility] HospitalCreatinine [Mass/Vol]0.61 mg/dL 0.55-1.02[facility] HospitalGFR/1.73 sq M.predicted MDRD (S/P/Bld) [Vol rate/Area]mL/min/{1.73_m2}>=60[facility] HospitalGlucose [Mass/Vol]103 mg/sX48-482ZuekanxpeHarrison Community HospitalPotassium [Moles/Vol] 4.2 mmol/L3.5-5.1FCleveland Clinic Union HospitalProtein [Mass/Vol]7.0 g/dL 6.4-8.2FProMedica Bay Park Hospitalodium [Moles/Vol]138 mmol/B801-672 [facility] HospitalTriglyceride [Mass/Vol]151 mg/dLHigh<=150 [facility] HospitalUrea nitrogen [Mass/Vol]13.0 mg/dL7.0-18.0 [facility] HospitalUrea nitrogen/Creatinine [Mass ratio]21.3 mg/mg [facility] HospitalLaboratory - Hematology and Cell countson 62-90-7322Irsjgwuw granulocytes/100 WBC (Bld)0.3 %0.0-0.5FCleveland Clinic Union HospitalLeukocytes [#/volume] corrected for nucleated erythrocytes in Blood by Automated counon 19-50-9042IXC corrected for nucl RBC Auto (Bld) [#/Vol]6.7 10 3/uL4.0-11.0[facility] HospitalLymphocytes Auto (Bld) [#/Vol]on 31-22-5499Gaezpoqbykq (Bld) [#/Vol]2.8 10 3/uL1.2-3.8[facility] HospitalLymphocytes/100 WBC Auto (Bld)on 01-26-2024 Lymphocytes/100 WBC (Bld)42.2 %20.5-60.0[facility]H Auto (RBC) [Entitic mass]on 21-74-5733HGX (RBC) [Entitic mass]30.9 pg26.7-34.0 [facility] HospitalMCHC Auto (RBC) [Mass/Vol]on 85-42-5810ZJYE (RBC) [Mass/Vol]33.6 g/dL29.9-35.2FCleveland Clinic Union HospitalMCV Auto (RBC) [Entitic vol]on 36-27-5602FKE (RBC) [Entitic vol]91.8 fL81.0-99.0[facility] HospitalMonocytes Auto (Bld) [#/Vol]on 22-84-1937Ujeitbean (Bld) [#/Vol]0.7 10 3/uL0.3-0.8[facility] HospitalMonocytes/100 WBC Auto (Bld)on 24-20-2217Owmogbxjd/100 WBC (Bld)10.4 %1.7-12.0[facility] HospitalNeutrophils Auto (Bld) [#/Vol]on 91-02-6121Wkfexaqditc (Bld) [#/Vol]2.9 10 3/uL1.4-6.5FCleveland Clinic Union HospitalNeutrophils/100 WBC Auto (Bld)on 94-73-3644Mzponkbpurq/100 WBC (Bld)43.6 %43.0-75.0[facility] HospitalNo Panel Informationon 50-49-3854Sioriwsjgga # (Auto)0.2 10 3/uL0.0-0.7FCleveland Clinic Union HospitalImmature Granulocyte # (Auto)0.02 10 3/uL0.00-0.03[facility] HospitalPlatelet mean volume Auto (Bld) [Entitic vol]on 95-78-2867Bsziihgp mean volume (Bld) [Entitic vol]10.6 fL 9.5-13.5FCleveland Clinic Union HospitalPlatelets Auto (Bld) [#/Vol]on 11-20-8542Qzzoafuzz (Bld) [#/Vol]234 10 3/nB343-990SvsrjdqanHarrison Community HospitalRBC Auto (Bld) [#/Vol]on 83-17-3133IHF (Bld) [#/Vol]4.99 10 6/uL4.20-5.40 [facility] Hospitalerum or plasma albumin/globulin mass ratioon 92-53-9732Yzkuupy/Globulin [Mass ratio]1.3 {ratio}[facility] Hospitalerum or plasma anion gap determinationon 86-58-2524Fbras gap [Moles/Vol] 11.8 mmol/LFProMedica Bay Park Hospitalerum or plasma total cholesterol/high density lipoprotein (HDL) cholesterol mass owen 01-26-2024 Cholesterol.total/Cholesterol in HDL [Mass ratio]3.0 {ratio}[facility] HospitalComment on above:3.3 - 4.4 LOW RISK4.4 - 7.1 AVERAGE RISK7.1 - 11.0 MODERATE RISK>11.0 HIGH RISKOperative Reporton 52-63-6750Slnofpzvt Report SURGERY DATE: 05/03/2023 PREOPERATIVE DIAGNOSIS: Postoperative pain control requested by patient and surgeon POSTOPERATIVE DIAGNOSIS: Postoperative pain control requested by patient and surgeon OPERATION: Right adductor canal block utilizing ultrasound guidance ANESTHESIA: Local with monitored anesthesia care PROCEDURE: The patient was interviewed and examined. The anesthesia options were discussed including adductor canal block for postoperative analgesia. The discussion included the procedure, risks andbenefits and alternatives to the procedure. The patient's questions were all answered and the patient elected to proceed with the adduction canal block for postoperative pain relief. The patient was placed on the monitors, electrocardiogram, noninvasive blood pressure machine and pulse oximetry. I.V. sedation was then administered with a total of 1 mg of Versed. The mid thigh wasprepped with ChloraPrep and sterilely draped. The anatomy [...] the proposed procedure. JOE Jiang Dictated: 05/03/2023 [id number] Transcribed: 05/03/2023[facility] CenterComment on above:Result Comment: Electronically Signed By: Jose Franco CRNA\.br\Date and Time Signed: 05/10/2313:14 ESTIntraOperative Documentson 85-86-6081AhcjyFvtwsawjy [id number]#1.00TIFTriHealth Bethesda North HospitalConsent for Anesthesiaon 93-46-6136Lrpegjf for Anesthesia [id number]#1.00TIFTriHealth Bethesda North HospitalDischarge Instructionson 42-29-9875Calrukmmp Instructions [id number]#1.00TIFTriHealth Bethesda North HospitalIntraOperative Documentson 01-42-5133OnrojWzrvmjizo Documents [id number]#1.00TIFTriHealth Bethesda North HospitalPre-Op Checkliston 89-02-7714Tpv-Op Checklist [id number]#1.00TIFTriHealth Bethesda North HospitalProgress Note-Physicianon 98-79-5788Lpktwktn Note-PhysicianPatient: GIANA ISAACS Age: 77 years Sex: Female [...] All Problems Knee osteoarthritis / SNOMED CT 593571368 / Confirmed Microhematuria / SNOMED CT 452627842 / Confirmed Kidney stones / SNOMED CT 220361067 / Confirmed Hypertension / SNOMED CT 9632756598 / Confirmed Hypercholesterolemia / SNOMED CT 97197573 / Confirmed Acid reflux disease / SNOMED CT 390378707 / Confirmed Gross hematuria / SNOMED CT 503304793 / Confirmed Former smoker / SNOMED CT 79923136 / Confirmed BMI 32.0-32.9,adult / SNOMED CT 686019625 / Confirmed Leiomyoma / SNOMED CT 956474191 / Confirmed Resolved: Bleeding ulcer / SNOMED CT 456804093 Resolved: MT, old / SNOMED CT 9955531 Resolved: Myocardial infarction / SNOMED CT 89531398 1988 Resolved: HTN (hypertension) / SNOMED CT 6506849633 Resolved: Hypercholesterolemia / SNOMED CT 43014903 Resolved: At risk for falls / SNOMED CT 780819610 Problem added when Risk for Falls Careplan was initiated. Resolved due to patient discharge. Histories Procedure history: RT ESWL (14081176) on 03/26/2021 at 75 Years. Cysto/Transurethral resection of urethral polyp (75072452) on 03/26/2021 at 75 Years. Cystourethroscopy with dilation of urethral stricture (079632739) on 10/17/2020 at 75 Years. Total knee arthroplasty (0958628820) on 02/06/2019 at 73 Years. Hysterectomy (915917988). Colonoscopy (984584964). Social History Social & Psychosocial Habits Alcohol [...] adequate air exchange. Cardiovascular: Regular rhythm. Plan [place] [employer] Anesthesiologists (ASA) physical status classification: Class III. Anesthetic Preoperative Plan: Anesthesia General. Regional Spinal.[facility] CenterComment on above:Result Comment: Electronically Signed By: Sabas Marquez Jr, DO\.br\Date and Time Signed: 05/04/23 11:37 ESTProgress Note-PhysicianPatient: GIANA ISAACS Age: 77 years Sex: Female [...] Discharge when meets criteria ( To home ).[facility] CenterComment on above:Result Comment: Electronically Signed By: Sabas Marquez Jr, DO\.shama\Date and Time Signed: 05/04/23 11:37 ESTABO/Rhon 92-62-7449YKU/RhPositiveInvalid Interpretation Code [facility] CenterComment on above:Performed By: #### [id number], [id number] #### [facility] [address], [place] [address]QXN/Rh History Checkon 49-15-1564OOF/Rh History CheckVerified Hx Blood TypeNoBrown Memorial HospitalComment on above:Performed By: #### [id number], [id number] #### [facility] [address], [place] [address]NVZOuo 31-80-5852VZWQ Gel InterpNegativeNoBrown Memorial HospitalComment on above:Performed By: #### [id number], [id number] #### [facility] [address], [place] [address] ID#on [id number]#[id number] Interpretation [facility] HealthComment on above:Performed By: #### [id number], [id number] #### [facility] [address], [place] [address]Apkiipf for Procedure/Surgeryon 72-66-5595Kvdjkpg for Procedure/[id number]#1.00TIFFNoBrown Memorial HospitalConsent for Treatmenton 74-24-6886Dlnbuzr for Treatment [id number]#1.00TIFFNormalFisher [facility] Medical CenterDischarge Instructionson 79-86-4652Xmqqlyibm Instructions GIANA ISAACS :1945 Visit Date:05/03/2023 Inpatient Discharge Instructions Your Care Team Admitting Physician Mercy Villanueva DO Referring Physician Mercy Villanueva DO Reason for Your Visit RIGHT KNEE [...] make important decisions for 24 hours, Do notdrink alcoholic beverages for 24 hours Discharge Diet(s) [...] scheduled appointment. Call for any problems. Where: [address] [place] [address] (1) Medications What How Much When Why Instructions Next Dose Unchanged acetaminophen-oxycodone (Percocet 5 mg-325 mg oral tablet) See instructions Localized osteoarthritis of right knee Take one to two oral as needed for knee surgical pain. Pickup at [facility]/pharmacy #7272 Unchanged amlodipine 5 Milligram By Mouth 2 times a day Unchanged aspirin 81 Milligram By Mouth Every day Unchanged aspirin (aspirin 325 mg Tab) 1 Tablets By Mouth Every day Duration: 30 Days Start the dayafter knee surgery Pickup at [facility]/pharmacy #6177 Unchanged calcium-vitamin D (calcium (as carbonate)-vitamin D 600 mg-800 intl units oral tablet, chewable) 1 Tablets By Mouth Every day Unchanged carvedilol 25 Milligram By Mouth 2 times a day Unchanged clindamycin (clindamycin 300 mg oral cap) 1 Capsules By Mouth Every 8 hours Duration: 5 Days Start the day after surgery Pickup at [facility]/pharmacy #6177 Unchanged docusate (Colace 100 mg Cap) 1 Capsules By Mouth 2 times a day [facility] Unchanged furosemide (furosemide 20 mg Tab) 1 Tablets By Mouth Every day Unchanged multivitamin with minerals (Celebrate Multivitamin) 1 cap By Mouth Every day Unchanged potassium chloride (Klor Con 10 mEq Cap-ER) 1 Tablets By Mouth Every day Unchanged pravastatin 40 Milligram By Mouth Every day Unchanged telmisartan 80 Milligram By Mouth Every day [id number] [address], [place] [phone] Allergies Augmentin (Diarrhea) Devices Implanted/Removed This Visit Notice: You have devices implanted this visit that may not be MRI compatible. Implanted KNEE TOTAL ARTHROPLASTY Knee R CEMENT SIMPLEX PLAIN VISCOSITY HIGH [6194-1-010] (2), 05/03/2023, Unknown - EVELYNE: {01}[id number]{10}[id number]{17}[id number] OVAL DOME PATELLA 3-PEG 05/03/2023 P.F.C. SIGMA [...] incentive spirometer so t (more content not included)...[facility] CenterComment on above:Result Comment: Electronically Signed By: Junaid KHAN, Ignacia Edmonds\.br\Date and Time Signed: 05/03/23 11:13 ESTH&P Updateon 05-03-2023H&P [id number]#1.00TIFFNoKettering Memorial HospitalMain OR Intraoperative Recordon 96-10-3162Dejr OR Intraoperative RecordIntraOp Document Type FT Summary Primary Physician: Mercy Hilliard DO Finalized Date/Time: 05/03/23 12:19:46 Pt. Name: GIANA ISAACS/Sex: 1945 Female Med Rec #: [id number] Physician: Mercy Hilliard DO Financial #: [id number] Pt. Type: A Room/Bed: Admit/Disch: 05/03/23 06:48:16 [...] AT 0843. PATIENT VITAL SIGNS HR OF 66BPM AND SP02 OF 93%. -BILL GALVEZ SPINAL BLOCK PERFORMED BY JOSE FRANCO CRNA AT 0932. -BILL GALVEZ 05/03/23 Chart opened to review and send charges LRoth CSFA Case Attendance FT Entry 1 Entry 2 Entry 3 Case Attendee Khadar DIAZ, Jose Hilliard DO, Sanjuanita Novak CST Role Performed JAVA CORE DEVELOPER Surgeon - Primary CONSTRUCTION LINEMAN/SA Time In 05/03/23 09:28:00 05/03/23 09:50:00 05/03/23 [...] Alejandro X Troike, Kendall R Role Performed Health Information Systems Technician - Primary Staff - Other Staff - [...] DEMARCO CARNEY - SCRUB PRIMARY -Ronnie CROOK RNsugar grinder Protocols FT Pre-Care Text: Implements protective measures [...] Given Participants Mercy Hilliard DO, Wilhelm CST, Shirley Parra Alfons Ii F, Konstantin TERRY, Edilberto Henderson Kendall R Time Out Complete [...] and tissue Entry 1 Skin Integrity Intact, [place], Warm, and Skin Abnormality No Dry Outcomes Met? Yes Last M (more content not included)...[facility] CenterMain OR PACU I Recordon 24-67-2430Afbd OR PACU I RecordPACU Phase I Document Type FT Summary Primary Physician: Mercy Hilliard DO Finalized Date/Time: 05/03/23 12:37:33 Pt. Name: GIANA ISAACS./Sex: 1945 Female Med Rec #: [id number] Physician: Mercy Hilliard DO Financial #: [id number] Pt. Type: A Room/Bed: 10/29 Admit/Disch: 05/03/23 [...] individualized perioperative plan of care The patient's rightto privacy is maintained The patient's value system, [...] with or improved from baseline levels established preoperativelyThe patient's cardiovascular status is consistent with or improved from baseline levels established preoperatively The patient's cardiovascular status is consistent with or improved from baseline levels established preoperatively The patient demonstrates and/or reports adequate pain control throughout the perioperative period The patient received appropriate medication(s), safely administered during the perioperativeperiod Acuity Level PACU I FT Entry 1 Start Time 05/03/23 10:46:00 Stop Time 05/03/23 11:16:00 Acuity Level Acuity Level I Last Modified By: Abby Savage I 05/03/23 12:37:28 Finalized By: Abby Savage I Document Signatures Signed By: Abby Savage I 05/03/23 12:37NoBrown Memorial HospitalMain OR PACU II Recordon 33-72-5018Rbse OR PACU II RecordPACU Phase II Document Type FT Summary Primary Physician: Mercy Hilliard DO Finalized Date/Time: 05/03/23 15:42:55 Pt. Name: GIANA ISAACS/Sex: 1945 Female Med Rec #: [id number] Physician: Mercy Hilliard DO Financial #: [id number] Pt. Type: A Room/Bed: [place] [address] Admit/Disch: 05/03/23 06:48:16 - Institution: Case Times [...] and monitors body temperature Evaluates postoperative respiratory statusEvaluates postoperative cardiac status Evaluates postoperative neurological status [...] individualized perioperative plan of care The patient's rightto privacy is maintained The patient's value system, [...] with or improved from baseline levels established preoperativelyThe patient's cardiovascular status is consistent with or improved from baseline levels established preoperatively The patient's neurological status is consistent with or improved from baseline levels established preoperatively The patient demonstrates and/or reports adequate pain control throughout the perioperative period The patient received appropriate medication(s), safely administered during the perioperativeperiod Finalized By: Marla Yeh RN Document Signatures Signed By: Malra Yeh RN 05/03/23 15:42NoBrown Memorial HospitalMain OR Preoperative Recordon 01-20-3633Iggt OR Preoperative RecordPreOp Document Type FT Summary Primary Physician: Mercy Hilliard DO Finalized Date/Time: 05/03/23 09:55:04 Pt. Name: GIANA ISAACS/Sex: 1945 Female Med Rec #: [id number] Physician: Mercy Hilliard DO Financial #: [id number] Pt. Type: A Room/Bed: Admit/Disch: 05/03/23 06:48:16 [...] Signatures Signed By: Jeromy Watson Ii 05/03/23 09:55NormalNirmal [facility] Medical CenterMonitor Recordon 71-56-0958Rftgwcf Record [id number]#1.00TIFFReedLake Norman Regional Medical Centerboo [facility] Medical CenterMonitor [id number]#1.00TIFFReed Kinney [facility] Medical CenterOperative Reporton 21-01-4154Houdisfwr ReportSURGERY DATE: 05/03/2023 EXCHANGE ENGINEER: Sanjuanita Carl CST PREOPERATIVE DIAGNOSIS: Right knee [...] injection care was obtained. Severe grade 4 wojq-ov-gnqz disease is seen on the office x-rays. [...] everted. End-stage tricompartmental degenerative changes were noted throughoutthe knee of all three compartments which were vctu-vt-txlb. The patella was appropriately cut and re tracted. The intramedullary drill and jig device was placed in the femur and a 5 degree valgus cut taking off 11 mm was performed. This was sized at a size 2.5 [employer] PFC. Anterior, posterior chamfer cuts as well [...] 2 gm of tranexamic acid was placed subfasc ially. The fascial layer was closed with #2 Quill suture in a running fashion, 2-0 Quill suture closed the subcutaneous tissues and solo were applied. A 10- inch Mepilex dressing with soft roll wrap was provided. The patient was awaken from anesthesia and transferred to the Recovery Room in stable and satisfactory condition. CASE: Clean and elective COUNTS: Sponge and needle count correct SPECIMEN: Bone CONDITION: The patient's condition satisfactory Vlad Negro Dictated: 05/03/2023 [id number] Transcribed: 05/03/2023NoBrown Memorial HospitalComment on above:Result Comment: Electronically Signed By: Mercy Hilliard DO\.br\Date and Time Signed: 05/03/23 13:01 ESTPatient Education - Texton 34-61-4724CjrkmxmDunlap, [place] [facility] DISCHARGE INSTRUCTIONS TOTAL KNEE ARTHROPLASTY INCISION CARE: Mepilex dressing can get wet with showers. Please remove 10 days after surgery per instruction sheet. If solo present, please coordinate removal 21 days after surgery with office staff. Please notify the office if any increase in redness, tenderness, drainage, fever, or wound separation is notedbeyond this point. MEDICATIONS: You may resume your [...] continue to use the pain medication every fourhours as needed. Any narcotic pain medication can [...] a walker or crutches initially. Assistive devices canbe weaned or modified with physical therapy Physical therapy as begun in the hospital will continue at home, possible with the timber management assistant of Home Health Physical Therapy or in the hospital as an outpatient. When you have become independent withthe physical therapy program, this will then be discontinued as a supervised program and you will be instructed to continue the physical therapy exercises at home. Your exercises are marsh to successful rehabilitation. You should gain full extension first, hopefully before hospital discharge, then continue to do the exercises to maintain this, and gain 90 degreesflexion by one month post-op. Do the exercises daily, twice if preferred. DRIVING: Please do not drive for 4-6 weeks pending therapy progress. 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 It is therefore advised not to drive until after yourfirst office visit following surgery FOLLOW-UP OFFICE VISIT: Mercy Hilliard, DO [facility] [address] [place] [address] Reviewed: 09-05 Pulmonary Medicine How to Use [...] mouth, causing the piston or the ball torise toward the top of the chamber. 6. Hold your breath for 3?5 seconds, or for as long as possible. ? If the spirometer includes a softball coach indicator, use this to guide you in breathing. Slow down your breathing if the indicator goes above the marked areas. 7. Remove the mouthpiece from your mouth and breathe out normally. The piston or ball will return to the bottom of the chamber. 8. Rest for a few seconds, then repeat the steps 1 (more content not included)...[facility] CenterXR Knee 1 or 2 Views Righton 40-60-1092PR Knee 1 or 2 Views RightExam Date/Time: 05/03/2023 11:00 EST Reason for Exam: [...] Ka,r in mGy = na [facility]AP = [facility]In[facility] Summaryon 04-29-2023 Inpatient Patient Summary [facility] [address], [place] [address] [facility] Clinical Discharge Instructions PERSON INFORMATION Name: GIANA ISAACS [facility]#:[id number] PHYSICIANS Admitting Physician: Mercy Hilliard DO Attending Physician: Mercy Hilliard DO PCP: JAMESON PENDLETON DO Discharge Diagnosis: Localized osteoarthritis of right knee Comment: PATIENT EDUCATION INFORMATION Instructions: [place] - Total Knee Arthroplasty (CUSTOM) Medication Leaflets: Follow up: With: Address: When: Mercy Hilliard [address] [place] [address] Attivio (1) Comments: Keep scheduled appointment Type Location Start [facility] Surgery [facility] Surgical Services 05/03/2023 10:00 AM 05/03/2023 [...] telmisartan 80 Milligram By Mouth every day. Comment:[facility] CenterOutpatient Surgery Discharge Instructionon 76-75-9346Drpdigfpny Surgery Discharge Instruction [place] [id number] Patient Discharge Instructions PERSON INFORMATION Name: GIANA IASACS Date of : 1945 Current Date: 04/29/2023 [...] THE NEAREST EMERGENCY ROOM OR CALL 911 I, GIANA ISAACS, have received the attached patient education materials/instructions and have verbalized understanding: May we do a follow up call? Yes No I was present when discharge instructions were given Patient Signature Date Clinican/Nurse Signature Date Follow up: With: Address: When: Mercy Hilliard [address] [place], [place] [id number] Business (1) Comments: Keep scheduled appointment Type Location Start [facility] Surgery [facility] Surgical Services 05/03/2023 10:00 AM 05/03/2023 [...] to serve you. Thank you for choosing [facility] HERE ARE THE MEDICATION CHANGES THAT [...] Mouth every day. PATIENT EDUCATION INFORMATION Instructions: [place], [place] [facility] DISCHARGE INSTRUCTIONS TOTAL KNEE ARTHROPLASTY INCISION CARE: Mepilex dressing can get wet with showers. Please remove 10 days after surgery per instruction sheet. If solo present, please coordinate removal 21 days after surgery with office staff. Please notify the office if any increase in redness, tenderness, drainage, fever, or wound separation is notedbeyond this point. MEDICATIONS: You may resume your [...] continue to use the pain medication every fourhours as needed. Any narcotic pain medication can [...] improved and Physical Therapy (more content not included)...[facility] CenterOutside Recordson 15-04-5912Iifufrm Records [id number]#1.00TIFFNormalChildren's Hospital of Columbus Urineon 40-46-9205Siaxajdg identified Cx Nom (U)Microbiology PROCEDURE: Urine Culture [R1] SOURCE: U CleanCatch BODY SITE: COLLECTED DATE/TIME: 04/19/2023 11:00 EST RECEIVED DATE/TIME: 04/19/2023 13:21 EST START DATE/TIME: 04/19/2023 13:22 EST FREE TEXT SOURCE: Mercy Hilliard DO, DO, Mercy Serrano FINAL REPORTS Final Report [] Verified Date/Time: 04/21/2023 08:57 EST 2,000 cfu/ml Mixed skin contaminants Performing Locations R1: This test was performed at: [facility], [address] [place] [address], [address] , , ReruimWuxutyUniversity Hospitals Beachwood Medical CenterComment on above:Performed By: #### [id number], [id number] #### [address] [address]Brlqoyx Recordson 54-32-1012Pzplkfs Records [id number]#1.00TIFFUniversity Hospitals Beachwood Medical CenterAuto DiffOrdered By: SYSTEM SYSTEM on 38-59-8117Syupqnrvi/100 WBC (Bld)0.6 %Normal0.0-2.0FTMC HemeAutoSSComment on above:Order Comment: Order Added by Discern Expert.Performed By: #### 3963684, 3540420, 1453566, 11084729 #### [facility] [address] [place] [address]Bopbrrncv/Leukocytes Auto (Bld) [Pure # fraction]0.0 E9/LNormal 0.0-0.2FTMC HemeAutoSSComment on above:Order Comment: Order Added by Discern Expert.Performed By: #### 4034200, 5746792, 7724228, [id number] #### [facility] [address] [place] [address]Fzlnelgownw/100 WBC (Bld)2.2 %Normal0.0-8.0FTMC HemeAutoSS Comment on above:Order Comment: Order Added by Discern Expert.Performed By: #### 7539944, 8264690, 0763140, [id number] #### [facility] [address], [place] [address]Abdpuxadfog/Leukocytes Auto (Bld) [Pure # fraction]0.1 E9/L Normal0.0-0.5FTMC HemeAutoSSComment on above:Order Comment: Order Added by Discern Expert.Performed By: #### 6415318, 8461752, 2118906, [id number] #### [facility] [address] [place] [address]Ifvliqfiyqz/100 WBC (Bld)37.8 %Iebdoe37.0-50.0FTMC HemeAutoSS Comment on above:Order Comment: Order Added by Discern Expert.Performed By: #### 3424036, 3179705, 6483301, 98584716 #### [facility] [address] [place] [address]Wrrgszoxkhs/Leukocytes Auto (Bld) [Pure # fraction]2.4 E9/L Normal1.0-4.0FTMC HemeAutoSSComment on above:Order Comment: Order Added by Discern Expert.Performed By: #### 4139322, 1800678, 7887305, 40964223 #### [facility] [address] [place] [address]Fmvijpayf/100 WBC (Bld)10.8 %Normal4.0-14.0FTMC HemeAutoSS Comment on above:Order Comment: Order Added by Discern Expert.Performed By: #### 5271544, 0108472, 8594211, 32363102 #### [facility] [address] [place] [address]Clcfbevoj/Leukocytes Auto (Bld) [Pure # fraction]0.7 E9/LNormal 0.2-1.0FTMC HemeAutoSSComment on above:Order Comment: Order Added by Discern Expert.Performed By: #### 3372912, 1894082, 1416614, 84156238 #### [facility] [address] [place] [address]Kndvzycrncm/100 WBC (Bld)48.6 %Apreac91.0-75.0FT HemeAutoSS Comment on above:Order Comment: Order Added by Discern Expert.Performed By: #### 2283409, 0359575, 7756447, 64934821 #### [facility] [address], [place] [address]Jtwnxrnmgld/Leukocytes Auto (Bld) [Pure # fraction]3.1 E9/L Normal2.0-7.5FTMC HemeAutoSSComment on above:Order Comment: Order Added by Discern Expert.Performed By: #### 7584953, 1684828, 8679835, 80324811 #### [facility] [address] [place] [address]PZYYufgsex By: SYSTEM SYSTEM on 07-91-1522Nglor gap [Moles/Vol] 10 mmol/LNormal6-16FT RemisolComment on above:Performed By: #### 0448496, 2680305, 5536859, 32951863 #### [facility] [address] [place] [address]Qfdyqbe [Mass/Vol]10.0 mg/dLNormal8.9-11.1FTMC RemisolComment on above:Performed By: #### 2160505, 6299705, 7896625, 18461706 #### [facility] [address], [place] [address]Tpdzuspt [Moles/Vol]104 mmol/DQpytew010-739UWRJ RemisolComment on above:Performed By: #### 7425779, 0585613, 7053574, 90743029 #### [facility] [address], [place] [address]LS4 [Moles/Vol]31 mmol/LXbykef27-00TXXJ RemisolComment on above:Performed By: #### 0186083, 4497898, 3174795, 81181664 #### [facility] [address], [place] [address]Tespriypqx [Mass/Vol]0.5 mg/dLNormal0.5-1.3FTMC RemisolComment on above:Performed By: #### 6740770, 4097741, 2650369, 18896923 #### [facility] [address], [place] [address]Teopvli [Mass/Vol]118 mg/yGNmgjah64-105ZSER RemisolComment on above:Interpretive Data: If this glucose result represents a fasting glucose, interpretation should referto the following reference range: 55-99 mg/dLResult Comment: If this glucose result represents a fasting glucose, interpretation should refer tothe following reference range: 55-99 mg/dLPerformed By: #### 4547999, 4232482, 0139654, 37277235 #### [facility] [address], [place] [address]Bojkvinnk [Moles/Vol]3.9 mmol/LNormal3.5-5.3FTM RemisolComment on above:Performed By: #### 9794066, 3494320, 4282306, 08668112 #### [facility] [address], [place] [address]Sojmit [Moles/Vol]141 mmol/XDeluyo292-423NHUW RemisolComment on above:Performed By: #### 0236376, 0388949, 8262892, 72312008 #### [facility] [address], [place] [address]Dmve nitrogen [Mass/Vol]13 mg/dLNormal5-21[facility] [place] RemisolComment on above:Performed By: #### 4440163, 4845313, 2638592, 17483425 #### [facility] [address], [place] [address]IQEqg 21-16-5879Zyaf nitrogen/Creatinine [Mass ratio]26 No AmvdyOmfw99-05KuqihkSinai Hospital of BaltimoreComment on above:Performed By: #### 3436066, 4145370, 9734780, 28153631 #### [facility] [address], [place] [address]XJH w/ Auto DiffOrdered By: Gabriela Hyatt on 04-19-2023 Erythrocyte distribution width (RBC) [Ratio]12.9 %Bruxkj58.9-14.2[facility] HemeAutoSS Comment on above:Performed By: #### 9376859, 7878465, 7312680, 68744442 #### [facility] [address], [place] [address]Jbolpmbvfs (Bld) [Volume fraction]44.9 %Zaenfq24.0-46.0[facility] [place] HemeAutoSSComment on above:Performed By: #### 4511667, 4965660, 4942729, 23465245 #### [facility] [address], [place] [address]Byzgjyadrl (Bld) [Mass/Vol]15.3 g/vNFjdpwp09.0-16.0[facility] [place] HemeAutoSSComment on above:Performed By: #### [id number], [id number], [id number], [id number] #### [facility] [address], [place] [address]XZP (RBC) [Entitic mass]30.6 ouHnvdtm40.0-34.0[facility] [place] HemeAutoSS Comment on above:Performed By: #### [id number], 9959015, [id number], [id number] #### [facility] [address], [place] [address]JCUH (RBC) [Mass/Vol]34.0 g/pFWrfjfe77.4-36.0[facility] [place] HemeAutoSS Comment on above:Performed By: #### 7808790, 4408997, [id number], [id number] #### [facility] [address], [place] [address]ZSC (RBC) [Entitic vol]90.0 zBJlyddg52.0-100.0[facility] [place] HemeAutoSS Comment on above:Performed By: #### 5557098, 0277787, 4273109, [id number] #### [facility] [address], [place] [address]Sksaxqlb mean volume (Bld) [Entitic vol]8.6 fLNormal6.4-10.8 [facility] [place] HemeAutoSSComment on above:Performed By: #### 6744984, 2491195, 7187709, [id number] #### [facility] [address], [place] [address]Yiltiszrw (Bld) [#/Vol]231.0 E9/SQuobkf830.0-500.0[facility] [place] HemeAutoSSComment on above:Performed By: #### 1054175, 7696204, 4782374, [id number] #### [facility] [address], [place] [address]WEE (Bld) [#/Vol]5.0 E12/LNormal4.3-5.9[facility] [place] HemeAutoSSComment on above:Performed By: #### 5284902, 6022162, 0568680, [id number] #### [facility] [address], [place] [address]XOI corrected for nucl RBC Auto (Bld) [#/Vol]6.3 E9/LNormal 4.0-11.0[facility] [place] HemeAutoSSComment on above:Performed By: #### [id number], 0566057, 7449024, [id number] #### [facility] [address], [place] [address]ZQDOJKHDVGiokmpd By: SYSTEM SYSTEM on 48-01-2785Dure nitrogen/Creatinine [Mass ratio]26 mg/lrDpdi47 - [facility] [place] RemisolConsent for Treatmenton 98-90-9596Kekugph for Treatment [id number]#1.00TIFFNormalBarney Children'S Medical CenterUA With Cult Reflexon 37-20-8475Xbvxburc LM Ql (Urine sed)TRACENormalTrace [facility] CenterComment on above:Performed By: #### [id number], [id number] #### [facility] [address], [place] [address]Nbnfhfpev Ql (U)NegativeNormalNegativeBarney Children'S Medical CenterComment on above:Performed By: #### 3527876, [id number] #### [facility] [address], [place] [address]Iwxplle (U)CLEARNormalClearBarney Children'S Medical CenterComment on above:Performed By: #### [id number], [id number] #### [facility] [address], [place] [address]Vxdnc (U)YELLOWNormalYellowBarney Children'S Medical CenterComment on above:Performed By: #### [id number], [id number] #### [facility] [address], [place] [address]Rghwancbnw cells.squamous LM.HPF (Urine sed) [#/Area]0-2Normal 0-2Fisher [facility] Medical CenterComment on above:Performed By: #### [id number], [id number] #### [facility] [address], [place] [address]Iruznwj Test strip (U) [Mass/Vol]NegativeNormalNegativeBarney Children'S Medical CenterComment on above:Performed By: #### 5220430, [id number] #### [facility] [address], [place] [address]Jrreosajcu Ql (U)NegativeNormalNegOhioHealth Grant Medical CenterComment on above:Performed By: #### [id number], [id number] #### [facility] [address], [place] [address]Ipvvacj (U) [Mass/Vol]NegativeNormalNegativeBarney Children'S Medical CenterComment on above:Performed By: #### 3520870, [id number] #### [facility] [address], [place] [address]Ylxnnuv.plasma/Simla.RBC (Bld) [Mass ratio]0-2Azkypz2-5Yhnmru [facility] Medical CenterComment on above:Performed By: #### 9177779, [id number] #### [facility] [address], [place] [address]Aldxc Ql (Urine sed)TRACENormalBarney Children'S Medical Center Comment on above:Performed By: #### 9562192, [id number] #### [facility] [address] [place] [address]Hoccngo Ql (U)NegativeNormalNegOhioHealth Grant Medical Center Comment on above:Performed By: #### 9073037, [id number] #### [facility] [address] [place] [address]sA (U)6.5 [pH]Invalid Interpretation Code5.0-9.0[facility]S Medical CenterComment on above:Performed By: #### 1328955, [id number] #### [facility] [address] [place] [address]Wmwbqvk (U) [Mass/Vol]NegativeNormalNegativeBarney Children'S Medical CenterComment on above:Performed By: #### 8568432, [id number] #### [facility] [address] [place], [place] [address]Specific gravity (U) [Rel density]<=1.005Invalid Interpretation Code1.005-1.030[facility]'S Medical CenterComment on above:Performed By: #### 5800146, [id number] #### [facility] [address] [place], [place] [address]Type of Urine collection methodClean CatchUniversity Hospitals Beachwood Medical CenterComment on above:Performed By: #### 2800430, [id number] #### [facility] [address] [place] [address]Wxuzwlltkvkv Qn (U)0.2 {Araseli'U}/dLNormal0.0-1.0[facility]S Medical CenterComment on above:Performed By: #### 6590805, [id number] #### [facility] [address] [place] [address]EDX Auto Ql (U)1+AbnormalNegativeBarney Children'S Medical Center Comment on above:Performed By: #### 7091600, [id number] #### [facility] [address] [place], [place] [address]WBC LM.HPF (Urine sed) [#/Area]5-9Puzahr3-3Rjykzc [facility] Medical CenterComment on above:Performed By: #### 5319855, [id number] #### [facility] [address], [place] [address]GBNCKJEKNLFthlfqf By: Tala Bone on 14-00-3674Ubkmrdfx LM Ql (Urine sed)Trace /HPFNormalTrace/HPFFTMC UA Auto SSBilirubin Ql (U)Negative (04/19/23 11:00 AM)NormalNegativeIN[facility] [place] UA Auto SSClarity (U)Clear (04/19/23 11:00 AM)NormalClearFLINDSAY [facility] [place] UA Auto SSColor (U)Yellow (04/19/23 11:00 AM)NormalYellowFT UA Auto SSEpithelial cells.squamous LM.HPF (Urine sed) [#/Area]0-2 /HPFNormal0-2/HPFFTMC UA Auto SSGlucose Test strip (U) [Mass/Vol]Negative (04/19/23 11:00 AM)NormalNegativeINTEGRIS [facility] [place] UA Auto SSHemoglobin Ql (U)Negative (04/19/23 11:00 AM)NormalNegativeIN[facility]GRIS [facility] [place] UA Auto SSKetones (U) [Mass/Vol]Negative (04/19/23 11:00 AM)NormalNegativeINTEGRIS [facility] [place] UA Auto SSLithium.plasma/Simla.RBC (Bld) [Mass ratio]0-3 /HPFNormal0-3/HPFFTMC UA Auto SSMucus Ql (Urine sed)Trace (04/19/23 11:00 AM)NormalFT UA Auto SSNitrite Ql (U)Negative (04/19/23 11:00 AM)NormalNegativeINTEGRIS [facility] [place] UA Auto SSpH (U)6.5 *NA* (04/19/23 11:00 AM)Invalid Interpretation Code5.0 - 9.0[facility] [place] UA Auto SSProtein (U) [Mass/Vol]Negative (04/19/23 11:00 AM)NormalNegativeINTEGRIS [facility]AP[facility] [place] UA Auto SSSpecific gravity (U) [Rel density]<=1.005 *NA* (04/19/23 11:00 AM)Invalid Interpretation Code1.005 - 1.030[facility] [place] UA Auto SSUA Spec DescClean Catch (04/19/23 11:00 AM)NormalINTEGRIS BAPTIST MEDICAL CENTER – [place] UA Auto SSUrobilinogen Qn (U)0.7018109 {Araseli'U}/dLNormal0.0 - 1.0 EU/dLINTEGRIS BAPTIST MEDICAL CENTER – [place] UA Auto SSWBC Auto Ql (U)1+ *ABN* (04/19/23 11:00 AM)Invalid Interpretation CodeNegativeINTEGRIS [facility] [place] UA Auto SSWBC LM.HPF (Urine sed) [#/Area]0-5 /HPFNormal0-5/HPFINTEGRIS BAPTIST MEDICAL CENTER – [place] UA Auto SSXR Chest 2 Viewson 47-48-7479BC Chest 2 ViewsExam Date/Time: 04/19/2023 11:16 EST Reason for Exam: [...] Ka,r in mGy = na DAP = naNormalFisher [facility] Medical CentereGFROrdered By: SYSTEM SYSTEM on 87-81-9132CPQ/1.73 sq M.predicted among non-blacks MDRD (S/P/Bld) [Vol rate/Area]95 mL/min/1.73 e3Igovlc>=59[facility] [place] Chem SComment on above:Interpretive Data: Chronic kidney disease could be indicated at eGFR's of less than 60 mL/min/1.73m2. Kidney failure is indicated at less than 15 mL/min/1.73m2.Order Comment: Order added by Discern Expert.Result Comment: Chronic kidney disease could be indicated at eGFR's of less than 60 mL/min/1.73m2. Kidney failure is indicated at less than 15 mL/min/1.73m2.Performed By: #### [id number], 4881412, 6852760, [id number] #### [facility] [address] [place], [place] [address]Trygpqnds Orderon [id number] Order [id number]#1.00TIFFUniversity Hospitals Beachwood Medical CenterRAD - MISCon 72-33-7072MZJ - MISC [id number]#1.00CD:127[facility] Educationon 18-47-1392Gpsopmf EducationUrology Kidney Stones Kidney stones are rock-like masses [...] the ribs (flank pain). Pain usually spreads (radiates)to the groin. ? Needing to pee often [...] these instructions at home: Medicines ? Take shcv-dld-mqgljze and prescription medicines only as told by [...] Reviewed: 10/03/2019 Elsevier Patient Education ? 2019 [employer] Urology Office/Clinic Noteon 41-43-8565Rdshasr Office/Clinic NoteChief Complaint 1 year w/KUB HPI Staff Giana [...] E&M of Est. Patient Low 20-29 Min 22659 2. Leiomyoma (D28.7: Benign neoplasm of other specified female genital organs) Cystoscopy with Transurethral resection of urethral polyp done 03/26/21. Pathology report shows urethral bladder neck polyp as, leiomyoma. denies gross hematuria. no UTIs this past year. UA completed in office today shows no microhematuria or signs of infection. Ordered: E&M of Est. Patient Low 20-29 Min 74629 offered 1 yr f/u. pt prefers PRN. Follow-up With When Contact Information RHEA BUSBY PA-C, URL Only if needed [address] [place] [address] Business (1) Additional Instructions: Patient Education Kidney Stones, Laeq-zb-Xniz Problem List/Past Medical History Ongoing BMI 32.0-32.9,adult [...] time. pt will call if develops UTI sx.[facility] Beachwood Medical CenterComment on above:Result Comment: Electronically Signed By: RHEA BUSBY PA-C\Date and Time Signed: 05/20/2211:55 ESTXR KUB 1 VIEWon 40-04-4212NE KUB 1 VIEWEXAMINATION: XR KUB 1 VIEW HISTORY: Kidney stone [...] urinary tract calculi. Electronically authenticated by: CABRERA SEGURA Date: 2022-05-12 16:[address] [place] [address] MAMM SCREEN 3D ADELITA CADon 06-29-5233EP MAMM SCREEN 3D ADELITA CAD Patient: GIANA ISAACS Exam Date: 03/26/2022 : 1945 Gender:F Ordering : DR JAMESON PENDLETON D.O. Admission #: [id number] Family : Order #: [id number] CLICK HERE TO VIEW EXAM RADIOLOGY REPORT [...] Treatments None Family Cancers None LOCATION: [facility] BREAST COMPOSITION: Scattered areas fibroglandular density. [...] LUMP SHOULD BE BIOPSIED. Dictated by: Cabrera Segura M.D. on 03/26/2022 at 15:42 Approved by: Cabrera Segura M.D. on 03/26/2022 at 15:[address] [place] [address] AUTO DIFFon [id number] #0.1 103/ulNormal0.0-0.1The [facility] HospitalComment on above:Performed By: #### DATCBC #### [facility] [address] [address] [address] Zbigniew HerreraBasophils/100 WBC (Bld)0.5 %Normal0.2-2.0[facility] Comment on above:Performed By: #### DATCBC #### [facility] [address] [place] [address] Dr. Zbigniew Chery #0.1 103/ulNormal0.0-0.7The [facility] HospitalComment on above: Performed By: #### DATCBC #### [facility] [address] [place] [address] Dr. Zbigniew Loosinophils/100 WBC (Bld)1.0 %Normal0.9-7.0[facility] Comment on above:Performed By: #### DATCBC #### [facility] [address] [place] [address] Dr. Zbigniew Lorythrocyte distribution width (RBC) [Ratio]12.8 %Sadhmg64.0-15.0 [facility] HospitalComment on above:Performed By: #### DATCBC #### [facility] [address] [place] [address] Dr. Zbigniew HerreraHematocrit (Bld) [Volume fraction]45.6 %Kboxtl05.0-48.0The [facility] HospitalComment on above:Performed By: #### DATCBC #### [facility] [address] [place] [address] Dr. Zbigniew HerreraHemoglobin (Bld) [Mass/Vol]15.0 g/pLCxctsr62.0-16.0The [facility] HospitalComment on above:Performed By: #### DATCBC #### [facility] [address] [place] [address] Dr. Zbigniew Bond #0.03 10e3/ulNormal0.00-0.03The [facility] HospitalComment on above:Performed By: #### DATCBC #### [facility] [address] [place] [address] Dr. Zbigniew Bond %0.3 %Normal0.0-0.5The [facility] HospitalComment on above: Performed By: #### DATCBC #### [facility] [address] [place] [address] Dr. Zbigniew Stern #2.0 103/ulNormal1.2-3.8The [facility] HospitalComment on above:Performed By: #### DATCBC #### [facility] [address] [place] [address] Dr. Zbigniew Kramermphocytes/100 WBC (Bld)21.2 %Lwgiis98.5-60.0The [facility] HospitalComment on above:Performed By: #### DATCBC #### [facility] [address] [place] [address] Dr. Zbigniew Waters (RBC) [Entitic mass]30.4 cnNlabmx29.7-34.0The [facility] HospitalComment on above:Performed By: #### DATCBC #### [facility] [address] [place] [address] Dr. Zbigniew Waters (RBC) [Mass/Vol]32.9 g/vVLpiwbr72.9-35.2The [facility] HospitalComment on above:Performed By: #### DATCBC #### [facility] [address] [place] [address] Dr. Zbigniew Waters (RBC) [Entitic vol]92.5 eUZuwqch85.0-99.0The [facility] HospitalComment on above:Performed By: #### DATCBC #### [facility] [address] [place] [address] Dr. Zbigniew Friend #1.1 103/ulCritically high0.3-0.8The [facility] Comment on above:Performed By: #### DATCBC #### [facility] [address] [place] [address] Dr. Zbigniew Seymourocytes/100 WBC (Bld)11.7 %Normal1.7-12.0[facility] Comment on above:Performed By: #### DATCBC #### [facility] [address] [place] [address] Dr. Zbigniew Vail #6.1 103/ulNormal1.4-6.5The [facility] HospitalComment on above:Performed By: #### DATCBC #### [facility] [address] [place] [address] Dr. Zbigniew Gonzalesutrophils/100 WBC (Bld)65.3 %Gbzqso17.0-75.0The [facility] HospitalComment on above:Performed By: #### DATCBC #### [facility] [address] [place] [address] Dr. Zbigniew HerreraPlatelet mean volume (Bld) [Entitic vol]9.9 fLNormal9.5-13.5The [facility] HospitalComment on above:Performed By: #### DATCBC #### [facility] [address] [place] [address] Dr. Zbigniew HerreraPLT232 103/ggBarzoj285-874Rqw [facility] HospitalComment on above: Performed By: #### DATCBC #### [facility] [address] [place] [address] Dr. Zbigniew HerreraRBC4.93 106/ulNormal4.20-5.40The [facility] HospitalComment on above:Performed By: #### DATCBC #### [facility] [address] [place] [address] Dr. Zbigniew HerreraWBC9.3 103/ulNormal4.0-11.0The [facility] HospitalComment on above: Performed By: #### DATCBC #### [facility] [address] [place] [address] Dr. Zbigniew Castellon- BMP WITH LIPIDon 68-25-1214Thdwe gap [Moles/Vol]11.9 mmol/L NormalThe [facility] HospitalComment on above:Performed By: #### DATBMP #### [facility] [address] [place] [address] Dr. Zbigniew HerreraCalcium [Mass/Vol]8.9 mg/dLNormal8.5-10.1[facility] Comment on above:Performed By: #### DATBMP #### [facility] [address] [address] [address] Zbigniew HerreraChloride [Moles/Vol]104 mmol/TErykdv88-862Vna [facility] Comment on above:Performed By: #### DATBMP #### [facility] [address] [address] [address] Zbigniew HerreraCholesterol [Mass/Vol]179 mg/dLNormal<=200The [facility] Comment on above:Performed By: #### DATBMP #### [facility] [address] [address] [address] Zbigniew HerreraCholesterol in HDL [Mass/Vol]64 mg/dLCritically gfjt18-36Btk [facility] HospitalComment on above:Performed By: #### DATBMP #### [facility] [address] [address] [address] Zbigniew HerreraCholesterol in LDL [Mass/Vol]90.4 mg/dLNormalThe [facility] HospitalComment on above:Performed By: #### DATBMP #### [facility] [address] [address] [address] Zbigniew HerreraCO2 [Moles/Vol]30.9 mmol/LCritically high22.0-30.0The [facility] HospitalComment on above:Performed By: #### DATBMP #### [facility] [address] [address] [address] Zbigniew HerreraCreatinine [Mass/Vol]0.66 mg/dLNormal0.52-1.04The [facility] HospitalComment on above:Performed By: #### DATBMP #### [facility] [address] [address] [address] Coy ChangEGFR-AF THAI>60Normal>=60The [facility] HospitalComment on above:Performed By: #### DATBMP #### [facility] [address] [address] [address] Zbigniew LoGFR-NON AF THAI>60Normal>=60The [facility] HospitalComment on above:Performed By: #### DATBMP #### [facility] [address] [address] [address] Zbigniew HerreraGlucose [Mass/Vol]109 mg/dLCritically kjgi26-796Lwa [facility] HospitalComment on above:Performed By: #### DATBMP #### [facility] [address] [address] [address] Zbigniew Mabry NORMAL> or = 60 mg/dl - LOW CARDIOVASCULAR RISK <40 mg/dl - HIGH CARDIOVASCULAR RISKAvita Health System Galion HospitalComment on above:Performed By: #### DATBMP #### [facility] [address] [address] [address] Zbigniew HerreraLDL CALC NORMALSEWayne HospitalComment on above:Result Comment: <100 mg/dl OPTIMAL 100 - 129 mg/dl NEAR OR ABOVE OPTIMAL 130 - 159 mg/dl BORDERLINE HIGH 160 - 189 mg/dl HIGH >190 mg/dl VERY HIGH Performed By: #### DATBMP #### [facility] [address] [place] [address] Dr. Zbigniew HerreraPotassium [Moles/Vol]3.8 mmol/LNormal3.4-5.0[facility] Comment on above:Performed By: #### DATBMP #### [facility] [address] [place] [address] Dr. Zbigniew HerreraSodium [Moles/Vol]143 mmol/FJjqelt045-657Pzq [facility] Comment on above:Performed By: #### DATBMP #### [facility] [address] [place] [address] Dr. Zbigniew HerreraTriglyceride [Mass/Vol]123 mg/dLNormal<=150The [facility] Comment on above:Performed By: #### DATBMP #### [facility] [address] [place] [address] Dr. Zbigniew HerreraUrea nitrogen [Mass/Vol]12.0 mg/dLNormal7.0-18.0The [facility] HospitalComment on above:Performed By: #### DATBMP #### [facility] [address] [address] [address] Zbigniew HerreraUrea nitrogen/Creatinine [Mass ratio]18.2 mg/mgNoCleveland Clinic Medina HospitalComment on above:Performed By: #### DATBMP #### [facility] [address] [address] [address] Zbigniew HerreraVLDL CALC24.6 mg/dLNoCleveland Clinic Medina HospitalComment on above: Performed By: #### DATBMP #### [facility] [address] [address] [address] Zbigniew HerreraXR DEXA BONE DENSITYon [id number] DEXA BONE DENSITYEXAMINATION: XR DEXA BONE DENSITY, 08/28/2021 7:59 AM EDT HISTORY: [...] Electronically authenticated by: VITOR HOLLIDAY Date: 2021-08-28 08:55[facility] Gal[facility] HospitalXR KNEE LEFT (MIN 4 VIEWS)on 19-62-9613CM KNEE LEFT (MIN 4 VIEWS)EXAM: XR KNEE LEFT (MIN 4 VIEWS) HISTORY: Z96.652 75-year-old female left knee pain and stiffness. Total knee arthroplasty 2019. COMPARISON: Preop left knee, [facility], 03/02/2017. TECHNIQUE: Left knee series. Standing [...] by: Garcia Butcher Jr., MD 09/18/20 Final resultNoPike Community HospitalXR KNEE LEFT (MIN 4 VIEWS)Ordered By: Mercy Hilliard on . Anatomically aligned left total knee prosthesis. 2. Severe degenerative changes right knee.[employer] Phone: eXAM: XR KNEE LEFT (MIN 4 VIEWS) HISTORY: Z96.652 75-year-old female left knee pain and stiffness. Total knee arthroplasty 2019. COMPARISON: Preop left knee, [facility], 03/02/2017. TECHNIQUE: Left knee series. Standing views of both knees, oblique, lateral, and sunrise left knee. FINDINGS: The opposite right knee shows moderately severe medial and lateral compartment osteoarthritic change.The left total knee prosthesis is in anatomic alignment, including patellar button with no joint effusion or hardware complication.[facility] Phone: edi, [facility] Incoming Radiant Results From [facility] - 09/18/2020 11:27 AM EDT EXAM: XR KNEE LEFT (MIN 4 VIEWS) HISTORY: Z96.652 75-year-old female left knee pain and stiffness. Total knee arthroplasty 2019. COMPARISON: Preop left knee, [facility], 03/02/2017. TECHNIQUE: Left knee series. Standing [...] prosthesis. 2. Severe degenerative changes right knee. [facility] Phone: Vital Signs Date TimeVital SignValuePerforming JwarghvwqQiqzsfrl34-64-1115 08:03-0400Body rydjhf485.9 cmMichae [employer] Work Phone: NOSapato.ruHsvbumxzwx99-44-3227 08:03-0400Body mass index (BMI) [Ratio]31.71 kg/j0Rowytyi [employer] Work Phone: [facility] Ebkrhnkltq84-99-9929 08:03-0400Body aqyloh10.11 kgMichael Hilliard DO Work Phone: [facility] SouthTjjpdfasos01-73-9842 10:44-0400Body hfykby595.67 cmBenjamin Ball DO Work Phone: [facility]08-06-2025 10:44-0400 Body mass index (BMI) [Ratio]32.5 kg/g2Xdhqmahr Ball DO Work Phone: [facility]08-06-2025 10:44-0400 Body ohizpm53.77 kgBenjamin Ball DO Work Phone: [phone]08-06-2025 10:44-0400 Diastolic blood mm[Hg]Jameson Ball DO Work Phone: [phone]08-06-2025 10:44-0400 Heart rate67 /minBenjamin Ball DO Work Phone: [phone]08-06-2025 10:44-0400 Respiratory rate12 /minBenjamin Ball DO Work Phone: [phone]08-06-2025 10:44-0400 Systolic blood ckhuumwk515 mm[Hg]Jameson Ball DO Work Phone: [facility]12-03-2024 09:27-0500 Body llysoq177.9 cmMichael Hilliard DO Work Phone: [phone]12-03-2024 09:27-0500Body mass index (BMI) [Ratio]31.93 kg/z4Ykeblbe Hilliard DO Work Phone: [phone]12-03-2024 09:27-0500Body kfpuhq14.66 kgMichael Hilliard DO Work Phone: [phone] [place], [place] [address]07-30-2024 10:57-0400Body mcybdo508.67 cmHarrison [facility] Hospital07-30-2024 10:57-0400Body mass index (BMI) [Ratio]31.7 kg/k3CsaegczjkHarrison Community Hospital07-30-2024 10:57-0400Body jnfcur78.01 kgHarrison Community Hospital07-30-2024 10:57-0400Diastolic blood avqbbstx53 mm[Hg][facility]07-30-2024 10:57-0400 Heart rate60 /[facility]07-30-2024 10:57-0400 Respiratory rate12 /[facility]07-30-2024 10:57-0400 Systolic blood jipdirvm661 mm[Hg][facility]11-28-2023 10:00-0500Body axibbp085.67 cmBenjamin Ball Other [employer] Other 506164-20-2980 10:00-0500Body mass index (BMI) [Ratio] 32.65 kg/v9Cntddnzs Ball Other [employer] Other 11-28-2023 10:00-0500Body uzhplf36.11 kgBenjamin Ball Other [employer] Other 11-28-2023 10:00-0500Diastolic blood pvjkgmbe89 mm[Hg] Jameson Ball Other [employer] Other 11-28-2023 10:00-0500Respiratory rate12 /minBenjamin Ball Other [employer] Other 11-28-2023 10:00-0500Systolic blood mm[Hg] Jameson Ball Other [employer] Other 11-20-2023 10:38-0500Blood Pressure Estefany Hilliard [facility]11-20-2023 10:38-0500 Diastolic blood fenwveti70 mm[Hg]Mercy Hilliard [address] [place], [place] 7960311-20-2023 10:38-0500Heart rate67 /minMichael Hilliard [address] [place], [place] 5530111-20-2023 10:38-0500Mean blood wamamyel800 mm[Hg]Mercy Hilliard [address] [place], [place] 6271211-20-2023 10:38-0500 Systolic blood hgiylelg649 mm[Hg]Mercy Hilliard [address] [place], [place] 6271211-20-2023 10:37-0500Heart rate65 /minMichael Hilliard [address] [place], [place] 6271211-20-2023 10:37-2399WjG9% (BldA) [Mass fraction]93 %Mercy Hilliard [address] [place], [place] 6271211-20-2023 10:37-0500Body .7 [degF]Mercy Hilliard [address] [place], [place] 6271211-20-2023 10:37-0500Blood Pressure LocationMicanila Hilliard [address] [place], [place] 6271211-20-2023 10:37-0500 Diastolic blood oivjiwia93 mm[Hg]Mercy Hilliard [address]11-20-2023 10:37-0500 Systolic blood vevrdbor660 mm[Hg]Mercy Hilliard [address] [place], [place] 5530111-20-2023 10:36-0500Blood Pressure LocationMicanila Hilliard [address] [place], [place] 5530111-20-2023 10:36-0500 Diastolic blood xxozsvwn29 mm[Hg]Mercy Hilliard [address] [place], [place] 5530111-20-2023 10:36-0500Mean blood aeqxyvzu582 mm[Hg]Mercy Hilliard [address]11-20-2023 10:36-0500 Systolic blood iaeigxdv184 mm[Hg]Mercy Hilliard [facility]11-20-2023 10:36-0500 Respiratory rate18 /minMichael Hilliard [facility]12-21-2022 11:05-0500Blood Pressure LocationRHEA BUSBY [facility]12-21-2022 11:05-0500Diastolic blood mm[Hg]RHEA BUSBY [facility]12-21-2022 11:05-0500Heart rate68 /minRHEA BUSBY [facility]12-21-2022 11:05-0500Systolic blood icvtibsa953 mm[Hg]RHEA BUSBY [facility] Encounters Encounter DateEncounter TypeCare ProviderFacilityStart: 01-04-2025 End: 79-28-7680Kyqodo flowsheetMichael T Hilliard DO Work Phone: NO[facility]Start: 01-04-2025 End: 55-58-0040Bfpiqx flowsheetMichael T Hilliard DO Work Phone: NOXA [facility]edicsStart: 01-04-2025 End: 05-49-0745Tdtfrfn encounter procedureMichael T Hilliard DO Work Phone: N[facility]ara OrthopaedicsComment on above:Acute pain of right shoulder (Primary Dx); Tendinitis of right rotator cuffStart: 01-04-2025 End: 22-98-4547sidazoqxikTWRIOGP T POWERSNot AvailableStart: 01-03-2025 End: 39-13-4433pmfekjlvmvYqrlrdoo Ball DO Work Phone: [facility] Work Phone: Start: 01-03-2025 End: 00-24-3254Crhdpdm encounter procedureBenjamin Keerthi DO-[facility] Work Phone: Start: 05-02-2024 End: 12-25-1132Hzecqig encounter procedureMichael Maggie Hilliard DO Work Phone: noms NB ORTHOComment on above:History of bilateral knee arthroplasty (Primary Dx); Presence of left artificial knee jointStart: 05-02-2024 End: 65-72-0897gokhoanpjoRUQDQTQ T POWERSNot AvailableStart: 05-02-2024 End: 34-67-4065tggeyqledaLBRUHXE T POWERSNot AvailableStart: 03-21-2024 End: 57-54-6478zactrtmobsTanqoihsaTrumbull Regional Medical Center Work Phone: Start: 03-21-2024 End: 83-85-1036Ahaifcv encounter procedureW[facility] Work Phone: Start: 25-47-6201Jzv-patient / Non-visitW[facility]emed [facility] Work Phone: Start: 12-28-2023 End: 92-80-7772gqinoheuygRdhvnkyqfTrumbull Regional Medical Center Work Phone: Start: 12-28-2023 End: 61-14-6700Qlizscj encounter procedureWakemed [facility] Physician GroupMercy [facility] Hospital Work Phone: Start: 97-08-0219Biuynf flowsheetMelissa Kelbley 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 [facility] CI PTStart: 40-32-4635Ipjhpj flowsheetMelissa Kelbley PTANOMS CI PTStart: 07-14-2023 End: 71-42-3177Vlhvrrxef to same day surgery centerMelissa Jasperbley [facility] PT Comment on above:Aftercare following right knee joint replacement surgery (Primary Dx); Acute pain of right knee; Difficulty walking; Presence of right artificial knee jointStart: 07-14-2023 End: 31-08-2026ksdsqmpachWfxonur Kelbley PTANOMS CI PTStart: 14-81-4929Nkmbny flowsheetMelissa Kelbley PTANOMS CI PTStart: 54-36-2867Cvdyfa flowsheetCaity DOHERTY CI PTStart: 07-08-2023 End: 93-79-0704Yqrsbkfal to same day surgery Miguel A DOHERTY CI PT Comment on above:Aftercare following right knee joint replacement surgery (Primary Dx); Acute pain of right knee; Difficulty walking; Presence of right artificial knee jointStart: 07-08-2023 End: 63-73-6102kuixnwwwqoOrmmtxf Kelbley PTANOMS CI PTStart: 06-03-2023 End: 54-45-8310ixepqucuokTojutyno Ball Other [employer] Other Start: 85-68-1644Uuynednoq encounterBenjamin BallFPG Ball Medical ClinicStart: 05-27-2023 End: 10-17-1135ibhsvpeqxzDvbgcaqv Ball Other [employer] Other Start: 99-46-4915Yawgbhfoi encounterBenjamin BallFPG [facility] Medical ClinicStart: 05-03-2023 End: 06-76-3271fxccgpigguIzgmzmv T PowersFacility:FTMCStart: 04-27-2023 End: 08-42-8279jsawaunkfbUytvhzme Ball Other [employer] Other Start: 54-21-0191Jnapzgwvm for other preprocedural examinationBenjamin BallFPG [facility] Medical ClinicStart: 76-31-3767Wlozmg outpatient visit 25 minutesBenjamin BallFPG [facility] Medical ClinicStart: 04-19-2023 End: 92-82-2306wzxufznchkHvvosnq T PowersFacility:FTMCStart: 04-19-2023 End: 31-89-2083Nxxyexr encounter procedureMichael T Hilliard [facility] Start: 02-19-2023 End: 41-21-0627jcusdgdomfFpicmafn Ball Other [employer] Other Start: 43-01-5362Njyzzjemt encounterJameson Pendleton Medical ClinicStart: 02-16-2023 End: 14-51-8026cilvefizaaWsiftuzt Ball Other [facility] [employer] Other Start: 26-65-6353Qxoeatzdj encounterBejohanny Pendleton Medical ClinicStart: 05-20-2022 End: 24-02-4295kqolqngkibRGMVHLKE E PERRYFacility:EU BellevueStart: 05-20-2022 End: 43-18-4087Tqiadgf encounter procedureJENNIFER E KEHINDE [facility] Sushant start: 05-12-2022 End: 98-56-9854svyfmraotaFA Cabrera PittmanerFacility:K0Kskhd: 03-26-2022 End: 43-11-3228xhfjwxjdklNW BENJAMIN BALLFacility:O1Bjwsc: 08-28-2021 End: 16-48-4759uezbdahmskPB JAMESON PENDLETONFacility:L4Ztfyj: 93-19-1985Aihmj health examinationJameson Pendleton Other nossm [facility] [employer] Other Start: 09-18-2020 End: 44-68-9137gheyexviypOCITREZ THOMAS POWERSKindred Hospital Daytontart: 09-18-2020 End: 26-56-5417Ewqwraiaya hospital visit by physicianMwh Additional [facility] RadiologyComment on above:History of total left knee replacementStart: 08-11-2018 End: 21-58-8664Abcgikx encounter procedureDEFAULT PHYSICIANFacility:[facility] Procedures DateProcedureProcedure DetailPerforming ClinicianStart: 45-06-8149Xnmxpucsir examination knee 3 viewsMercy Hilliard DO Work Phone: Start: 10-32-7593VbwzaplljuYULDKFPO KEHNIDE Start: 58-52-5963Azqdzdhpdvwofb shockwave lithotripsy of calculus of kidneyJENNIFER KEHINDE Start: 17-12-4566Hmrbipnootvjjloga with dilation of urethral strictureJENNIFER KEHINDE Start: 38-32-4996Havvndlpya exam knee complete 4/more viewsMercy Hilliard DO Work Phone: Start: 33-96-7154Vfqss knee replacementJENNIFER KEHINDE Start: 63-94-6406Bybokaghq for malignant neoplasm of colonBenjamin Ball Other ColonoscopyJENNIFER KEHINDE Depression screeningBenjamin Ball Other HysterectomyJENNIFER KEHINDE Screening for malignant neoplasm of breastBenjamin Ball Other Plan of Treatment DateCare ActivityDetailAuthorStart: 85-70-8727Besjwliak vaccinationInfluenza Vaccine (#1)[facility] HealthcareStart: 01-04-2025 End: 15-94-3138Nhyerhg encounter xiiiobjfv66/07/2025 8:15 AM EDT [facility] [address] [place] [id number] Mercy Hilliard, DO [address] [place] [address] Acute pain of right shoulder (Primary Dx) [facility] OrthopaedicsComment on above:Acute pain of right shoulder (Primary Dx)Start: 76-07-9538Fwrtwqqup vaccinationInfluenza Vaccine (#1)[facility] Start: 09-23-2023 End: 25-49-4790Yxmhryf encounter rgoqenqyd25/25/2024 1:15 PM EDT Office Visit [facility] [address] [place] [phone] Mercy Hilliard, DO [address] [place] [address] [facility] NB ORTHOStart: 07-29-2023 End: 75-48-3399ngsxwtqbby45/29/2024 10:00 AM EST Treatment [facility] [address] [place] [address] Caity Ceballos, 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 [facility] CI PTStart: 07-27-2023 End: 75-82-4853yiauzdnzwy36/27/2024 10:30 AM EST Treatment [facility] [address] [place] [address] Caity Ceballos, 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 [facility] CI PTStart: 07-22-2023 End: 69-73-9192avcyabqter00/22/2024 10:00 AM EST Treatment [facility] [address] [place] [address] Caity Ceballos, 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 [facility] CI PTStart: 07-20-2023 End: 63-44-4181hynntespyc02/20/2024 10:30 AM EST Treatment [facility] [address] [place] [address] Caity Ceballos, 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 [facility] CI PTStart: 07-16-2023 End: 87-58-9794yjsfrfotbh80/16/2024 10:30 AM EST Treatment [facility] [address] [place] [address] Caity Ceballos, 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 [facility] CI PTStart: 07-14-2023 End: 31-10-0976hvwdsxbuez07/14/2024 10:30 AM EST Treatment [facility] [address] [place] [address] Caity Ceballos, 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 [facility] CI PTStart: 07-08-2023 End: 80-66-0002arqbvnslgb12/08/2024 10:00 AM EST Treatment [facility] [address] [place] [address] Quangaly Caity, 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 ArrivedNOMS CI PTComment on above:ArrivedStart: 72-22-2185Qrtelmlpw vaccination Flu vaccine (Season Ended)[facility] Phone: start: 20-31-8080Lwisqx Wellness Visit (AWV)Annual Wellness Visit (AWV)[facility] Phone: start: 23-24-7901Rgrxpbzsllua Vaccine: 65+ Years (2 - PCV)Pneumococcal Vaccine: 65+ Years (2 - PCV)[facility] HealthcareStart: 04-01-2016 Pneumococcal Vaccine: 65+ Years (2 of 2 - PCV)Pneumococcal Vaccine: 65+ Years (2 of 2 - PCV)[facility] HealthcareStart: 16-66-2362Jewvftvvptde 65+ years Vaccine (1 of 1 - PPSV23)Pneumococcal 65+ years Vaccine (1 of 1 - PPSV23)[facility] Phone: start: 80-07-9832Gopdnvznd for osteoporosisDEXA (modify frequency per FRAX score)[facility] Phone: start: 89-76-0184Agvwyxno Vaccine (1 of 2)Shingles Vaccine (1 of 2)[facility] Phone: start: 23-10-2973VUkS/Tdap/Td vaccine (1 - Tdap) DTaP/Tdap/Td vaccine (1 - Tdap)[facility] Phone: start: 59-78-3616CENPB-19 Vaccine (1)COVID-19 Vaccine (1)[facility] Phone: start: 53-89-5108Thjkhoonr C screeningHepatitis C screenOhiohealth Dublin [facility] Hospital mSchool Work Phone: comprehensive metabolic 2000 panel - Serum or Plasma [facility]Com[facility] 1999 panel - Serum or PlasmaPres[facility]community [facility] Immunizations Immunization DateImmunizationNotesCare IuhusprnJiivacon37-84-3372fzbdkdbwo, high dose seasonal, preservative-freeBenjamin Ball DO Work Phone: [facility]12-11-2024influenza virus vaccine, unspecified formulationMichael Hilliard DO Work Phone: NOLafayette [facility] Health CenterTwqwwkmmkk27-53-3468nayupzuqt virus vaccine, unspecified formulationMichael Hilliard DO Work Phone: NOLafayette Regional Health CenterLyvnczzsrp50-86-7967chddxeltb virus vaccine, unspecified formulationH[facility] Hospital10-05-2022influenza, high dose seasonal, preservative-freeBenjamin Ball Other [employer] Other [id number]-MeT-7 (COVID-19) Ad26 vaccine, recombinantJENNIFER KEHINDE [facility]09-24-2021influenza virus vaccine, split virus (incl. purified surface antigen)Jameson Keerthi Other [employer] Other 09-332858-12-6288lfvoebwto virus vaccine, unspecified formulationH[facility] Hospital02-18-2021COVID-19 Vaccine Pfizer - Documentation Purposes OnlyBenjamin Ball Other [facility]02-18-2021SARS-CoV-2 (COVID-19) Ad26 vaccine, recombinantJENNIFER KEHINDE [facility]01-28-2021COVID-19 Vaccine Moderna - Documentation Purposes OnlyBenjamin Ball Other [facility]01-28-2021SARS-CoV-2 (COVID-19) mRNA BNT-162b2 Sarah BUSBY [facility] [place] 824540-01-2020influenza virus vaccine, split virus (incl. purified surface antigen)Jameson Pendleton Other [employer] Other 10631032-14-1432qxbvjjvpw virus vaccine, unspecified formulationH[facility] Hospital10-23-2019influenza virus vaccine, split virus (incl. purified surface antigen)Jameson Pendleton Other [employer] Other 10763684-44-9590tpbmgfdwc virus vaccine, unspecified formulationH[facility] Hospital09-24-2018influenza virus vaccine, split virus (incl. purified surface antigen)Jameson Pendleton Other [employer] Other 09128958-28-5046tswxowatx virus vaccine, unspecified formulationH[facility] Hospital09-25-2017influenza virus vaccine, split virus (incl. purified surface antigen)Jameson Pendleton Other [employer] Other 09827759-48-4135aqxmgojsm virus vaccine, unspecified formulationH[facility] Hospital11-03-2016influenza virus vaccine, split virus (incl. purified surface antigen)Jameson Pendleton Other [employer] Other 504884-56-2082jfvyhfusn virus vaccine, unspecified formulationH[facility] Hospital11-06-2015pneumococcal conjugate vaccine, 13 valentBenlou Pendleton Other [facility]09-12-2012tetanus and diphtheria toxoids, adsorbed, preservative free, for adult use (5 Lf of tetanus toxoid and 2 Lf of diphtheria toxoid)Jameson Pendleton Other [facility]08-19-2010diphtheria, tetanus toxoids and acellular pertussis vaccine, unspecified formulation Jameson Pendleton Other [facility]08-05-2009 pneumococcal polysaccharide vaccine, 23 valentBenlou Pendleton Other [facility] Payers DatePayer CategoryPayerPolicy [id number] OTHER [id number] [id number] 1.2.840.382768.1.13.239.2.7.3.741278.315 2009Medicare [id number] [id number] 1.2.840.569418.1.13.239.2.7.3.310621.20194-88-6707Vdau-ogh12-64-9099Hebbhrl [id number] 2..840.1.297315.3.579.2. [id number] 2.16.840.1.949495.3.57[id number] 2.16.840.1.031034.3.579.[id number] 2.16.840.1.146471.3.579.[id number] 2.16.840.1.185498.3.57[id number] 2.16.840.1.838813.3.579.[id number] 2.16.840.1.487394.3.579.[id number] 2.16.840.1.605272.3.57[id number] 2.16.840.1.688297.3.57[id number] 2.16.840.1.812122.3.57[id number] 2.16.840.1.901681.3.57[id number] 2.16.840.1.675282.3.579.[id number] 2.16.840.1.2049[id number] 2.16.840.1.701206.3.579.2.593 UnknownOther1 (STD)[id number] vjmb2u90-h80i-1frc-1764-7a1673a44l99 Social History DateTypeDetailFacilityTobacco smoking status NHISUnknown if ever smokedA[facility] Therapy Phone: start: 37-45-2830Lif Assigned At BirthNot on [facility] centerA[facility] Phone: start: 05-13-2021 End: 40-83-0739Hbhcfuj smoking statusEx-smoker (finding)[facility] HospitalTobacco smoking statusNeverWood County Hospitaltart: 06-03-2023 End: 59-48-7459Uoy Assigned At [facility] HospitalHistory of tobacco useCurrent smokerNOMS HealthcareHistory of tobacco useCigarette SmokerNOMS HealthcareStart: 13-85-1081Sofapvf use and exposureSmokeless tobacco non-userNOMS HealthcareStart: 06-03-2023 End: 29-95-6889Bjeppon of Social functionNOMS HealthcareStart: 62-21-7302Jbm Assigned At [facility] SouthexFemale (finding) [facility] Functional Status OixmVqvygainxuQwysirVcssudns09-32-8846Qzmgmmzrov StatusNoFishMeritus Medical CenterPotlws37-94-8393Vxorqvojfn StatusN/AExec[facility] Clinical Notes 05-20-2022 to 05-02-2024 Note Date & CeolGqgdHhpezdzi87-06-1777 History of Present illness Narrative* Mercy Hilliard, DO - 05/02/2024 9:30 AM EST Post op TKA bilateral staggered annual visit: [...] exercise, weight management and fall precautions reviewed. FPC antibiotic prophylaxis for dental or invasive work were reviewed. Numerous questions were answered. Follow-up in 1 year for repeat xray and exam, sooner if concerned. The patient is discharged in stable condition. documented in this encounterCox SouthXzllidcawg97-52-3340 Note [id number] Manuel [facility] 04-27-2023 Evaluation note* Encounter Date Diagnosis Assessment Notes Treatment Notes Treatment Clinical Notes Mar, ASHD (arteriosclerotic heart dis ease) (ICD-10 - I25.10) No activity limiting symptoms. Maintain optimal volume status. No contraindication to holding ASA perioperatively. Continue Carvedilol without interruption. Mar,re-operative examination for internal medicine (ICD-10 - Z01.818)I have reviewed her medication list: - holding ASA for 5 days. - holding Furosemide and Potassium the day of surgery. - holding Telmisartan due to increased risk of perioperative hypotension. I have reviewed her labs, CXR and EKG and the results are acceptable to proceed with surgery. Mar,rimary hypertension (ICD-10 - I10)Stable Holding Telmisartan the day of surgery, to avoid risk of hypotension. Anticipate restarting the following day. Continue Amlodipine without interruption Mar,Elevated cholesterol (ICD-10 - E78.00)Stable, continue medication w/o interruption Mar,hronic venous insufficiency (ICD-10 - I87.2)Low salt diet, elevate and compression stockings. Early ambulation encouraged. [employer] Other 12-21-2022 Hospital Discharge instructions Patient Education 05/20/2022 11:53:51 Kidney Stones, Plyw-ds-Dvbv Kidney Stones Kidney stones are rock-like masses [...] Follow these instructions at home: Medicines Take cxxb-jxl-xbmfwcu and prescription medicines only as told by [...] 11/02/2008 Document Revised: 10/03/2019 Document Reviewed: 10/03/2019 [employer] Patient Education 2020 [employer]. Follow Up Care 05/13/2021 12:23:02 With:KEHINDE AVALOS, RHEA Yee, URL Address: [address] [place] [address] Business (1) When: only if needed [facility] evaluation + Plan note No data available for this section [facility] evaluation + Plan note Future Appointments Appointment Date:05/03/2023 10:00:00 AM Scheduled Provider: Location:[facility] Appointment Type:Surgery FT Diagnostic Tests Pending * Urine Culture [facility]/19/23 [facility]* Diagnosis History of total left knee replacement documented in this encounter [employer] Work Phone: evaluation noteNo [facility] [employer] Other Evaluation note* Diagnosis Aftercare following right [...] Date Resolution Status ASHD (arteriosclerotic heart disease) acuteChronic venous insufficiency of lower extremityacuteGAD (generalized anxiety disorder)acuteHypercholesterolemiaacuteHypertensionacutePrimary osteoarthritis of knees, bilateralacuteMedicare annual wellness visit, subsequentnoneactiveScreening mammogram for breast cancernonctive [facility] Work Phone: Evaluation note* Diagnosis Onset Date Resolution Status ASHD (arteriosclerotic heart disease) acuteChronic venous insufficiency of lower extremityacuteGAD (generalized anxiety disorder)acuteHypercholesterolemiaacuteHypertensionacutePrimary osteoarthritis of knees, bilateralacuteMedicare annual wellness visit, subsequentnoneactiveScreening mammogram for breast cancernoneactiveASHD (arteriosclerotic heart disease)acuteHypertensionacuteCOVIDnoneGreen Cross Hospital Work Phone: Evaluation note* Diagnosis History of bilateral knee arthroplasty- Primary Presence of left artificial knee joint documented in this encounter [facility] HealthcareEvaluation note* Diagnosis Onset Date Resolution Status Admit Date ASHD (arteriosclerotic heart disease) acuteAugust 2024 10:21amChronic venous insufficiency of lower extremity acuteAugust 2024 10:21amGAD (generalized anxiety disorder)acuteAugust 2024 10:21amHypercholesterolemiaacuteAugust 2024 10:21amHypertensionacute [place] 2024 10:21amPrimary osteoarthritis of knees, bilateralacuteAugust 2024 10:21amMedicare annual wellness visit, subsequentnoneactiveAugust 2024 10:21amScreening mammogram for breast cancernoneactiveAugust 2024 10:21am [facility] Work Phone: Evaluation note* Diagnosis Acute pain of right shoulder- Primary Tendinitis of right rotator cuff documented in this encounter [facility] HealthcareHistory general Narrative - Reported* Type Description Date Medical History Seasonal allergic rhinitis due t o pollen Medical HistoryMass overlapping multiple quadrants of right breastMedical HistoryChronic bronchitis, simpleMedical HistoryGAD (generalized anxiety disorder)Medical HistoryASHD (arteriosclerotic heart disease)Medical History Chronic venous insufficiencyMedical HistoryLumbar spondylosisSurgical History COLONOSCOPYSurgical HistoryCYSTOSCOPY, WITH LITHOTRIPSYSurgical HistoryLEFT TOTAL KNEE ARTHROPLASTYSurgical HistoryTAH [id number] HistoryPTCA [id number] Surgical [id number] HistorySEE SURGICAL [facility] [employer] Other History general Narrative - Reported* Type Description Date Medical History Seasonal allergic rhinitis due t o pollen Medical HistoryMass overlapping multiple quadrants of right breastMedical HistoryChronic bronchitis, simpleMedical HistoryGAD (generalized anxiety disorder)Medical HistoryASHD (arteriosclerotic heart disease)Medical History Chronic venous insufficiencyMedical HistoryLumbar spondylosisSurgical History COLONOSCOPYSurgical HistoryCYSTOSCOPY, WITH LITHOTRIPSYSurgical HistoryLEFT TOTAL KNEE ARTHROPLASTYSurgical HistoryTAH [id number] HistoryPTCA [id number] Surgical IyjohsfMPG6382Vkfcxccf HistoryRight TKA04/2023Hospitalization History SEE SURGICAL HX [employer] Other Hospital Discharge instructions No data available for this section [facility] HospitalProgress note No data available for this section [facility] reason for referral (narrative)No reason for referral information availableSt. John Of God Hospital Work Phone: Summary Purpose Family History No Family History Records Found Relationship Condition Age at Onset Recorded Date/T rolanda father Unknown motherDeceasedUnknown Advance Directives No Advanced Directives Records Found [...] mammogram for breast cancer Chief Complaint wellness [phone] cold symptoms, fever, 3 daysReason for VisitASHD (arteriosclerotic heart disease) Chronic venous insufficiency of lower extremity HANSA (generalized anxiety disorder) Hypercholesterolemia Hypertension Primary osteoarthritis of knees, bilateral Medicare annual wellness visit, subsequent Screening mammogram for breast cancer ASHD (arteriosclerotic heart disease) Hypertension COVID Chief Complaint Admit Date Wellness January 03, 2025 10: 21am Reason for Visit Admit Date ASHD (arteriosclerotic heart disease) [facility] 20[facility] 10:21am Chronic venous insufficiency of lower ex tremity January 03, 2025 10:21am HANSA (generalized anxiety disorder) [facility] 2024 10:21am Hypercholesterolemia January 03, 2025 10 :21am Hypertension January 03, 2025 10: 21am Primary osteoarthritis of knees, bilater al January 03, 2025 10:21am Medicare annual wellness visit, subseque nt January 03, 2025 10:21am Screening mammogram for [facility] 20[facility] 10:21am Additional Source Comments INFORMATION SOURCE (unrecogn ized section and content) DATE CREATED AUTHOR 08/13/2018 [facility] DATE CREATED AUTHOR AUTHOR'S ORGANIZ ATION 09/23/2020 [facility] DATE CREATED AUTHOR AUTHOR'S ORGANIZ ATION 05/22/[address] [facility] DATE CREATED AUTHOR AUTHOR'S ORGANIZ ATION 05/12/2023 [facility] DATE CREATED AUTHOR AUTHOR'S ORGANIZ ATION 01/06/2025 [facility] EPIC Patient Care team informatio n (unrecognized section and content) Team MemberRelationshipSpecialtyStart DateEnd Date Jameson Pendleton MD [address] [place] [phone] PCP - GeneralInternal Aeusygsd49/31/23Team MemberRelationshipSpecialtyStart Date End Date Jameson Pendleton MD [address] [place] [phone] PCP - GeneralInternal Zgdwecjp53/31/23Te MemberRelationshipSpecialtyStart Date End Date Jameson Pendleton MD [address] [facility] [place] [address] PCP - GeneralInternal Ovaajyhn57/31/23Team MemberRelationshipSpecialtyStart Date End Date Jameson Pendleton MD [address] [place] [phone] PCP - GeneralInternal Npqcavze98/31/23 Team Status: Active Member Role Status Dates PHYSICIAN NO FAMILY Primary Care Provider Active Team Status: Inactive Member Role Status Dates PHYSICIAN NO FAMILY Primary Care Provider Active Start: December 28, 2023 End: December 27Hans Machado ProviderActiveStart: December 28, 2023 End: December 28, 2023 Team Status: Active Member Role Status Dates PHYSICIAN NO FAMILY Primary Care Provider Active Start: January 26, 2024 aHns Wade ProviderActiveStart: January 26, 2024 Team Status: Inactive Member Role Status Dates PHYSICIAN NO FAMILY Primary Care Provider Active Start: March 21, 2024 End: March 21sreekanth Pendleton DOAttending ProviderActiveStart: March 21, 2024 End: March 21, 2024Team MemberRelationshipSpecialtyStart DateEnd Date Jameson Pendleton MD [address] [place] [phone] PCP - GeneralInternal Dvunmfsr17/31/23 Team Status: Active Member Role Status Dates Jameson Pendleton DO Primary Care Provider Active Team Status: Inactive Member Role Status Dates Jameson Pendleton DO Primary Care Provider Active Start: January 03, 2025 End: January 03enlou Pendleton DOAttjude ProviderActiveStart: January 03, 2025 End: January 03, 2025Team MemberRelationshipSpecialtyStart DateEnd Date Jameson Pendleton DO [address] [place] [address] PCP - GeneralInternal Medicine01/04/25Team MemberRelationshipSpecialtyStart Date End Date Jameson Pendleton DO [address] [place] [phone] PCP - GeneralInternal Medicine01/04/25 REASON FOR VISIT (unrecogniz ed section and content) SpecialtyDiagnoses / ProceduresReferred By ContactReferred To ContactPhysical Therapy Diagnoses Aftercare following right knee joint replacement surgery Presence of right artificial knee joint Procedures AK THER PX 1/> AREAS EACH 15 MIN NEUROMUSC REEDUCA PHYS/OCC THERAPY SS AK THERAPEUTIC PX 1/> AREAS EACH 15 MIN EXERCISES AK MANUAL THERAPY TQS 1/> REGIONS EACH 15 MINUTES [facility], [address] [place] [address] [address] [address] Referral IDStatusReasonStart DateExpiration DateVisits RequestedVisits [id number] Consult and Treat [id number] Goals (unrecognized section and content) Goals may [...] BE BASED ON THE PRIMARY CLINICAL RECORDS. [employer] [facility]. provides no warranty or guarantee of the accuracy or completeness of information in this document.
--- NOTE | 2025-05-07 09:50 | MM_ITS ---
Patient Name: GIANA ISAACS MR#: [id number] : 1945 Exam Date: 05/07/2025 Ordering Doctor: DR CAREN PENDLETON D.O. RADIOLOGY REPORT PROCEDURE: MM TOMOSYNTHESIS SCREENING BI COMPARISON: MM TOMOSYNTHESIS SCREENING BI, 04/03/2024. MM TOMOSYNTHESIS SCREENING BI, 03/29/2023. MG MAMM SCREEN 3D ADELITA CAD, 03/26/2022. MG MAMM ADELITA SCRN W CAD DIG, 08/18/2013. INDICATIONS: Screening Calculator Name NCI Breast Cancer Risk Assessment Tool 5 Year Breast Cancer Risk 1.40% Lifetime Breast Cancer Risk 2.10% Personal Breast Cancer No Personal Ovarian Cancer No Treatments None Family Cancers None LOCATION: [facility] BREAST COMPOSITION: There are scattered areas of fibroglandular density. FINDINGS: RIGHT BREAST: No significant suspicious finding. Benign-appearing calcifications are present. LEFT BREAST: No significant suspicious finding. Benign-appearing calcifications are present. Similar focal asymmetries are present . DIAGNOSTIC CATEGORY 2--BENIGN FINDING. NO CHANGE FROM COMPARISON. RECOMMENDATIONS: ROUTINE MAMMOGRAM AND CLINICAL EVALUATION IN 12 MONTHS. Dictated by: Abel Vaughn MD on 05/07/2025 at 14:58 Approved by: Abel Vaughn MD on 05/07/2025 at 15:07
== END 2025-05-07 09:44 | disposition home or self-care (01) ==
LOC: MAMMO 09:43
PROVIDERS: PCP Internal Medicine; Visit Provider Internal Medicine
DX: Z12.31 Encounter for screening mammogram for malignant neoplasm of breast (principal)
CPT/HCPCS: 77063; 77067